=== PATIENT | male | born 1940 | race Caucasian/White ===

== ENCOUNTER 2017-06-13 09:47 | Day surgery (SDC) | payer MEDICARE, BC | END 2017-06-13 11:30 | disposition home or self-care (01) | LOC: SDC-PAIN 09:47 | PROVIDERS: ATTEND Internal Medicine | DX: Z53.21 Procedure and treatment not carried out due to patient leaving prior to being seen by health care provider (principal) ==

== ENCOUNTER 2017-07-04 07:36 | Day surgery (SDC) | payer MEDICARE, BC ==
[2017-07-04] MEDS ORDERED: Lactated Ringers 1,000 ML IV ONE (07:37)
[2017-07-04] MEDS ORDERED: LIDOCAINE HCL 2% 100 MG/5 ML IJ ONE (07:37)
[2017-07-04] MEDS ORDERED: Marcaine 0.5% SDV 10 ML IJ ONE (07:37)
[2017-07-04] MEDS ORDERED: DIPRIVAN 200 MG/20 ML IV ONE (07:37)
[2017-07-04] MEDS ORDERED: Xylocaine-Mpf 2 ML IJ ONE (07:37)
--- NOTE | 2017-07-04 10:05 | XRAY ---
Indication: Right L3-L4 and L4-L5 MBB. Intraoperative fluoroscopy was provided for 23 seconds. 2 digital spot images submitted for interpretation demonstrates 3 posterior spinal needle tips projecting over what appears to be the the right L3, L4, and L5 pedicles. Correlate with intraoperative findings/report.
--- NOTE | 2017-07-04 10:38 | XRAY ---
23 seconds fluoroscopy time in surgery for right L3-L4 and L4-L5 MBB.
--- NOTE | 2017-07-04 14:35 | OP ---
DATE OF PROCEDURE: 07/04/2017 0937 SURGEON: Queenie Kincaid D.O. PREOPERATIVE DIAGNOSIS: Degenerative lumbar spine disease, spondylosis, low back pain. POSTOPERATIVE DIAGNOSIS: Degenerative lumbar spine disease, spondylosis, low back pain. PROCEDURE PERFORMED: Right L4, L3, L2 medial branch block under fluoroscopic guidance. DESCRIPTION OF THE PROCEDURE: The patient was taken to the operating room and placed in the prone position on the table. Skin at the injection site was prepped and draped in sterile fashion. Under fluoroscopy, bony anatomy of the targeted injection site was visualized. Induction agent was given as per anesthesia while vital signs were monitored. Local anesthetic agent of 0.5 cc of 1% lidocaine preservative free was introduced to anesthetize the skin and the subcutaneous tissue through the injection site. Under fluoroscopic guidance, a #20 gauge standard spinal needle was advanced into the target medial branch through the oblique approach. The preservative free 0.5 cc of 1% lidocaine and 0.5 cc of 0.25% Marcaine were injected into each of the targeted medial branch nerve. After the needle was being removed, the skin was cleansed with alcohol and then a bandage was applied. No complications or adverse consequences were observed. The patient was returned to the holding area until stabilized before discharge to home. Preoperative pain level is 9 out of 10 and postoperative pain level is 3 out of 10. The patient will be followed up within ten days after the injection for re-evaluation.
== END 2017-07-04 10:20 | disposition home or self-care (01) ==
LOC: SDC-PAIN 07:36
PROVIDERS: ATTEND Internal Medicine
DX: M54.5 Low back pain (principal); M46.96 Unspecified inflammatory spondylopathy, lumbar region; M54.16 Radiculopathy, lumbar region; M47.26 Other spondylosis with radiculopathy, lumbar region; Z79.891 Long term (current) use of opiate analgesic
CPT/HCPCS: 64493; 64494; 64495; 72020; 76000; J2704

== ENCOUNTER 2017-09-08 17:51 | Emergency (ER) | payer MEDICARE, BC ==
--- NOTE | 2017-09-08 18:12 | ERPHSYRPT ---
<DAVY SANTOS - Last Filed: 09/08/17 18:13> - History of Present Illness Time Seen by Provider: 09/08/17 18:05 Historian: patient Exam Limitations: no limitations Patient Subjective Stated Complaint: Pt states "About a week ago I was walking my dog and I was holding onto the leash with my left hand and he took off after something and pulled me over. My left ribs and back have hurt really bad ever since. It hurts to breath." Triage Nursing Assessment: Pt alert and oriented X 3, skin pwd. pt ambulates holding his left ribs. Pt able to speak in clear full sentences. Physician History: 76 y/o male comes to the ER with complaints of left sided rib pain after falling 1 week ago. Pt states that he was walking his dog and landed on his left side. Pt arrives with a significant amount of pain. Pt describes the pain as sharp, constant, 8/10, worse with deep breathing and not relieved by norco. Pt denies any fever, chills, or shortness of breath. Pt arrives with an O2 sat of 96% on RA. Timing/Duration: week(s) Activities at Onset: none Quality: sharpness Location: other (left rib pain) Chest Pain Radiation: no radiation Severity of Pain-Max: severe Severity of Pain-Current: severe Modifying Factors: Improves With: palpation Associated Symptoms: denies symptoms Prior Chest Pain/Cardiac Workup: no prior chest pain Nitro Today/Relief: no nitro taken today Aspirin Treatment Today: no aspirin today Allergies/Adverse Reactions: Antihistamines - Alkylamine Allergy (Verified 08/25/15 13:28) bacitracin Allergy (Verified 08/25/15 13:28) miconazole nitrate [From Neosporin AF] Allergy (Verified 08/25/15 13:28) NSAIDS (Non-Steroidal Anti-Inflamma Allergy (Verified 08/25/15 13:28) Oyhyzqx-Pvf-Vav Reductase Inhibitor Allergy (Verified 08/25/15 13:28) Home Medications: Amlodipine Besylate 10 mg [Norvasc 10 MG] 10 mg PO QAM 05/06/15 [History] Hydrocodone/APAP 10/325 mg [[place] 10/325 MG Tablet] 1 tab PO Q6H PRN PRN 06/26/17 [History] Hx Tetanus, Diphtheria Vaccination/Date Given: Yes Hx Influenza Vaccination/Date Given: No Hx Pneumococcal Vaccination/Date Given: No Immunizations Up to Date: Yes - Review of Systems Constitutional: No Fever, No Chills Eyes: No Symptoms Ears, Nose, & Throat: No Symptoms Respiratory: No Cough, No Dyspnea, No Dyspnea on Exertion (PERKINS) Cardiac: Chest Pain, No Edema, No Syncope Abdominal/Gastrointestinal: No Abdominal Pain, No Nausea, No Vomiting, No Diarrhea Genitourinary Symptoms: No Dysuria Musculoskeletal: No Back Pain, No Neck Pain Skin: No Rash Neurological: No Dizziness, No Focal Weakness, No Sensory Changes Psychological: No Symptoms Endocrine: No Symptoms All Other Systems: Reviewed and Negative - Past Medical History Pertinent Past Medical History: Yes Neurological History: No Pertinent History ENT History: No Pertinent History Cardiac History: Coronary Artery Disease, Hypertension Respiratory History: No Pertinent History Endocrine Medical History: No Pertinent History Musculoskeletal History: Arthritis GI Medical History: Ulcer History: No Pertinent History Psycho-Social History: No Pertinent History Male Reproductive Disorders: No Pertinent History Other Medical History: Chronic back pain - Past Surgical History Past Surgical History: Yes Neuro Surgical History: No Pertinent History Cardiac: CABG, Cardiac Catheterization, Cardiac Stent Respiratory: No Pertinent History Gastrointestinal: No Pertinent History Genitourinary: No Pertinent History Musculoskeletal: No Pertinent History Male Surgical History: No Pertinent History Other Surgical History: bypass and 4 stents, left knee surgery "cleaned out around the knee", left shoulder surg "removed something that was restricting blood flow because my shoulder just hung." - Social History Smoking Status: Former smoker Exposure to second hand smoke: No Drug Use: none Patient Lives Alone: No - Nursing Vital Signs Nursing Vital Signs: Initial Vital Signs Temperature 99.5 F 09/08/17 17:56 Pulse Rate 82 09/08/17 17:56 Respiratory Rate 20 09/08/17 17:56 Blood Pressure 150/82 09/08/17 17:56 O2 Sat by Pulse Oximetry 96 09/08/17 17:56 Pain Scale Pain Intensity 6 - Physical Exam General Appearance: no apparent distress, alert Eye Exam: PERRL/EOMI, eyes nml inspection Ears, Nose, Throat Exam: normal ENT inspection, moist mucous membranes Neck Exam: normal inspection, non-tender, supple, full range of motion Respiratory Exam: normal breath sounds, chest tenderness, lungs clear, No respiratory distress Cardiovascular Exam: regular rate/rhythm, normal heart sounds Gastrointestinal/Abdomen Exam: soft, No tenderness, No mass Back Exam: normal inspection, No CVA tenderness, No vertebral tenderness Extremity Exam: normal inspection, normal range of motion Neurologic Exam: alert, oriented x 3, cooperative, normal mood/affect, sensation nml, No motor deficits Skin Exam: normal color, warm, dry SpO2: 96 Oxygen Delivery: Room Air Ordered Tests: Active Orders 24 hr Category Date Time Status EKG-ER Only STAT Care 09/08/17 19:11 Active RIBS UNILATERAL Stat Exams 09/08/17 19:50 Taken CBC W DIFF Stat Lab 09/08/17 19:25 Completed CMP Stat Lab 09/08/17 19:25 Completed CULTURE,URINE Stat Lab 09/08/17 19:35 Received LIPASE Stat Lab 09/08/17 19:25 Completed Lactic Acid Stat Lab 09/08/17 19:30 Completed TROPONIN Q3H Lab 09/08/17 19:25 Completed TROPONIN Q3H Lab 09/08/17 22:15 Ordered TROPONIN Q3H Lab 09/09/17 01:15 Ordered TROPONIN Q3H Lab 09/09/17 04:15 Ordered TROPONIN Q3H Lab 09/09/17 07:15 Ordered UA W/ MICROSCOPIC Stat Lab 09/08/17 19:35 Completed Incentive Spirometry Assessmen UD RT 09/08/17 20:20 Active Medication Summary Discontinued Medications Generic Name Dose Route Start Last Admin Trade Name Freq PRN Reason Stop Dose Admin Morphine Sulfate 4 mg 09/08/17 18:16 09/08/17 18:24 Morphine Sulfate 4 Mg Inj IM 09/08/17 18:17 4 mg STAT ONE Administration Morphine Sulfate Confirm 09/08/17 18:21 Morphine Sulfate 4 Mg Inj Administered 09/08/17 18:22 Dose 4 mg .ROUTE .STK-MED ONE Lab/Rad Data: Laboratory Result Diagrams 09/08/17 19:25 09/08/17 19:25 Laboratory Results 09/08/17 09/08/17 09/08/17 Range/Units 19:35 19:30 19:25 WBC (4.0-10.5) K/mm3 RBC (4.1-5.6) M/mm3 Hgb (12.5-18.0) gm/dl Hct (42-50) % MCV (78-100) fl MCH (26-32) pg MCHC (32-36) g/dl RDW (11.5-14.0) % Plt Count (150-450) K/mm3 MPV (6-9.5) fl Gran % (36.0-66.0) % Eos # (Auto) (0-0.5) Absolute Lymphs (auto) (1.0-4.6) Absolute Monos (auto) (0.0-1.3) Lymphocytes % (24.0-44.0) % Monocytes % (0.0-12.0) % Eosinophils % (0.00-5.0) % Basophils % (0.0-0.4) % Absolute Granulocytes (1.4-6.9) Basophils # (0-0.4) Sodium (137-145) mmol/L Potassium (3.5-5.1) mmol/L Chloride (98-107) mmol/L Carbon Dioxide (22-30) mmol/L Anion Gap (5-15) MEQ/L BUN (9-20) mg/dL Creatinine (0.66-1.25) mg/dL Estimated GFR ML/MIN Glucose (74-106) mg/dL Lactic Acid 1.0 (0.4-2.0) Calcium (8.4-10.2) mg/dL Total Bilirubin (0.2-1.3) mg/dL AST (17-59) U/L ALT (0-50) U/L Alkaline Phosphatase (38-126) U/L Troponin I < 0.012 (0.000-0.034) ng/mL Serum Total Protein (6.3-8.2) g/dL Albumin (3.5-5.0) g/dL Lipase (23-300) U/L Ur Collection Type CLEAN CATCH Urine Color YELLOW (YELLOW) Urine Appearance CLEAR (CLEAR) Urine pH 5.0 (5-6) Ur Specific [place] 1.020 (1.005-1.025) Urine Protein NEGATIVE (Negative) Urine Ketones NEGATIVE (NEGATIVE) Urine Blood NEGATIVE (0-5) Sunny/ul Urine Nitrite NEGATIVE (NEGATIVE) Urine Bilirubin NEGATIVE (NEGATIVE) Urine Urobilinogen NORMAL (0-1) mg/dL Ur Leukocyte Esterase 2+ (NEGATIVE) Urine Microscopic RBC 2-5 (0-2) /HPF Urine Microscopic WBC 15-25 (0-5) /HPF Urine Bacteria RARE (NEGATIVE) /HPF Urine Culture Reflexed YES (NO) Urine Glucose NEGATIVE (NEGATIVE) mg/dL Specimen Received 09/08/17193909/08/17 09/08/17 Range/Units 19:25 19:25 WBC 8.9 (4.0-10.5) K/mm3 RBC 4.49 (4.1-5.6) M/mm3 Hgb 12.7 (12.5-18.0) gm/dl Hct 39.4 L (42-50) % MCV 87.8 (78-100) fl MCH 28.3 (26-32) pg MCHC 32.2 (32-36) g/dl RDW 13.5 (11.5-14.0) % Plt Count 399 (150-450) K/mm3 MPV 8.4 (6-9.5) fl Gran % 76.0 H (36.0-66.0) % Eos # (Auto) 0.16 (0-0.5) Absolute Lymphs (auto) 1.25 (1.0-4.6) Absolute Monos (auto) 0.70 (0.0-1.3) Lymphocytes % 14.0 L (24.0-44.0) % Monocytes % 7.9 (0.0-12.0) % Eosinophils % 1.8 (0.00-5.0) % Basophils % 0.3 (0.0-0.4) % Absolute Granulocytes 6.77 (1.4-6.9) Basophils # 0.03 (0-0.4) Sodium 142 (137-145) mmol/L Potassium 3.9 (3.5-5.1) mmol/L Chloride 106 (98-107) mmol/L Carbon Dioxide 25 (22-30) mmol/L Anion Gap 14.3 (5-15) MEQ/L BUN 14 (9-20) mg/dL Creatinine 0.71 (0.66-1.25) mg/dL Estimated GFR > 60.0 ML/MIN Glucose 105 (74-106) mg/dL Lactic Acid (0.4-2.0) Calcium 9.3 (8.4-10.2) mg/dL Total Bilirubin 0.20 (0.2-1.3) mg/dL AST 18 (17-59) U/L ALT 14 (0-50) U/L Alkaline Phosphatase 153 H (38-126) U/L Troponin I (0.000-0.034) ng/mL Serum Total Protein 7.6 (6.3-8.2) g/dL Albumin 3.8 (3.5-5.0) g/dL Lipase 45 (23-300) U/L Ur Collection Type Urine Color (YELLOW) Urine Appearance (CLEAR) Urine pH (5-6) Ur Specific [place] (1.005-1.025) Urine Protein (Negative) Urine Ketones (NEGATIVE) Urine Blood (0-5) Sunny/ul Urine Nitrite (NEGATIVE) Urine Bilirubin (NEGATIVE) Urine Urobilinogen (0-1) mg/dL Ur Leukocyte Esterase (NEGATIVE) Urine Microscopic RBC (0-2) /HPF Urine Microscopic WBC (0-5) /HPF Urine Bacteria (NEGATIVE) /HPF Urine Culture Reflexed (NO) Urine Glucose (NEGATIVE) mg/dL Specimen Received - Departure Clinical Impression: Rib fractures, Chronic low back pain, WBC in urine-asympt Condition: Good Referrals: ENDY COTTON [Primary Care Provider] - Instructions: Rib Fracture (DC) Additional Instructions: continue your incentive breathing at home the next 2 weeks . followup with your Dr. and also for rechecking your urine which could be an infection and may require evaluation or further treatment - unrelated to your fall injury. return meantime if not improving or further concerns , productive cough, short of breath , fever, or other. Prescriptions: Cyclobenzaprine HCl [Flexeril] 10 mg PO TID PRN #14 tablet PRN Reason: Pain <LELAND LOUIS - Last Filed: 09/08/17 20:49> - Course Nursing assessment & vital signs reviewed: Yes EKG Interpreted by Me: Sinus Rhythm, NORMAL AXIS, NORMAL INTERVALS, Non- specific ST Changes - Radiology Exams Left Ribs X-ray Interpretation: Reviewed by me, No Infiltrates, Non-displaced Fracture ( nondisplaced fractures of left lateral mid-lower ribs) Lab/Rad Data: Laboratory Result Diagrams 09/08/17 19:25 09/08/17 19:25 Laboratory Results 09/08/17 09/08/17 09/08/17 Range/Units 19:35 19:30 19:25 WBC (4.0-10.5) K/mm3 RBC (4.1-5.6) M/mm3 Hgb (12.5-18.0) gm/dl Hct (42-50) % MCV (78-100) fl MCH (26-32) pg MCHC (32-36) g/dl RDW (11.5-14.0) % Plt Count (150-450) K/mm3 MPV (6-9.5) fl Gran % (36.0-66.0) % Eos # (Auto) (0-0.5) Absolute Lymphs (auto) (1.0-4.6) Absolute Monos (auto) (0.0-1.3) Lymphocytes % (24.0-44.0) % Monocytes % (0.0-12.0) % Eosinophils % (0.00-5.0) % Basophils % (0.0-0.4) % Absolute Granulocytes (1.4-6.9) Basophils # (0-0.4) Sodium (137-145) mmol/L Potassium (3.5-5.1) mmol/L Chloride (98-107) mmol/L Carbon Dioxide (22-30) mmol/L Anion Gap (5-15) MEQ/L BUN (9-20) mg/dL Creatinine (0.66-1.25) mg/dL Estimated GFR ML/MIN Glucose (74-106) mg/dL Lactic Acid 1.0 (0.4-2.0) Calcium (8.4-10.2) mg/dL Total Bilirubin (0.2-1.3) mg/dL AST (17-59) U/L ALT (0-50) U/L Alkaline Phosphatase (38-126) U/L Troponin I < 0.012 (0.000-0.034) ng/mL Serum Total Protein (6.3-8.2) g/dL Albumin (3.5-5.0) g/dL Lipase (23-300) U/L Ur Collection Type CLEAN CATCH Urine Color YELLOW (YELLOW) Urine Appearance CLEAR (CLEAR) Urine pH 5.0 (5-6) Ur Specific [place] 1.020 (1.005-1.025) Urine Protein NEGATIVE (Negative) Urine Ketones NEGATIVE (NEGATIVE) Urine Blood NEGATIVE (0-5) Sunny/ul Urine Nitrite NEGATIVE (NEGATIVE) Urine Bilirubin NEGATIVE (NEGATIVE) Urine Urobilinogen NORMAL (0-1) mg/dL Ur Leukocyte Esterase 2+ (NEGATIVE) Urine Microscopic RBC 2-5 (0-2) /HPF Urine Microscopic WBC 15-25 (0-5) /HPF Urine Bacteria RARE (NEGATIVE) /HPF Urine Culture Reflexed YES (NO) Urine Glucose NEGATIVE (NEGATIVE) mg/dL Specimen Received 09/08/17193909/08/17 09/08/17 Range/Units 19:25 19:25 WBC 8.9 (4.0-10.5) K/mm3 RBC 4.49 (4.1-5.6) M/mm3 Hgb 12.7 (12.5-18.0) gm/dl Hct 39.4 L (42-50) % MCV 87.8 (78-100) fl MCH 28.3 (26-32) pg MCHC 32.2 (32-36) g/dl RDW 13.5 (11.5-14.0) % Plt Count 399 (150-450) K/mm3 MPV 8.4 (6-9.5) fl Gran % 76.0 H (36.0-66.0) % Eos # (Auto) 0.16 (0-0.5) Absolute Lymphs (auto) 1.25 (1.0-4.6) Absolute Monos (auto) 0.70 (0.0-1.3) Lymphocytes % 14.0 L (24.0-44.0) % Monocytes % 7.9 (0.0-12.0) % Eosinophils % 1.8 (0.00-5.0) % Basophils % 0.3 (0.0-0.4) % Absolute Granulocytes 6.77 (1.4-6.9) Basophils # 0.03 (0-0.4) Sodium 142 (137-145) mmol/L Potassium 3.9 (3.5-5.1) mmol/L Chloride 106 (98-107) mmol/L Carbon Dioxide 25 (22-30) mmol/L Anion Gap 14.3 (5-15) MEQ/L BUN 14 (9-20) mg/dL Creatinine 0.71 (0.66-1.25) mg/dL Estimated GFR > 60.0 ML/MIN Glucose 105 (74-106) mg/dL Lactic Acid (0.4-2.0) Calcium 9.3 (8.4-10.2) mg/dL Total Bilirubin 0.20 (0.2-1.3) mg/dL AST 18 (17-59) U/L ALT 14 (0-50) U/L Alkaline Phosphatase 153 H (38-126) U/L Troponin I (0.000-0.034) ng/mL Serum Total Protein 7.6 (6.3-8.2) g/dL Albumin 3.8 (3.5-5.0) g/dL Lipase 45 (23-300) U/L Ur Collection Type Urine Color (YELLOW) Urine Appearance (CLEAR) Urine pH (5-6) Ur Specific [place] (1.005-1.025) Urine Protein (Negative) Urine Ketones (NEGATIVE) Urine Blood (0-5) Sunny/ul Urine Nitrite (NEGATIVE) Urine Bilirubin (NEGATIVE) Urine Urobilinogen (0-1) mg/dL Ur Leukocyte Esterase (NEGATIVE) Urine Microscopic RBC (0-2) /HPF Urine Microscopic WBC (0-5) /HPF Urine Bacteria (NEGATIVE) /HPF Urine Culture Reflexed (NO) Urine Glucose (NEGATIVE) mg/dL Specimen Received - Progress Progress: improved, re-examined Air Movement: good Progress Note: 09/08/17 19:08 pt received in handoff from Dr Martinez pain is exactly reproduced by palpation of left ribs- no sobreath no chest pressure no fever of cough , chantal diet OK no abd pain , no blood thinners other thatn ASA no dizziness. 09/08/17 20:32 discussed risks of developing pneumonia and other complications with pt and need for incentive spirometry to help prevent this and we will do a trial here in ER and decide dispo depending on how pt tolerates . THe pt did excellent with his incentive kennedy discussed risk/benefit of admit vs dc to f/u PCP and pt prefers DC which is reasonable given his performance . discussed adding muscle relaxant and pt has tolerated before . advised of possible asympt UTI and we both agree to hold ab pending re-eval with PCP . Blood Culture(s) Obtained: No Antibiotics given: No Counseled pt/family regarding: lab results, diagnosis, need for follow-up, rad results - Departure Time of Disposition: 20:42 Departure Disposition: Home Critical Care Time: No
[2017-09-08] MEDS ORDERED: MORPHINE SULFATE 4 MG INJ IM ONE (18:16)
[2017-09-08] MEDS ORDERED: MORPHINE SULFATE 4 MG INJ ONE (18:21)
[2017-09-08 19:29] VITALS: BP 133/80; PULSE 62; O2SAT 98
[2017-09-08 19:36] LABS: BASOPHIL % 0.3 % (0.0-0.4); Basophil (Absolute #) 0.03 (0-0.4); Eosinophil % 1.8 % (0.00-5.0); Eosinophil (Absolute #) 0.16 (0-0.5); Granulocyte Absolute (ANC) 6.77 (1.4-6.9); Hematocrit 39.4 % (42-50); Hemoglobin 12.7 gm/dl (12.5-18.0); Lymphocyte (Absolute #) 1.25 (1.0-4.6); Mean Cell Volume 87.8 fl (78-100); Mean Corpuscular Hemoglobin 28.3 pg (26-32); Mean Corpuscular Hgb Concent. 32.2 g/dl (32-36); Mean Platelet Volume 8.4 fl (6-9.5); Monocytes % 7.9 % (0.0-12.0); Platelet Count 399 K/mm3 (150-450); Red Blood Count 4.49 M/mm3 (4.1-5.6); Red Cell Distribution Width 13.5 % (11.5-14.0); White Blood Count 8.9 K/mm3 (4.0-10.5)
[2017-09-08 19:52] LABS: ALBUMIN 3.8 g/dL (3.5-5.0); ALKALINE PHOSPHATASE 153 U/L (38-126); ANION GAP 14.3 MEQ/L (5-15); BLOOD UREA NITROGEN 14 mg/dL (9-20); CHLORIDE 106 mmol/L (98-107); Calcium 9.3 mg/dL (8.4-10.2); Carbon Dioxide 25 mmol/L (22-30); Creatinine 1 0.71 mg/dL (0.66-1.25); Glucose 105 mg/dL (74-106); LIPASE 45 U/L (23-300); Potassium 3.9 mmol/L (3.5-5.1); SGOT/AST 18 U/L (17-59); SGPT/ALT 14 U/L (0-50); SODIUM 142 mmol/L (137-145); Total Protein 7.6 g/dL (6.3-8.2)
[2017-09-08 20:06] LABS: Appearance CLEAR (CLEAR); Bilirubin NEGATIVE (NEGATIVE); Blood NEGATIVE Ery/ul (0-5); Glucose NEGATIVE (NEGATIVE); Ketones NEGATIVE (NEGATIVE); Leukocyte Esterase 2+ (NEGATIVE); Nitrite NEGATIVE (NEGATIVE); Protein,Urine Dip NEGATIVE (Negative); Urobilinogen NORMAL mg/dL (0-1)
[2017-09-08 20:08] LABS: WBC 15-25 /HPF (0-5)
[2017-09-08 20:09] LABS: Bacteria RARE /HPF (NEGATIVE)
[2017-09-08] MEDS ORDERED: Cyclobenzaprine 10 MG PO ONE (20:49)
--- NOTE | 2017-09-08 21:24 | XRAY ---
Indication: Pain following fall. Comparison: None 2 views of the left ribs demonstrates age-related osteopenia, minimal multilevel spinal degenerative changes, a few pulmonary calcified granulomas, and CABG surgery. No acute fracture or suspicious bony lesions. Heart is not enlarged. There is a large right midlung masslike opacity, new since chest exam May 06, 2015. Impression: 1. Negative acute fracture. 2. Osteopenia and evidence for old granulomatous disease. 3. Right midlung masslike opacity. Correlate clinically. CT chest may yield further information. Comment: Right lung finding not reported on preliminary interpretation by the ER clinician. Telephone report given to Dr. Goddard at 2117 hrs. on September 08, 2017.
== END 2017-09-08 21:06 | disposition home or self-care (01) ==
LOC: ED 17:51
DX: S22.32XA Fracture of one rib, left side, initial encounter for closed fracture (principal); M54.5 Low back pain; R82.99 Other abnormal findings in urine; R91.8 Other nonspecific abnormal finding of lung field; Z79.899 Other long term (current) drug therapy; W01.0XXA Fall on same level from slipping, tripping and stumbling without subsequent striking against object, initial encounter; Y93.K1 Activity, walking an animal
CPT/HCPCS: 36415; 71100; 80053; 81000; 83605; 83690; 84484; 85025; 87086; 93005; 96372; 99284; J2270

== ENCOUNTER 2017-10-06 02:07 | Emergency (ER) | payer MEDICARE, BC ==
[2017-10-06] MEDS ORDERED: Zofran 4 MG/2 ML VIAL IV ONE (03:15)
[2017-10-06] MEDS ORDERED: MORPHINE SULFATE 4 MG INJ IV ONE (03:15)
--- NOTE | 2017-10-06 03:15 | ERPHSYRPT ---
- History of Present Illness Time Seen by Provider: 10/06/17 03:00 Historian: patient, family Exam Limitations: no limitations Patient Subjective Stated Complaint: pt co irregular heartrate and htn at home; also co right side back and rib pain; has been intermittently for approx 3 days ; felt like his head was going to explode at home earlier this pm. Triage Nursing Assessment: pt a&o x3; skin p, w, & d; ambulated to room per self ; spouse at bedside; no other distress noted at this time. Physician History: 77 y/o male comes to the ER with complaints of right sided chest pain that started this evening. Pt states that he had broken ribs on the left side. Pt also admits to having elevated SBP in the 190's with headache and took nitro. Pt arrives with a SBP in the 130's and has no headache. Pt describes the pain as sharp, constant, 8/10, worse with deep breaths and not relieved by norco. Timing/Duration: today Activities at Onset: none Quality: sharpness Location: other (right sided chest pain) Chest Pain Radiation: no radiation Severity of Pain-Max: severe Severity of Pain-Current: severe Modifying Factors: Improves With: nothing Associated Symptoms: denies symptoms Prior Chest Pain/Cardiac Workup: no prior chest pain Aspirin Treatment Today: no aspirin today Allergies/Adverse Reactions: Antihistamines - Alkylamine Allergy (Verified 10/06/17 02:24) bacitracin Allergy (Verified 10/06/17 02:24) miconazole nitrate [From Neosporin AF] Allergy (Verified 10/06/17 02:24) NSAIDS (Non-Steroidal Anti-Inflamma Allergy (Verified 10/06/17 02:24) [id number] Reductase Inhibitor Allergy (Verified 10/06/17 02:24) cyclobenzaprine Adverse Reaction (Verified 10/06/17 02:25) Irregular Heart Beat Home Medications: Amlodipine Besylate 10 mg [Norvasc 10 MG] 10 mg PO QAM 05/06/15 [History] Hydrocodone/APAP 10/325 mg [[place] 10/325 MG Tablet] 1 tab PO Q6H PRN PRN 06/26/17 [History] Hx Tetanus, Diphtheria Vaccination/Date Given: Yes Hx Influenza Vaccination/Date Given: No Hx Pneumococcal Vaccination/Date Given: Yes Immunizations Up to Date: Yes - Review of Systems Constitutional: No Fever, No Chills Eyes: No Symptoms Ears, Nose, & Throat: No Symptoms Respiratory: No Cough, No Dyspnea Cardiac: Chest Pain, No Edema, No Syncope Abdominal/Gastrointestinal: No Abdominal Pain, No Nausea, No Vomiting, No Diarrhea Genitourinary Symptoms: No Dysuria Musculoskeletal: No Back Pain, No Neck Pain Skin: No Rash Neurological: No Dizziness, No Focal Weakness, No Sensory Changes Psychological: No Symptoms Endocrine: No Symptoms All Other Systems: Reviewed and Negative - Past Medical History Pertinent Past Medical History: Yes Neurological History: No Pertinent History ENT History: No Pertinent History Cardiac History: Coronary Artery Disease, Hypertension Respiratory History: No Pertinent History Endocrine Medical History: No Pertinent History Musculoskeletal History: Arthritis GI Medical History: Ulcer History: No Pertinent History Psycho-Social History: No Pertinent History Male Reproductive Disorders: No Pertinent History Other Medical History: Chronic back pain - Past Surgical History Past Surgical History: Yes Neuro Surgical History: No Pertinent History Cardiac: CABG, Cardiac Catheterization, Cardiac Stent Respiratory: No Pertinent History Gastrointestinal: No Pertinent History Genitourinary: No Pertinent History Musculoskeletal: No Pertinent History Male Surgical History: No Pertinent History Other Surgical History: bypass and 4 stents, left knee surgery "cleaned out around the knee", left shoulder surg "removed something that was restricting blood flow because my shoulder just hung." - Social History Smoking Status: Former smoker Exposure to second hand smoke: No Drug Use: none Patient Lives Alone: No - Nursing Vital Signs Nursing Vital Signs: Initial Vital Signs Temperature 97.9 F 10/06/17 02:14 Pulse Rate 86 10/06/17 02:14 Respiratory Rate 18 10/06/17 02:14 Blood Pressure 134/75 10/06/17 02:14 O2 Sat by Pulse Oximetry 98 10/06/17 02:14 Pain Scale Pain Intensity 0 - Physical Exam General Appearance: no apparent distress, alert Eye Exam: PERRL/EOMI, eyes nml inspection Ears, Nose, Throat Exam: normal ENT inspection, moist mucous membranes Neck Exam: normal inspection, non-tender, supple, full range of motion Respiratory Exam: normal breath sounds, chest tenderness, lungs clear, No respiratory distress Cardiovascular Exam: regular rate/rhythm, normal heart sounds Gastrointestinal/Abdomen Exam: soft, No tenderness, No mass Back Exam: normal inspection, No CVA tenderness, No vertebral tenderness Extremity Exam: normal inspection, normal range of motion Neurologic Exam: alert, oriented x 3, cooperative, normal mood/affect, sensation nml, No motor deficits Skin Exam: normal color, warm, dry SpO2 Interpretation: normal SpO2: 98 Oxygen Delivery: Room Air - Course Nursing assessment & vital signs reviewed: Yes EKG Interpreted by Me: RATE, NORMAL AXIS, NORMAL INTERVALS, NORMAL QRS Ordered Tests: Active Orders 24 hr Category Date Time Status Residential Sales Representative STAT Care 10/06/17 03:16 Active EKG-ER Only STAT Care 10/06/17 03:15 Active IV Insertion STAT Care 10/06/17 03:15 Active CHEST 2 VIEWS (PA AND LAT) Stat Exams 10/06/17 03:15 Completed CHEST WITH CONTRAST [CT] Stat Exams 10/06/17 04:21 Completed CBC W DIFF Stat Lab 10/06/17 02:30 Completed CK-Creatinine Phosphokinase Stat Lab 10/06/17 02:30 Completed CMP Stat Lab 10/06/17 02:30 Completed D-DIMER QUANTITATION Stat Lab 10/06/17 02:30 Completed TROPONIN Q3H Lab 10/06/17 02:30 Completed Medication Summary Discontinued Medications Generic Name Dose Route Start Last Admin Trade Name Freq PRN Reason Stop Dose Admin Morphine Sulfate 4 mg 10/06/17 03:15 10/06/17 03:28 Morphine Sulfate 4 Mg Inj IV 10/06/17 03:16 4 mg STAT ONE Administration Morphine Sulfate Confirm 10/06/17 03:24 Morphine Sulfate 4 Mg Inj Administered 10/06/17 03:25 Dose 4 mg .ROUTE .STK-MED ONE Ondansetron HCl 4 mg 10/06/17 03:15 10/06/17 03:27 Zofran 4 Mg/2 Ml Vial IV 10/06/17 03:16 4 mg STAT ONE Administration Ondansetron HCl Confirm 10/06/17 03:24 Zofran 4 Mg/2 Ml Vial Administered 10/06/17 03:25 Dose 4 mg .ROUTE .STK-MED ONE Lab/Rad Data: Laboratory Result Diagrams 10/06/17 02:30 10/06/17 02:30 Laboratory Results 10/06/17 10/06/17 10/06/17 Range/Units 02:30 02:30 02:30 WBC 10.3 (4.0-10.5) K/mm3 RBC 4.27 (4.1-5.6) M/mm3 Hgb 11.7 L (12.5-18.0) gm/dl Hct 37.4 L (42-50) % MCV 87.6 (78-100) fl MCH 27.4 (26-32) pg MCHC 31.3 L (32-36) g/dl RDW 13.5 (11.5-14.0) % Plt Count 465 H (150-450) K/mm3 MPV 9.0 (6-9.5) fl Gran % 75.2 H (36.0-66.0) % Eos # (Auto) 0.30 (0-0.5) Absolute Lymphs (auto) 1.38 (1.0-4.6) Absolute Monos (auto) 0.84 (0.0-1.3) Lymphocytes % 13.4 L (24.0-44.0) % Monocytes % 8.1 (0.0-12.0) % Eosinophils % 2.9 (0.00-5.0) % Basophils % 0.4 (0.0-0.4) % Absolute Granulocytes 7.77 H (1.4-6.9) Basophils # 0.04 (0-0.4) D-Dimer 605 H* (215-500) ng/mL Sodium 142 (137-145) mmol/L Potassium 3.5 (3.5-5.1) mmol/L Chloride 106 (98-107) mmol/L Carbon Dioxide 25 (22-30) mmol/L Anion Gap 14.2 (5-15) MEQ/L BUN 19 (9-20) mg/dL Creatinine 0.88 (0.66-1.25) mg/dL Estimated GFR > 60.0 ML/MIN Glucose 117 H (74-106) mg/dL Calcium 9.2 (8.4-10.2) mg/dL Total Bilirubin 0.20 (0.2-1.3) mg/dL AST 13 L (17-59) U/L ALT 14 (0-50) U/L Alkaline Phosphatase 183 H (38-126) U/L Creatine Kinase 29 L (55-170) U/L Troponin I (0.000-0.034) ng/mL Serum Total Protein 7.6 (6.3-8.2) g/dL Albumin 4.0 (3.5-5.0) g/dL 10/06/17 Range/Units 02:30 WBC (4.0-10.5) K/mm3 RBC (4.1-5.6) M/mm3 Hgb (12.5-18.0) gm/dl Hct (42-50) % MCV (78-100) fl MCH (26-32) pg MCHC (32-36) g/dl RDW (11.5-14.0) % Plt Count (150-450) K/mm3 MPV (6-9.5) fl Gran % (36.0-66.0) % Eos # (Auto) (0-0.5) Absolute Lymphs (auto) (1.0-4.6) Absolute Monos (auto) (0.0-1.3) Lymphocytes % (24.0-44.0) % Monocytes % (0.0-12.0) % Eosinophils % (0.00-5.0) % Basophils % (0.0-0.4) % Absolute Granulocytes (1.4-6.9) Basophils # (0-0.4) D-Dimer (215-500) ng/mL Sodium (137-145) mmol/L Potassium (3.5-5.1) mmol/L Chloride (98-107) mmol/L Carbon Dioxide (22-30) mmol/L Anion Gap (5-15) MEQ/L BUN (9-20) mg/dL Creatinine (0.66-1.25) mg/dL Estimated GFR ML/MIN Glucose (74-106) mg/dL Calcium (8.4-10.2) mg/dL Total Bilirubin (0.2-1.3) mg/dL AST (17-59) U/L ALT (0-50) U/L Alkaline Phosphatase (38-126) U/L Creatine Kinase (55-170) U/L Troponin I < 0.012 (0.000-0.034) ng/mL Serum Total Protein (6.3-8.2) g/dL Albumin (3.5-5.0) g/dL - Progress Progress: improved Air Movement: good Progress Note: 10/06/17 06:19 D-dimer is over 600. The rest of the labs are within normal limits. Pt feels better after receiving morphine. Pt will be switched over to percocet for pain control. 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 - Departure Time of Disposition: 06:49 Departure Disposition: Home Clinical Impression: Lung mass Chest pain Qualifiers: Chest pain type: other chest pain Qualified Code(s): R07.89 - Other chest pain Condition: Stable Critical Care Time: No Referrals: GEORGE AUGUSTE [COURTESY STAFF] - Instructions: Chest Pain (DC) Additional Instructions: Follow up with oncologist, Dr. Auguste at the [facility], 2nd Floor on Sunday morning at 8 am. Address: [address] [place] [address], [place], [place] STOP Vicodin and start on Percocet for chest pain. Prescriptions: Oxycodone HCl/Acetaminophen [Percocet 5-325 mg Tablet] 1 each PO QID PRN 7 Days #30 tablet MDD 4 PRN Reason: Pain
[2017-10-06] MEDS ORDERED: MORPHINE SULFATE 4 MG INJ ONE (03:24)
[2017-10-06] MEDS ORDERED: Zofran 4 MG/2 ML VIAL ONE (03:24)
[2017-10-06 03:40] LABS: BASOPHIL % 0.4 % (0.0-0.4); Basophil (Absolute #) 0.04 (0-0.4); Eosinophil % 2.9 % (0.00-5.0); Granulocyte Absolute (ANC) 7.77 (1.4-6.9); Granulocytes % 75.2 % (36.0-66.0); Hematocrit 37.4 % (42-50); Hemoglobin 11.7 gm/dl (12.5-18.0); Lymphocyte (Absolute #) 1.38 (1.0-4.6); Lymphocytes % 13.4 % (24.0-44.0); Mean Cell Volume 87.6 fl (78-100); Mean Corpuscular Hemoglobin 27.4 pg (26-32); Mean Corpuscular Hgb Concent. 31.3 g/dl (32-36); Monocyte (Absolute #) 0.84 (0.0-1.3); Monocytes % 8.1 % (0.0-12.0); Platelet Count 465 K/mm3 (150-450); Red Blood Count 4.27 M/mm3 (4.1-5.6); Red Cell Distribution Width 13.5 % (11.5-14.0); White Blood Count 10.3 K/mm3 (4.0-10.5)
[2017-10-06 03:59] LABS: ALKALINE PHOSPHATASE 183 U/L (38-126); ANION GAP 14.2 MEQ/L (5-15); BLOOD UREA NITROGEN 19 mg/dL (9-20); CHLORIDE 106 mmol/L (98-107); CK-Creatinine Phosphokinase 29 U/L (55-170); Calcium 9.2 mg/dL (8.4-10.2); Carbon Dioxide 25 mmol/L (22-30); Creatinine 1 0.88 mg/dL (0.66-1.25); Glucose 117 mg/dL (74-106); Potassium 3.5 mmol/L (3.5-5.1); SGOT/AST 13 U/L (17-59); SGPT/ALT 14 U/L (0-50); SODIUM 142 mmol/L (137-145); Total Protein 7.6 g/dL (6.3-8.2)
[2017-10-06 07:19] VITALS: BP 128/57; PULSE 70
--- NOTE | 2017-10-06 07:54 | XRAY ---
Indication: Right chest pain, palpitations, abnormal chest radiograph, and elevated d-dimer. Multiple contiguous axial images obtained through the chest using 80 cc Isovue 370 contrast and PE protocol. Comparison: None There is good opacification of the pulmonary arteries to include the lobar and segmental branches. No filling defect or pulmonary embolus. Heart is not enlarged and demonstrates previous CABG surgery. Minimal aortic calcifications without aneurysm/dissection. A few small mediastinal lymph nodes, largest precarinal measuring 14 x 15 mm. Right suprahilar calcified node. Examination of the lung parenchyma demonstrates a large rounded right upper lobe noncalcified masslike opacity in the posterior inferior right upper lobe measuring 7 cm in greatest axial dimension with central areas of hypoattenuation concerning for necrosis. Mass also demonstrates peripheral interstitial alveolar opacities. Remaining lungs demonstrates mild emphysema, minimal bibasilar dependent atelectasis, peripheral fibrosis/scarring, and left upper lobe calcified granuloma. No effusion. Bony thorax intact with incidental prominent superior T11 Schmorl node and vertebral hemangioma. Limited upper abdomen demonstrates mild fatty liver and 15.8 cm splenomegaly. Impression: 1. Negative pulmonary embolus. 2. Large right upper lobe noncalcified mass as detailed worrisome for malignancy. Central areas of necrosis suggested. Finding is amenable to either CT-guided or bronchoscopic guided biopsy if needed. 3. Incidental pulmonary emphysema, scattered fibrosis/scarring, and evidence for old granulomatous disease. 4. 15.8 cm splenomegaly and fatty liver. Comment: Preliminary interpretation was made by [facility]. No discrepancy. CTDI 26.67
--- NOTE | 2017-10-06 07:56 | XRAY ---
Indication: Right chest pain. Comparison: May 06, 2015. PA/lateral chest demonstrates new large right upper lobe masslike opacity further detailed on same-day CT chest exam. Remaining heart, lungs, and bony thorax unremarkable again with previous CABG surgery.
[2017-10-06 22:38] VITALS: O2SAT 98
== END 2017-10-06 07:19 | disposition home or self-care (01) ==
LOC: ED 02:07
DX: R91.8 Other nonspecific abnormal finding of lung field (principal); R07.9 Chest pain, unspecified; Z79.899 Other long term (current) drug therapy
CPT/HCPCS: 36000; 36415; 71046; 71260; 80053; 82550; 84484; 85025; 85379; 93005; 93041; 96374; 96375; 99284; J2270; J2405

== ENCOUNTER 2018-03-06 21:27 | Emergency (ER) | payer MEDICARE, BC ==
[2018-03-06] MEDS ORDERED: PROVENTIL 2.5 MG/3 ML NEB IH ONE ×2 (22:21→22:27)
--- NOTE | 2018-03-06 22:27 | ERPHSYRPT ---
- History of Present Illness Time Seen by Provider: 03/06/18 22:16 Source: patient Exam Limitations: no limitations Patient Subjective Stated Complaint: pt complained of being short of breath. moist cough noted, nonproductive. started having a cough Sunday and getting worse. Triage Nursing Assessment: pt ambulated into treatment area complaining of SOA. o2 sat 96% RA. denies treatments at home. moist cough noted. persistent cough noted. rubs noted to right lung field. pt had R lobectomy in 1999, 4 stents placed, bypass surgery in 1999 Physician History: 77-year-old white male arrives with complaint of a moist cough nonproductive since 2 days, his states she's actually been coughing for a week he has not had any fevers no nausea no vomiting no chest pain. Patient does have a history of right lung partial resection secondary to cancer 2 months ago. Past medical history includes lung cancer, coronary artery disease, high blood pressure, ulcers, arthritis, chronic back pain, Past surgical history includes cardiac catheterization, cardiac stents, CABG, left knee surgery, left shoulder surgery, left lung 2 lobes removed Social history former smoker Timing/Duration: other (symptoms for a week worse the past 2 days ) Severity of Dyspnea-Max: moderate Severity of Dyspnea-Current: moderate Possible Cause: no prior episodes Modifying Factors: Improves With: nothing. Worsens With: activity Associated Symptoms: constant, cough, wheezing, No intermittent, No anxiety, No chest pain/discomfort, No edema, No fever, No insomnia, No loss of appetite, No lightheadedness, No weakness, No ankle swelling, No chills, No hemoptysis, No calf pain, No dizziness, No heaviness, No heart racing, No lightheadedness, No leg swelling, No muscle spasms feet, No muscle spasms hands, No painful breathing, No productive cough, No sweating, No tightness, No tingling face, No tingling hands International travel in last 2 weeks: No Allergies/Adverse Reactions: Antihistamines - Alkylamine Allergy (Verified 10/06/17 02:24) bacitracin Allergy (Verified 10/06/17 02:24) miconazole nitrate [From Neosporin AF] Allergy (Verified 10/06/17 02:24) NSAIDS (Non-Steroidal Anti-Inflamma Allergy (Verified 10/06/17 02:24) Notdldk-Veg-Fjo Reductase Inhibitor Allergy (Verified 10/06/17 02:24) cyclobenzaprine Adverse Reaction (Verified 10/06/17 02:25) Irregular Heart Beat Home Medications: Amlodipine Besylate 10 mg [Norvasc 10 MG] 10 mg PO QAM 05/06/15 [History] Oxycodone HCl/Acetaminophen [Percocet 5-325 mg Tablet] 10 mg PO Q4HPRN PRN MDD 4 03/06/18 [History] Hx Tetanus, Diphtheria Vaccination/Date Given: Yes Hx Influenza Vaccination/Date Given: No Hx Pneumococcal Vaccination/Date Given: Yes - Review of Systems Constitutional: No Fever, No Chills Eyes: No Symptoms Ears, Nose, & Throat: No Symptoms Respiratory: Cough, Dyspnea, Dyspnea on Exertion (PERKINS), Wheezing, No Cyanosis, No Stridor Cardiac: No Chest Pain, No Edema, No Syncope Abdominal/Gastrointestinal: No Abdominal Pain, No Nausea, No Vomiting, No Diarrhea Genitourinary Symptoms: No Dysuria Musculoskeletal: No Back Pain, No Neck Pain Skin: No Rash Neurological: No Dizziness, No Focal Weakness, No Sensory Changes Psychological: No Symptoms Endocrine: No Symptoms All Other Systems: Reviewed and Negative - Past Medical History Pertinent Past Medical History: Yes Neurological History: No Pertinent History ENT History: No Pertinent History Cardiac History: Coronary Artery Disease, Hypertension Respiratory History: No Pertinent History Endocrine Medical History: No Pertinent History Musculoskeletal History: Arthritis GI Medical History: Ulcer History: No Pertinent History Psycho-Social History: No Pertinent History Male Reproductive Disorders: No Pertinent History Other Medical History: Chronic back pain - Past Surgical History Past Surgical History: Yes Neuro Surgical History: No Pertinent History Cardiac: CABG, Cardiac Catheterization, Cardiac Stent Respiratory: No Pertinent History Gastrointestinal: No Pertinent History Genitourinary: No Pertinent History Musculoskeletal: No Pertinent History Male Surgical History: No Pertinent History Other Surgical History: bypass and 4 stents, left knee surgery "cleaned out around the knee", left shoulder surg "removed something that was restricting blood flow because my shoulder just hung." - Social History Smoking Status: Former smoker Exposure to second hand smoke: No Drug Use: none Patient Lives Alone: No - Nursing Vital Signs Nursing Vital Signs: Initial Vital Signs Temperature 98.0 F 03/06/18 21:28 Pulse Rate 83 03/06/18 21:28 Respiratory Rate 27 H 03/06/18 21:28 Blood Pressure 160/79 03/06/18 21:28 O2 Sat by Pulse Oximetry 96 03/06/18 21:28 Pain Scale Pain Intensity 9 - Physical Exam General Appearance: mild distress, alert Eye Exam: PERRL/EOMI Ears, Nose, Throat Exam: hearing grossly normal, normal ENT inspection, normal pharynx, No abnormal TM (R), No abnormal TM (L), No sinus pain/drainage, No hearing decreased, No nasal congestion, No pharyngeal erythema, No tonsillar exudate, No tonsillar swelling Neck Exam: normal inspection, supple Respiratory Exam: diminished breath sounds, wheezing Cardiovascular/Chest Exam: normal heart sounds, regular rate/rhythm Abdominal/Gastrointestinal Exam: soft, No tenderness, No distention, No mass Extremity Exam: non-tender, normal range of motion, normal inspection, no calf tenderness, no pedal edema Peripheral Pulses Exam: dorsalis-pedis (R): 2+, dorsalis-pedis (L): 2+ Neurologic Exam: alert, oriented x 3, cooperative, conference services director II-XII nml as tested, normal mood/affect, sensation nml, No motor deficits Skin Exam: normal color, warm, No dry SpO2 Interpretation: normal (92%) SpO2: 92 Oxygen Delivery: Room Air - Course Nursing assessment & vital signs reviewed: Yes EKG Interpreted by Me: RATE (80 bpm), Sinus Rhythm, NORMAL AXIS (yourself yesterday she little superficial l of 4 I can't refill it she i but she isn't n but she's tried to harm), Other (EKG: Sinus rhythm, 80 beats per minute, normal axis, no acute ST or T wave changes, normal EKG) - CT Exams Chest CT Interpretation: Tele-radiologist Report (CT chest with contrast impression: Main in central segmental pulmonary artery branches are without filling defects to sugg More peripheral segmemental branches are not adequately opacified. Interstitial pulmonary edema with small right sided pleural effusion.) Ordered Tests: Active Orders 24 hr Category Date Time Status EKG-ER Only STAT Care 03/06/18 22:21 Active IV Insertion STAT Care 03/06/18 22:21 Active Pulse Oximetry (ED) STAT Care 03/06/18 22:21 Active CHEST 1 VIEW (PORTABLE) Stat Exams 03/06/18 22:21 Taken CHEST WITH CONTRAST [CT] Stat Exams 03/06/18 23:32 Taken BLOOD CULTURE Stat Lab 03/06/18 22:40 Received CBC W DIFF Stat Lab 03/06/18 22:30 Completed CMP Stat Lab 03/06/18 22:30 Completed CULTURE,SPUTUM Stat Lab 03/06/18 22:21 Uncollected D-DIMER QUANTITATION Stat Lab 03/06/18 22:30 Completed Lactic Acid Stat Lab 03/06/18 22:35 Completed NT PRO BNP Stat Lab 03/06/18 22:30 Completed TROPONIN Q3H Lab 03/06/18 22:30 Completed TROPONIN Q3H Lab 03/07/18 01:30 Ordered TROPONIN Q3H Lab 03/07/18 04:30 Ordered TROPONIN Q3H Lab 03/07/18 07:30 Ordered TROPONIN Q3H Lab 03/07/18 10:30 Ordered VENOUS BLOOD GAS Stat Lab 03/06/18 22:35 Completed Peak Expiratory Flow Rate ONCE RT 03/06/18 22:55 Active Respiratory Therapy Assessment DAILY RT 03/06/18 22:55 Active Medication Summary Discontinued Medications Generic Name Dose Route Start Last Admin Trade Name Freq PRN Reason Stop Dose Admin Albuterol Sulfate 2.5 mg 03/06/18 22:21 03/06/18 22:31 Proventil 2.5 Mg/3 Ml Neb IH 03/06/18 22:22 2.5 mg STAT ONE Administration Albuterol Sulfate Confirm 03/06/18 22:27 Proventil 2.5 Mg/3 Ml Neb Administered 03/06/18 22:28 Dose 2.5 mg IH .STK-MED ONE Ceftriaxone Sodium/Dextrose 1 g in 50 mls @ 100 mls/hr 03/06/18 23:35 01:22 Rocephin 1 Gm-D5w 50 Ml Bag IV 03/07/18 00:04 Infused STAT STA Infusion Ceftriaxone Sodium/Dextrose Confirm 03/07/18 00:37 Rocephin 1 Gm-D5w 50 Ml Bag Administered 03/07/18 00:38 Dose 1 g in 50 mls @ ud IV .STK-MED ONE Methylprednisolone Sodium Succinate 125 mg 03/06/18 23:35 03/07/18 00:40 Solu-Medrol 125 Mg IV 03/06/18 23:36 125 mg STAT ONE Administration Methylprednisolone Sodium Succinate Confirm 03/07/18 00:37 Solu-Medrol 125 Mg Administered 03/07/18 00:38 Dose 125 mg .ROUTE .STK-MED ONE Oxycodone/Acetaminophen 1 tab 03/07/18 00:04 03/07/18 00:07 Percocet Tablet 5/325mg PO 03/07/18 00:05 1 tab STAT STA Administration Oxycodone/Acetaminophen Confirm 03/07/18 00:06 Percocet Tablet 5/325mg Administered 03/07/18 00:07 Dose 1 tab .ROUTE .STK-MED ONE Lab/Rad Data: Laboratory Result Diagrams 03/06/18 22:30 03/06/18 22:30 Laboratory Results 03/06/18 03/06/18 03/06/18 Range/Units 22:40 22:35 22:30 WBC (4.0-10.5) K/mm3 RBC (4.1-5.6) M/mm3 Hgb (12.5-18.0) gm/dl Hct (42-50) % MCV (78-100) fl MCH (26-32) pg MCHC (32-36) g/dl RDW (11.5-14.0) % Plt Count (150-450) K/mm3 MPV (6-9.5) fl Gran % (36.0-66.0) % Eos # (Auto) (0-0.5) Absolute Lymphs (auto) (1.0-4.6) Absolute Monos (auto) (0.0-1.3) Lymphocytes % (24.0-44.0) % Monocytes % (0.0-12.0) % Eosinophils % (0.00-5.0) % Basophils % (0.0-0.4) % Absolute Granulocytes (1.4-6.9) Basophils # (0-0.4) D-Dimer (215-500) ng/mL pO2/FiO2 Ratio 21.0 % VBG pH 7.39 (7.32-7.42) VBG pCO2 at Pat Temp 45 (42-55) mm/Hg VBG pO2 at Pat Temp 38 (25-40) mm/Hg VBG HCO3 27.2 (22-28) meq/L VBG O2 Sat (Britni) 77.4 L (95-100) VBG Base Excess 1.7 (-2.0-2.0) VBG Hemoglobin 13.5 VBG Carboxyhemoglobin 2.1 (0.0-6.9) % T HGB POC Potassium 4.2 (3.5-5.1) Sodium (137-145) mmol/L Potassium (3.5-5.1) mmol/L Chloride (98-107) mmol/L Carbon Dioxide (22-30) mmol/L Anion Gap (5-15) MEQ/L BUN (9-20) mg/dL Creatinine (0.66-1.25) mg/dL Estimated GFR ML/MIN Glucose (74-106) mg/dL Lactic Acid 1.1 (0.4-2.0) Calcium (8.4-10.2) mg/dL Total Bilirubin (0.2-1.3) mg/dL AST (17-59) U/L ALT (0-50) U/L Alkaline Phosphatase (38-126) U/L Troponin I < 0.012 (0.000-0.034) ng/mL NT-Pro-B Natriuret Pep (0-1800) pg/mL Serum Total Protein (6.3-8.2) g/dL Albumin (3.5-5.0) g/dL Influenza Type A Ag NEGATIVE (NEGATIVE) Influenza Type B Ag NEGATIVE (NEGATIVE) RSV (PCR) NEGATIVE (Negative) 03/06/18 03/06/18 03/06/18 Range/Units 22:30 22:30 22:30 WBC 5.9 (4.0-10.5) K/mm3 RBC 4.81 (4.1-5.6) M/mm3 Hgb 13.2 (12.5-18.0) gm/dl Hct 41.9 L (42-50) % MCV 87.1 (78-100) fl MCH 27.4 (26-32) pg MCHC 31.5 L (32-36) g/dl RDW 15.4 H (11.5-14.0) % Plt Count 279 (150-450) K/mm3 MPV 9.0 (6-9.5) fl Gran % 76.6 H (36.0-66.0) % Eos # (Auto) 0.29 (0-0.5) Absolute Lymphs (auto) 0.61 L (1.0-4.6) Absolute Monos (auto) 0.47 (0.0-1.3) Lymphocytes % 10.3 L (24.0-44.0) % Monocytes % 7.9 (0.0-12.0) % Eosinophils % 4.9 (0.00-5.0) % Basophils % 0.3 (0.0-0.4) % Absolute Granulocytes 4.55 (1.4-6.9) Basophils # 0.02 (0-0.4) D-Dimer 891 H* (215-500) ng/mL pO2/FiO2 Ratio % VBG pH (7.32-7.42) VBG pCO2 at Pat Temp (42-55) mm/Hg VBG pO2 at Pat Temp (25-40) mm/Hg VBG HCO3 (22-28) meq/L VBG O2 Sat (Britni) (95-100) VBG Base Excess (-2.0-2.0) VBG Hemoglobin VBG Carboxyhemoglobin (0.0-6.9) % T HGB POC Potassium (3.5-5.1) Sodium 141 (137-145) mmol/L Potassium 4.4 (3.5-5.1) mmol/L Chloride 102 (98-107) mmol/L Carbon Dioxide 27 (22-30) mmol/L Anion Gap 16.0 H (5-15) MEQ/L BUN 16 (9-20) mg/dL Creatinine 0.95 (0.66-1.25) mg/dL Estimated GFR > 60.0 ML/MIN Glucose 105 (74-106) mg/dL Lactic Acid (0.4-2.0) Calcium 9.1 (8.4-10.2) mg/dL Total Bilirubin 0.20 (0.2-1.3) mg/dL AST 43 (17-59) U/L ALT 49 (0-50) U/L Alkaline Phosphatase 122 (38-126) U/L Troponin I (0.000-0.034) ng/mL NT-Pro-B Natriuret Pep 37.9 (0-1800) pg/mL Serum Total Protein 7.7 (6.3-8.2) g/dL Albumin 4.4 (3.5-5.0) g/dL Influenza Type A Ag (NEGATIVE) Influenza Type B Ag (NEGATIVE) RSV (PCR) (Negative) - Progress Progress: improved Air Movement: fair Progress Note: 03/07/18 01:51 This is a 77-year-old white male with history coronary artery disease high blood pressure arthritis ulcers chronic back pain Patient has had a right upper lobectomy approximately 2 months ago he is arriving with complaint of a cough his states for a week he states for 2 days. He states the cough has been nonproductive he has not had any fevers no nausea no vomiting. Patient with EKG sinus rhythm [address] or T wave changes are noted patient's lactate is 1.1 patient's troponin within normal limits BNP on this patient is 37.8 chest x-ray no acute disease processes noted there does appear to be a left right pleural effusion at the base Patient's venous gases pH 7.39 PCO2 of 45 d-dimer is 891 CT of the chest remarkable for no pulmonary embolism there is interstitial pulmonary edema with small right pleural effusion Troponin is normal CBC is normal CMP essentially normal Patient is given albuterol treatment he is given Solu-Medrol, Rocephin he is feeling much better. I gave the patient options for admission to observation versus home with albuterol inhaler, Solu-Medrol, Zithromax. Patient prefers to go home. Patient will need to see Dr. Harrington on Sunday he is to call the office tomorrow and schedule an appointment. - Departure Time of Disposition: 01:55 Departure Disposition: Home Clinical Impression: Shortness of breath, COPD with exacerbation, Pleural effusion, right, History of lung cancer, interstitial pulmonary edema Condition: Fair Critical Care Time: No Referrals: ENDY HARRINGTON [Primary Care Provider] - Instructions: Chronic Obstructive Pulmonary Disease Additional Instructions: Return home. Albuterol inhaler 2 puffs every 4-6 hours as needed. Zithromax as prescribed. Tapering dose of prednisone as prescribed. Follow-up with Dr. harrington Sunday call tomorrow and schedule an appointment. Return for acute distress severe symptoms or any problems. Prescriptions: Azithromycin 250 mg [Zithromax 250 MG TABLET] 0 mg PO ZPACK #6 tablet
[2018-03-06 22:39] LABS: Lactic Acid 1.1 (0.4-2.0); VBG BASE EXCESS 1.7 (-2.0-2.0); VBG CARBOXYHEMOGLOBIN 2.1 % T HGB (0.0-6.9); VBG HCO3- 27.2 meq/L (22-28); VBG HEMOGLOBIN 13.5; VBG O2 SATURATION 77.4 (95-100); VBG POTASSIUM 4.2 (3.5-5.1); VBG pH 7.39 (7.32-7.42)
[2018-03-06 22:47] LABS: BASOPHIL % 0.3 % (0.0-0.4); Basophil (Absolute #) 0.02 (0-0.4); Eosinophil % 4.9 % (0.00-5.0); Eosinophil (Absolute #) 0.29 (0-0.5); Granulocyte Absolute (ANC) 4.55 (1.4-6.9); Granulocytes % 76.6 % (36.0-66.0); Hematocrit 41.9 % (42-50); Hemoglobin 13.2 gm/dl (12.5-18.0); Lymphocyte (Absolute #) 0.61 (1.0-4.6); Lymphocytes % 10.3 % (24.0-44.0); Mean Cell Volume 87.1 fl (78-100); Mean Corpuscular Hemoglobin 27.4 pg (26-32); Mean Corpuscular Hgb Concent. 31.5 g/dl (32-36); Monocyte (Absolute #) 0.47 (0.0-1.3); Monocytes % 7.9 % (0.0-12.0); Platelet Count 279 K/mm3 (150-450); Red Blood Count 4.81 M/mm3 (4.1-5.6); Red Cell Distribution Width 15.4 % (11.5-14.0); White Blood Count 5.9 K/mm3 (4.0-10.5)
[2018-03-06 23:21] LABS: INFLUENZA A NEGATIVE (NEGATIVE); INFLUENZA B NEGATIVE (NEGATIVE); RESPIRATORY SYNCTIAL VIRUS NEGATIVE (Negative)
[2018-03-06 23:24] LABS: ALBUMIN 4.4 g/dL (3.5-5.0); ALKALINE PHOSPHATASE 122 U/L (38-126); BLOOD UREA NITROGEN 16 mg/dL (9-20); CHLORIDE 102 mmol/L (98-107); Calcium 9.1 mg/dL (8.4-10.2); Carbon Dioxide 27 mmol/L (22-30); Creatinine 1 0.95 mg/dL (0.66-1.25); Glucose 105 mg/dL (74-106); NT PRO BNP 37.9 pg/mL (0-1800); Potassium 4.4 mmol/L (3.5-5.1); SGOT/AST 43 U/L (17-59); SGPT/ALT 49 U/L (0-50); SODIUM 141 mmol/L (137-145); Total Protein 7.7 g/dL (6.3-8.2)
[2018-03-06] MEDS ORDERED: ROCEPHIN 1 Gm-D5w 50 ml Bag** 1 G/50 ML IVPB IV STA (23:35)
[2018-03-06] MEDS ORDERED: solu-MEDROL 125 MG IV ONE (23:35)
[2018-03-07] MEDS ORDERED: PERCOCET TABLET 5/325MG PO STA (00:04)
[2018-03-07] MEDS ORDERED: PERCOCET TABLET 5/325MG ONE (00:06)
[2018-03-07] MEDS ORDERED: ROCEPHIN 1 Gm-D5w 50 ml Bag** 1 G/50 ML IVPB IV ONE (00:37)
[2018-03-07] MEDS ORDERED: solu-MEDROL 125 MG ONE (00:37)
[2018-03-07 01:36] VITALS: O2SAT 92
[2018-03-07] MEDS ORDERED: PROVENTIL COMMON CANISTER IH PRN (01:57)
[2018-03-07 01:58] VITALS: BP 131/68; PULSE 76
[2018-03-07] MEDS ORDERED: Ventolin Hfa MDI IH ONE (02:07)
--- NOTE | 2018-03-07 08:59 | XRAY ---
Indication: Left-sided chest discomfort, cough, and short of breath. Status post right upper lobectomy. Comparison: October 06, 2017. Portable chest demonstrates interval postoperative changes related to right upper lobectomy. Left lung clear. Heart is not enlarged again demonstrating CABG surgery. Bony thorax intact. Impression: Status post right upper lobectomy. No acute cardiopulmonary abnormalities.
--- NOTE | 2018-03-07 09:02 | XRAY ---
Indication: Short of breath, cough, and left-sided chest discomfort. Elevated d-dimer. History lung cancer. Multiple contiguous axial images obtained through the chest using 80 cc Isovue 370 contrast and PE protocol. Comparison: October 06, 2017. Again there is good opacification of the pulmonary arteries to includes the lobar and segmental branches. No filling defect or pulmonary embolus. Heart is not enlarged. Aorta remains minimally arteriosclerotic without aneurysm/dissection. Stable small nonpathologic mediastinal lymph nodes and tiny hilar calcified nodes. No pathologic mediastinal/hilar lymphadenopathy. Examination of the lung parenchyma demonstrates interval right upper lobectomy with now small right effusion. Stable pulmonary emphysema, tiny left upper lobe calcified granuloma, and peripheral fibrosis/scarring. Bony thorax demonstrates new right 4/5 lateral rib fractures presumed postoperative. Stable T11 Schmorl node and vertebral hemangioma in also sternotomy wires. Limited upper abdomen again demonstrates 15 cm splenomegaly with calcified splenic granuloma. Distended gallbladder with tiny gallstones/gravel and a 1.8 cm right mid renal cyst not previously imaged. Impression: 1. Again negative pulmonary embolus. 2. Interval postoperative changes related to right upper lobectomy including small effusion and rib fractures. 3. Stable pulmonary emphysema, splenomegaly, and evidence for old granulomatous disease. 4. Incidental distended gallbladder with gallstones/gravel and a right renal cyst not previously imaged. Comment: Preliminary interpretation was made by [facility]. Incidental gallbladder findings, splenomegaly, and T11 findings not reported. CT DI 19.11
== END 2018-03-07 02:26 | disposition home or self-care (01) ==
LOC: ED 21:27
DX: J44.1 Chronic obstructive pulmonary disease with (acute) exacerbation (principal); J90 Pleural effusion, not elsewhere classified; J81.1 Chronic pulmonary edema; Z85.118 Personal history of other malignant neoplasm of bronchus and lung; Z79.899 Other long term (current) drug therapy
CPT/HCPCS: 36000; 36415; 71045; 71260; 80053; 82805; 83605; 83880; 84484; 85025; 85379; 87040; 87631; 93005; 94150; 94640; 96374; 99285; J0696; J2930; J7609; A9270-GY

== ENCOUNTER 2018-06-19 13:39 | Day surgery (SDC) | payer MEDICARE, BC ==
[2018-06-19] MEDS ORDERED: Depo-Medrol 40 MG/ML IM ONE (13:40)
[2018-06-19] MEDS ORDERED: Xylocaine 1% Vial 30 ML PF IJ ONE (13:40)
[2018-06-19] MEDS ORDERED: Marcaine 0.5% SDV 10 ML IJ ONE (13:40)
--- NOTE | 2018-06-19 17:02 | XRAY ---
Indication: Bilateral SI joint injection. Intraoperative fluoroscopy was provided for 12 seconds. 4 digital spot images submitted for interpretation demonstrates posterior needle tip projecting over the inferior left and right SI joints. Correlate with intraoperative findings/report.
--- NOTE | 2018-06-19 17:04 | XRAY ---
12 seconds of fluoroscopy was used in surgery for bilateral SI joint injection.
== END 2018-06-19 16:12 | disposition home or self-care (01) ==
LOC: SDC-PAIN 13:39
PROVIDERS: ATTEND Psychiatry & Neurology Pain Medicine
DX: M53.3 Sacrococcygeal disorders, not elsewhere classified (principal); M46.1 Sacroiliitis, not elsewhere classified; I10 Essential (primary) hypertension; Z85.118 Personal history of other malignant neoplasm of bronchus and lung; Z79.899 Other long term (current) drug therapy
CPT/HCPCS: 72020; 77002; G0260; 27096; J1030; J2001

== ENCOUNTER 2018-07-17 14:31 | Day surgery (SDC) | payer MEDICARE, BC ==
[2018-07-17] MEDS ORDERED: Xylocaine 1% Vial 30 ML PF IJ ONE (14:32)
[2018-07-17] MEDS ORDERED: Marcaine 0.5% SDV 10 ML IJ ONE (14:32)
[2018-07-17] MEDS ORDERED: Decadron 4 MG INJ IV ONE (14:32)
[2018-07-17] MEDS ORDERED: Depo-Medrol 40 MG/ML IM ONE (14:32)
--- NOTE | 2018-07-18 08:45 | XRAY ---
Indication: Right shoulder injection. Intraoperative fluoroscopy was provided for 10 seconds. Single digital spot image submitted for interpretation demonstrates needle tip projecting over the right superior humeral head. Small amount of contrast injected for needle tip placement. Correlate with intraoperative findings/report.
--- NOTE | 2018-07-18 08:45 | XRAY ---
10 seconds fluoroscopy time in surgery for right shoulder injection.
--- NOTE | 2018-07-18 08:55 | XRAY ---
6 seconds fluoroscopy time in surgery for left shoulder injection.
--- NOTE | 2018-07-18 08:56 | XRAY ---
Indication: Left shoulder injection. Intraoperative fluoroscopy was provided for 6 seconds. Single digital spot image submitted for interpretation demonstrates needle tip projecting over the left superior humeral head. Small amount of contrast injected for needle tip placement. Correlate with intraoperative findings/report.
== END 2018-07-17 17:00 | disposition home or self-care (01) ==
LOC: SDC-PAIN 14:31
PROVIDERS: ATTEND Psychiatry & Neurology Pain Medicine
DX: M19.012 Primary osteoarthritis, left shoulder (principal); M19.011 Primary osteoarthritis, right shoulder; Z79.899 Other long term (current) drug therapy; I10 Essential (primary) hypertension; Z85.118 Personal history of other malignant neoplasm of bronchus and lung
CPT/HCPCS: 20610; 73030; 77002; J1030; J1100; J2001; Q9967

== ENCOUNTER 2018-08-14 11:45 | Day surgery (SDC) | payer MEDICARE, BC ==
[2018-08-14] MEDS ORDERED: Marcaine 0.5% SDV 10 ML IJ ONE (11:46)
[2018-08-14] MEDS ORDERED: Xylocaine 1% Vial 30 ML PF IJ ONE (11:46)
[2018-08-14] MEDS ORDERED: Depo-Medrol 40 MG/ML IM ONE (11:46)
--- NOTE | 2018-08-14 14:15 | XRAY ---
Indication: Bilateral SI joint injection. Intraoperative fluoroscopy was provided for 14 seconds. 4 digital spot images submitted for interpretation demonstrates posterior needle tips projecting over the inferior left and right SI joints. Correlate with intraoperative findings/report.
--- NOTE | 2018-08-14 14:25 | XRAY ---
13 seconds of fluoroscopy was used in surgery for bilateral SI joint injection.
== END 2018-08-14 13:41 | disposition home or self-care (01) ==
LOC: SDC-PAIN 11:45
PROVIDERS: ATTEND Psychiatry & Neurology Pain Medicine
DX: M46.1 Sacroiliitis, not elsewhere classified (principal); M53.3 Sacrococcygeal disorders, not elsewhere classified; I10 Essential (primary) hypertension; Z85.118 Personal history of other malignant neoplasm of bronchus and lung
CPT/HCPCS: 72202; 77002; G0260; 27096; J1030; J2001

== ENCOUNTER 2019-01-01 07:42 | Day surgery (SDC) | payer MEDICARE, BC ==
[2019-01-01] MEDS ORDERED: Marcaine 0.5% SDV 10 ML IJ ONE (07:43)
[2019-01-01] MEDS ORDERED: Depo-Medrol 40 MG/ML IM ONE (07:43)
[2019-01-01] MEDS ORDERED: Xylocaine 1% Vial 30 ML PF IJ ONE (07:43)
[2019-01-01] MEDS ORDERED: DIPRIVAN 200 MG/20 ML IV ONE ×2 (07:46→09:18)
[2019-01-01] MEDS ORDERED: Ketamine HCl 50 MG/ML ONE ×2 (07:48→09:18)
--- NOTE | 2019-01-01 12:37 | XRAY ---
Indication: Right SI joint RFA. Intraoperative fluoroscopy was provided for 34 seconds. 3 digital spot images submitted for interpretation demonstrates 4 posterior needle tips projecting over the right sacrum. Correlate with intraoperative findings/report.
--- NOTE | 2019-01-01 14:29 | XRAY ---
34 seconds of fluoroscopy was used in surgery for a right SI joint RFA.
[2019-01-01] MEDS ORDERED: Lactated Ringers 1,000 ML IV ONE (14:46)
== END 2019-01-01 10:05 | disposition home or self-care (01) ==
LOC: SDC-PAIN 07:42
PROVIDERS: ATTEND Psychiatry & Neurology Pain Medicine
DX: M46.1 Sacroiliitis, not elsewhere classified (principal); M47.817 Spondylosis without myelopathy or radiculopathy, lumbosacral region; I10 Essential (primary) hypertension; Z85.118 Personal history of other malignant neoplasm of bronchus and lung; Z79.899 Other long term (current) drug therapy
CPT/HCPCS: 64635; 64640; 72202; 77002; 99100; J1030; J2001; J2704

== ENCOUNTER 2019-01-08 07:42 | Day surgery (SDC) | payer MEDICARE, BC ==
[2019-01-08] MEDS ORDERED: Xylocaine 1% Vial 30 ML PF IJ ONE (07:43)
[2019-01-08] MEDS ORDERED: Marcaine 0.5% SDV 10 ML IJ ONE (07:43)
[2019-01-08] MEDS ORDERED: Depo-Medrol 40 MG/ML IM ONE (07:43)
[2019-01-08] MEDS ORDERED: DIPRIVAN 200 MG/20 ML IV ONE (08:24)
[2019-01-08] MEDS ORDERED: Ketamine HCl 50 MG/ML ONE (08:25)
--- NOTE | 2019-01-08 12:09 | XRAY ---
Indication: Left SI joint RFA. Intraoperative fluoroscopy was provided for 29 seconds. 2 digital spot images submitted for interpretation demonstrates 4 posterior needle tips projecting over the left SI joint. Correlate with intraoperative findings/report.
--- NOTE | 2019-01-08 12:18 | XRAY ---
29 seconds fluoroscopy time in surgery for left SI joint RFA.
[2019-01-08] MEDS ORDERED: Lactated Ringers 1,000 ML IV ONE (12:48)
== END 2019-01-08 10:55 | disposition home or self-care (01) ==
LOC: SDC-PAIN 07:42
PROVIDERS: ATTEND Psychiatry & Neurology Pain Medicine
DX: M46.1 Sacroiliitis, not elsewhere classified (principal); M47.816 Spondylosis without myelopathy or radiculopathy, lumbar region; I10 Essential (primary) hypertension; Z85.118 Personal history of other malignant neoplasm of bronchus and lung; Z79.899 Other long term (current) drug therapy
CPT/HCPCS: 64635; 64640; 72202; 77002; 99100; J1030; J2001; J2704

== ENCOUNTER 2019-08-06 09:42 | Day surgery (SDC) | payer MEDICARE, BC ==
[2019-08-06] MEDS ORDERED: Depo-Medrol 40 MG/ML IM ONE (09:43)
[2019-08-06] MEDS ORDERED: Marcaine 0.5% SDV 10 ML IJ ONE (09:43)
[2019-08-06] MEDS ORDERED: DIPRIVAN 200 MG/20 ML IV ONE (11:44)
[2019-08-06] MEDS ORDERED: Ketamine HCl 50 MG/ML ONE (11:44)
--- NOTE | 2019-08-06 12:58 | XRAY ---
Indication: Bilateral SI joint injection. Intraoperative fluoroscopy was provided for 13 seconds. 4 digital spot images submitted for interpretation demonstrates posterior needle tip projecting over the inferior left and right SI joints. Correlate with intraoperative findings/report.
--- NOTE | 2019-08-06 13:14 | XRAY ---
13 seconds fluoroscopy time in surgery for bilateral SI joint injections.
[2019-08-06] MEDS ORDERED: Lactated Ringers 1,000 ML IV ONE (13:49)
== END 2019-08-06 12:10 | disposition home or self-care (01) ==
LOC: SDC-PAIN 09:42
PROVIDERS: ATTEND Psychiatry & Neurology Pain Medicine
DX: M46.1 Sacroiliitis, not elsewhere classified (principal); I10 Essential (primary) hypertension; Z85.118 Personal history of other malignant neoplasm of bronchus and lung; Z79.899 Other long term (current) drug therapy
CPT/HCPCS: 64451; 72202; 77002; J1030; J2704

== ENCOUNTER 2019-09-10 07:58 | Day surgery (SDC) | payer MEDICARE, BC ==
[2019-09-10] MEDS ORDERED: Xylocaine 1% Vial 30 ML PF IJ ONE (07:59)
[2019-09-10] MEDS ORDERED: Marcaine 0.5% SDV 10 ML IJ ONE (07:59)
[2019-09-10] MEDS ORDERED: Depo-Medrol 40 MG/ML IM ONE (07:59)
[2019-09-10] MEDS ORDERED: DIPRIVAN 200 MG/20 ML IV ONE (08:21)
[2019-09-10] MEDS ORDERED: Ketamine HCl 50 MG/ML ONE (08:22)
[2019-09-10] MEDS ORDERED: Lactated Ringers 1,000 ML IV ONE (12:49)
--- NOTE | 2019-09-10 14:29 | XRAY ---
37 seconds fluoroscopy time in surgery for SI joint RFA.
--- NOTE | 2019-09-10 16:17 | XRAY ---
Indication: Left sacroiliac joint RFA. Intraoperative fluoroscopy was provided for 37 seconds. PA and lateral digital spot C-arm images demonstrate four needle tips projected over the left side of the sacrum. Correlate with intraoperative findings/report.
== END 2019-09-10 10:00 | disposition home or self-care (01) ==
LOC: SDC-PAIN 07:58
PROVIDERS: ATTEND Psychiatry & Neurology Pain Medicine
DX: M46.1 Sacroiliitis, not elsewhere classified (principal); I10 Essential (primary) hypertension; Z85.118 Personal history of other malignant neoplasm of bronchus and lung; Z79.899 Other long term (current) drug therapy
CPT/HCPCS: 64625; 72202; 77002; 99100; J1030; J2001; J2704

== ENCOUNTER 2019-09-17 10:23 | Day surgery (SDC) | payer MEDICARE, BC ==
[2019-09-17] MEDS ORDERED: Xylocaine 1% Vial 30 ML PF IJ ONE (10:24)
[2019-09-17] MEDS ORDERED: Marcaine 0.5% SDV 10 ML IM ONE (10:24)
[2019-09-17] MEDS ORDERED: Depo-Medrol 40 MG/ML IM ONE (10:24)
[2019-09-17] MEDS ORDERED: DIPRIVAN 200 MG/20 ML IV ONE (11:43)
[2019-09-17] MEDS ORDERED: Ketamine HCl 50 MG/ML ONE (11:44)
--- NOTE | 2019-09-17 14:21 | XRAY ---
Indication: Right SI joint RFA. Intraoperative fluoroscopy was provided for 29 seconds. 2 digital spot images submitted for interpretation demonstrates 4 posterior needle tips projecting over the right sacral nerve roots. Correlate with intraoperative findings/report.
--- NOTE | 2019-09-17 14:26 | XRAY ---
29 seconds of fluoroscopy was used in surgery for a right SI joint RFA.
[2019-09-17] MEDS ORDERED: Lactated Ringers 1,000 ML IV ONE (14:53)
== END 2019-09-17 12:20 | disposition home or self-care (01) ==
LOC: SDC-PAIN 10:23
PROVIDERS: ATTEND Psychiatry & Neurology Pain Medicine
DX: M46.1 Sacroiliitis, not elsewhere classified (principal); I10 Essential (primary) hypertension; Z85.118 Personal history of other malignant neoplasm of bronchus and lung; Z79.899 Other long term (current) drug therapy
CPT/HCPCS: 64625; 72202; 77002; 99100; J1030; J2001; J2704

== ENCOUNTER 2019-10-08 13:20 | Day surgery (SDC) | payer MEDICARE, BC ==
[2019-10-08] MEDS ORDERED: Depo-Medrol 40 MG/ML IM ONE (13:21)
[2019-10-08] MEDS ORDERED: Sodium Chloride 0.9(Preservative Free) 10 ML IJ ONE (13:21)
[2019-10-08] MEDS ORDERED: Xylocaine 1% Vial 30 ML PF IJ ONE (13:21)
--- NOTE | 2019-10-08 16:41 | XRAY ---
Indication: Lumbar TRICIA. Intraoperative fluoroscopy was provided for 12 seconds. Single lateral digital spot image submitted for interpretation demonstrates posterior needle tip projecting just posterior to the lumbosacral junction interspace. Small amount of contrast injected for needle tip placement. Correlate with intraoperative findings/report.
--- NOTE | 2019-10-08 16:43 | XRAY ---
12 seconds of fluoroscopy was used in surgery for a lumbar TRICIA.
== END 2019-10-08 15:28 | disposition home or self-care (01) ==
LOC: SDC-PAIN 13:20
PROVIDERS: ATTEND Psychiatry & Neurology Pain Medicine
DX: M54.16 Radiculopathy, lumbar region (principal); I10 Essential (primary) hypertension; Z85.118 Personal history of other malignant neoplasm of bronchus and lung; Z79.899 Other long term (current) drug therapy
CPT/HCPCS: 62323; 72100; 77003; J1030; J2001; Q9966

== ENCOUNTER 2020-03-17 09:24 | Day surgery (SDC) | payer MEDICARE, BC ==
[2020-03-17] MEDS ORDERED: LIDOCAINE HCL 2% 100 MG/5 ML IJ ONE (09:25)
[2020-03-17] MEDS ORDERED: Depo-Medrol 40 MG/ML IM ONE (09:25)
[2020-03-17] MEDS ORDERED: DIPRIVAN 200 MG/20 ML IV ONE (10:43)
[2020-03-17] MEDS ORDERED: Ketamine HCl 50 MG/ML ONE (10:43)
--- NOTE | 2020-03-17 12:48 | XRAY ---
Indication: Bilateral L4-S1 MBB. Intraoperative fluoroscopy was provided for 10 seconds. Single digital spot image submitted for interpretation demonstrates posterior needle tips projecting over the expected left and right L4-S1 nerve roots. Correlate with intraoperative findings/report.
--- NOTE | 2020-03-17 12:55 | XRAY ---
10 seconds fluoroscopy time in surgery for bilateral L4-S1 MBB.
[2020-03-17] MEDS ORDERED: Lactated Ringers 1,000 ML IV ONE (16:04)
== END 2020-03-17 11:09 | disposition home or self-care (01) ==
LOC: SDC-PAIN 09:24
PROVIDERS: ATTEND Psychiatry & Neurology Pain Medicine
DX: M47.816 Spondylosis without myelopathy or radiculopathy, lumbar region (principal); I10 Essential (primary) hypertension; Z85.118 Personal history of other malignant neoplasm of bronchus and lung; Z79.899 Other long term (current) drug therapy
CPT/HCPCS: 64493; 64494; 72020; 77002; J1030; J2704

== ENCOUNTER 2020-05-05 12:04 | Day surgery (SDC) | payer MEDICARE, BC ==
[2020-05-05] MEDS ORDERED: Depo-Medrol 40 MG/ML IM ONE (12:05)
[2020-05-05] MEDS ORDERED: BUPIVACAINE 0.5% VIAL IJ ONE (12:05)
[2020-05-05] MEDS ORDERED: Lactated Ringers 1,000 ML IV ONE (14:37)
[2020-05-05] MEDS ORDERED: Ketamine HCl 50 MG/ML ONE (14:43)
[2020-05-05] MEDS ORDERED: DIPRIVAN 200 MG/20 ML IV ONE (14:43)
--- NOTE | 2020-05-05 16:20 | XRAY ---
Indication: Bilateral L4-S1 MBB. Intraoperative fluoroscopy provided for 13 seconds. Single digital spot image submitted for interpretation demonstrates posterior needle tips projecting over the expected left and right L4-S1 nerve roots. Correlate with intraoperative findings/report.
--- NOTE | 2020-05-05 16:27 | XRAY ---
13 seconds fluoroscopy time in surgery for bilateral L4-S1 MBB.
== END 2020-05-05 15:15 | disposition home or self-care (01) ==
LOC: SDC-PAIN 12:04
PROVIDERS: ATTEND Psychiatry & Neurology Pain Medicine
DX: M47.816 Spondylosis without myelopathy or radiculopathy, lumbar region (principal); I10 Essential (primary) hypertension; Z85.118 Personal history of other malignant neoplasm of bronchus and lung; Z79.899 Other long term (current) drug therapy
CPT/HCPCS: 64493; 64494; 72020; 77002; J1030; J2704

== ENCOUNTER 2020-08-11 09:11 | Day surgery (SDC) | payer MEDICARE, BC ==
[2020-08-11] MEDS ORDERED: Depo-Medrol 40 MG/ML IM ONE (09:12)
[2020-08-11] MEDS ORDERED: BUPIVACAINE 0.5% VIAL IJ ONE (09:12)
[2020-08-11] MEDS ORDERED: DIPRIVAN 200 MG/20 ML IV ONE (10:55)
[2020-08-11] MEDS ORDERED: Lactated Ringers 1,000 ML IV ONE (16:27)
--- NOTE | 2020-08-11 17:39 | XRAY ---
15 seconds of fluoroscopy was used in surgery bilateral L4-L5, L5-S1 MBB.
== END 2020-08-11 11:22 | disposition home or self-care (01) ==
LOC: SDC-PAIN 09:11
PROVIDERS: ATTEND Psychiatry & Neurology Pain Medicine
DX: M47.816 Spondylosis without myelopathy or radiculopathy, lumbar region (principal); I10 Essential (primary) hypertension; Z85.118 Personal history of other malignant neoplasm of bronchus and lung; Z79.899 Other long term (current) drug therapy
CPT/HCPCS: 64493; 64494; 72020; 77002; J1030; J2704

== ENCOUNTER 2020-09-01 13:44 | Day surgery (SDC) | payer MEDICARE, BC ==
[2020-09-01] MEDS ORDERED: BUPIVACAINE 0.5% VIAL IJ ONE (13:45)
[2020-09-01] MEDS ORDERED: Depo-Medrol 40 MG/ML IM ONE (13:45)
[2020-09-01] MEDS ORDERED: Xylocaine 1% Vial 30 ML PF IJ ONE (13:45)
[2020-09-01] MEDS ORDERED: DIPRIVAN 200 MG/20 ML IV ONE (15:26)
[2020-09-01] MEDS ORDERED: Lactated Ringers 1,000 ML IV ONE (15:58)
--- NOTE | 2020-09-01 17:36 | XRAY ---
Indication: Right L4-S1 RFA. Intraoperative fluoroscopy provided for 30 seconds. 3 digital spot images submitted for interpretation demonstrates posterior needle tips projecting over the expected right L4-S1 nerve roots. Correlate with intraoperative findings/report.
--- NOTE | 2020-09-02 09:12 | XRAY ---
30 seconds fluoroscopy time in surgery for right L4-S1 RFA.
== END 2020-09-01 15:57 | disposition home or self-care (01) ==
LOC: SDC-PAIN 13:44
PROVIDERS: ATTEND Psychiatry & Neurology Pain Medicine
DX: M47.816 Spondylosis without myelopathy or radiculopathy, lumbar region (principal); I10 Essential (primary) hypertension; Z79.899 Other long term (current) drug therapy
CPT/HCPCS: 64635; 64636; 72100; 77002; 99100; J1030; J2001; J2704

== ENCOUNTER 2020-09-08 10:04 | Day surgery (SDC) | payer MEDICARE, BC ==
[2020-09-08] MEDS ORDERED: Depo-Medrol 40 MG/ML IM ONE (10:05)
[2020-09-08] MEDS ORDERED: BUPIVACAINE 0.5% VIAL IJ ONE (10:05)
[2020-09-08] MEDS ORDERED: Xylocaine 1% Vial 30 ML PF IJ ONE (10:05)
[2020-09-08] MEDS ORDERED: DIPRIVAN 200 MG/20 ML IV ONE (11:35)
--- NOTE | 2020-09-08 13:13 | XRAY ---
Indication: Left L4-S1 RFA. Intraoperative fluoroscopy provided for 24 seconds. 2 digital spot images submitted for interpretation demonstrate posterior needle tips projecting over the expected left nerve roots. Correlate with intraoperative findings/report.
--- NOTE | 2020-09-08 14:28 | XRAY ---
24 seconds of fluoroscopy was used in surgery for a left L4-S1 RFA.
[2020-09-08] MEDS ORDERED: Lactated Ringers 1,000 ML IV ONE (15:41)
== END 2020-09-08 12:09 | disposition home or self-care (01) ==
LOC: SDC-PAIN 10:04
PROVIDERS: ATTEND Psychiatry & Neurology Pain Medicine
DX: M47.816 Spondylosis without myelopathy or radiculopathy, lumbar region (principal); I10 Essential (primary) hypertension; Z79.899 Other long term (current) drug therapy
CPT/HCPCS: 64635; 64636; 72100; 77002; 99100; J1030; J2001; J2704

== ENCOUNTER 2020-10-02 21:51 | Observation (INO) | payer MEDICARE, BC ==
[2020-10-02] MEDS ORDERED: BABY ASPIRIN 81 MG CHEW PO ONE (22:16)
--- NOTE | 2020-10-02 22:22 | ERPHSYRPT ---
- History of Present Illness Historian: patient Exam Limitations: no limitations Patient Subjective Stated Complaint: pt states "I have had chest pain for the past 3 weeks off and on." Triage Nursing Assessment: pt came into the er via wheelchair; pt is axo x4; [employer]; c/o chest pain; pt states that pain has been intermitten for the past 3 weeks; pt states hx of AR; pt states the pain became more serve this afternoon after sweeping; pt states that pain was relieved with 1 nitro; pt states that he is SOB; pt has clear apical tones; clear lung sounds in all lobes; no edema present; strong radial and pedal pulses; vital wnl Physician History: 80 yo wm w h/o AR x6/CABG/Multiple stents/HTN/Hyperlipidemia/1ppd until CABG in 00 presents w L sided chest pain w radiation to his L arm x 2wks. Pain 2/10 but was up to 6/10 until he took 4SL NTG. He can not describe the pain and was dyspnic w the pain w diaphoresis. N/V denied. Pt did not take any aspirin today. Timing/Duration: week(s) (2wks) Activities at Onset: rest Quality: other (Can not describe) Location: substernal Chest Pain Radiation: arm Severity of Pain-Max: moderate Severity of Pain-Current: mild Modifying Factors: Improves With: nitroglycerin Associated Symptoms: shortness of breath, diaphoresis, No nausea, No vomiting Prior Chest Pain/Cardiac Workup: heart attack Nitro Today/Relief: 0.4 mg x 3 Aspirin Treatment Today: no aspirin today Allergies/Adverse Reactions: Antihistamines - Alkylamine Allergy (Verified 10/02/20 21:52) bacitracin Allergy (Verified 10/02/20 21:52) miconazole nitrate [From Neosporin AF] Allergy (Verified 10/02/20 21:52) NSAIDS (Non-Steroidal Anti-Inflamma Allergy (Verified 10/02/20 21:52) Flicbyv-Tvn-Ake Reductase Inhibitor Allergy (Verified 10/02/20 21:52) cyclobenzaprine Adverse Reaction (Verified 10/02/20 21:52) Irregular Heart Beat Home Medications: Amlodipine Besylate 10 mg [Norvasc 10 MG] 10 mg PO QAM 05/06/15 [History] Oxycodone HCl/Acetaminophen [Percocet 5-325 mg Tablet] 10 mg PO Q4HPRN PRN MDD 4 03/06/18 [History] Hx Tetanus, Diphtheria Vaccination/Date Given: No Hx Influenza Vaccination/Date Given: No Hx Pneumococcal Vaccination/Date Given: No Travel Risk - International Travel Have you traveled outside of the country in past 3 weeks: No - Coronavirus Screening Are you exhibiting any of the following symptoms?: No Close contact with a COVID-19 positive Pt in past 14-21 Days: No - Vaccine Status Have you recieved a Covid-19 vaccination: No - Review of Systems Constitutional: No Symptoms Eyes: No Symptoms Ears, Nose, & Throat: No Symptoms Respiratory: No Symptoms, Dyspnea Cardiac: No Symptoms, Chest Pain Abdominal/Gastrointestinal: No Symptoms Genitourinary Symptoms: No Symptoms Musculoskeletal: No Symptoms Skin: No Symptoms Neurological: No Symptoms Psychological: No Symptoms Endocrine: No Symptoms Hematologic/Lymphatic: No Symptoms Immunological/Allergic: No Symptoms - Past Medical History Pertinent Past Medical History: Yes Neurological History: No Pertinent History ENT History: No Pertinent History Cardiac History: Coronary Artery Disease, Hypertension, Myocardial Infarction ([place]) Respiratory History: No Pertinent History, Lung Cancer Endocrine Medical History: No Pertinent History Musculoskeletal History: Arthritis GI Medical History: Ulcer History: No Pertinent History Psycho-Social History: No Pertinent History Male Reproductive Disorders: No Pertinent History Other Medical History: Chronic back pain - Past Surgical History Past Surgical History: Yes Neuro Surgical History: No Pertinent History Cardiac: CABG, Cardiac Catheterization, Cardiac Stent Respiratory: No Pertinent History Gastrointestinal: No Pertinent History Genitourinary: No Pertinent History Musculoskeletal: No Pertinent History Male Surgical History: No Pertinent History Other Surgical History: bypass and 4 stents, left knee surgery "cleaned out around the knee", left shoulder surg "removed something that was restricting blood flow because my shoulder just hung."; rt lower 2/3 lung removed - Social History Smoking Status: Former smoker Exposure to second hand smoke: No Drug Use: none Patient Lives Alone: No Significant Family History: no pertinent family hx - Nursing Vital Signs Nursing Vital Signs: Initial Vital Signs Temperature 98.9 F 10/02/20 21:54 Pulse Rate 74 10/02/20 21:54 Respiratory Rate 20 10/02/20 21:54 Blood Pressure 141/86 10/02/20 21:54 O2 Sat by Pulse Oximetry 94 L 10/02/20 21:54 Pain Scale Pain Intensity 3 Hypertensive - Physical Exam General Appearance: no apparent distress Eye Exam: PERRL/EOMI, eyes nml inspection Ears, Nose, Throat Exam: normal ENT inspection Neck Exam: normal inspection, non-tender, supple Respiratory Exam: normal breath sounds, lungs clear, airway intact Cardiovascular Exam: regular rate/rhythm, normal heart sounds, No murmur Gastrointestinal/Abdomen Exam: soft, normal bowel sounds, No tenderness Back Exam: normal inspection, normal range of motion Extremity Exam: normal inspection, normal range of motion Neurologic Exam: alert, oriented x 3, cooperative, information technology assistant II-XII nml as tested, normal mood/affect Skin Exam: normal color, warm, dry Lymphatic Exam: No adenopathy SpO2 Interpretation: normal SpO2: 94 O2 Delivery: Room Air - Course Nursing assessment & vital signs reviewed: Yes EKG Interpreted by Me: RATE (NSR/R77/PAC's/Normal QT-QTc/No acute ST changes) - Radiology Exams Chest X-ray Interpretation: Interpreted by me (Post surgical/nothing acute) Ordered Tests: Active Orders 24 hr Category Date Time Status Bedrest with BRP/BSC ROUTINE Activity 10/03/20 02:05 Active Hotel Reservationist STAT Care 10/02/20 22:37 Completed Code Status Order ROUTINE Care 10/03/20 02:05 Active EKG-ER Only STAT Care 10/02/20 22:10 Completed IV Care Q6H Care 10/03/20 02:05 Active IV Insertion STAT Care 10/02/20 22:36 Completed Implement Chest Pain Pathway ROUTINE Care 10/03/20 02:[address] in Observation ROUTINE Care 10/03/20 02:06 Active Woody Chowdary ROUTINE Care 10/03/20 02:05 Active Telemetry q6h Care 10/03/20 02:05 Active Vital Signs Q4H Care 10/03/20 02:05 Active Weight,Daily 0600 Care 10/03/20 02:05 Active Heart-Healthy Diet Diet 10/03/20 Breakfast Active CHEST 1 VIEW (PORTABLE) Stat Exams 10/02/20 22:10 Taken CBC W DIFF Stat Lab 10/02/20 22:36 Completed CMP Stat Lab 10/02/20 22:36 Completed LIPID PROFILE AM.LAB Lab 10/03/20 04:23 Completed POCT GLUCOSE Stat Lab 10/03/20 00:46 Completed PROTIME WITH INR Stat Lab 10/02/20 22:36 Completed PTT Stat Lab 10/02/20 22:36 Completed TROPONIN Q3H Lab 10/02/20 22:36 Completed TROPONIN Q3H Lab 10/03/20 01:08 Completed TROPONIN Q3H Lab 10/03/20 04:23 Completed TROPONIN Q3H Lab 10/03/20 07:15 Ordered TROPONIN Q3H Lab 10/03/20 10:15 Ordered EKG Q8HX2,QAMX3,PRN RT 10/03/20 02:05 Completed Transfer Order Routine Transfer 10/03/20 Completed Medication Summary Generic Name Dose Route Start Last Admin Trade Name Frejustice PRN Reason Stop Dose Admin Acetaminophen 650 mg 10/03/20 02:05 Tylenol 325 Mg PO 11/02/20 02:04 Q4H PRN PRN PAIN AND/OR FEVER Al Hydrox/Mg Hydrox/Simethicone 30 ml 10/03/20 02:05 Maalox Es 30 Ml Unit Dose PO 11/02/20 02:04 Q4H PRN PRN INDIGESTION Aspirin 325 mg 10/03/20 10:00 Ecotrin 325 Mg PO 11/02/20 09:59 DAILY GEORGINA Enoxaparin Sodium 40 mg 10/03/20 10:00 Enoxaparin Sodium SQ 11/02/20 09:59 DAILY GEORGINA Magnesium Hydroxide 30 - 60 ml 10/03/20 02:05 Milk Of Magnesia 30 Ml PO 11/02/20 02:04 QDP PRN CONSTIPATION Morphine Sulfate 2 mg 10/03/20 02:05 Morphine Sulfate 2 Mg Inj IV 10/08/20 02:04 .Q15MIN PRN PRN CHEST PAIN Ondansetron HCl 4 mg 10/03/20 02:05 Zofran 4 Mg/2 Ml Vial IV 11/02/20 02:04 Q4H PRN PRN NAUSEA/VOMITING Senna/Docusate Sodium 2 udtab 10/03/20 02:05 Senokot-S Tablet PO 11/02/20 02:04 BID PRN PRN CONSTIPATION Discontinued Medications Generic Name Dose Route Start Last Admin Trade Name Freq PRN Reason Stop Dose Admin Aspirin 324 mg 10/02/20 22:16 10/02/20 22:44 Baby Aspirin 81 Mg Chew PO 10/02/20 22:17 324 mg STAT ONE Administration Aspirin Confirm 10/02/20 22:27 Baby Aspirin 81 Mg Chew Administered 10/02/20 22:28 Dose 324 mg .ROUTE .STK-MED ONE Morphine Sulfate 4 mg 10/03/20 01:59 10/03/20 02:05 Morphine Sulfate 4 Mg Inj IV 10/03/20 02:00 4 mg STAT ONE Administration Morphine Sulfate Confirm 10/03/20 02:01 Morphine Sulfate 4 Mg Inj Administered 10/03/20 02:02 Dose 4 mg .ROUTE .STK-MED ONE Nitroglycerin 1 gm 10/03/20 02:02 10/03/20 02:05 Nitro-Bid 2% Ud Packets TOP 10/03/20 02:03 1 gm STAT ONE Administration Nitroglycerin Confirm 10/03/20 02:03 Nitro-Bid 2% Ud Packets Administered 10/03/20 02:04 Dose 1 gm .ROUTE .STK-MED ONE Ondansetron HCl 4 mg 10/03/20 01:59 10/03/20 02:05 Zofran 4 Mg/2 Ml Vial IV 10/03/20 02:00 4 mg STAT ONE Administration Ondansetron HCl Confirm 10/03/20 02:01 Zofran 4 Mg/2 Ml Vial Administered 10/03/20 02:02 Dose 4 mg .ROUTE .STK-MED ONE Lab/Rad Data: Laboratory Result Diagrams 10/02/20 22:36 10/02/20 22:36 Laboratory Results 10/03/20 10/03/20 10/03/20 Range/Units 02:09 01:08 00:46 WBC (4.0-10.5) K/mm3 RBC (4.1-5.6) M/mm3 Hgb (12.5-18.0) gm/dl Hct (42-50) % MCV (78-100) fl MCH (26-32) pg MCHC (32-36) g/dl RDW (11.5-14.0) % Plt Count (150-450) K/mm3 MPV (7.5-11.0) fl Gran % (36.0-66.0) % Eos # (Auto) (0-0.5) Absolute Lymphs (auto) (1.0-4.6) Absolute Monos (auto) (0.0-1.3) Lymphocytes % (24.0-44.0) % Monocytes % (0.0-12.0) % Eosinophils % (0.00-5.0) % Basophils % (0.0-0.4) % Absolute Granulocytes (1.4-6.9) Basophils # (0-0.4) PT (9.4-12.5) SECONDS INR (0.8-3.0) APTT (25.1-36.5) SECONDS Sodium (137-145) mmol/L Potassium (3.5-5.1) mmol/L Chloride (98-107) mmol/L Carbon Dioxide (22-30) mmol/L Anion Gap (5-15) MEQ/L BUN (9-20) mg/dL Creatinine (0.66-1.25) mg/dL Estimated GFR ML/MIN Glucose (74-106) mg/dL POC Glucometer 328 H (74 to 106) mg/dL Calcium (8.4-10.2) mg/dL Total Bilirubin (0.2-1.3) mg/dL AST (17-59) U/L ALT (0-50) U/L Alkaline Phosphatase (38-126) U/L Troponin I < 0.012 (0.000-0.034) ng/mL Serum Total Protein (6.3-8.2) g/dL Albumin (3.5-5.0) g/dL SARS-CoV-2 (PCR) NEGATIVE (NEGATIVE) 10/02/20 10/02/20 10/02/20 Range/Units 22:36 22:36 22:36 WBC (4.0-10.5) K/mm3 RBC (4.1-5.6) M/mm3 Hgb (12.5-18.0) gm/dl Hct (42-50) % MCV (78-100) fl MCH (26-32) pg MCHC (32-36) g/dl RDW (11.5-14.0) % Plt Count (150-450) K/mm3 MPV (7.5-11.0) fl Gran % (36.0-66.0) % Eos # (Auto) (0-0.5) Absolute Lymphs (auto) (1.0-4.6) Absolute Monos (auto) (0.0-1.3) Lymphocytes % (24.0-44.0) % Monocytes % (0.0-12.0) % Eosinophils % (0.00-5.0) % Basophils % (0.0-0.4) % Absolute Granulocytes (1.4-6.9) Basophils # (0-0.4) PT 12.2 (9.4-12.5) SECONDS INR 1.03 (0.8-3.0) APTT 31.8 (25.1-36.5) SECONDS Sodium 145 (137-145) mmol/L Potassium 4.3 (3.5-5.1) mmol/L Chloride 105 (98-107) mmol/L Carbon Dioxide 21 L (22-30) mmol/L Anion Gap 23.4 H (5-15) MEQ/L BUN 19 (9-20) mg/dL Creatinine 0.73 (0.66-1.25) mg/dL Estimated GFR > 60.0 ML/MIN Glucose 99 (74-106) mg/dL POC Glucometer (74 to 106) mg/dL Calcium 9.1 (8.4-10.2) mg/dL Total Bilirubin 0.60 (0.2-1.3) mg/dL AST 39 (17-59) U/L ALT 19 (0-50) U/L Alkaline Phosphatase 66 (38-126) U/L Troponin I < 0.012 (0.000-0.034) ng/mL Serum Total Protein 7.3 (6.3-8.2) g/dL Albumin 4.3 (3.5-5.0) g/dL SARS-CoV-2 (PCR) (NEGATIVE) 10/02/20 Range/Units 22:36 WBC 7.4 (4.0-10.5) K/mm3 RBC 4.82 (4.1-5.6) M/mm3 Hgb 14.8 (12.5-18.0) gm/dl Hct 45.5 (42-50) % MCV 94.4 (78-100) fl MCH 30.7 (26-32) pg MCHC 32.5 (32-36) g/dl RDW 12.1 (11.5-14.0) % Plt Count 278 (150-450) K/mm3 MPV 9.6 (7.5-11.0) fl Gran % 71.1 H (36.0-66.0) % Eos # (Auto) 0.18 (0-0.5) Absolute Lymphs (auto) 1.20 (1.0-4.6) Absolute Monos (auto) 0.74 (0.0-1.3) Lymphocytes % 16.2 L (24.0-44.0) % Monocytes % 10.0 (0.0-12.0) % Eosinophils % 2.4 (0.00-5.0) % Basophils % 0.3 (0.0-0.4) % Absolute Granulocytes 5.25 (1.4-6.9) Basophils # 0.02 (0-0.4) PT (9.4-12.5) SECONDS INR (0.8-3.0) APTT (25.1-36.5) SECONDS Sodium (137-145) mmol/L Potassium (3.5-5.1) mmol/L Chloride (98-107) mmol/L Carbon Dioxide (22-30) mmol/L Anion Gap (5-15) MEQ/L BUN (9-20) mg/dL Creatinine (0.66-1.25) mg/dL Estimated GFR ML/MIN Glucose (74-106) mg/dL POC Glucometer (74 to 106) mg/dL Calcium (8.4-10.2) mg/dL Total Bilirubin (0.2-1.3) mg/dL AST (17-59) U/L ALT (0-50) U/L Alkaline Phosphatase (38-126) U/L Troponin I (0.000-0.034) ng/mL Serum Total Protein (6.3-8.2) g/dL Albumin (3.5-5.0) g/dL SARS-CoV-2 (PCR) (NEGATIVE) - Progress Progress Note: 10/03/20 05:16 ASA 324mg po MSO4 4mg IV/4mg IV Zofran x1 NTG paste applied to chest 10/03/20 05:[address] Montoya Discussed with : Tima Counseled pt/family regarding: lab results, diagnosis, rad results - Departure Departure Disposition: Observation Clinical Impression: Chest pain Condition: Stable Critical Care Time: No
[2020-10-02] MEDS ORDERED: BABY ASPIRIN 81 MG CHEW ONE (22:27)
[2020-10-02 22:41] LABS: Absolute Neutrophil Ct (ANC) 5.25 (1.4-6.9); BASOPHIL % 0.3 % (0.0-0.4); Basophil (Absolute #) 0.02 (0-0.4); Eosinophil % 2.4 % (0.00-5.0); Eosinophil (Absolute #) 0.18 (0-0.5); Hematocrit 45.5 % (42-50); Hemoglobin 14.8 gm/dl (12.5-18.0); Lymphocytes % 16.2 % (24.0-44.0); Mean Cell Volume 94.4 fl (78-100); Mean Corpuscular Hemoglobin 30.7 pg (26-32); Mean Corpuscular Hgb Concent. 32.5 g/dl (32-36); Mean Platelet Volume 9.6 fl (7.5-11.0); Monocyte (Absolute #) 0.74 (0.0-1.3); Neutrophil % 71.1 % (36.0-66.0); Platelet Count 278 K/mm3 (150-450); Red Blood Count 4.82 M/mm3 (4.1-5.6); Red Cell Distribution Width 12.1 % (11.5-14.0); White Blood Count 7.4 K/mm3 (4.0-10.5)
[2020-10-02 22:47] LABS: INR 1.03 (0.8-3.0); PROTIME 12.2 SECONDS (9.4-12.5)
[2020-10-02 22:50] LABS: PTT 31.8 SECONDS (25.1-36.5)
[2020-10-02 22:54] LABS: ALBUMIN 4.3 g/dL (3.5-5.0); ALKALINE PHOSPHATASE 66 U/L (38-126); ANION GAP 23.4 MEQ/L (5-15); BLOOD UREA NITROGEN 19 mg/dL (9-20); CHLORIDE 105 mmol/L (98-107); Calcium 9.1 mg/dL (8.4-10.2); Carbon Dioxide 21 mmol/L (22-30); Creatinine 1 0.73 mg/dL (0.66-1.25); EST GLOMERULAR FILTRATION RATE > 60.0 ML/MIN; Glucose 99 mg/dL (74-106); Potassium 4.3 mmol/L (3.5-5.1); SGOT/AST 39 U/L (17-59); SGPT/ALT 19 U/L (0-50); SODIUM 145 mmol/L (137-145); Total Protein 7.3 g/dL (6.3-8.2)
[2020-10-03] MEDS ORDERED: Zofran 4 MG/2 ML VIAL IV ONE (01:59)
[2020-10-03] MEDS ORDERED: MORPHINE SULFATE 4 MG INJ IV ONE (01:59)
[2020-10-03] MEDS ORDERED: MORPHINE SULFATE 4 MG INJ ONE (02:01)
[2020-10-03] MEDS ORDERED: Zofran 4 MG/2 ML VIAL ONE (02:01)
[2020-10-03] MEDS ORDERED: NITRO-BID 2% UD PACKETS TOP ONE (02:02)
[2020-10-03] MEDS ORDERED: NITRO-BID 2% UD PACKETS ONE (02:03)
[2020-10-03] MEDS ORDERED: MAALOX ES 30 ML UNIT DOSE PO PRN (02:05)
[2020-10-03] MEDS ORDERED: MILK OF MAGNESIA 30 ML PO PRN (02:05)
[2020-10-03] MEDS ORDERED: Zofran 4 MG/2 ML VIAL IV PRN (02:05)
[2020-10-03] MEDS ORDERED: Senokot-S Tablet PO PRN (02:05)
[2020-10-03] MEDS ORDERED: TYLENOL 325 MG PO PRN (02:05)
[2020-10-03 04:47] LABS: Risk Ratio 6.4
--- NOTE | 2020-10-03 07:34 | XRAY ---
Indication: Chest pain. Comparison: January 29, 2019. Portable chest less inflated again with right lung postsurgical changes, minimal bibasilar fibrosis/scarring, and tiny calcified granulomas. Heart is not enlarged again with CABG surgery. Bony thorax intact again with significant degenerative changes. Impression: Continued nonacute chest with chronic features.
[2020-10-03] MEDS: MORPHINE SULFATE 2 MG INJ IV PRN ×2 (08:30→14:35)
[2020-10-03] MEDS ORDERED: Ecotrin 325 MG PO SCH (10:00)
[2020-10-03] MEDS ORDERED: ENOXAPARIN SODIUM SQ SCH (10:00)
[2020-10-03] MEDS ORDERED: XYLOCAINE 1%/Epi 1:100000 MDV 20 ML IJ ONE (10:24)
[2020-10-03] MEDS ORDERED: PERCOCET TABLET 5/325MG PO PRN (10:46)
[2020-10-03] MEDS ORDERED: NORVASC 5 MG PO SCH (11:00)
--- NOTE | 2020-10-03 13:18 | PCM.HP ---
History of Present Illness - Chief Complaint Chief Complaint: Chest pain rule out ACS History of Present Illness: is a 80 year old male. Medications & Allergies Home Medications: Home Medication List Amlodipine Besylate 10 mg [Norvasc 10 MG] 10 mg PO QAM 05/06/15 [History Confirmed 10/02/20] Oxycodone HCl/Acetaminophen [Percocet 5-325 mg Tablet] 10 mg PO Q4HPRN PRN MDD 4 03/06/18 [History Confirmed 10/02/20] Allergies/Adverse Reactions: Allergies Allergy/AdvReac Type Severity Reaction Status Date / Time Antihistamines - Alkylamine Allergy Verified 10/02/20 21:52 bacitracin Allergy Verified 10/02/20 21:52 miconazole nitrate Allergy Verified 10/02/20 21:52 [From Neosporin AF] NSAIDS (Non-Steroidal Allergy Verified 10/02/20 21:52 Anti-Inflamma Kkszcql-Voa-Qww Reductase Allergy Verified 10/02/20 21:52 Inhibitor cyclobenzaprine AdvReac Irregular Verified 10/02/20 21:52 Heart Beat - Past Medical History Past Medical History: Yes Neurological History: No Pertinent History ENT History: No Pertinent History Cardiac History: Coronary Artery Disease, Hypertension, Myocardial Infarction ([place]) Respiratory History: No Pertinent History, Lung Cancer Endocrine Medical History: No Pertinent History Musculoskelatal History: Arthritis GI Medical History: Ulcer History: No Pertinent History Pyscho-Social History: No Pertinent History Male Reproductive Disorders: No Pertinent History Comment: Chronic back pain - Past Surgical History Past Surgical History: Yes Neuro Surgical History: No Pertinent History Cardiac History: CABG, Cardiac Catheterization, Cardiac Stent Respiratory Surgery: No Pertinent History GI Surgical History: No Pertinent History Genitourinary Surgical Hx: No Pertinent History Musculskeletal Surgical Hx: No Pertinent History Male Surgical History: No Pertinent History Other Surgical History: bypass and 4 stents, left knee surgery "cleaned out around the knee", left shoulder surg "removed something that was restricting blood flow because my shoulder just hung."; rt lower 2/3 lung removed - Social History Smoking Status: Former smoker Exposure to second hand smoke: No Alcohol: None Drug Use: none Significant Family History: no pertinent family hx - Physical Exam Vital Signs: Vital Signs - 24 hr Temp Pulse Pulse Resp BP Pulse Ox 10/03/20 11:42 97.9 F 65 16 153/70 92 L 10/03/20 08:00 98.2 F 62 18 124/60 92 L 10/03/20 05:20 94 L 10/03/20 04:43 97.2 F 63 16 146/71 93 L 10/03/20 04:11 63 124/78 95 10/03/20 02:15 72 151/89 96 10/03/20 01:19 67 135/79 95 10/03/20 00:00 70 16 126/92 96 10/02/20 22:58 70 127/71 94 L 10/02/20 21:54 98.9 F 74 74 20 141/86 94 L Results - Labs Lab/Micro Results: Lab Results-Last 24 Hours 10/02/20 10/02/20 10/02/20 Range/Units 22:36 22:36 22:36 WBC 7.4 (4.0-10.5) K/mm3 RBC 4.82 (4.1-5.6) M/mm3 Hgb 14.8 (12.5-18.0) gm/dl Hct 45.5 (42-50) % MCV 94.4 (78-100) fl MCH 30.7 (26-32) pg MCHC 32.5 (32-36) g/dl RDW 12.1 (11.5-14.0) % Plt Count 278 (150-450) K/mm3 MPV 9.6 (7.5-11.0) fl Gran % 71.1 H (36.0-66.0) % Eos # (Auto) 0.18 (0-0.5) Absolute Lymphs (auto) 1.20 (1.0-4.6) Absolute Monos (auto) 0.74 (0.0-1.3) Lymphocytes % 16.2 L (24.0-44.0) % Monocytes % 10.0 (0.0-12.0) % Eosinophils % 2.4 (0.00-5.0) % Basophils % 0.3 (0.0-0.4) % Absolute Granulocytes 5.25 (1.4-6.9) Basophils # 0.02 (0-0.4) PT 12.2 (9.4-12.5) SECONDS INR 1.03 (0.8-3.0) APTT 31.8 (25.1-36.5) SECONDS Sodium 145 (137-145) mmol/L Potassium 4.3 (3.5-5.1) mmol/L Chloride 105 (98-107) mmol/L Carbon Dioxide 21 L (22-30) mmol/L Anion Gap 23.4 H (5-15) MEQ/L BUN 19 (9-20) mg/dL Creatinine 0.73 (0.66-1.25) mg/dL Estimated GFR > 60.0 ML/MIN Glucose 99 (74-106) mg/dL POC Glucometer (74 to 106) mg/dL Calcium 9.1 (8.4-10.2) mg/dL Total Bilirubin 0.60 (0.2-1.3) mg/dL AST 39 (17-59) U/L ALT 19 (0-50) U/L Alkaline Phosphatase 66 (38-126) U/L Troponin I (0.000-0.034) ng/mL Serum Total Protein 7.3 (6.3-8.2) g/dL Albumin 4.3 (3.5-5.0) g/dL Triglycerides (30-150) mg/dL Cholesterol (50-200) mg/dL LDL Cholesterol (30-100) mg/dL HDL Cholesterol (40-60) mg/dL Heart Disease Risk Ratio SARS-CoV-2 (PCR) (NEGATIVE) 10/02/20 10/03/20 10/03/20 Range/Units 22:36 00:46 01:08 WBC (4.0-10.5) K/mm3 RBC (4.1-5.6) M/mm3 Hgb (12.5-18.0) gm/dl Hct (42-50) % MCV (78-100) fl MCH (26-32) pg MCHC (32-36) g/dl RDW (11.5-14.0) % Plt Count (150-450) K/mm3 MPV (7.5-11.0) fl Gran % (36.0-66.0) % Eos # (Auto) (0-0.5) Absolute Lymphs (auto) (1.0-4.6) Absolute Monos (auto) (0.0-1.3) Lymphocytes % (24.0-44.0) % Monocytes % (0.0-12.0) % Eosinophils % (0.00-5.0) % Basophils % (0.0-0.4) % Absolute Granulocytes (1.4-6.9) Basophils # (0-0.4) PT (9.4-12.5) SECONDS INR (0.8-3.0) APTT (25.1-36.5) SECONDS Sodium (137-145) mmol/L Potassium (3.5-5.1) mmol/L Chloride (98-107) mmol/L Carbon Dioxide (22-30) mmol/L Anion Gap (5-15) MEQ/L BUN (9-20) mg/dL Creatinine (0.66-1.25) mg/dL Estimated GFR ML/MIN Glucose (74-106) mg/dL POC Glucometer 328 H (74 to 106) mg/dL Calcium (8.4-10.2) mg/dL Total Bilirubin (0.2-1.3) mg/dL AST (17-59) U/L ALT (0-50) U/L Alkaline Phosphatase (38-126) U/L Troponin I < 0.012 < 0.012 (0.000-0.034) ng/mL Serum Total Protein (6.3-8.2) g/dL Albumin (3.5-5.0) g/dL Triglycerides (30-150) mg/dL Cholesterol (50-200) mg/dL LDL Cholesterol (30-100) mg/dL HDL Cholesterol (40-60) mg/dL Heart Disease Risk Ratio SARS-CoV-2 (PCR) (NEGATIVE) 10/03/20 10/03/20 10/03/20 Range/Units 02:09 04:23 04:23 WBC (4.0-10.5) K/mm3 RBC (4.1-5.6) M/mm3 Hgb (12.5-18.0) gm/dl Hct (42-50) % MCV (78-100) fl MCH (26-32) pg MCHC (32-36) g/dl RDW (11.5-14.0) % Plt Count (150-450) K/mm3 MPV (7.5-11.0) fl Gran % (36.0-66.0) % Eos # (Auto) (0-0.5) Absolute Lymphs (auto) (1.0-4.6) Absolute Monos (auto) (0.0-1.3) Lymphocytes % (24.0-44.0) % Monocytes % (0.0-12.0) % Eosinophils % (0.00-5.0) % Basophils % (0.0-0.4) % Absolute Granulocytes (1.4-6.9) Basophils # (0-0.4) PT (9.4-12.5) SECONDS INR (0.8-3.0) APTT (25.1-36.5) SECONDS Sodium (137-145) mmol/L Potassium (3.5-5.1) mmol/L Chloride (98-107) mmol/L Carbon Dioxide (22-30) mmol/L Anion Gap (5-15) MEQ/L BUN (9-20) mg/dL Creatinine (0.66-1.25) mg/dL Estimated GFR ML/MIN Glucose (74-106) mg/dL POC Glucometer (74 to 106) mg/dL Calcium (8.4-10.2) mg/dL Total Bilirubin (0.2-1.3) mg/dL AST (17-59) U/L ALT (0-50) U/L Alkaline Phosphatase (38-126) U/L Troponin I < 0.012 (0.000-0.034) ng/mL Serum Total Protein (6.3-8.2) g/dL Albumin (3.5-5.0) g/dL Triglycerides 181 H (30-150) mg/dL Cholesterol 210 H (50-200) mg/dL LDL Cholesterol 125 H (30-100) mg/dL HDL Cholesterol 33 L (40-60) mg/dL Heart Disease Risk Ratio 6.4 SARS-CoV-2 (PCR) NEGATIVE (NEGATIVE) 10/03/20 10/03/20 10/03/20 Range/Units 07:05 09:26 10:28 WBC (4.0-10.5) K/mm3 RBC (4.1-5.6) M/mm3 Hgb (12.5-18.0) gm/dl Hct (42-50) % MCV (78-100) fl MCH (26-32) pg MCHC (32-36) g/dl RDW (11.5-14.0) % Plt Count (150-450) K/mm3 MPV (7.5-11.0) fl Gran % (36.0-66.0) % Eos # (Auto) (0-0.5) Absolute Lymphs (auto) (1.0-4.6) Absolute Monos (auto) (0.0-1.3) Lymphocytes % (24.0-44.0) % Monocytes % (0.0-12.0) % Eosinophils % (0.00-5.0) % Basophils % (0.0-0.4) % Absolute Granulocytes (1.4-6.9) Basophils # (0-0.4) PT (9.4-12.5) SECONDS INR (0.8-3.0) APTT (25.1-36.5) SECONDS Sodium (137-145) mmol/L Potassium (3.5-5.1) mmol/L Chloride (98-107) mmol/L Carbon Dioxide (22-30) mmol/L Anion Gap (5-15) MEQ/L BUN (9-20) mg/dL Creatinine (0.66-1.25) mg/dL Estimated GFR ML/MIN Glucose (74-106) mg/dL POC Glucometer 99 (74 to 106) mg/dL Calcium (8.4-10.2) mg/dL Total Bilirubin (0.2-1.3) mg/dL AST (17-59) U/L ALT (0-50) U/L Alkaline Phosphatase (38-126) U/L Troponin I < 0.012 < 0.012 (0.000-0.034) ng/mL Serum Total Protein (6.3-8.2) g/dL Albumin (3.5-5.0) g/dL Triglycerides (30-150) mg/dL Cholesterol (50-200) mg/dL LDL Cholesterol (30-100) mg/dL HDL Cholesterol (40-60) mg/dL Heart Disease Risk Ratio SARS-CoV-2 (PCR) (NEGATIVE) - Radiology Impressions Radiology Exams & Impressions: Radiology Procedures Category Date Time Status CHEST 1 VIEW (PORTABLE) Stat Exams 10/02/20 22:10 Completed - Other Procedures and Tests Respiratory Therapy 10/04/20 05:00 EKG DAILY 10/05/20 05:00 EKG DAILY 10/06/20 05:00 EKG DAILY
[2020-10-03 14:37] LABS: Absolute Neutrophil Ct (ANC) 5.41 (1.4-6.9); BASOPHIL % 0.3 % (0.0-0.4); Basophil (Absolute #) 0.02 (0-0.4); Eosinophil % 1.9 % (0.00-5.0); Eosinophil (Absolute #) 0.14 (0-0.5); Hematocrit 42.5 % (42-50); Hemoglobin 13.8 gm/dl (12.5-18.0); Mean Cell Volume 95.3 fl (78-100); Mean Corpuscular Hemoglobin 30.9 pg (26-32); Mean Corpuscular Hgb Concent. 32.5 g/dl (32-36); Mean Platelet Volume 9.2 fl (7.5-11.0); Monocyte (Absolute #) 0.66 (0.0-1.3); Neutrophil % 73.8 % (36.0-66.0); Platelet Count 250 K/mm3 (150-450); Red Blood Count 4.46 M/mm3 (4.1-5.6); Red Cell Distribution Width 12.1 % (11.5-14.0); White Blood Count 7.3 K/mm3 (4.0-10.5)
[2020-10-03 14:58] LABS: ALBUMIN 3.9 g/dL (3.5-5.0); ALKALINE PHOSPHATASE 68 U/L (38-126); ANION GAP 12.8 MEQ/L (5-15); BLOOD UREA NITROGEN 16 mg/dL (9-20); CHLORIDE 104 mmol/L (98-107); Carbon Dioxide 26 mmol/L (22-30); Creatinine 1 0.85 mg/dL (0.66-1.25); EST GLOMERULAR FILTRATION RATE > 60.0 ML/MIN; Glucose 95 mg/dL (74-106); Potassium 3.8 mmol/L (3.5-5.1); SGOT/AST 22 U/L (17-59); SGPT/ALT 17 U/L (0-50); SODIUM 138 mmol/L (137-145); Total Protein 6.5 g/dL (6.3-8.2)
[2020-10-03 16:07] VITALS: BP 145/74; PULSE 70; O2SAT 95
[2020-10-03] MEDS ORDERED: Miscellaneous Medication Order MC ONE (17:28)
[2020-10-03] MEDS ORDERED: Imdur 30 MG ONE (17:51)
--- NOTE | 2020-10-03 19:16 | XRAY ---
Indication: Elevated d-dimer. History of lung cancer with right lobectomy. Multiple contiguous axial images obtained through the chest using 100 cc Isovue 370 contrast and PE protocol. Comparison: March 07, 2018. There is good opacification of the pulmonary arteries to include the lobar and segmental branches. No pulmonary embolus. Heart not enlarged. Aorta remains minimally arteriosclerotic without aneurysm/dissection. Stable tiny right hilar calcified nodes. No pathologic mediastinal/hilar lymphadenopathy. Lungs again demonstrates right upper lobectomy, pulmonary emphysema, tiny left upper lobe calcified granuloma, and diffuse peripheral fibrosis/scarring. No new pulmonary mass/nodule, infiltrate, or effusion. Bony thorax intact again with mild osteopenia, old right rib fractures, and T11 Schmorl node with vertebral hemangioma. Limited upper abdomen again demonstrates tiny gallstones, 14.6 cm splenomegaly, and right renal cyst. Impression: 1. Negative pulmonary embolus. No new/acute cardiopulmonary abnormalities. 2. Again incidental pulmonary emphysema, right upper lobectomy, splenomegaly, tiny gallstones, right renal cyst, and chronic bony findings. Comment: Preliminary interpretation was made by [facility]. No critical discrepancy.
[2020-10-04] MEDS ORDERED: NON-FORMULARY ITEM (Amlodipine Besylate 10 Mg [Norvasc 10 Mg] 10 MG) PO SCH (10:00)
== END 2020-10-03 19:06 | disposition home or self-care (01) ==
LOC: ED 21:51 → MED SURG 10-03 04:19
PROVIDERS: ADMIT Family Medicine; ATTEND Family Medicine
DX: R07.9 Chest pain, unspecified (principal); E78.5 Hyperlipidemia, unspecified; Z95.1 Presence of aortocoronary bypass graft; Z79.899 Other long term (current) drug therapy; I10 Essential (primary) hypertension; I25.2 Old myocardial infarction; Z85.118 Personal history of other malignant neoplasm of bronchus and lung; Z20.828 Contact with and (suspected) exposure to other viral communicable diseases
CPT/HCPCS: 36000; 36415; 71045; 71260; 80053; 80061; 82947; 83721; 84484; 85025; 85379; 85610; 85730; 87070; 89060; 93005; 93041; 93268; 96374; 96375; 99285; G0378; U0003; 87075; J1650; J2270; J2405; A9270-GY

== ENCOUNTER 2021-01-05 02:19 | Emergency (ER) | payer MEDICARE, BC ==
[2021-01-05] MEDS ORDERED: CARDIZEM DRIP 100 MG/100 ML D5W 100 ML IV ONE (02:51)
[2021-01-05] MEDS ORDERED: Cardizem IV 50 MG/10 ML IV ONE ×2 (02:51→02:52)
[2021-01-05] MEDS ORDERED: CARDIZEM DRIP 100 MG/100 ML D5W 100 ML IV PRN (02:51)
[2021-01-05 03:03] LABS: Absolute Neutrophil Ct (ANC) 6.47 (1.4-6.9); BASOPHIL % 0.1 % (0.0-0.4); Basophil (Absolute #) 0.01 (0-0.4); Eosinophil % 0.1 % (0.00-5.0); Eosinophil (Absolute #) 0.01 (0-0.5); Hematocrit 45.6 % (42-50); Hemoglobin 15.1 gm/dl (12.5-18.0); Lymphocyte (Absolute #) 0.53 (1.0-4.6); Lymphocytes % 7.4 % (24.0-44.0); Mean Cell Volume 93.6 fl (78-100); Mean Corpuscular Hgb Concent. 33.1 g/dl (32-36); Mean Platelet Volume 9.3 fl (7.5-11.0); Monocyte (Absolute #) 0.14 (0.0-1.3); Neutrophil % 90.4 % (36.0-66.0); Platelet Count 318 K/mm3 (150-450); Red Blood Count 4.87 M/mm3 (4.1-5.6); White Blood Count 7.2 K/mm3 (4.0-10.5)
--- NOTE | 2021-01-05 03:10 | ERPHSYRPT ---
- History of Present Illness Time Seen by Provider: 01/05/21 02:30 Source: patient Exam Limitations: no limitations Patient Subjective Stated Complaint: pt states "I've been having chest pain for the past 5 days. Tonight it was worse and harder to breath." Triage Nursing Assessment: pt ambulated into the er; pt is axo x4; c/o chest pain and SOB; on monitor and storage bin tender pt is in SVT at 188 bpm; pt SOB; intermitten SVT; while assessing the pt heart rate dropped to 88 bpm; highest heart rate on monitor and storage bin tender was 192 bpm; upon auscutation apical heart rate was 108; heart rate is irregular; bounding heart tone; strong bounding denia radial pulses; st silviano bounding denia pedal pulses; slight edema to BLE, no pitting edema present; absent RLL breath sounds due to lobectomy; all other lung lobes clear; no JVD present; good cap refill to all extremities; pt states hx of SD x8; active bowel sounds in all quads Physician History: Patient is a 80-year-old male with a history of SD x5. Patient is 5 cardiac stents. Patient presents to our ED with complaints of chest pain. Patient states he has been experiencing intermittent chest pain for the past 5 days. Patient states his chest pain was worse earlier this morning. Chest pain is associated with shortness of breath. No nausea or vomiting. Pain intermittently radiates to his left shoulder. Patient advised that he is got history of lung cancer. Patient has a right lower lobe lobectomy. Symptoms are mild to moderate in intensity. No specific worsening or improving factors. Patient voices no other complaints or concerns at this time. While in our ED patient's heart rate was observed to run between 192-88. Timing/Duration: day(s) (5 days) Severity: moderate Modifying Factors: Improves With: nothing Associated Symptoms: shortness of breath, No fever, No syncope Allergies/Adverse Reactions: Antihistamines - Alkylamine Allergy (Verified 01/05/21 02:23) bacitracin Allergy (Verified 01/05/21 02:23) miconazole nitrate [From Neosporin AF] Allergy (Verified 01/05/21 02:23) NSAIDS (Non-Steroidal Anti-Inflamma Allergy (Verified 01/05/21 02:23) Oktvbdu-AIR-ZbH Reductase Inhibitor [Ecalhqi-Aty-Rvk Reductase Inhibitor] Narinder rgy (Verified 01/05/21 02:23) cyclobenzaprine Adverse Reaction (Verified 01/05/21 02:23) Irregular Heart Beat Home Medications: Amlodipine Besylate 10 mg [Norvasc 10 MG] 10 mg PO QAM 05/06/15 [History] Oxycodone HCl/Acetaminophen [Percocet 5-325 mg Tablet] 7.5 - 325 mg PO QID MDD 4 03/06/18 [History] Cephalexin Mh 500 mg [Keflex 500 mg] 500 mg PO TID 01/05/21 [History] Hx Tetanus, Diphtheria Vaccination/Date Given: No Hx Influenza Vaccination/Date Given: No Hx Pneumococcal Vaccination/Date Given: No Travel Risk - International Travel Have you traveled outside of the country in past 3 weeks: No - Coronavirus Screening Are you exhibiting any of the following symptoms?: No Close contact with a COVID-19 positive Pt in past 14-21 Days: No - Vaccine Status Have you recieved a Covid-19 vaccination: No - Review of Systems Constitutional: No Symptoms, No Fever, No Chills Eyes: No Symptoms Ears, Nose, & Throat: No Symptoms Respiratory: No Symptoms, No Cough, No Dyspnea Cardiac: No Symptoms, No Chest Pain, No Edema, No Syncope Abdominal/Gastrointestinal: No Symptoms, No Abdominal Pain, No Nausea, No Vomiting, No Diarrhea Genitourinary Symptoms: No Symptoms, No Dysuria Musculoskeletal: No Symptoms, No Back Pain, No Neck Pain Skin: No Symptoms, No Rash Neurological: No Symptoms, No Dizziness, No Focal Weakness, No Sensory Changes Psychological: No Symptoms Endocrine: No Symptoms Hematologic/Lymphatic: No Symptoms Immunological/Allergic: No Symptoms All Other Systems: Reviewed and Negative - Past Medical History Pertinent Past Medical History: Yes Neurological History: No Pertinent History ENT History: No Pertinent History Cardiac History: Coronary Artery Disease, Hypertension, Myocardial Infarction ( [place]) Respiratory History: No Pertinent History, Lung Cancer Endocrine Medical History: No Pertinent History Musculoskeletal History: Arthritis GI Medical History: Ulcer History: No Pertinent History Psycho-Social History: No Pertinent History Male Reproductive Disorders: No Pertinent History Other Medical History: Chronic back pain - Past Surgical History Past Surgical History: Yes Neuro Surgical History: No Pertinent History Cardiac: CABG, Cardiac Catheterization, Cardiac Stent Respiratory: No Pertinent History Gastrointestinal: No Pertinent History Genitourinary: No Pertinent History Musculoskeletal: No Pertinent History Male Surgical History: No Pertinent History Other Surgical History: bypass and 4 stents, left knee surgery "cleaned out around the knee", left shoulder surg "removed something that was restricting blood flow because my shoulder just hung."; rt lower 2/3 lung removed - Social History Smoking Status: Former smoker Exposure to second hand smoke: No Drug Use: none Patient Lives Alone: No Significant Family History: no pertinent family hx - Nursing Vital Signs Nursing Vital Signs: Initial Vital Signs Temperature 97.4 F 01/05/21 02:25 Pulse Rate 108 H 01/05/21 02:25 Respiratory Rate 18 01/05/21 02:25 Blood Pressure 118/90 01/05/21 02:25 O2 Sat by Pulse Oximetry 96 01/05/21 02:25 Pain Scale Pain Intensity 0 - Physical Exam General Appearance: no apparent distress, alert Eye Exam: PERRL/EOMI, eyes nml inspection Ears, Nose, Throat Exam: normal ENT inspection, TMs normal, pharynx normal, moist mucous membranes Neck Exam: normal inspection, non-tender, supple, full range of motion Respiratory Exam: normal breath sounds, lungs clear, airway intact, No respiratory distress Cardiovascular Exam: regular rate/rhythm, normal heart sounds, normal peripheral pulses Gastrointestinal/Abdomen Exam: soft, normal bowel sounds, No tenderness, No mass Back Exam: normal inspection, normal range of motion, No CVA tenderness, No vertebral tenderness Extremity Exam: normal inspection, normal range of motion, pelvis stable, swelling (1+ pitting edema bilaterally equal. PT DP pulses palpable. Cap refill less than 2 seconds.) Neurologic Exam: alert, oriented x 3, cooperative, normal mood/affect, nml cerebellar function, nml station & gait, sensation nml, No motor deficits Skin Exam: normal color, warm, dry, No rash Lymphatic Exam: No adenopathy SpO2 Interpretation: normal SpO2: 96 O2 Delivery: Room Air - Course Nursing assessment & vital signs reviewed: Yes EKG Interpreted by Me: RATE (SVT. Patient is in and out of SVT. Rate fluctuates from 190s to 88.) - Radiology Exams Chest X-ray Interpretation: Interpreted by me (Unchanged from previous dated 10/02/2020. Right lung less inflated. Sternotomy wires observed. Intact bony thorax. No cardiomegaly.) Ordered Tests: Active Orders 24 hr Category Date Time Status Disability Hearing Officer STAT Care 01/05/21 02:54 Active IV Insertion STAT Care 01/05/21 02:53 Active Pulse Oximetry (ED) STAT Care 01/05/21 02:53 Active CHEST 1 VIEW (PORTABLE) Stat Exams 01/05/21 03:12 Taken CBC W DIFF Stat Lab 01/05/21 02:59 Completed CMP Stat Lab 01/05/21 02:59 Completed MAGNESIUM Stat Lab 01/05/21 02:59 Completed NT PRO BNP Stat Lab 01/05/21 02:59 Completed TROPONIN Q3H Lab 01/05/21 02:59 Completed TROPONIN Q3H Lab 01/05/21 06:00 Ordered TROPONIN Q3H Lab 01/05/21 09:00 Ordered TROPONIN Q3H Lab 01/05/21 12:00 Ordered TROPONIN Q3H Lab 01/05/21 15:00 Ordered Medication Summary Generic Name Dose Route Start Last Admin Trade Name Frejustice PRN Reason Stop Dose Admin Diltiazem HCl 100 mls @ 5 mls/hr 01/05/21 02:51 01/05/21 02:55 Cardizem Drip 100 Mg/100 Ml D5w IV 02/04/21 02:50 5 mg/hr .Q20H PRN 5 mls/hr HEART RATE/ A-FIB Administration Protocol 5 MG/HR Discontinued Medications Generic Name Dose Route Start Last Admin Trade Name Freq PRN Reason Stop Dose Admin Aspirin 324 mg 01/05/21 03:27 01/05/21 03:31 Baby Aspirin 81 Mg Chew PO 01/05/21 03:28 324 mg STAT ONE Administration Diltiazem HCl Confirm 01/05/21 02:51 Cardizem Iv 50 Mg/10 Ml Administered 01/05/21 02:52 Dose 50 mg IV .STK-MED ONE Diltiazem HCl 15 mg 01/05/21 02:52 01/05/21 02:55 Cardizem Iv 50 Mg/10 Ml IV 01/05/21 02:53 15 mg STAT ONE Administration Lab/Rad Data: Laboratory Result Diagrams 01/05/21 02:59 01/05/21 02:59 Laboratory Results 01/05/21 01/05/21 01/05/21 Range/Units 02:59 02:59 02:59 WBC 7.2 (4.0-10.5) K/mm3 RBC 4.87 (4.1-5.6) M/mm3 Hgb 15.1 (12.5-18.0) gm/dl Hct 45.6 (42-50) % MCV 93.6 (78-100) fl MCH 31.0 (26-32) pg MCHC 33.1 (32-36) g/dl RDW 12.0 (11.5-14.0) % Plt Count 318 (150-450) K/mm3 MPV 9.3 (7.5-11.0) fl Gran % 90.4 H (36.0-66.0) % Eos # (Auto) 0.01 (0-0.5) Absolute Lymphs (auto) 0.53 L (1.0-4.6) Absolute Monos (auto) 0.14 (0.0-1.3) Lymphocytes % 7.4 L (24.0-44.0) % Monocytes % 2.0 (0.0-12.0) % Eosinophils % 0.1 (0.00-5.0) % Basophils % 0.1 (0.0-0.4) % Absolute Granulocytes 6.47 (1.4-6.9) Basophils # 0.01 (0-0.4) Sodium 138 (137-145) mmol/L Potassium 3.7 (3.5-5.1) mmol/L Chloride 104 (98-107) mmol/L Carbon Dioxide 22 (22-30) mmol/L Anion Gap 16.0 H (5-15) MEQ/L BUN 17 (9-20) mg/dL Creatinine 0.83 (0.66-1.25) mg/dL Estimated GFR > 60.0 ML/MIN Glucose 188 H (74-106) mg/dL Calcium 9.6 (8.4-10.2) mg/dL Magnesium 1.9 (1.6-2.3) mg/dL Total Bilirubin 0.50 (0.2-1.3) mg/dL AST 27 (17-59) U/L ALT 22 (0-50) U/L Alkaline Phosphatase 85 (38-126) U/L Troponin I < 0.012 (0.000-0.034) ng/mL NT-Pro-B Natriuret Pep 103 (0-1800) pg/mL Serum Total Protein 7.5 (6.3-8.2) g/dL Albumin 4.5 (3.5-5.0) g/dL - Progress Progress: improved Progress Note: Case discussed with Dr. Wilson who accepts transfer to [facility]. However due to volume of admissions they will not be able to accept patient until 7 AM. Plan of care discussed with patient. He agrees to transfer to [facility] for further evaluation and treatment. 01/05/21 03:40 01/05/21 03:53 Patient's life science taxonomist is Dr. Lance Counseled pt/family regarding: lab results, diagnosis, rad results - Departure Departure Disposition: Transfer Clinical Impression: ACS (acute coronary syndrome), SVT (supraventricular tachycardia) Condition: Stable Critical Care Time: No Referrals: YARI LATHAM [Primary Care Provider] -
[2021-01-05 03:23] LABS: ALBUMIN 4.5 g/dL (3.5-5.0); ALKALINE PHOSPHATASE 85 U/L (38-126); BLOOD UREA NITROGEN 17 mg/dL (9-20); CHLORIDE 104 mmol/L (98-107); Calcium 9.6 mg/dL (8.4-10.2); Carbon Dioxide 22 mmol/L (22-30); Creatinine 1 0.83 mg/dL (0.66-1.25); EST GLOMERULAR FILTRATION RATE > 60.0 ML/MIN; Glucose 188 mg/dL (74-106); MAGNESIUM 1.9 mg/dL (1.6-2.3); NT PRO BNP 103 pg/mL (0-1800); Potassium 3.7 mmol/L (3.5-5.1); SGOT/AST 27 U/L (17-59); SGPT/ALT 22 U/L (0-50); SODIUM 138 mmol/L (137-145); Total Protein 7.5 g/dL (6.3-8.2)
[2021-01-05] MEDS ORDERED: BABY ASPIRIN 81 MG CHEW PO ONE (03:27)
[2021-01-05 05:15] VITALS: O2SAT 96
[2021-01-05 05:17] VITALS: BP 116/70; PULSE 67
--- NOTE | 2021-01-05 08:48 | XRAY ---
Indication: Short of breath. Comparison: October 02, 2020. Portable chest unchanged again demonstrating right lung postsurgical changes including right lung volume loss and right base fibrosis/scarring. Again incidental tiny calcified granulomas. No focal infiltrate, consolidation, or large effusion. Heart not enlarged again with CABG surgery. Bony thorax intact again with mild osteopenia and degenerative changes. Impression: Continued nonacute chest with chronic features.
== END 2021-01-05 05:44 | disposition short-term general hospital (02) ==
LOC: ED 02:19
DX: I24.9 Acute ischemic heart disease, unspecified (principal); I47.1 Supraventricular tachycardia; I25.2 Old myocardial infarction; I10 Essential (primary) hypertension; I25.10 Atherosclerotic heart disease of native coronary artery without angina pectoris; Z85.118 Personal history of other malignant neoplasm of bronchus and lung
CPT/HCPCS: 36000; 36415; 71045; 80053; 83735; 83880; 84484; 85025; 93005; 93041; 94760; 96365; 96366; 96374; 99285; A9270-GY

== ENCOUNTER 2021-03-23 13:30 | Emergency (ER) | payer MEDICARE, BC ==
--- NOTE | 2021-03-23 13:41 | ERPHSYRPT ---
- History of Present Illness Time Seen by Provider: 03/23/21 13:38 Historian: patient Exam Limitations: no limitations Physician History: Patient is a 76-year-old male with a history of right lung resection and multiple MIs presents to our ED with complaints of elevated blood pressure. Patient states that he usually checks his blood pressure and today observe that it was higher than normal. Patient otherwise asymptomatic. No associated chest pain. Patient states he has a history of intermittent chest pain. Patient had follow-up with his yarding and folding machine operator who advised him that he had a "clogged artery". However patient states that he has had so many heart attacks he notes with a heart attack feels like and he is currently not having a heart attack. Patient has mild shortness of breath but this is chronic due to his lung resection. No fever. No nausea or vomiting. No diarrhea. No rash. Symptoms are mild to moderate in intensity. No specific worsening improving factors. Patient voices no other complaints or concerns at this time. Timing/Duration: today Activities at Onset: none Quality: other (No pain at this time but when he does experience chest pain and has had left chest wall.) Location: other (Left chest wall.) Chest Pain Radiation: no radiation Severity of Pain-Max: moderate Severity of Pain-Current: mild Modifying Factors: Improves With: nothing Associated Symptoms: denies symptoms Prior Chest Pain/Cardiac Workup: cardiac cath Nitro Today/Relief: 0.4 mg x 4 Aspirin Treatment Today: no aspirin today Allergies/Adverse Reactions: Antihistamines - Alkylamine Allergy (Verified 03/23/21 13:40) bacitracin Allergy (Verified 03/23/21 13:40) miconazole nitrate [From Neosporin AF] Allergy (Verified 03/23/21 13:40) NSAIDS (Non-Steroidal Anti-Inflamma Allergy (Verified 03/23/21 13:40) Kpgnvxm-NUU-XaZ Reductase Inhibitor [Obnmnya-Eiu-Cos Reductase Inhibitor] Allergy (Verified 03/23/21 13:40) cyclobenzaprine Adverse Reaction (Verified 03/23/21 13:40) Irregular Heart Beat Home Medications: Oxycodone HCl/Acetaminophen [Percocet 5-325 mg Tablet] 7.5 - 325 mg PO QID MDD 4 03/06/18 [History] Hx Tetanus, Diphtheria Vaccination/Date Given: No Hx Influenza Vaccination/Date Given: No Hx Pneumococcal Vaccination/Date Given: No Travel Risk - Vaccine Status Have you recieved a Covid-19 vaccination: No - Review of Systems Constitutional: No Symptoms, No Fever, No Chills Eyes: No Symptoms Ears, Nose, & Throat: No Symptoms Respiratory: No Symptoms, No Cough, No Dyspnea Cardiac: No Symptoms, No Chest Pain, No Edema, No Syncope Abdominal/Gastrointestinal: No Symptoms, No Abdominal Pain, No Nausea, No Vomiting, No Diarrhea Genitourinary Symptoms: No Symptoms, No Dysuria Musculoskeletal: No Symptoms, No Back Pain, No Neck Pain Skin: No Symptoms, No Rash Neurological: No Symptoms, No Dizziness, No Focal Weakness, No Sensory Changes Psychological: No Symptoms Endocrine: No Symptoms Hematologic/Lymphatic: No Symptoms Immunological/Allergic: No Symptoms All Other Systems: Reviewed and Negative - Past Medical History Pertinent Past Medical History: Yes Neurological History: No Pertinent History ENT History: No Pertinent History Cardiac History: Coronary Artery Disease, Hypertension, Myocardial Infarction ([place]) Respiratory History: No Pertinent History, Lung Cancer Endocrine Medical History: No Pertinent History Musculoskeletal History: Arthritis GI Medical History: Ulcer History: No Pertinent History Psycho-Social History: No Pertinent History Male Reproductive Disorders: No Pertinent History Other Medical History: Chronic back pain - Past Surgical History Past Surgical History: Yes Neuro Surgical History: No Pertinent History Cardiac: CABG, Cardiac Catheterization, Cardiac Stent Respiratory: No Pertinent History Gastrointestinal: No Pertinent History Genitourinary: No Pertinent History Musculoskeletal: No Pertinent History Male Surgical History: No Pertinent History Other Surgical History: bypass and 4 stents, left knee surgery "cleaned out around the knee", left shoulder surg "removed something that was restricting blood flow because my shoulder just hung."; rt lower 2/3 lung removed - Social History Smoking Status: Former smoker Exposure to second hand smoke: No Drug Use: none Patient Lives Alone: No Significant Family History: no pertinent family hx - Nursing Vital Signs Nursing Vital Signs: Initial Vital Signs Temperature 98.9 F 03/23/21 13:32 Pulse Rate 93 H 03/23/21 13:32 Respiratory Rate 24 03/23/21 13:32 Blood Pressure 221/111 03/23/21 13:32 O2 Sat by Pulse Oximetry 97 03/23/21 13:32 Pain Scale Pain Intensity 0 - Physical Exam General Appearance: no apparent distress, alert Eye Exam: PERRL/EOMI, eyes nml inspection Ears, Nose, Throat Exam: normal ENT inspection, moist mucous membranes Neck Exam: normal inspection, non-tender, supple, full range of motion Respiratory Exam: normal breath sounds, lungs clear, airway intact (Diminished breath sounds on the right. Patient has a history of right pneumonectomy.), No respiratory distress Cardiovascular Exam: regular rate/rhythm, normal heart sounds Gastrointestinal/Abdomen Exam: soft, No tenderness, No mass Back Exam: normal inspection, No CVA tenderness, No vertebral tenderness Extremity Exam: normal inspection, normal range of motion Neurologic Exam: alert, oriented x 3, cooperative, normal mood/affect, sensation nml, No motor deficits Skin Exam: normal color, warm, dry Lymphatic Exam: No adenopathy SpO2 Interpretation: normal SpO2: 98 O2 Delivery: Room Air - Course Nursing assessment & vital signs reviewed: Yes EKG Interpreted by Me: RATE (74), Sinus Rhythm, NORMAL AXIS, NORMAL INTERVALS - Radiology Exams Chest X-ray Interpretation: Teleradiologist Report (Portable chest unchanged demonstrates right lung postsurgical changes evidence of CABG. Remaining heart and lungs unremarkable. Osteopenia with degenerative changes of bony thorax.) Ordered Tests: Active Orders 24 hr Category Date Time Status Street Superintendent STAT Care 03/23/21 13:37 Active EKG-ER Only STAT Care 03/23/21 13:37 Active IV Insertion STAT Care 03/23/21 13:37 Active Pulse Oximetry (ED) STAT Care 03/23/21 13:37 Active CHEST 1 VIEW (PORTABLE) Stat Exams 03/23/21 13:37 Completed CBC W DIFF Stat Lab 03/23/21 13:50 Completed CMP Stat Lab 03/23/21 13:50 Completed NT PRO BNP Stat Lab 03/23/21 13:50 Completed TROPONIN Q3H Lab 03/23/21 13:50 Completed TROPONIN Q3H Lab 03/23/21 16:55 Completed TROPONIN Q3H Lab 03/23/21 19:45 Ordered TROPONIN Q3H Lab 03/23/21 22:45 Ordered TROPONIN Q3H Lab 03/24/21 01:45 Ordered Lab/Rad Data: Laboratory Result Diagrams 03/23/21 13:50 03/23/21 13:50 Laboratory Results 03/23/21 03/23/21 03/23/21 Range/Units 16:55 13:50 13:50 WBC (4.0-10.5) K/mm3 RBC (4.1-5.6) M/mm3 Hgb (12.5-18.0) gm/dl Hct (42-50) % MCV (78-100) fl MCH (26-32) pg MCHC (32-36) g/dl RDW (11.5-14.0) % Plt Count (150-450) K/mm3 MPV (7.5-11.0) fl Gran % (36.0-66.0) % Eos # (Auto) (0-0.5) Absolute Lymphs (auto) (1.0-4.6) Absolute Monos (auto) (0.0-1.3) Lymphocytes % (24.0-44.0) % Monocytes % (0.0-12.0) % Eosinophils % (0.00-5.0) % Basophils % (0.0-0.4) % Absolute Granulocytes (1.4-6.9) Basophils # (0-0.4) Sodium 141 (137-145) mmol/L Potassium 3.6 (3.5-5.1) mmol/L Chloride 106 (98-107) mmol/L Carbon Dioxide 26 (22-30) mmol/L Anion Gap 12.6 (5-15) MEQ/L BUN 11 (9-20) mg/dL Creatinine 0.77 (0.66-1.25) mg/dL Estimated GFR > 60.0 ML/MIN Glucose 106 (74-106) mg/dL Calcium 9.2 (8.4-10.2) mg/dL Total Bilirubin 0.50 (0.2-1.3) mg/dL AST 28 (17-59) U/L ALT 24 (0-50) U/L Alkaline Phosphatase 84 (38-126) U/L Troponin I < 0.012 < 0.012 (0.000-0.034) ng/mL NT-Pro-B Natriuret Pep 94.1 (0-1800) pg/mL Serum Total Protein 6.8 (6.3-8.2) g/dL Albumin 4.2 (3.5-5.0) g/dL 03/23/21 Range/Units 13:50 WBC 7.7 (4.0-10.5) K/mm3 RBC 5.10 (4.1-5.6) M/mm3 Hgb 15.6 (12.5-18.0) gm/dl Hct 48.0 (42-50) % MCV 94.1 (78-100) fl MCH 30.6 (26-32) pg MCHC 32.5 (32-36) g/dl RDW 12.5 (11.5-14.0) % Plt Count 276 (150-450) K/mm3 MPV 9.4 (7.5-11.0) fl Gran % 75.4 H (36.0-66.0) % Eos # (Auto) 0.19 (0-0.5) Absolute Lymphs (auto) 1.18 (1.0-4.6) Absolute Monos (auto) 0.51 (0.0-1.3) Lymphocytes % 15.2 L (24.0-44.0) % Monocytes % 6.6 (0.0-12.0) % Eosinophils % 2.5 (0.00-5.0) % Basophils % 0.3 (0.0-0.4) % Absolute Granulocytes 5.84 (1.4-6.9) Basophils # 0.02 (0-0.4) Sodium (137-145) mmol/L Potassium (3.5-5.1) mmol/L Chloride (98-107) mmol/L Carbon Dioxide (22-30) mmol/L Anion Gap (5-15) MEQ/L BUN (9-20) mg/dL Creatinine (0.66-1.25) mg/dL Estimated GFR ML/MIN Glucose (74-106) mg/dL Calcium (8.4-10.2) mg/dL Total Bilirubin (0.2-1.3) mg/dL AST (17-59) U/L ALT (0-50) U/L Alkaline Phosphatase (38-126) U/L Troponin I (0.000-0.034) ng/mL NT-Pro-B Natriuret Pep (0-1800) pg/mL Serum Total Protein (6.3-8.2) g/dL Albumin (3.5-5.0) g/dL - Progress Progress: improved Air Movement: good Progress Note: Case discussed with Dr. Carreno. Dr. Carreno covering Dr. Sahni. Patient was previously on amlodipine and on Toprol 50 mg twice daily. Amlodipine was 10 mg. These medications were discontinued. The chart is not clear as to why. However Dr. Carreno advises starting patient on 5 mg amlodipine daily. Patient de nies any adverse reactions to amlodipine or Toprol. He is not sure why these medications were discontinued. Troponin negative x2. Patient asymptomatic. Blood pressure systolic is 140 systolic at this time. Will discharge patient home. Patient will be started on amlodipine 5 mg daily. Plan of care discussed with patient. He agreed to plan of care. He voices no other complaints or concerns at this time. Patient states is ready for discharge. Portions of this note were created with voice recognition technology. There may be grammatical, spelling, punctuation or sound alike errors 03/23/21 18:35 Blood Culture(s) Obtained: No Antibiotics given: No Discussed with DrHui: Ferdinand Counseled pt/family regarding: lab results, diagnosis, need for follow-up, rad results - Departure Departure Disposition: Home Clinical Impression: Osteopenia, Hypertension Condition: Stable Critical Care Time: No Referrals: YARI SAHNI [Primary Care Provider] - Follow up/PCP as directed Additional Instructions: Discharge/Care Plan FANY GREENE was seen on 03/23/21 in the Emergency Room. The patient was counseled regarding Diagnosis,Lab results, Imaging studies, need for follow up and when to return to the Emergency Room. Prescriptions given: Discharge Note I have spoken with the patient and/or caregivers. I have explained the patient's condition, diagnosis and treatment plan based on the information available to me at this time. I have answered the patient's and/or caregiver's questions and addressed any concerns. The patient and/or caregivers have as good understanding of the patient's diagnosis, condition and treatment plan as can be expected at this point. The vital signs have been stable. The patient's condition is stable and appropriate for discharge from the emergency department. The patient will pursue further outpatient evaluation with the primary care physician or other designated or consulting physician as outlined in the discharge instructions. The patient and/or caregivers are agreeable to this plan of care and follow-up instructions have been explained in detail. The patient and/or caregivers have received these instruction. The patient/and or caregivers are aware that any significant change in condition or worsening of symptoms should prompt an immediate return to this or the closest emergency department or call 911. Prescriptions: Amlodipine Besylate 5 mg [Norvasc 5 mg] 5 mg PO DAILY 14 Days #14 tablet
[2021-03-23 14:03] LABS: Absolute Neutrophil Ct (ANC) 5.84 (1.4-6.9); BASOPHIL % 0.3 % (0.0-0.4); Basophil (Absolute #) 0.02 (0-0.4); Eosinophil % 2.5 % (0.00-5.0); Eosinophil (Absolute #) 0.19 (0-0.5); Hemoglobin 15.6 gm/dl (12.5-18.0); Lymphocyte (Absolute #) 1.18 (1.0-4.6); Lymphocytes % 15.2 % (24.0-44.0); Mean Cell Volume 94.1 fl (78-100); Mean Corpuscular Hemoglobin 30.6 pg (26-32); Mean Corpuscular Hgb Concent. 32.5 g/dl (32-36); Mean Platelet Volume 9.4 fl (7.5-11.0); Monocyte (Absolute #) 0.51 (0.0-1.3); Monocytes % 6.6 % (0.0-12.0); Neutrophil % 75.4 % (36.0-66.0); Platelet Count 276 K/mm3 (150-450); Red Cell Distribution Width 12.5 % (11.5-14.0); White Blood Count 7.7 K/mm3 (4.0-10.5)
[2021-03-23 14:21] LABS: ALBUMIN 4.2 g/dL (3.5-5.0); ALKALINE PHOSPHATASE 84 U/L (38-126); ANION GAP 12.6 MEQ/L (5-15); BLOOD UREA NITROGEN 11 mg/dL (9-20); CHLORIDE 106 mmol/L (98-107); Calcium 9.2 mg/dL (8.4-10.2); Carbon Dioxide 26 mmol/L (22-30); Creatinine 1 0.77 mg/dL (0.66-1.25); EST GLOMERULAR FILTRATION RATE > 60.0 ML/MIN; Glucose 106 mg/dL (74-106); NT PRO BNP 94.1 pg/mL (0-1800); Potassium 3.6 mmol/L (3.5-5.1); SGOT/AST 28 U/L (17-59); SGPT/ALT 24 U/L (0-50); SODIUM 141 mmol/L (137-145); Total Protein 6.8 g/dL (6.3-8.2)
--- NOTE | 2021-03-23 14:27 | XRAY ---
Indication: Chest pain. Comparison: February 19, 2021. Portable chest unchanged again demonstrating right lung postsurgical changes, minimal bibasilar fibrosis/scarring, and CABG surgery. Remaining heart and lungs unremarkable. Bony thorax intact again with osteopenic and degenerative changes. No new/acute abnormalities.
[2021-03-23 18:46] VITALS: BP 141/80; PULSE 63; O2SAT 95
== END 2021-03-23 18:52 | disposition home or self-care (01) ==
LOC: ED 13:30
DX: I10 Essential (primary) hypertension (principal); M85.80 Other specified disorders of bone density and structure, unspecified site; I25.2 Old myocardial infarction; Z79.891 Long term (current) use of opiate analgesic; I25.10 Atherosclerotic heart disease of native coronary artery without angina pectoris
CPT/HCPCS: 36000; 36415; 71045; 80053; 83880; 84484; 85025; 93005; 93041; 94760; 99284

== ENCOUNTER 2021-08-03 09:25 | Day surgery (SDC) | payer MEDICARE, BC ==
[2021-08-03] MEDS ORDERED: Depo-Medrol 40 MG/ML IM ONE (09:26)
[2021-08-03] MEDS ORDERED: Decadron 4 MG INJ IV ONE (09:26)
[2021-08-03] MEDS ORDERED: Sodium Chloride 0.9(Preservative Free) 10 ML IJ ONE (09:26)
[2021-08-03] MEDS ORDERED: Xylocaine 1% Vial 30 ML PF IJ ONE (09:26)
[2021-08-03] MEDS ORDERED: DIPRIVAN 200 MG/20 ML IV ONE (11:57)
[2021-08-03] MEDS ORDERED: Xylocaine-Mpf 2% 5 Ml Vial ONE (12:05)
[2021-08-03] MEDS ORDERED: Lactated Ringers 1,000 ML IV ONE (13:30)
--- NOTE | 2021-08-03 13:34 | XRAY ---
Indication: Left L4-S1 transforaminal TRICIA Intraoperative fluoroscopy provided for 22 seconds. 4 digital spot image submitted for interpretation demonstrates posterior needle tips projecting over the expected left L4 and L5 nerve roots. Small amount of contrast injected for needle tip placement. Correlate with intraoperative findings/report.
--- NOTE | 2021-08-03 13:34 | XRAY ---
Indication: Left piriformis injection Intraoperative fluoroscopy provided for 22 seconds. Single digital spot image obtained prone submitted for interpretation demonstrates posterior needle tip projecting over the expected left piriformis muscle. Small amount of contrast injected for needle tip placement. Correlate with intraoperative findings/report.
--- NOTE | 2021-08-03 14:38 | XRAY ---
22 seconds of fluoroscopy was used in surgery for a left piriformis muscle injection.
--- NOTE | 2021-08-03 14:38 | XRAY ---
22 seconds of fluoroscopy was used in surgery for a left transforaminal TRICIA.
== END 2021-08-03 12:32 | disposition home or self-care (01) ==
LOC: SDC-PAIN 09:25
PROVIDERS: ATTEND Psychiatry & Neurology Pain Medicine
DX: M54.16 Radiculopathy, lumbar region (principal); M79.18 Myalgia, other site; I10 Essential (primary) hypertension; Z79.899 Other long term (current) drug therapy
CPT/HCPCS: 20552; 64483; 64484; 72020; 72100; 77002; 77003; J1030; J1100; J2001; J2704; Q9966

== ENCOUNTER 2021-11-07 18:23 | Inpatient (IN) | payer MEDICARE, BC ==
--- NOTE | 2021-11-07 19:34 | ERPHSYRPT ---
- History of Present Illness Source: patient Exam Limitations: other (Poor historian) Patient Subjective Stated Complaint: shortness of breath Triage Nursing Assessment: Pt was brought to the ER by his , hypoxic, denies any new additional pain, pt does have chronic back pain, pt was diagnosed with covid on 11/04 but has noticed for the past week that his oxygen has been going down each day, pt was anxious upon arrival and placed on 3L NC and now he keeps falling asleep, pulses normal, skin n/cool/clammy, hx of lobectomy Physician History: 81 yo wm w h/o R lobectomy/CABG/Stents/Lung Ca presents w dyspnea x 5 days. He is not on O2 at home and states that he was + for CV19 on 11/04/21. He has a worsening cough but denies chest pain/fever/N/V/D/melena/hematochezia. Timing/Duration: other (5 days) Activities at Onset: rest Severity of Dyspnea-Max: moderate Severity of Dyspnea-Current: moderate Possible Cause: frequent episodes Modifying Factors: Improves With: activity, coughing Associated Symptoms: cough, weakness, chills, No chest pain/discomfort, No edema, No fever, No insomnia, No loss of appetite, No lightheadedness, No wheezing, No ankle swelling, No hemoptysis, No calf pain, No dizziness, No heaviness, No heart racing, No lightheadedness, No leg swelling, No muscle spasms feet, No muscle spasms hands, No painful breathing, No productive cough, No sweating, No tightness, No tingling face, No tingling hands Allergies/Adverse Reactions: Antihistamines - Alkylamine Allergy (Verified 11/07/21 18:49) bacitracin Allergy (Verified 11/07/21 18:49) miconazole nitrate [From Neosporin AF] Allergy (Verified 11/07/21 18:49) NSAIDS (Non-Steroidal Anti-Inflamma Allergy (Verified 11/07/21 18:49) Yjulfmo-PIV-EyX Reductase Inhibitor [Pfopcbk-Smh-Qmd Reductase Inhibitor] Allergy (Verified 11/07/21 18:49) cyclobenzaprine Adverse Reaction (Verified 11/07/21 18:49) Irregular Heart Beat Home Medications: Amlodipine Besylate 5 mg [Norvasc 5 mg] 10 mg PO 2300 11/07/21 [History] Hydrocodone/Acetaminophen [Hydrocodone-Acetamin 10-325 mg] 1 tablet PO 0000,0600,1200,1800 11/07/21 [History] Hx Tetanus, Diphtheria Vaccination/Date Given: No Hx Influenza Vaccination/Date Given: No Hx Pneumococcal Vaccination/Date Given: No Travel Risk - International Travel Have you traveled outside of the country in past 3 weeks: No - Coronavirus Screening Are you exhibiting any of the following symptoms?: Yes Symptoms: Cough: New Onset, Shortness of Breath Close contact with a COVID-19 positive Pt in past 14-21 Days: No - Vaccine Status Have you recieved a Covid-19 vaccination: No - Review of Systems Constitutional: No Symptoms Eyes: No Symptoms Ears, Nose, & Throat: Nose Congestion Respiratory: Cough Cardiac: No Symptoms Abdominal/Gastrointestinal: No Symptoms Genitourinary Symptoms: No Symptoms Musculoskeletal: No Symptoms Skin: No Symptoms Neurological: No Symptoms Psychological: No Symptoms Endocrine: No Symptoms Hematologic/Lymphatic: No Symptoms Immunological/Allergic: No Symptoms - Past Medical History Pertinent Past Medical History: Yes Neurological History: No Pertinent History ENT History: No Pertinent History Cardiac History: Coronary Artery Disease, Hypertension, Myocardial Infarction ([place]) Respiratory History: No Pertinent History, Lung Cancer Endocrine Medical History: No Pertinent History Musculoskeletal History: Arthritis GI Medical History: Ulcer History: No Pertinent History Psycho-Social History: No Pertinent History Male Reproductive Disorders: No Pertinent History Other Medical History: Chronic back pain - Past Surgical History Past Surgical History: Yes Neuro Surgical History: No Pertinent History Cardiac: CABG, Cardiac Catheterization, Cardiac Stent Respiratory: No Pertinent History Gastrointestinal: No Pertinent History Genitourinary: No Pertinent History Musculoskeletal: No Pertinent History Male Surgical History: No Pertinent History Other Surgical History: bypass and 4 stents, left knee surgery "cleaned out around the knee", left shoulder surg "removed something that was restricting blood flow because my shoulder just hung."; rt lower 2/3 lung removed - Social History Smoking Status: Former smoker Exposure to second hand smoke: No Drug Use: none Patient Lives Alone: No Significant Family History: no pertinent family hx - Nursing Vital Signs Nursing Vital Signs: Initial Vital Signs Temperature 98.3 F 11/07/21 18:29 Pulse Rate 79 11/07/21 18:29 Respiratory Rate 14 11/07/21 18:29 Blood Pressure 125/74 11/07/21 18:29 O2 Sat by Pulse Oximetry 88 L 11/07/21 18:29 Pain Scale Pain Intensity 0 Hypoxic - Physical Exam General Appearance: no apparent distress Eye Exam: PERRL/EOMI, eyes nml inspection Ears, Nose, Throat Exam: hearing grossly normal, normal ENT inspection, normal pharynx Neck Exam: normal inspection, non-tender, supple, full range of motion, No Brudzinski, No Kernig's, No meningismus, No carotid bruit, No lymphadenopathy (R) Respiratory Exam: crackles/rales (Rales L base>Rbase/Scattered wheezes) Cardiovascular/Chest Exam: normal heart sounds, regular rate/rhythm, normal peripheral pulses, No murmur Abdominal/Gastrointestinal Exam: soft, normal bowel sounds, No tenderness Extremity Exam: non-tender, normal range of motion, normal inspection, normal capillary refill Peripheral Pulses Exam: carotid (R): 2+, carotid (L): 2+ Neurologic Exam: alert, oriented x 3, cooperative, director of cath lab II-XII nml as tested, normal mood/affect, nml cerebellar function, nml station & gait, sensation nml, No motor deficits, No sensory deficit Skin Exam: normal color, warm, dry Lymphatic Exam: No adenopathy SpO2 Interpretation: borderline oxygenation SpO2: 95 O2 Delivery: Nasal Cannula - Course Nursing assessment & vital signs reviewed: Yes EKG Interpreted by Me: RATE (NSR/Rate77/Normal QT-QTc/Non-specific Twave abnormality/No acute ST segment changes) - Radiology Exams Chest X-ray Interpretation: Interpreted by me (Possible LLL infiltrate) Ordered Tests: Active Orders 24 hr Category Date Time Status Consistent Carbohydrate Diet 2000 Calorie Diet 11/07/21 Breakfast Active CHEST 1 VIEW (PORTABLE) Stat Exams 11/07/21 18:57 Taken BLOOD CULTURE Stat Lab 11/07/21 21:58 Received CBC AM.LAB Lab 11/08/21 04:00 Ordered CBC W DIFF Stat Lab 11/07/21 19:35 Completed CMP AM.LAB Lab 11/08/21 04:00 Ordered CMP Stat Lab 11/07/21 19:35 Completed CULTURE,URINE Stat Lab 11/07/21 20:20 Received Lactic Acid Stat Lab 11/07/21 19:30 Completed NT PRO BNP Stat Lab 11/07/21 19:35 Completed PROTIME WITH INR Stat Lab 11/07/21 19:35 Completed PTT Stat Lab 11/07/21 19:35 Completed TROPONIN Q4H Lab 11/08/21 01:27 Received TROPONIN Q4H Lab 11/08/21 05:45 Ordered TROPONIN Stat Lab 11/07/21 19:35 Completed UA W/RFX CULTURE Stat Lab 11/07/21 20:20 Completed Medication Summary Generic Name Dose Route Start Last Admin Trade Name Venkat PRN Reason Stop Dose Admin Hydrocodone Bitart/Acetaminophen 1 tablet 11/08/21 00:00 11/07/21 23:52 Hydrocodone/Acetamin 10-325 Mg Tablet PO 11/13/21 00:00 1 tablet Q6HT GEORGINA Administration Albuterol Sulfate 4 puff 11/08/21 01:00 11/08/21 00:03 Albuterol Common Canister Inhaler IH 12/08/21 00:59 4 puff Q6HRT GEORGINA Administration Amlodipine Besylate 10 mg 11/08/21 22:00 11/07/21 23:53 Amlodipine Besylate 5 Mg Tablet PO 12/08/21 21:59 10 mg HS GEORGINA Administration Dexamethasone Sodium Phosphate 8 mg 11/08/21 22:00 Dexamethasone Sod Phosphate 4 Mg/Ml Ml IV 12/08/21 21:59 HS GEORGINA Enoxaparin Sodium 40 mg 11/08/21 10:00 Enoxaparin Sodium 40 Mg/0.4 Ml Syringe SQ 12/08/21 09:59 DAILY GEORGINA Azithromycin 500 mg in 250 mls @ 250 mls/hr 11/08/21 10:00 Zithromax 500 Mg/ 250 Ml Nacl Premix IV 12/08/21 09:59 Q24H10 GEORGINA Ceftriaxone Sodium/Dextrose 1 g in 50 mls @ 100 mls/hr 11/08/21 10:00 Rocephin 1 Gm-D5w 50 Ml Bag IV 11/11/21 09:59 Q24H10 GEORGINA Sodium Chloride 1,000 mls @ 100 mls/hr 11/07/21 21:45 11/07/21 22:18 Sodium Chloride 0.9% 1000 Ml IV 12/07/21 21:44 100 mls/hr .Q10H GEORGINA Administration Remdesivir 200 mg/ Sodium 250 mls @ 125 mls/hr 11/07/21 23:37 11/07/21 23:52 Chloride IV 11/08/21 01:36 Not Given ONCE ONE Remdesivir 100 mg/ Sodium 100 mls @ 100 mls/hr 11/08/21 22:00 Chloride IV 11/11/21 22:59 Q24H [facility] Pantoprazole Sodium 40 mg 11/08/21 10:00 Pantoprazole 40 Mg Vial IV 12/08/21 09:59 Q24H10 GEORGINA Discontinued Medications Generic Name Dose Route Start Last Admin Trade Name Freq PRN Reason Stop Dose Admin Albuterol/Ipratropium 3 ml 11/08/21 01:00 Ipratropium/Albuterol Sulfate 3 Ml Ampul.Neb IH 12/08/21 00:59 Q6HRT GEORGNIA Amlodipine Besylate Confirm 11/07/21 23:48 Amlodipine Besylate 5 Mg Tablet Administered 11/07/21 23:49 Dose 10 mg .ROUTE .STK-MED ONE Dexamethasone Sodium Phosphate Confirm 11/07/21 23:50 Dexamethasone Sod Phosphate 4 Mg/Ml Ml Administered 11/07/21 23:51 Dose 8 mg .ROUTE .STK-MED ONE Enoxaparin Sodium 40 mg 11/07/21 21:43 11/07/21 22:19 Enoxaparin Sodium 40 Mg/0.4 Ml Syringe SQ 11/07/21 21:44 40 mg STAT ONE Administration Enoxaparin Sodium Confirm 11/07/21 22:17 Enoxaparin Sodium 80 Mg/0.8 Ml Syringe Administered 11/07/21 22:18 Dose 80 mg SQ .STK-MED ONE Ceftriaxone Sodium/Dextrose 1 g in 50 mls @ 100 mls/hr 11/07/21 21:31 11/07/21 22:14 Rocephin 1 Gm-D5w 50 Ml Bag IV 11/07/21 22:00 Infused STAT STA Infusion Ceftriaxone Sodium/Dextrose Confirm 11/07/21 21:36 Rocephin 1 Gm-D5w 50 Ml Bag Administered 11/07/21 21:37 Dose 1 g in 50 mls @ ud IV .STK-MED ONE Remdesivir 100 mg/ Sodium 100 mls @ 100 mls/hr 11/07/21 23:45 Chloride IV 11/11/21 00:44 Q24H [facility] Sodium Chloride Confirm 11/07/21 23:42 Sodium Chloride 0.9% 250 Ml Administered 11/07/21 23:43 Dose 250 mls @ ud IV .STK-MED ONE Remdesivir Confirm 11/07/21 23:42 Remdesivir 100 Mg Vial Administered 11/07/21 23:43 Dose 200 mg IV .STK-MED ONE Lab/Rad Data: Laboratory Result Diagrams 11/07/21 19:35 11/07/21 19:35 Laboratory Results 11/07/21 11/07/21 11/07/21 Range/Units 20:20 19:35 19:35 WBC (4.0-10.5) x10^3/uL RBC (4.1-5.6) x10^6/uL Hgb (12.5-18.0) g/dL Hct (42-50) % MCV (78-100) fL MCH (26-32) pg MCHC (32-36) g/dL RDW (11.5-14.0) % Plt Count (150-450) x10^3/uL MPV (7.5-11.0) fL Gran % (36.0-66.0) % Immature Gran % (Auto) (0.00-0.4) % Nucleat RBC Rel Count (0.00-0.1) % Eos # (Auto) (0-0.5) x10^3/uL Immature Gran # (Auto) (0.00-0.03) x10^3u/L Absolute Lymphs (auto) (1.0-4.6) x10^3/uL Absolute Monos (auto) (0.0-1.3) x10^3/uL Absolute Nucleated RBC (0.00-0.01) x10^3u/L Lymphocytes % (24.0-44.0) % Monocytes % (0.0-12.0) % Eosinophils % (0.00-5.0) % Basophils % (0.0-0.4) % Absolute Granulocytes (1.4-6.9) x10^3/uL Basophils # (0-0.4) x10^3/uL PT 12.0 (9.4-12.5) SECONDS INR 1.15 (0.8-3.0) APTT 34.3 (25.1-36.5) SECONDS Sodium (137-145) mmol/L Potassium (3.5-5.1) mmol/L Chloride (98-107) mmol/L Carbon Dioxide (22-30) mmol/L Anion Gap (5-15) MEQ/L BUN (9-20) mg/dL Creatinine (0.66-1.25) mg/dL Estimated GFR ML/MIN Glucose (74-106) mg/dL Lactic Acid (0.4-2.0) Calcium (8.4-10.2) mg/dL Total Bilirubin (0.2-1.3) mg/dL AST (17-59) U/L ALT (0-50) U/L Alkaline Phosphatase (38-126) U/L Troponin I 0.019 (0.000-0.034) ng/mL NT-Pro-B Natriuret Pep (0-1800) pg/mL Serum Total Protein (6.3-8.2) g/dL Albumin (3.5-5.0) g/dL Urinalys Dipstick Clnc MAIN LAB Urine Color YELLOW (YELLOW) Urine Appearance SLIGHTLY CLOUDY (CLEAR) Urine pH 5.5 (5-6) Ur Specific [place] >=1.030 (1.005-1.025) POC Urine Protein Conf 30 (Negative) Urine Ketones NEGATIVE (NEGATIVE) Urine Nitrite NEGATIVE (NEGATIVE) Urine Bilirubin SMALL (NEGATIVE) Urine Urobilinogen 1 (0-1) mg/dL Urine Leukocytes MODERATE (NEGATIVE) Urine WBC (Auto) >100 (0-5) /HPF Urine RBC (Auto) 16-25 (0-2) /HPF Urine Bacteria (Auto) FEW (NEGATIVE) /HPF Urine RBC TRACE-LYSED (0-5) Sunny/ul Urine Mucus (Auto) SLIGHT (NEGATIVE) /HPF Ur Culture Indicated? YES Urine Glucose NEGATIVE (NEGATIVE) mg/dL Influenza Type A Ag (NEGATIVE) Influenza Type B Ag (NEGATIVE) RSV (PCR) (Negative) SARS-CoV-2 (PCR) (NEGATIVE) Slides for Path Review 11/07/21 11/07/21 11/07/21 Range/Units 19:35 19:35 19:30 WBC 5.2 (4.0-10.5) x10^3/uL RBC 5.12 (4.1-5.6) x10^6/uL Hgb 15.8 (12.5-18.0) g/dL Hct 47.4 (42-50) % MCV 92.6 (78-100) fL MCH 30.9 (26-32) pg MCHC 33.3 (32-36) g/dL RDW 11.9 (11.5-14.0) % Plt Count 182 (150-450) x10^3/uL MPV 9.6 (7.5-11.0) fL Gran % 83.3 H (36.0-66.0) % Immature Gran % (Auto) 0.2 (0.00-0.4) % Nucleat RBC Rel Count 0.0 (0.00-0.1) % Eos # (Auto) 0.01 (0-0.5) x10^3/uL Immature Gran # (Auto) 0.01 (0.00-0.03) x10^3u/L Absolute Lymphs (auto) 0.36 L (1.0-4.6) x10^3/uL Absolute Monos (auto) 0.47 (0.0-1.3) x10^3/uL Absolute Nucleated RBC 0.00 (0.00-0.01) x10^3u/L Lymphocytes % 7.0 L (24.0-44.0) % Monocytes % 9.1 (0.0-12.0) % Eosinophils % 0.2 (0.00-5.0) % Basophils % 0.2 (0.0-0.4) % Absolute Granulocytes 4.29 (1.4-6.9) x10^3/uL Basophils # 0.01 (0-0.4) x10^3/uL PT (9.4-12.5) SECONDS INR (0.8-3.0) APTT (25.1-36.5) SECONDS Sodium 135 L (137-145) mmol/L Potassium 3.6 (3.5-5.1) mmol/L Chloride 100 (98-107) mmol/L Carbon Dioxide 28 (22-30) mmol/L Anion Gap 10.5 (5-15) MEQ/L BUN 19 (9-20) mg/dL Creatinine 0.73 (0.66-1.25) mg/dL Estimated GFR > 60.0 ML/MIN Glucose 107 H (74-106) mg/dL Lactic Acid (0.4-2.0) Calcium 8.4 (8.4-10.2) mg/dL Total Bilirubin 0.70 (0.2-1.3) mg/dL AST 55 (17-59) U/L ALT 45 (0-50) U/L Alkaline Phosphatase 166 H (38-126) U/L Troponin I (0.000-0.034) ng/mL NT-Pro-B Natriuret Pep 78.8 (0-1800) pg/mL Serum Total Protein 6.9 (6.3-8.2) g/dL Albumin 3.7 (3.5-5.0) g/dL Urinalys Dipstick Clnc Urine Color (YELLOW) Urine Appearance (CLEAR) Urine pH (5-6) Ur Specific [place] (1.005-1.025) POC Urine Protein Conf (Negative) Urine Ketones (NEGATIVE) Urine Nitrite (NEGATIVE) Urine Bilirubin (NEGATIVE) Urine Urobilinogen (0-1) mg/dL Urine Leukocytes (NEGATIVE) Urine WBC (Auto) (0-5) /HPF Urine RBC (Auto) (0-2) /HPF Urine Bacteria (Auto) (NEGATIVE) /HPF Urine RBC (0-5) Sunny/ul Urine Mucus (Auto) (NEGATIVE) /HPF Ur Culture Indicated? Urine Glucose (NEGATIVE) mg/dL Influenza Type A Ag NEGATIVE (NEGATIVE) Influenza Type B Ag NEGATIVE (NEGATIVE) RSV (PCR) NEGATIVE (Negative) SARS-CoV-2 (PCR) POSITIVE A (NEGATIVE) Slides for Path Review YES 11/07/21 Range/Units 19:30 WBC (4.0-10.5) x10^3/uL RBC (4.1-5.6) x10^6/uL Hgb (12.5-18.0) g/dL Hct (42-50) % MCV (78-100) fL MCH (26-32) pg MCHC (32-36) g/dL RDW (11.5-14.0) % Plt Count (150-450) x10^3/uL MPV (7.5-11.0) fL Gran % (36.0-66.0) % Immature Gran % (Auto) (0.00-0.4) % Nucleat RBC Rel Count (0.00-0.1) % Eos # (Auto) (0-0.5) x10^3/uL Immature Gran # (Auto) (0.00-0.03) x10^3u/L Absolute Lymphs (auto) (1.0-4.6) x10^3/uL Absolute Monos (auto) (0.0-1.3) x10^3/uL Absolute Nucleated RBC (0.00-0.01) x10^3u/L Lymphocytes % (24.0-44.0) % Monocytes % (0.0-12.0) % Eosinophils % (0.00-5.0) % Basophils % (0.0-0.4) % Absolute Granulocytes (1.4-6.9) x10^3/uL Basophils # (0-0.4) x10^3/uL PT (9.4-12.5) SECONDS INR (0.8-3.0) APTT (25.1-36.5) SECONDS Sodium (137-145) mmol/L Potassium (3.5-5.1) mmol/L Chloride (98-107) mmol/L Carbon Dioxide (22-30) mmol/L Anion Gap (5-15) MEQ/L BUN (9-20) mg/dL Creatinine (0.66-1.25) mg/dL Estimated GFR ML/MIN Glucose (74-106) mg/dL Lactic Acid 1.1 (0.4-2.0) Calcium (8.4-10.2) mg/dL Total Bilirubin (0.2-1.3) mg/dL AST (17-59) U/L ALT (0-50) U/L Alkaline Phosphatase (38-126) U/L Troponin I (0.000-0.034) ng/mL NT-Pro-B Natriuret Pep (0-1800) pg/mL Serum Total Protein (6.3-8.2) g/dL Albumin (3.5-5.0) g/dL Urinalys Dipstick Clnc Urine Color (YELLOW) Urine Appearance (CLEAR) Urine pH (5-6) Ur Specific [place] (1.005-1.025) POC Urine Protein Conf (Negative) Urine Ketones (NEGATIVE) Urine Nitrite (NEGATIVE) Urine Bilirubin (NEGATIVE) Urine Urobilinogen (0-1) mg/dL Urine Leukocytes (NEGATIVE) Urine WBC (Auto) (0-5) /HPF Urine RBC (Auto) (0-2) /HPF Urine Bacteria (Auto) (NEGATIVE) /HPF Urine RBC (0-5) Sunny/ul Urine Mucus (Auto) (NEGATIVE) /HPF Ur Culture Indicated? Urine Glucose (NEGATIVE) mg/dL Influenza Type A Ag (NEGATIVE) Influenza Type B Ag (NEGATIVE) RSV (PCR) (Negative) SARS-CoV-2 (PCR) (NEGATIVE) Slides for Path Review - Progress Progress: improved Progress Note: 11/08/21 02:[address] Carreno Blood cultures x2 1gm IV Rocephin/500mg IV Zithromax 11/08/21 02:09 Pt placed on 3L O2 NC w improvement in Sats Discussed with Dr.: Streeter Counseled pt/family regarding: lab results, diagnosis, need for follow-up, rad results - Departure Departure Disposition: Observation Clinical Impression: COVID-19, UTI (urinary tract infection), Pneumonia Condition: Stable Critical Care Time: No
[2021-11-07 19:44] LABS: Absolute Neutrophil Ct (ANC) 4.29 x10^3/uL (1.4-6.9); Basophil (Absolute #) 0.01 x10^3/uL (0-0.4); Eosinophil % 0.2 % (0.00-5.0); Eosinophil (Absolute #) 0.01 x10^3/uL (0-0.5); Hematocrit 47.4 % (42-50); Hemoglobin 15.8 g/dL (12.5-18.0); Lymphocyte (Absolute #) 0.36 x10^3/uL (1.0-4.6); Mean Cell Volume 92.6 fL (78-100); Mean Corpuscular Hemoglobin 30.9 pg (26-32); Mean Corpuscular Hgb Concent. 33.3 g/dL (32-36); Mean Platelet Volume 9.6 fL (7.5-11.0); Monocyte (Absolute #) 0.47 x10^3/uL (0.0-1.3); Monocytes % 9.1 % (0.0-12.0); Neutrophil % 83.3 % (36.0-66.0); Platelet Count 182 x10^3/uL (150-450); Red Blood Count 5.12 x10^6/uL (4.1-5.6); Red Cell Distribution Width 11.9 % (11.5-14.0); White Blood Count 5.2 x10^3/uL (4.0-10.5)
[2021-11-07 19:51] LABS: INR 1.15 (0.8-3.0); PTT 34.3 SECONDS (25.1-36.5)
[2021-11-07 19:57] LABS: ALBUMIN 3.7 g/dL (3.5-5.0); ALKALINE PHOSPHATASE 166 U/L (38-126); ANION GAP 10.5 MEQ/L (5-15); BLOOD UREA NITROGEN 19 mg/dL (9-20); CHLORIDE 100 mmol/L (98-107); Calcium 8.4 mg/dL (8.4-10.2); Carbon Dioxide 28 mmol/L (22-30); Creatinine 1 0.73 mg/dL (0.66-1.25); EST GLOMERULAR FILTRATION RATE > 60.0 ML/MIN; Glucose 107 mg/dL (74-106); NT PRO BNP 78.8 pg/mL (0-1800); Potassium 3.6 mmol/L (3.5-5.1); SGOT/AST 55 U/L (17-59); SGPT/ALT 45 U/L (0-50); SODIUM 135 mmol/L (137-145); Total Protein 6.9 g/dL (6.3-8.2)
[2021-11-07 20:21] LABS: INFLUENZA A NEGATIVE (NEGATIVE); INFLUENZA B NEGATIVE (NEGATIVE); RESPIRATORY SYNCTIAL VIRUS NEGATIVE (Negative)
[2021-11-07 20:30] LABS: SARS-CoV-2 Xpert Express POSITIVE (NEGATIVE)
[2021-11-07 20:45] LABS: Bacteria FEW /HPF (NEGATIVE); Mucus SLIGHT /HPF (NEGATIVE); WBC >100 /HPF (0-5)
[2021-11-07 20:50] LABS: Appearance SLIGHTLY CLOUDY (CLEAR); Bilirubin SMALL (NEGATIVE); Glucose NEGATIVE (NEGATIVE); Ketones NEGATIVE (NEGATIVE); Ph 5.5 (5-6); Protein,Urine Dip 30 (Negative); RBC TRACE-LYSED Ery/ul (0-5); Specific Gravity >=1.030 (1.005-1.025); Urobilinogen 1 mg/dL (0-1)
[2021-11-07 20:51] LABS: Nitrite NEGATIVE (NEGATIVE); Urine Cultured Indicated? YES
[2021-11-07 20:52] LABS: Dipstick done @ ? MAIN LAB
[2021-11-07 21:02] LABS: Slide Review 1 YES
[2021-11-07] MEDS ORDERED: ROCEPHIN 1 Gm-D5w 50 ml Bag** 1 G/50 ML IVPB IV STA (21:31)
[2021-11-07] MEDS ORDERED: ROCEPHIN 1 Gm-D5w 50 ml Bag** 1 G/50 ML IVPB IV ONE (21:36)
[2021-11-07] MEDS ORDERED: ENOXAPARIN SODIUM SQ ONE ×2 (21:43→22:17)
[2021-11-07] MEDS: Sodium Chloride 0.9% 1000 ML 1,000 ML IV SCH (22:18)
[2021-11-07] MEDS ORDERED: REMDESIVIR 200 MG in Sodium Chloride 0.9% 250 ML 250 ML IV ONE (23:37)
[2021-11-07] MEDS ORDERED: REMDESIVIR IV ONE (23:42)
[2021-11-07] MEDS ORDERED: Sodium Chloride 0.9% 250 ML 250 ML IV ONE (23:42)
[2021-11-07] MEDS ORDERED: REMDESIVIR 100 MG in Sodium Chloride 100ML MINI-BAG PLUS 100 ML IV SCH (23:45)
[2021-11-07] MEDS ORDERED: NORVASC 5 MG ONE (23:48)
[2021-11-07] MEDS ORDERED: Decadron 4 MG INJ ONE (23:50)
[2021-11-07] MEDS: HYDROCODONE-ACETAMIN 10-325 MG PO SCH (23:52)
[2021-11-07] MEDS: NORVASC 5 MG PO SCH (23:53)
[2021-11-08] MEDS: VENTOLIN COMMON CANISTER IH SCH ×4 (00:03→19:06)
[2021-11-08] MEDS ORDERED: DUONEB 0.5-3 MG/3 ml Neb IH SCH (01:00)
[2021-11-08 04:58] LABS: Hematocrit 42.4 % (42-50); Hemoglobin 14.3 g/dL (12.5-18.0); Mean Cell Volume 91.4 fL (78-100); Mean Corpuscular Hemoglobin 30.8 pg (26-32); Mean Corpuscular Hgb Concent. 33.7 g/dL (32-36); Mean Platelet Volume 9.7 fL (7.5-11.0); Platelet Count 178 x10^3/uL (150-450); Red Blood Count 4.64 x10^6/uL (4.1-5.6); Red Cell Distribution Width 12.1 % (11.5-14.0); White Blood Count 4.2 x10^3/uL (4.0-10.5)
[2021-11-08 05:31] LABS: ALKALINE PHOSPHATASE 135 U/L (38-126); ANION GAP 8.9 MEQ/L (5-15); BLOOD UREA NITROGEN 16 mg/dL (9-20); CHLORIDE 103 mmol/L (98-107); Calcium 7.6 mg/dL (8.4-10.2); Carbon Dioxide 27 mmol/L (22-30); Creatinine 1 0.63 mg/dL (0.66-1.25); EST GLOMERULAR FILTRATION RATE > 60.0 ML/MIN; Glucose 105 mg/dL (74-106); Potassium 3.5 mmol/L (3.5-5.1); SGOT/AST 48 U/L (17-59); SGPT/ALT 35 U/L (0-50); SODIUM 135 mmol/L (137-145); Total Protein 5.5 g/dL (6.3-8.2)
[2021-11-08] MEDS: HYDROCODONE-ACETAMIN 10-325 MG PO SCH ×4 (06:09→23:17)
[2021-11-08] MEDS: Sodium Chloride 0.9% 1000 ML 1,000 ML IV SCH ×2 (07:48→17:40)
--- NOTE | 2021-11-08 08:55 | XRAY ---
Indication: Cough and dyspnea. Comparison: March 23, 2021. Portable chest demonstrates new left mid to lower lung interstitial alveolar opacities with small effusion. Heart not enlarged. Remaining chest unchanged again with right lung postsurgical changes, minimal bibasilar fibrosis/scarring, and CABG. Bony thorax intact again with osteopenia and degenerative changes.
--- NOTE | 2021-11-08 09:14 | PCM.HP ---
History of Present Illness - Chief Complaint Chief Complaint: COVID 19, UTI History of Present Illness: is a 81 year old male pt with CAD (hx CABG) with hx lung ca with lung resection who was admitted through ER with COVID 19 and hypoxemia. He had a positive covid test 11/04/21 and had been having decreased oxygenation progressively over the past 5 days. He finally consented to come to ER last night. CXR showed LLL infiltrate on preliminary read (final read pending) and he was foundt o have UTI. Given 1 dose rocephin and zithromax. His troponins have been negative x 3. BNP nl. CMP grossly nl and WBC 5.2. EKG without acute changes. Tmax 100.2, current 98.9. Now on 3L NC; not on O2 at home. He had dexamethasone and remdesivir ordered per Covid protocol; however, he had a reaction to dexamethasone in the past and he does not want to take the experimental Remdesivir. He is feeling better than at admission. - Review of Systems Respiratory: Cough, Short Of Breath, Wheezing Genitourinary Symptoms: Dysuria (x 1 mo; apparently had + urine test several weeks ago but says no abx were called in.) Neurological: Dizziness (lightheaded intermittently) Psychological: No Anxiety, No Depression All Other Systems: Reviewed and Negative Medications & Allergies Home Medications: Home Medication List Amlodipine Besylate 5 mg [Norvasc 5 mg] 10 mg PO 2300 11/07/21 [History Confirmed 11/07/21] Hydrocodone/Acetaminophen [Hydrocodone-Acetamin 10-325 mg] 1 tablet PO 0000,0600,1200,1800 11/07/21 [History Confirmed 11/07/21] Allergies/Adverse Reactions: Allergies Allergy/AdvReac Type Severity Reaction Status Date / Time Antihistamines - Alkylamine Allergy Verified 11/07/21 18:49 bacitracin Allergy Verified 11/07/21 18:49 miconazole nitrate Allergy Verified 11/07/21 18:49 [From Neosporin AF] NSAIDS (Non-Steroidal Allergy Verified 11/07/21 18:49 Anti-Inflamma Rdostew-QSK-RtV Reductase Allergy Verified 11/07/21 18:49 Inhibitor [Zeacmwc-Fch-Ajy Reductase Inhibitor] cyclobenzaprine AdvReac Irregular Verified 11/07/21 18:49 Heart Beat - Past Medical History Past Medical History: Yes Neurological History: No Pertinent History ENT History: No Pertinent History Cardiac History: Coronary Artery Disease, Hypertension, Myocardial Infarction ([place]) Respiratory History: No Pertinent History, Lung Cancer Endocrine Medical History: No Pertinent History Musculoskelatal History: Arthritis GI Medical History: Ulcer History: No Pertinent History Pyscho-Social History: No Pertinent History Male Reproductive Disorders: No Pertinent History Comment: Chronic back pain - Past Surgical History Past Surgical History: Yes Neuro Surgical History: No Pertinent History Cardiac History: CABG, Cardiac Catheterization, Cardiac Stent Respiratory Surgery: No Pertinent History GI Surgical History: No Pertinent History Genitourinary Surgical Hx: No Pertinent History Musculskeletal Surgical Hx: No Pertinent History Male Surgical History: No Pertinent History Other Surgical History: bypass and 4 stents, left knee surgery "cleaned out around the knee", left shoulder surg "removed something that was restricting blood flow because my shoulder just hung."; rt lower 2/3 lung removed - Social History Smoking Status: Former smoker Exposure to second hand smoke: No Alcohol: None Drug Use: none Significant Family History: no pertinent family hx - Physical Exam Vital Signs: Vital Signs - 24 hr Temp Pulse Resp BP BP Pulse Ox 11/08/21 08:00 98.5 F 81 14 138/75 94 L 11/08/21 06:00 76 15 94 L 11/08/21 05:31 75 20 95 11/08/21 04:00 98.9 F 74 12 116/65 97 11/08/21 02:10 95 11/08/21 02:00 81 16 97 11/08/21 00:03 85 21 95 11/08/21 00:00 100.2 F 82 20 150/70 96 11/07/21 23:38 93 L 11/07/21 23:04 99.4 F 83 19 151/79 95 11/07/21 21:00 81 24 132/73 95 11/07/21 20:00 82 19 107/61 94 L 11/07/21 19:28 79 17 110/73 95 11/07/21 18:29 98.3 F 79 14 125/74 96 General Appearance: no apparent distress, alert Neurologic Exam: oriented x 3, cooperative Eye Exam: eyes nml inspection Ears, Nose, Throat Exam: moist mucous membranes Neck Exam: normal inspection Respiratory Exam: diminished breath sounds (throughout, worse in bases bilat), prolonged expirations, No crackles/rales, No rhonchi, No wheezing Cardiovascular Exam: regular rate/rhythm, normal heart sounds, No murmur Gastrointestinal/Abdomen Exam: soft, normal bowel sounds, No tenderness, No distention, No mass, No guarding, No rebound Back Exam: normal inspection, No rash Extremity Exam: normal inspection, No pedal edema, No swelling Skin Exam: normal color, warm, dry, No rash Results - Labs Lab/Micro Results: Lab Results-Last 24 Hours 11/07/21 11/07/21 11/07/21 Range/Units 19:30 19:30 19:35 WBC 5.2 (4.0-10.5) x10^3/uL RBC 5.12 (4.1-5.6) x10^6/uL Hgb 15.8 (12.5-18.0) g/dL Hct 47.4 (42-50) % MCV 92.6 (78-100) fL MCH 30.9 (26-32) pg MCHC 33.3 (32-36) g/dL RDW 11.9 (11.5-14.0) % Plt Count 182 (150-450) x10^3/uL MPV 9.6 (7.5-11.0) fL Gran % 83.3 H (36.0-66.0) % Immature Gran % (Auto) 0.2 (0.00-0.4) % Nucleat RBC Rel Count 0.0 (0.00-0.1) % Eos # (Auto) 0.01 (0-0.5) x10^3/uL Immature Gran # (Auto) 0.01 (0.00-0.03) x10^3u/L Absolute Lymphs (auto) 0.36 L (1.0-4.6) x10^3/uL Absolute Monos (auto) 0.47 (0.0-1.3) x10^3/uL Absolute Nucleated RBC 0.00 (0.00-0.01) x10^3u/L Lymphocytes % 7.0 L (24.0-44.0) % Monocytes % 9.1 (0.0-12.0) % Eosinophils % 0.2 (0.00-5.0) % Basophils % 0.2 (0.0-0.4) % Absolute Granulocytes 4.29 (1.4-6.9) x10^3/uL Basophils # 0.01 (0-0.4) x10^3/uL PT (9.4-12.5) SECONDS INR (0.8-3.0) APTT (25.1-36.5) SECONDS Sodium (137-145) mmol/L Potassium (3.5-5.1) mmol/L Chloride (98-107) mmol/L Carbon Dioxide (22-30) mmol/L Anion Gap (5-15) MEQ/L BUN (9-20) mg/dL Creatinine (0.66-1.25) mg/dL Estimated GFR ML/MIN Glucose (74-106) mg/dL Lactic Acid 1.1 (0.4-2.0) Calcium (8.4-10.2) mg/dL Total Bilirubin (0.2-1.3) mg/dL AST (17-59) U/L ALT (0-50) U/L Alkaline Phosphatase (38-126) U/L Troponin I (0.000-0.034) ng/mL NT-Pro-B Natriuret Pep (0-1800) pg/mL Serum Total Protein (6.3-8.2) g/dL Albumin (3.5-5.0) g/dL Urinalys Dipstick Clnc Urine Color (YELLOW) Urine Appearance (CLEAR) Urine pH (5-6) Ur Specific [place] (1.005-1.025) POC Urine Protein Conf (Negative) Urine Ketones (NEGATIVE) Urine Nitrite (NEGATIVE) Urine Bilirubin (NEGATIVE) Urine Urobilinogen (0-1) mg/dL Urine Leukocytes (NEGATIVE) Urine WBC (Auto) (0-5) /HPF Urine RBC (Auto) (0-2) /HPF Urine Bacteria (Auto) (NEGATIVE) /HPF Urine RBC (0-5) Sunny/ul Urine Mucus (Auto) (NEGATIVE) /HPF Ur Culture Indicated? Urine Glucose (NEGATIVE) mg/dL Influenza Type A Ag NEGATIVE (NEGATIVE) Influenza Type B Ag NEGATIVE (NEGATIVE) RSV (PCR) NEGATIVE (Negative) SARS-CoV-2 (PCR) POSITIVE A (NEGATIVE) Slides for Path Review YES 0811/07/21 11/07/21 Range/Units 19:35 19:35 19:35 WBC (4.0-10.5) x10^3/uL RBC (4.1-5.6) x10^6/uL Hgb (12.5-18.0) g/dL Hct (42-50) % MCV (78-100) fL MCH (26-32) pg MCHC (32-36) g/dL RDW (11.5-14.0) % Plt Count (150-450) x10^3/uL MPV (7.5-11.0) fL Gran % (36.0-66.0) % Immature Gran % (Auto) (0.00-0.4) % Nucleat RBC Rel Count (0.00-0.1) % Eos # (Auto) (0-0.5) x10^3/uL Immature Gran # (Auto) (0.00-0.03) x10^3u/L Absolute Lymphs (auto) (1.0-4.6) x10^3/uL Absolute Monos (auto) (0.0-1.3) x10^3/uL Absolute Nucleated RBC (0.00-0.01) x10^3u/L Lymphocytes % (24.0-44.0) % Monocytes % (0.0-12.0) % Eosinophils % (0.00-5.0) % Basophils % (0.0-0.4) % Absolute Granulocytes (1.4-6.9) x10^3/uL Basophils # (0-0.4) x10^3/uL PT 12.0 (9.4-12.5) SECONDS INR 1.15 (0.8-3.0) APTT 34.3 (25.1-36.5) SECONDS Sodium 135 L (137-145) mmol/L Potassium 3.6 (3.5-5.1) mmol/L Chloride 100 (98-107) mmol/L Carbon Dioxide 28 (22-30) mmol/L Anion Gap 10.5 (5-15) MEQ/L BUN 19 (9-20) mg/dL Creatinine 0.73 (0.66-1.25) mg/dL Estimated GFR > 60.0 ML/MIN Glucose 107 H (74-106) mg/dL Lactic Acid (0.4-2.0) Calcium 8.4 (8.4-10.2) mg/dL Total Bilirubin 0.70 (0.2-1.3) mg/dL AST 55 (17-59) U/L ALT 45 (0-50) U/L Alkaline Phosphatase 166 H (38-126) U/L Troponin I 0.019 (0.000-0.034) ng/mL NT-Pro-B Natriuret Pep 78.8 (0-1800) pg/mL Serum Total Protein 6.9 (6.3-8.2) g/dL Albumin 3.7 (3.5-5.0) g/dL Urinalys Dipstick Clnc Urine Color (YELLOW) Urine Appearance (CLEAR) Urine pH (5-6) Ur Specific [place] (1.005-1.025) POC Urine Protein Conf (Negative) Urine Ketones (NEGATIVE) Urine Nitrite (NEGATIVE) Urine Bilirubin (NEGATIVE) Urine Urobilinogen (0-1) mg/dL Urine Leukocytes (NEGATIVE) Urine WBC (Auto) (0-5) /HPF Urine RBC (Auto) (0-2) /HPF Urine Bacteria (Auto) (NEGATIVE) /HPF Urine RBC (0-5) Sunny/ul Urine Mucus (Auto) (NEGATIVE) /HPF Ur Culture Indicated? Urine Glucose (NEGATIVE) mg/dL Influenza Type A Ag (NEGATIVE) Influenza Type B Ag (NEGATIVE) RSV (PCR) (Negative) SARS-CoV-2 (PCR) (NEGATIVE) Slides for Path Review 11/07/21 11/08/21 11/08/21 Range/Units 20:20 01:27 04:59 WBC 4.2 (4.0-10.5) x10^3/uL RBC 4.64 (4.1-5.6) x10^6/uL Hgb 14.3 (12.5-18.0) g/dL Hct 42.4 (42-50) % MCV 91.4 (78-100) fL MCH 30.8 (26-32) pg MCHC 33.7 (32-36) g/dL RDW 12.1 (11.5-14.0) % Plt Count 178 (150-450) x10^3/uL MPV 9.7 (7.5-11.0) fL Gran % (36.0-66.0) % Immature Gran % (Auto) (0.00-0.4) % Nucleat RBC Rel Count (0.00-0.1) % Eos # (Auto) (0-0.5) x10^3/uL Immature Gran # (Auto) (0.00-0.03) x10^3u/L Absolute Lymphs (auto) (1.0-4.6) x10^3/uL Absolute Monos (auto) (0.0-1.3) x10^3/uL Absolute Nucleated RBC (0.00-0.01) x10^3u/L Lymphocytes % (24.0-44.0) % Monocytes % (0.0-12.0) % Eosinophils % (0.00-5.0) % Basophils % (0.0-0.4) % Absolute Granulocytes (1.4-6.9) x10^3/uL Basophils # (0-0.4) x10^3/uL PT (9.4-12.5) SECONDS INR (0.8-3.0) APTT (25.1-36.5) SECONDS Sodium (137-145) mmol/L Potassium (3.5-5.1) mmol/L Chloride (98-107) mmol/L Carbon Dioxide (22-30) mmol/L Anion Gap (5-15) MEQ/L BUN (9-20) mg/dL Creatinine (0.66-1.25) mg/dL Estimated GFR ML/MIN Glucose (74-106) mg/dL Lactic Acid (0.4-2.0) Calcium (8.4-10.2) mg/dL Total Bilirubin (0.2-1.3) mg/dL AST (17-59) U/L ALT (0-50) U/L Alkaline Phosphatase (38-126) U/L Troponin I 0.020 (0.000-0.034) ng/mL NT-Pro-B Natriuret Pep (0-1800) pg/mL Serum Total Protein (6.3-8.2) g/dL Albumin (3.5-5.0) g/dL Urinalys Dipstick Clnc MAIN LAB Urine Color YELLOW (YELLOW) Urine Appearance SLIGHTLY CLOUDY (CLEAR) Urine pH 5.5 (5-6) Ur Specific [place] >=1.030 (1.005-1.025) POC Urine Protein Conf 30 (Negative) Urine Ketones NEGATIVE (NEGATIVE) Urine Nitrite NEGATIVE (NEGATIVE) Urine Bilirubin SMALL (NEGATIVE) Urine Urobilinogen 1 (0-1) mg/dL Urine Leukocytes MODERATE (NEGATIVE) Urine WBC (Auto) >100 (0-5) /HPF Urine RBC (Auto) 16-25 (0-2) /HPF Urine Bacteria (Auto) FEW (NEGATIVE) /HPF Urine RBC TRACE-LYSED (0-5) Sunny/ul Urine Mucus (Auto) SLIGHT (NEGATIVE) /HPF Ur Culture Indicated? YES Urine Glucose NEGATIVE (NEGATIVE) mg/dL Influenza Type A Ag (NEGATIVE) Influenza Type B Ag (NEGATIVE) RSV (PCR) (Negative) SARS-CoV-2 (PCR) (NEGATIVE) Slides for Path Review 11/08/21 11/08/21 Range/Units 04:59 04:59 WBC (4.0-10.5) x10^3/uL RBC (4.1-5.6) x10^6/uL Hgb (12.5-18.0) g/dL Hct (42-50) % MCV (78-100) fL MCH (26-32) pg MCHC (32-36) g/dL RDW (11.5-14.0) % Plt Count (150-450) x10^3/uL MPV (7.5-11.0) fL Gran % (36.0-66.0) % Immature Gran % (Auto) (0.00-0.4) % Nucleat RBC Rel Count (0.00-0.1) % Eos # (Auto) (0-0.5) x10^3/uL Immature Gran # (Auto) (0.00-0.03) x10^3u/L Absolute Lymphs (auto) (1.0-4.6) x10^3/uL Absolute Monos (auto) (0.0-1.3) x10^3/uL Absolute Nucleated RBC (0.00-0.01) x10^3u/L Lymphocytes % (24.0-44.0) % Monocytes % (0.0-12.0) % Eosinophils % (0.00-5.0) % Basophils % (0.0-0.4) % Absolute Granulocytes (1.4-6.9) x10^3/uL Basophils # (0-0.4) x10^3/uL PT (9.4-12.5) SECONDS INR (0.8-3.0) APTT (25.1-36.5) SECONDS Sodium 135 L (137-145) mmol/L Potassium 3.5 (3.5-5.1) mmol/L Chloride 103 (98-107) mmol/L Carbon Dioxide 27 (22-30) mmol/L Anion Gap 8.9 (5-15) MEQ/L BUN 16 (9-20) mg/dL Creatinine 0.63 L (0.66-1.25) mg/dL Estimated GFR > 60.0 ML/MIN Glucose 105 (74-106) mg/dL Lactic Acid (0.4-2.0) Calcium 7.6 L (8.4-10.2) mg/dL Total Bilirubin 0.40 (0.2-1.3) mg/dL AST 48 (17-59) U/L ALT 35 (0-50) U/L Alkaline Phosphatase 135 H (38-126) U/L Troponin I 0.031 (0.000-0.034) ng/mL NT-Pro-B Natriuret Pep (0-1800) pg/mL Serum Total Protein 5.5 L (6.3-8.2) g/dL Albumin 3.0 L (3.5-5.0) g/dL Urinalys Dipstick Clnc Urine Color (YELLOW) Urine Appearance (CLEAR) Urine pH (5-6) Ur Specific [place] (1.005-1.025) POC Urine Protein Conf (Negative) Urine Ketones (NEGATIVE) Urine Nitrite (NEGATIVE) Urine Bilirubin (NEGATIVE) Urine Urobilinogen (0-1) mg/dL Urine Leukocytes (NEGATIVE) Urine WBC (Auto) (0-5) /HPF Urine RBC (Auto) (0-2) /HPF Urine Bacteria (Auto) (NEGATIVE) /HPF Urine RBC (0-5) Sunny/ul Urine Mucus (Auto) (NEGATIVE) /HPF Ur Culture Indicated? Urine Glucose (NEGATIVE) mg/dL Influenza Type A Ag (NEGATIVE) Influenza Type B Ag (NEGATIVE) RSV (PCR) (Negative) SARS-CoV-2 (PCR) (NEGATIVE) Slides for Path Review - Radiology Impressions Radiology Exams & Impressions: Radiology Procedures Category Date Time Status CHEST 1 VIEW (PORTABLE) Stat Exams 11/07/21 18:57 Completed - Other Procedures and Tests Respiratory Therapy 11/08/21 00:01 Respiratory Therapy Assessment DAILY 11/08/21 00:27 Oxygen Nasal Cannula 3 lpm Assessment/Plan (1) COVID-19 Current Visit: Yes Status: Acute Assessment & Plan: Pt on O2 and abx as below for pneumonia. Refuses steroid, with which I agree, as he had a reaction in the past to steroid injections (sounds like tachycardia and other sx). Code(s): U07.1 - COVID-19 (2) UTI (urinary tract infection) Current Visit: Yes Status: Acute Qualifiers: Urinary tract infection type: acute cystitis Hematuria presence: with hematuria Qualified Code(s): N30.01 - Acute cystitis with hematuria Assessment & Plan: on rocephin day #2. Code(s): N39.0 - URINARY TRACT INFECTION, SITE NOT SPECIFIED (3) Pneumonia Current Visit: Yes Status: Acute Qualifiers: Pneumonia type: due to unspecified organism Laterality: left Lung location: lower lobe of lung Qualified Code(s): J18.9 - Pneumonia, unspecified organism Assessment & Plan: on rocehpin and zithromax day #2 Code(s): J18.9 - PNEUMONIA, UNSPECIFIED ORGANISM (4) History of lung cancer Current Visit: No Status: Chronic Code(s): Z85.118 - PERSONAL HISTORY OF MALIGNANT NEOPLASM OF BRONCHUS AND LUNG (5) Hx of myocardial infarction Current Visit: No Status: Chronic Code(s): I25.2 - OLD MYOCARDIAL INFARCTION (6) Hypertension Current Visit: No Status: Chronic Code(s): I10 - ESSENTIAL (PRIMARY) HYPERTENSION
[2021-11-08] MEDS: Zithromax 500 MG/ 250 ML NaCl Premix 500 MG/250 ML IVPB IV SCH (09:25)
[2021-11-08] MEDS: PROTONIX 40 MG IV IV SCH (09:25)
[2021-11-08] MEDS ORDERED: DECADRON 10MG INJ. IV SCH (22:00)
[2021-11-08] MEDS ORDERED: REMDESIVIR 100 MG in Sodium Chloride 100ML MINI-BAG PLUS 100 ML IV SCH (22:00)
[2021-11-08] MEDS ORDERED: Decadron 4 MG INJ IV SCH (22:00)
[2021-11-08] MEDS: ROCEPHIN 1 Gm-D5w 50 ml Bag** 1 G/50 ML IVPB IV SCH (22:52)
[2021-11-08] MEDS: ENOXAPARIN SODIUM SQ SCH (22:52)
[2021-11-08] MEDS: NORVASC 5 MG PO SCH (22:53)
[2021-11-09] MEDS: VENTOLIN COMMON CANISTER IH SCH ×4 (01:03→19:06)
[2021-11-09] MEDS: Sodium Chloride 0.9% 1000 ML 1,000 ML IV SCH ×3 (03:45→16:36)
[2021-11-09] MEDS: HYDROCODONE-ACETAMIN 10-325 MG PO SCH ×5 (06:37→21:29)
[2021-11-09 07:25] LABS: Absolute Neutrophil Ct (ANC) 4.16 x10^3/uL (1.4-6.9); Basophil (Absolute #) 0.01 x10^3/uL (0-0.4); Eosinophil % 0.2 % (0.00-5.0); Eosinophil (Absolute #) 0.01 x10^3/uL (0-0.5); Hematocrit 41.9 % (42-50); Hemoglobin 14.1 g/dL (12.5-18.0); Lymphocyte (Absolute #) 0.46 x10^3/uL (1.0-4.6); Lymphocytes % 9.1 % (24.0-44.0); Mean Cell Volume 91.7 fL (78-100); Mean Corpuscular Hemoglobin 30.9 pg (26-32); Mean Corpuscular Hgb Concent. 33.7 g/dL (32-36); Mean Platelet Volume 9.7 fL (7.5-11.0); Monocytes % 7.9 % (0.0-12.0); Neutrophil % 82.2 % (36.0-66.0); Platelet Count 193 x10^3/uL (150-450); Red Blood Count 4.57 x10^6/uL (4.1-5.6); Red Cell Distribution Width 12.1 % (11.5-14.0); White Blood Count 5.1 x10^3/uL (4.0-10.5)
[2021-11-09 07:39] LABS: ANION GAP 7.5 MEQ/L (5-15); BLOOD UREA NITROGEN 8 mg/dL (9-20); CHLORIDE 104 mmol/L (98-107); Calcium 7.8 mg/dL (8.4-10.2); Carbon Dioxide 29 mmol/L (22-30); Creatinine 1 0.59 mg/dL (0.66-1.25); EST GLOMERULAR FILTRATION RATE > 60.0 ML/MIN; Glucose 102 mg/dL (74-106); Potassium 3.3 mmol/L (3.5-5.1); SODIUM 137 mmol/L (137-145)
[2021-11-09 09:22] LABS: Slide Review 1 YES
[2021-11-09] MEDS: PROTONIX 40 MG IV IV SCH (09:28)
[2021-11-09] MEDS: Zithromax 500 MG/ 250 ML NaCl Premix 500 MG/250 ML IVPB IV SCH (09:28)
[2021-11-09] MEDS ORDERED: Toprol-Xl 25MG Tablets PO SCH (10:00)
--- NOTE | 2021-11-09 16:52 | PCM.NOTE ---
Date and Time: 11/09/21 1647 Subjective Assessment: Pt seen by me this morning. He is c/o back pain - his pain meds don't work for the full 6 hours. He started having afib with RVR last night. Has refused blood thinners in the past due to hx bleeding ulcers x2, once requiring 5 units transfusion, per pt. Dexamethasone was still on med list but per pharmacy pt was never given a dose. - Review of Systems Constitutional: No Fever Respiratory: Cough, Short Of Breath Objective Exam General Appearance: no apparent distress, alert Neurologic Exam: oriented x 3, cooperative Skin Exam: normal color, warm, dry, No rash Eye Exam: eyes nml inspection Ears, Nose, Throat Exam: moist mucous membranes Neck Exam: normal inspection Respiratory Exam: diminished breath sounds (good air exchange), No crackles/rales, No rhonchi, No wheezing Cardiovascular Exam: tachycardia, irregular, No murmur Gastrointestinal/Abdomen Exam: soft, normal bowel sounds, No tenderness, No distention, No mass, No guarding, No rebound Extremity Exam: normal inspection, No pedal edema, No swelling Back Exam: normal inspection, No rash OBJECTIVE DATA Vital Signs: Vital Signs - 24 hr Temp Pulse Resp BP Pulse Ox 11/09/21 12:49 88 16 98 11/09/21 12:00 98.2 F 86 20 109/56 94 L 11/09/21 07:33 20 11/09/21 07:24 98.7 F 86 20 123/60 92 L 11/09/21 06:54 82 22 92 L 11/09/21 04:00 97.3 F 74 20 123/65 91 L 11/09/21 01:03 81 16 92 L 11/08/21 23:49 98.2 F 72 17 138/67 90 L 11/08/21 20:00 98.2 F 72 18 124/67 93 L 11/08/21 19:06 71 16 94 L Pain Assessment - Last Documented Pain Intensity 10 Pain Scale Used 0-10 Pain Scale Intake and Output: Intake & Output 11/07/21 11/08/21 11/09/21 11/10/21 11:59 11:59 11:59 11:59 Intake Total 240 3272 240 Output Total 400 1750 500 Balance -160 1522 -260 Weight 82.2 kg Lab Results: Lab Results-Last 24 Hours 11/09/21 11/09/21 Range/Units 07:06 07:06 WBC 5.1 (4.0-10.5) x10^3/uL RBC 4.57 (4.1-5.6) x10^6/uL Hgb 14.1 (12.5-18.0) g/dL Hct 41.9 L (42-50) % MCV 91.7 (78-100) fL MCH 30.9 (26-32) pg MCHC 33.7 (32-36) g/dL RDW 12.1 (11.5-14.0) % Plt Count 193 (150-450) x10^3/uL MPV 9.7 (7.5-11.0) fL Gran % 82.2 H (36.0-66.0) % Immature Gran % (Auto) 0.4 (0.00-0.4) % Nucleat RBC Rel Count 0.0 (0.00-0.1) % Eos # (Auto) 0.01 (0-0.5) x10^3/uL Immature Gran # (Auto) 0.02 (0.00-0.03) x10^3u/L Absolute Lymphs (auto) 0.46 L (1.0-4.6) x10^3/uL Absolute Monos (auto) 0.40 (0.0-1.3) x10^3/uL Absolute Nucleated RBC 0.00 (0.00-0.01) x10^3u/L Lymphocytes % 9.1 L (24.0-44.0) % Monocytes % 7.9 (0.0-12.0) % Eosinophils % 0.2 (0.00-5.0) % Basophils % 0.2 (0.0-0.4) % Absolute Granulocytes 4.16 (1.4-6.9) x10^3/uL Basophils # 0.01 (0-0.4) x10^3/uL Sodium 137 (137-145) mmol/L Potassium 3.3 L (3.5-5.1) mmol/L Chloride 104 (98-107) mmol/L Carbon Dioxide 29 (22-30) mmol/L Anion Gap 7.5 (5-15) MEQ/L BUN 8 L (9-20) mg/dL Creatinine 0.59 L (0.66-1.25) mg/dL Estimated GFR > 60.0 ML/MIN Glucose 102 (74-106) mg/dL Calcium 7.8 L (8.4-10.2) mg/dL Slides for Path Review YES Radiology Exams: Radiology Procedures Category Date Time Status CHEST 1 VIEW (PORTABLE) Stat Exams 11/07/21 18:57 Completed Multi-Disciplinary Progress Notes: Multi-Disciplinary Progress Notes 11/09/21 11:32 Case Management Note by Magda Alejandra NO CHANGE IN DC PLANS- PATIENT CURRENTLY ON 3L/NC. HE DOES NOT HAVE OXYGEN AT HOME. IF CONTINUES TO REQUIRE IT AT DC- WILL NEED SET UP Initialized on 11/09/21 11:32 - END OF NOTE Assessment/Plan (1) COVID-19 Current Visit: Yes Status: Acute Assessment & Plan: He is stable, on 3L O2 per NC. Code(s): U07.1 - COVID-19 (2) Atrial fibrillation with RVR Current Visit: Yes Status: Acute Assessment & Plan: start toprol XL 25mg/d. Discussed anticoagulation again but he refuses due to hx bleeding ulcers. Code(s): I48.91 - UNSPECIFIED ATRIAL FIBRILLATION (3) UTI (urinary tract infection) Current Visit: Yes Status: Acute Qualifiers: Urinary tract infection type: acute cystitis Hematuria presence: with hematuria Qualified Code(s): N30.01 - Acute cystitis with hematuria Assessment & Plan: on rocephin IV Code(s): N39.0 - URINARY TRACT INFECTION, SITE NOT SPECIFIED (4) Pneumonia Current Visit: Yes Status: Acute Qualifiers: Pneumonia type: due to unspecified organism Laterality: left Lung location: lower lobe of lung Qualified Code(s): J18.9 - Pneumonia, unspecified organism Assessment & Plan: zithromax and rocephin Code(s): J18.9 - PNEUMONIA, UNSPECIFIED ORGANISM (5) History of lung cancer Current Visit: No Status: Chronic Code(s): Z85.118 - PERSONAL HISTORY OF MALIGNANT NEOPLASM OF BRONCHUS AND LUNG (6) Hx of myocardial infarction Current Visit: No Status: Chronic Code(s): I25.2 - OLD MYOCARDIAL INFARCTION (7) Hypertension Current Visit: No Status: Chronic Qualifiers: Hypertension type: primary hypertension Qualified Code(s): I10 - Essential (primary) hypertension Code(s): I10 - ESSENTIAL (PRIMARY) HYPERTENSION
[2021-11-09 17:15] LABS: Hematocrit 41.6 % (42-50); Hemoglobin 13.8 g/dL (12.5-18.0)
[2021-11-09] MEDS: NORVASC 5 MG PO SCH (21:29)
[2021-11-09] MEDS: ROCEPHIN 1 Gm-D5w 50 ml Bag** 1 G/50 ML IVPB IV SCH (21:29)
[2021-11-09] MEDS: ENOXAPARIN SODIUM SQ SCH (21:30)
[2021-11-10] MEDS: VENTOLIN COMMON CANISTER IH SCH ×4 (01:25→19:27)
[2021-11-10] MEDS: Sodium Chloride 0.9% 1000 ML 1,000 ML IV SCH (01:43)
[2021-11-10] MEDS: HYDROCODONE-ACETAMIN 10-325 MG PO SCH ×6 (02:01→21:18)
[2021-11-10 05:21] LABS: Absolute Neutrophil Ct (ANC) 4.37 x10^3/uL (1.4-6.9); Basophil (Absolute #) 0.01 x10^3/uL (0-0.4); Eosinophil % 0.6 % (0.00-5.0); Eosinophil (Absolute #) 0.03 x10^3/uL (0-0.5); Hematocrit 42.9 % (42-50); Hemoglobin 14.2 g/dL (12.5-18.0); Lymphocyte (Absolute #) 0.54 x10^3/uL (1.0-4.6); Mean Cell Volume 92.3 fL (78-100); Mean Corpuscular Hemoglobin 30.5 pg (26-32); Mean Corpuscular Hgb Concent. 33.1 g/dL (32-36); Mean Platelet Volume 9.9 fL (7.5-11.0); Monocyte (Absolute #) 0.43 x10^3/uL (0.0-1.3); Neutrophil % 80.8 % (36.0-66.0); Platelet Count 205 x10^3/uL (150-450); Red Blood Count 4.65 x10^6/uL (4.1-5.6); Red Cell Distribution Width 12.1 % (11.5-14.0); White Blood Count 5.4 x10^3/uL (4.0-10.5)
[2021-11-10 05:47] LABS: ANION GAP 9.7 MEQ/L (5-15); BLOOD UREA NITROGEN 7 mg/dL (9-20); CHLORIDE 104 mmol/L (98-107); Calcium 7.6 mg/dL (8.4-10.2); Carbon Dioxide 28 mmol/L (22-30); Creatinine 1 0.51 mg/dL (0.66-1.25); EST GLOMERULAR FILTRATION RATE > 60.0 ML/MIN; Glucose 107 mg/dL (74-106); SODIUM 138 mmol/L (137-145)
[2021-11-10 05:49] LABS: Potassium 3.1 mmol/L (3.5-5.1)
[2021-11-10 06:53] LABS: Slide Review 1 YES
--- NOTE | 2021-11-10 08:42 | PCM.NOTE ---
Date and Time: 11/10/21837 Subjective Assessment: Pt had a bad night, lots of cough, nonproductive. tolerating po. - Review of Systems Constitutional: No Fever Respiratory: Cough, Short Of Breath Musculoskeletal: Back Pain Objective Exam General Appearance: no apparent distress, alert Neurologic Exam: oriented x 3, cooperative Skin Exam: normal color, warm, dry, No rash Eye Exam: eyes nml inspection Ears, Nose, Throat Exam: moist mucous membranes Neck Exam: normal inspection Respiratory Exam: diminished breath sounds (good air exchange; diminished in RLL), rhonchi (faint in LLL), No crackles/rales, No wheezing Cardiovascular Exam: tachycardia, irregular, No murmur Gastrointestinal/Abdomen Exam: soft, normal bowel sounds, No tenderness, No distention, No mass, No guarding, No rebound Extremity Exam: normal inspection, No pedal edema, No swelling Back Exam: normal inspection, No rash OBJECTIVE DATA Vital Signs: Vital Signs - 24 hr Temp Pulse Resp BP Pulse Ox 11/10/21 07:53 98.3 F 96 H 15 102/66 93 L 11/10/21 07:43 22 11/10/21 04:00 97.5 F 100 H 22 108/67 91 L 11/10/21 01:25 94 H 14 92 L 11/10/21 00:00 98.7 F 95 H 18 122/65 91 L 11/09/21 20:00 98.1 F 108 H 15 121/68 90 L 11/09/21 19:06 108 H 15 90 L 11/09/21 16:00 98.1 F 124 H 16 131/92 89 L 11/09/21 12:49 88 16 98 11/09/21 12:00 98.2 F 86 20 109/56 94 L Pain Assessment - Last Documented Pain Intensity 5 Pain Scale Used 0-10 Pain Scale Intake and Output: Intake & Output 11/07/21 11/08/21 11/09/21 11/10/21 11:59 11:59 11:59 11:59 Intake Total 240 3272 2124 Output Total 400 1750 1775 Balance -160 1522 349 Weight 82.2 kg Lab Results: Lab Results-Last 24 Hours 11/09/21 11/09/21 11/10/21 Range/Units 07:06 17:10 05:14 WBC 5.4 (4.0-10.5) x10^3/uL RBC 4.65 (4.1-5.6) x10^6/uL Hgb 13.8 14.2 (12.5-18.0) g/dL Hct 41.6 L 42.9 (42-50) % MCV 92.3 (78-100) fL MCH 30.5 (26-32) pg MCHC 33.1 (32-36) g/dL RDW 12.1 (11.5-14.0) % Plt Count 205 (150-450) x10^3/uL MPV 9.9 (7.5-11.0) fL Gran % 80.8 H (36.0-66.0) % Immature Gran % (Auto) 0.4 (0.00-0.4) % Nucleat RBC Rel Count 0.0 (0.00-0.1) % Eos # (Auto) 0.03 (0-0.5) x10^3/uL Immature Gran # (Auto) 0.02 (0.00-0.03) x10^3u/L Absolute Lymphs (auto) 0.54 L (1.0-4.6) x10^3/uL Absolute Monos (auto) 0.43 (0.0-1.3) x10^3/uL Absolute Nucleated RBC 0.00 (0.00-0.01) x10^3u/L Lymphocytes % 10.0 L (24.0-44.0) % Monocytes % 8.0 (0.0-12.0) % Eosinophils % 0.6 (0.00-5.0) % Basophils % 0.2 (0.0-0.4) % Absolute Granulocytes 4.37 (1.4-6.9) x10^3/uL Basophils # 0.01 (0-0.4) x10^3/uL Sodium (137-145) mmol/L Potassium (3.5-5.1) mmol/L Chloride (98-107) mmol/L Carbon Dioxide (22-30) mmol/L Anion Gap (5-15) MEQ/L BUN (9-20) mg/dL Creatinine (0.66-1.25) mg/dL Estimated GFR ML/MIN Glucose (74-106) mg/dL Calcium (8.4-10.2) mg/dL Slides for Path Review YES YES 11/10/21 Range/Units 05:14 WBC (4.0-10.5) x10^3/uL RBC (4.1-5.6) x10^6/uL Hgb (12.5-18.0) g/dL Hct (42-50) % MCV (78-100) fL MCH (26-32) pg MCHC (32-36) g/dL RDW (11.5-14.0) % Plt Count (150-450) x10^3/uL MPV (7.5-11.0) fL Gran % (36.0-66.0) % Immature Gran % (Auto) (0.00-0.4) % Nucleat RBC Rel Count (0.00-0.1) % Eos # (Auto) (0-0.5) x10^3/uL Immature Gran # (Auto) (0.00-0.03) x10^3u/L Absolute Lymphs (auto) (1.0-4.6) x10^3/uL Absolute Monos (auto) (0.0-1.3) x10^3/uL Absolute Nucleated RBC (0.00-0.01) x10^3u/L Lymphocytes % (24.0-44.0) % Monocytes % (0.0-12.0) % Eosinophils % (0.00-5.0) % Basophils % (0.0-0.4) % Absolute Granulocytes (1.4-6.9) x10^3/uL Basophils # (0-0.4) x10^3/uL Sodium 138 (137-145) mmol/L Potassium 3.1 L (3.5-5.1) mmol/L Chloride 104 (98-107) mmol/L Carbon Dioxide 28 (22-30) mmol/L Anion Gap 9.7 (5-15) MEQ/L BUN 7 L (9-20) mg/dL Creatinine 0.51 L (0.66-1.25) mg/dL Estimated GFR > 60.0 ML/MIN Glucose 107 H (74-106) mg/dL Calcium 7.6 L (8.4-10.2) mg/dL Slides for Path Review Radiology Exams: Radiology Procedures Category Date Time Status CHEST 1 VIEW (PORTABLE) Urgent Exams 11/10/21 08:35 Ordered Multi-Disciplinary Progress Notes: Multi-Disciplinary Progress Notes 11/09/21 11:32 Case Management Note by Magda Alejandra NO CHANGE IN DC PLANS- PATIENT CURRENTLY ON 3L/NC. HE DOES NOT HAVE OXYGEN AT HOME. IF CONTINUES TO REQUIRE IT AT DC- WILL NEED SET UP Initialized on 11/09/21 11:32 - END OF NOTE Assessment/Plan (1) COVID-19 Current Visit: Yes Status: Acute Assessment & Plan: on 3L NC. Refuses remdesivir and steroid. Stable. Code(s): U07.1 - COVID-19 (2) Atrial fibrillation with RVR Current Visit: Yes Status: Acute Assessment & Plan: Still in afib - intermittent tachycardia with 25mg toprol XL, so increasing to 50mg XL daily today. He refuses jail anticoagulation out of hospital due to history of bleeding ulcer x 2 with transfusions. Code(s): I48.91 - UNSPECIFIED ATRIAL FIBRILLATION (3) UTI (urinary tract infection) Current Visit: Yes Status: Acute Qualifiers: Urinary tract infection type: acute cystitis Hematuria presence: with hematuria Qualified Code(s): N30.01 - Acute cystitis with hematuria Assessment & Plan: G+, ID/sens pending. On IV rocephin, day #3. Code(s): N39.0 - URINARY TRACT INFECTION, SITE NOT SPECIFIED (4) Pneumonia Current Visit: Yes Status: Acute Qualifiers: Pneumonia type: due to unspecified organism Laterality: left Lung location: lower lobe of lung Qualified Code(s): J18.9 - Pneumonia, unspecified organism Assessment & Plan: on zithromax and rocephin, day #3. Rechecking procalcitonin and BNP, CXR today. Code(s): J18.9 - PNEUMONIA, UNSPECIFIED ORGANISM (5) History of lung cancer Current Visit: No Status: Chronic Code(s): Z85.118 - PERSONAL HISTORY OF MALIGNANT NEOPLASM OF BRONCHUS AND LUNG (6) Hx of myocardial infarction Current Visit: No Status: Chronic Code(s): I25.2 - OLD MYOCARDIAL INFARCTION (7) Hypertension Current Visit: No Status: Chronic Qualifiers: Hypertension type: primary hypertension Qualified Code(s): I10 - Essential (primary) hypertension Code(s): I10 - ESSENTIAL (PRIMARY) HYPERTENSION
[2021-11-10] MEDS: Sodium Chloride 0.9% W/ 20 mEq KCl/LITER 1,000 ML IV SCH (09:01)
[2021-11-10] MEDS: Zithromax 500 MG/ 250 ML NaCl Premix 500 MG/250 ML IVPB IV SCH (09:01)
[2021-11-10] MEDS: PROTONIX 40 MG IV IV SCH (09:02)
[2021-11-10] MEDS: Klor Con PO SCH (09:02)
[2021-11-10] MEDS: Toprol Xl 50 MG PO SCH (09:02)
--- NOTE | 2021-11-10 09:13 | XRAY ---
Indication: Cough.: 19 pneumonia. Comparison: November 07, 2021 Portable chest demonstrates worsening diffuse left lung patchy airspace disease with new mild right base airspace disease. Remaining lungs unchanged again demonstrating right lung postsurgical changes. Heart not enlarged again with CABG.
[2021-11-10 10:35] LABS: PROCALCITONIN 0.086 ng/mL (0.030-0.080)
[2021-11-10] MEDS: ENOXAPARIN SODIUM SQ SCH (21:18)
[2021-11-10] MEDS: NORVASC 5 MG PO SCH (21:18)
[2021-11-10] MEDS: ROCEPHIN 1 Gm-D5w 50 ml Bag** 1 G/50 ML IVPB IV SCH (21:58)
[2021-11-11] MEDS: Sodium Chloride 0.9% W/ 20 mEq KCl/LITER 1,000 ML IV SCH ×2 (01:03→15:26)
[2021-11-11] MEDS: HYDROCODONE-ACETAMIN 10-325 MG PO SCH ×6 (01:04→21:52)
[2021-11-11] MEDS: VENTOLIN COMMON CANISTER IH SCH ×3 (01:30→14:15)
[2021-11-11 05:21] LABS: Absolute Neutrophil Ct (ANC) 4.55 x10^3/uL (1.4-6.9); Basophil (Absolute #) 0.01 x10^3/uL (0-0.4); Eosinophil % 1.1 % (0.00-5.0); Eosinophil (Absolute #) 0.06 x10^3/uL (0-0.5); Hematocrit 43.1 % (42-50); Hemoglobin 13.8 g/dL (12.5-18.0); Lymphocyte (Absolute #) 0.49 x10^3/uL (1.0-4.6); Lymphocytes % 8.8 % (24.0-44.0); Mean Cell Volume 93.9 fL (78-100); Mean Corpuscular Hemoglobin 30.1 pg (26-32); Mean Platelet Volume 9.6 fL (7.5-11.0); Monocyte (Absolute #) 0.41 x10^3/uL (0.0-1.3); Monocytes % 7.4 % (0.0-12.0); Neutrophil % 82.1 % (36.0-66.0); Platelet Count 216 x10^3/uL (150-450); Red Blood Count 4.59 x10^6/uL (4.1-5.6); White Blood Count 5.5 x10^3/uL (4.0-10.5)
[2021-11-11 05:47] LABS: ANION GAP 7.8 MEQ/L (5-15); BLOOD UREA NITROGEN 8 mg/dL (9-20); CHLORIDE 105 mmol/L (98-107); Carbon Dioxide 29 mmol/L (22-30); Creatinine 1 0.51 mg/dL (0.66-1.25); EST GLOMERULAR FILTRATION RATE > 60.0 ML/MIN; Glucose 130 mg/dL (74-106); Potassium 3.2 mmol/L (3.5-5.1); SODIUM 138 mmol/L (137-145)
[2021-11-11 06:34] LABS: Slide Review 1 YES
--- NOTE | 2021-11-11 08:22 | PCM.NOTE ---
Date and Time: 11/11/21816 Subjective Assessment: He says his pain medicine is working really well. Says he was coughing a lot during the night; RN reported there was not much cough. He did not request any cough med, but may have been unaware. Says very fatigued with any activity. Has been sleeping off and on per RN. - Review of Systems Constitutional: Fatigue, No Fever Respiratory: Cough, Short Of Breath Objective Exam General Appearance: no apparent distress, alert Neurologic Exam: oriented x 3, cooperative Skin Exam: normal color, warm, dry, No rash Eye Exam: eyes nml inspection Ears, Nose, Throat Exam: moist mucous membranes Neck Exam: normal inspection Respiratory Exam: diminished breath sounds (good air exchange), wheezing (throughout, moderate), No crackles/rales, No rhonchi Cardiovascular Exam: irregular, other (reg rate) Gastrointestinal/Abdomen Exam: soft, normal bowel sounds, No tenderness, No distention, No mass, No guarding, No rebound Extremity Exam: No pedal edema, No swelling Back Exam: normal inspection, No rash OBJECTIVE DATA Vital Signs: Vital Signs - 24 hr Temp Pulse Resp BP Pulse Ox 11/11/21 08:00 98.8 F 101 H 18 140/80 94 L 11/11/21 04:00 97.3 F 112 H 17 112/68 92 L 11/11/21 01:30 97 H 16 94 L 11/11/21 00:00 97 H 18 92 L 11/10/21 20:00 98.0 F 105 H 22 106/67 90 L 11/10/21 19:27 85 16 91 L 11/10/21 16:00 97.9 F 83 16 128/79 94 L 11/10/21 12:31 98 H 18 93 L 11/10/21 12:00 88 18 106/67 98 11/10/21 11:42 18 Pain Assessment - Last Documented Pain Intensity 8 Pain Scale Used 0-10 Pain Scale Intake and Output: Intake & Output 11/08/21 11/09/21 11/10/21 11/11/21 11:59 11:59 11:59 11:59 Intake Total 240 2292 2364 3268 Output Total 400 1750 1975 1250 Balance -160 7512 565 0762 Weight 82.2 kg 82.2 kg Lab Results: Lab Results-Last 24 Hours 0811/11/21 11/11/21 Range/Units Unknown 05:27 05:27 WBC 5.5 (4.0-10.5) x10^3/uL RBC 4.59 (4.1-5.6) x10^6/uL Hgb 13.8 (12.5-18.0) g/dL Hct 43.1 (42-50) % MCV 93.9 (78-100) fL MCH 30.1 (26-32) pg MCHC 32.0 (32-36) g/dL RDW 12.0 (11.5-14.0) % Plt Count 216 (150-450) x10^3/uL MPV 9.6 (7.5-11.0) fL Gran % 82.1 H (36.0-66.0) % Immature Gran % (Auto) 0.4 (0.00-0.4) % Nucleat RBC Rel Count 0.0 (0.00-0.1) % Eos # (Auto) 0.06 (0-0.5) x10^3/uL Immature Gran # (Auto) 0.02 (0.00-0.03) x10^3u/L Absolute Lymphs (auto) 0.49 L (1.0-4.6) x10^3/uL Absolute Monos (auto) 0.41 (0.0-1.3) x10^3/uL Absolute Nucleated RBC 0.00 (0.00-0.01) x10^3u/L Lymphocytes % 8.8 L (24.0-44.0) % Monocytes % 7.4 (0.0-12.0) % Eosinophils % 1.1 (0.00-5.0) % Basophils % 0.2 (0.0-0.4) % Absolute Granulocytes 4.55 (1.4-6.9) x10^3/uL Basophils # 0.01 (0-0.4) x10^3/uL Sodium 138 (137-145) mmol/L Potassium 3.2 L (3.5-5.1) mmol/L Chloride 105 (98-107) mmol/L Carbon Dioxide 29 (22-30) mmol/L Anion Gap 7.8 (5-15) MEQ/L BUN 8 L (9-20) mg/dL Creatinine 0.51 L (0.66-1.25) mg/dL Estimated GFR > 60.0 ML/MIN Glucose 130 H (74-106) mg/dL Calcium 8.0 L (8.4-10.2) mg/dL NT-Pro-B Natriuret Pep 1570 (0-1800) pg/mL Procalcitonin 0.086 H (0.030-0.080) ng/mL Slides for Path Review YES Radiology Exams: Radiology Procedures Category Date Time Status CHEST 1 VIEW (PORTABLE) Urgent Exams 11/10/21 08:35 Completed Multi-Disciplinary Progress Notes: Multi-Disciplinary Progress Notes 11/10/21 12:19 Case Management Note by Magda Alejandra S/W NURSE- SHE DOES NOT ANTCIPATE ANY CHANGES IN PATIENT'S DC PLAN. Initialized on 11/10/21 12:19 - END OF NOTE Assessment/Plan (1) COVID-19 Current Visit: Yes Status: Acute Assessment & Plan: Discussed steroid again today; will try inhaled steroid first for lungs, but may need to press the issue of this and remdesivir if he does not improved. Code(s): U07.1 - COVID-19 (2) Pneumonia Current Visit: Yes Status: Acute Qualifiers: Pneumonia type: due to unspecified organism Laterality: left Lung location: lower lobe of lung Qualified Code(s): J18.9 - Pneumonia, unspecified organism Assessment & Plan: superimposed on Covid 19. Did have elevated procalcitonin yesterday and worsening cxr. change abx from rocephin/zithromax to zosyn. Code(s): J18.9 - PNEUMONIA, UNSPECIFIED ORGANISM (3) Atrial fibrillation with RVR Current Visit: Yes Status: Acute Assessment & Plan: improved, HR in 80s-90s on 50mg metoprolol daily Code(s): I48.91 - UNSPECIFIED ATRIAL FIBRILLATION (4) UTI (urinary tract infection) Current Visit: Yes Status: Acute Qualifiers: Urinary tract infection type: acute cystitis Hematuria presence: with hematuria Qualified Code(s): N30.01 - Acute cystitis with hematuria Assessment & Plan: culture positive but had to be sent out, still pending. Code(s): N39.0 - URINARY TRACT INFECTION, SITE NOT SPECIFIED (5) History of lung cancer Current Visit: No Status: Chronic Code(s): Z85.118 - PERSONAL HISTORY OF MALIGNANT NEOPLASM OF BRONCHUS AND LUNG (6) Hx of myocardial infarction Current Visit: No Status: Chronic Code(s): I25.2 - OLD MYOCARDIAL INFARCTION (7) Hypertension Current Visit: No Status: Chronic Qualifiers: Hypertension type: primary hypertension Qualified Code(s): I10 - Essential (primary) hypertension Code(s): I10 - ESSENTIAL (PRIMARY) HYPERTENSION (8) History of ulcer disease Current Visit: Yes Status: Chronic Assessment & Plan: with bleeding ulcer hx Code(s): Z87.898 - PERSONAL HISTORY OF OTHER SPECIFIED CONDITIONS
[2021-11-11] MEDS: PULMICORT 0.5 MG/2 ML RESPULES IH SCH ×3 (08:30→20:30)
[2021-11-11] MEDS: PIPERACILLIN/TAZOBACTAM 4.5 GM in Sodium Chloride 100ML MINI-BAG PLUS 100 ML IV SCH ×4 (09:42→23:53)
[2021-11-11] MEDS: Klor Con PO SCH (09:42)
[2021-11-11] MEDS: PROTONIX 40 MG IV IV SCH (09:43)
[2021-11-11] MEDS: Toprol Xl 50 MG PO SCH (09:43)
[2021-11-11] MEDS: Tessalon Perles 100 MG PO PRN (15:26)
[2021-11-11] MEDS ORDERED: REMDESIVIR 200 MG in Sodium Chloride 0.9% 250 ML 250 ML IV ONE (16:00)
[2021-11-11] MEDS ORDERED: PROVENTIL Solution 2.5 MG/0.5 ML IH ONE (16:09)
[2021-11-11] MEDS: PROVENTIL Solution 2.5 MG/0.5 ML IH SCH (20:30)
[2021-11-11] MEDS: ENOXAPARIN SODIUM SQ SCH (21:51)
[2021-11-11] MEDS: NORVASC 5 MG PO SCH (21:52)
[2021-11-11] MEDS: Decadron 4 MG INJ IV SCH (22:00)
[2021-11-12] MEDS: PROVENTIL Solution 2.5 MG/0.5 ML IH SCH ×4 (01:15→18:30)
[2021-11-12] MEDS: Sodium Chloride 3 ML UD NEBULES IH SCH (01:15)
[2021-11-12] MEDS: HYDROCODONE-ACETAMIN 10-325 MG PO SCH ×3 (02:04→09:23)
[2021-11-12 04:43] LABS: Absolute Neutrophil Ct (ANC) 4.89 x10^3/uL (1.4-6.9); Basophil (Absolute #) 0.01 x10^3/uL (0-0.4); Eosinophil % 0.5 % (0.00-5.0); Eosinophil (Absolute #) 0.03 x10^3/uL (0-0.5); Hemoglobin 13.8 g/dL (12.5-18.0); Lymphocyte (Absolute #) 0.54 x10^3/uL (1.0-4.6); Lymphocytes % 8.9 % (24.0-44.0); Mean Cell Volume 92.5 fL (78-100); Mean Corpuscular Hemoglobin 30.4 pg (26-32); Mean Corpuscular Hgb Concent. 32.9 g/dL (32-36); Mean Platelet Volume 9.5 fL (7.5-11.0); Monocyte (Absolute #) 0.57 x10^3/uL (0.0-1.3); Monocytes % 9.4 % (0.0-12.0); Neutrophil % 80.5 % (36.0-66.0); Platelet Count 257 x10^3/uL (150-450); Red Blood Count 4.54 x10^6/uL (4.1-5.6); White Blood Count 6.1 x10^3/uL (4.0-10.5)
[2021-11-12 05:11] LABS: ANION GAP 9.4 MEQ/L (5-15); BLOOD UREA NITROGEN 11 mg/dL (9-20); CHLORIDE 105 mmol/L (98-107); Calcium 7.9 mg/dL (8.4-10.2); Carbon Dioxide 27 mmol/L (22-30); Creatinine 1 0.53 mg/dL (0.66-1.25); EST GLOMERULAR FILTRATION RATE > 60.0 ML/MIN; Glucose 98 mg/dL (74-106); Potassium 3.4 mmol/L (3.5-5.1); SODIUM 138 mmol/L (137-145)
[2021-11-12] MEDS: Sodium Chloride 0.9% W/ 20 mEq KCl/LITER 1,000 ML IV SCH (05:52)
[2021-11-12] MEDS: PIPERACILLIN/TAZOBACTAM 4.5 GM in Sodium Chloride 100ML MINI-BAG PLUS 100 ML IV SCH ×4 (05:53→23:14)
[2021-11-12 06:44] LABS: Slide Review 1 YES
[2021-11-12] MEDS: PULMICORT 0.5 MG/2 ML RESPULES IH SCH ×2 (07:13→18:30)
[2021-11-12] MEDS: Toprol Xl 50 MG PO SCH (09:22)
[2021-11-12] MEDS: Klor Con PO SCH (09:22)
[2021-11-12] MEDS: PROTONIX 40 MG IV IV SCH (09:22)
[2021-11-12] MEDS: Decadron 4 MG INJ IV SCH ×2 (09:46→18:34)
[2021-11-12] MEDS: Cardizem 30 MG PO SCH ×3 (13:44→21:06)
--- NOTE | 2021-11-12 14:36 | PCM.NOTE ---
Date and Time: 11/12/21 1423 Subjective Assessment: He is not feeling well today due to increased back pain. His O2 requirement reduced from 3L to 2L NC. He did accept the remdesivir, but refused the decadron yesterday. - Review of Systems Constitutional: No Fever Respiratory: Cough, Short Of Breath Musculoskeletal: Back Pain Objective Exam General Appearance: alert, anxiety Neurologic Exam: oriented x 3, cooperative Skin Exam: normal color, warm, dry, No rash Eye Exam: eyes nml inspection Ears, Nose, Throat Exam: moist mucous membranes Neck Exam: normal inspection Respiratory Exam: diminished breath sounds (good air exchange), crackles/rales (bilat bases), No accessory muscle use, No rhonchi Cardiovascular Exam: tachycardia, irregular, No murmur Gastrointestinal/Abdomen Exam: soft, normal bowel sounds, No tenderness, No distention, No mass, No guarding, No rebound Extremity Exam: normal inspection, No pedal edema, No swelling Back Exam: normal inspection, No rash OBJECTIVE DATA Vital Signs: Vital Signs - 24 hr Temp Pulse Resp BP Pulse Ox 11/12/21 12:00 16 11/12/21 11:57 97.2 F 109 H 16 113/71 92 L 11/12/21 08:00 16 11/12/21 07:48 97.9 F 117 H 16 146/74 93 L 11/12/21 07:14 117 H 16 93 L 11/12/21 04:00 97.7 F 74 20 124/66 94 L 11/12/21 01:15 110 H 18 93 L 11/12/21 00:00 98.6 F 108 H 22 133/73 91 L 11/11/21 20:30 99 H 20 99 11/11/21 20:00 97.5 F 103 H 20 122/66 95 11/11/21 16:00 97.3 F 109 H 18 125/71 94 L Pain Assessment - Last Documented Pain Intensity 8 Pain Scale Used 0-10 Pain Scale Intake and Output: Intake & Output 11/10/21 11/11/21 11/12/21 11/13/21 11:59 11:59 11:59 11:59 Intake Total 2369 3388 2115 Output Total 5114 8650 6255 Balance 389 2138 440 Weight 82.2 kg Lab Results: Lab Results-Last 24 Hours 11/12/21 11/12/2122 Range/Units 04:30 04:30 04:30 WBC 6.1 (4.0-10.5) x10^3/uL RBC 4.54 (4.1-5.6) x10^6/uL Hgb 13.8 (12.5-18.0) g/dL Hct 42.0 (42-50) % MCV 92.5 (78-100) fL MCH 30.4 (26-32) pg MCHC 32.9 (32-36) g/dL RDW 12.0 (11.5-14.0) % Plt Count 257 (150-450) x10^3/uL MPV 9.5 (7.5-11.0) fL Gran % 80.5 H (36.0-66.0) % Immature Gran % (Auto) 0.5 H (0.00-0.4) % Nucleat RBC Rel Count 0.0 (0.00-0.1) % Eos # (Auto) 0.03 (0-0.5) x10^3/uL Immature Gran # (Auto) 0.03 (0.00-0.03) x10^3u/L Absolute Lymphs (auto) 0.54 L (1.0-4.6) x10^3/uL Absolute Monos (auto) 0.57 (0.0-1.3) x10^3/uL Absolute Nucleated RBC 0.00 (0.00-0.01) x10^3u/L Lymphocytes % 8.9 L (24.0-44.0) % Monocytes % 9.4 (0.0-12.0) % Eosinophils % 0.5 (0.00-5.0) % Basophils % 0.2 (0.0-0.4) % Absolute Granulocytes 4.89 (1.4-6.9) x10^3/uL Basophils # 0.01 (0-0.4) x10^3/uL Sodium 138 (137-145) mmol/L Potassium 3.4 L (3.5-5.1) mmol/L Chloride 105 (98-107) mmol/L Carbon Dioxide 27 (22-30) mmol/L Anion Gap 9.4 (5-15) MEQ/L BUN 11 (9-20) mg/dL Creatinine 0.53 L (0.66-1.25) mg/dL Estimated GFR > 60.0 ML/MIN Glucose 98 (74-106) mg/dL Calcium 7.9 L (8.4-10.2) mg/dL Procalcitonin 0.092 H (0.030-0.080) ng/mL Slides for Path Review YES Radiology Exams: Radiology Procedures Category Date Time Status CHEST 1 VIEW (PORTABLE) Urgent Exams 11/12/21 12:23 Taken Assessment/Plan (1) COVID-19 Current Visit: Yes Status: Acute Assessment & Plan: Some improvement clinically - less O2 requirement, and not wheezing today. Will recheck cXR due to crackles on exam. He will go ahead and start the dexamethasone. on Remdesivir day #2. Code(s): U07.1 - COVID-19 (2) Pneumonia Current Visit: Yes Status: Acute Qualifiers: Pneumonia type: due to unspecified organism Laterality: left Lung location: lower lobe of lung Qualified Code(s): J18.9 - Pneumonia, unspecified organism Assessment & Plan: Procalcitonin still elevated. on day #2 zosyn with some improvement. Code(s): J18.9 - PNEUMONIA, UNSPECIFIED ORGANISM (3) Atrial fibrillation with RVR Current Visit: Yes Status: Chronic Assessment & Plan: paroxysmal. Will change toprol to cardizem, start at 30 mg po QID. Code(s): I48.91 - UNSPECIFIED ATRIAL FIBRILLATION (4) UTI (urinary tract infection) Current Visit: Yes Status: Acute Qualifiers: Urinary tract infection type: acute cystitis Hematuria presence: with hematuria Qualified Code(s): N30.01 - Acute cystitis with hematuria Assessment & Plan: Ucx has been sent out for final sensitivity. Code(s): N39.0 - URINARY TRACT INFECTION, SITE NOT SPECIFIED (5) History of lung cancer Current Visit: No Status: Chronic Code(s): Z85.118 - PERSONAL HISTORY OF MALIGNANT NEOPLASM OF BRONCHUS AND LUNG (6) Hx of myocardial infarction Current Visit: No Status: Chronic Code(s): I25.2 - OLD MYOCARDIAL INFARCTION (7) Hypertension Current Visit: No Status: Chronic Qualifiers: Hypertension type: primary hypertension Qualified Code(s): I10 - Essential (primary) hypertension Code(s): I10 - ESSENTIAL (PRIMARY) HYPERTENSION (8) History of ulcer disease Current Visit: Yes Status: Chronic Code(s): Z87.898 - PERSONAL HISTORY OF OTHER SPECIFIED CONDITIONS
[2021-11-12] MEDS: REMDESIVIR 100 MG in Sodium Chloride 100ML MINI-BAG PLUS 100 ML IV SCH (17:26)
--- NOTE | 2021-11-12 20:24 | XRAY ---
Indication: Crackles. Pneumonia. Covid 19. Comparison: November 10, 2021 Portable chest unchanged again demonstrating diffuse left lung and right base airspace disease. Stable right lung postsurgical changes and CABG surgery. No new cardiopulmonary abnormalities. Comment: Preliminary interpretation made by C. No critical discrepancy.
[2021-11-12] MEDS: NORVASC 5 MG PO SCH (21:05)
[2021-11-12] MEDS: ENOXAPARIN SODIUM SQ SCH (21:06)
[2021-11-12] MEDS: PERCOCET TABLET 5/325MG PO PRN (21:16)
[2021-11-12] MEDS: Tessalon Perles 100 MG PO PRN (21:17)
[2021-11-13] MEDS: PROVENTIL Solution 2.5 MG/0.5 ML IH SCH ×4 (01:15→19:25)
[2021-11-13 05:04] LABS: Hematocrit 43.4 % (42-50); Hemoglobin 14.5 g/dL (12.5-18.0); Mean Cell Volume 91.6 fL (78-100); Mean Corpuscular Hemoglobin 30.6 pg (26-32); Mean Corpuscular Hgb Concent. 33.4 g/dL (32-36); Mean Platelet Volume 9.6 fL (7.5-11.0); Platelet Count 311 x10^3/uL (150-450); Red Blood Count 4.74 x10^6/uL (4.1-5.6); Red Cell Distribution Width 11.9 % (11.5-14.0); White Blood Count 3.7 x10^3/uL (4.0-10.5)
[2021-11-13] MEDS: PIPERACILLIN/TAZOBACTAM 4.5 GM in Sodium Chloride 100ML MINI-BAG PLUS 100 ML IV SCH ×3 (05:09→18:01)
[2021-11-13 05:28] LABS: ANION GAP 9.2 MEQ/L (5-15); BLOOD UREA NITROGEN 18 mg/dL (9-20); CHLORIDE 105 mmol/L (98-107); Calcium 8.5 mg/dL (8.4-10.2); Carbon Dioxide 28 mmol/L (22-30); EST GLOMERULAR FILTRATION RATE > 60.0 ML/MIN; Glucose 147 mg/dL (74-106); Potassium 3.8 mmol/L (3.5-5.1); SODIUM 138 mmol/L (137-145)
[2021-11-13 06:51] LABS: Lymphocytes 6 % (24-44); Platelet Estimate NORMAL (NORMAL); Total Cells Counted 100
[2021-11-13] MEDS: PULMICORT 0.5 MG/2 ML RESPULES IH SCH ×2 (07:36→19:25)
[2021-11-13] MEDS: Cardizem 30 MG PO SCH ×2 (08:17→20:07)
[2021-11-13] MEDS: Klor Con PO SCH (08:17)
[2021-11-13] MEDS: PERCOCET TABLET 5/325MG PO PRN (08:20)
[2021-11-13] MEDS ORDERED: Cardizem 30 MG PO ONE (10:00)
[2021-11-13] MEDS ORDERED: MSIR 15 MG PO PRN (11:13)
--- NOTE | 2021-11-13 11:21 | PCM.NOTE ---
Date and Time: 11/13/21 1114 Subjective Assessment: Overnight, pt was anxious and did better on oxymask. He says his breathing is better, that he was less SOB when up to the bathroom. Currently on NC because he was eating. Appetite is poor. HR has been 100-110s mostly, up to 150s earlier this morning for a brief time. Pt is not c/o back pain today, but is c/o chest pain when he coughs. C/o having nightmares last night; said this happened last time he was on oxycodone. - Review of Systems Constitutional: No Fever Respiratory: Cough, Short Of Breath Cardiac: Chest Pain Objective Exam General Appearance: no apparent distress, alert Neurologic Exam: oriented x 3, cooperative Skin Exam: normal color, warm, dry, No rash Eye Exam: eyes nml inspection Ears, Nose, Throat Exam: moist mucous membranes Neck Exam: normal inspection Respiratory Exam: diminished breath sounds (fair to good air exchange), No crackles/rales, No rhonchi, No wheezing Cardiovascular Exam: tachycardia (approx 100 bpm), irregular Gastrointestinal/Abdomen Exam: soft, normal bowel sounds, No tenderness, No distention, No mass, No guarding, No rebound Extremity Exam: normal inspection, No pedal edema, No swelling Back Exam: normal inspection, No rash OBJECTIVE DATA Vital Signs: Vital Signs - 24 hr Temp Pulse Resp BP Pulse Ox 11/13/21 08:17 102 H 20 94 L 11/13/21 08:00 20 11/13/21 07:47 96.6 F 111 H 20 131/66 94 L 11/13/21 04:00 97.5 F 98 H 21 134/66 95 11/13/21 01:15 98 H 24 91 L 11/13/21 00:06 97.9 F 100 H 28 H 112/62 90 L 11/12/21 20:00 98.0 F 106 H 30 H 147/73 90 L 11/12/21 18:30 84 20 94 L 11/12/21 17:00 99 H 96 11/12/21 16:00 98.2 F 100 H 24 122/60 88 L 11/12/21 15:07 100 H 16 94 L 11/12/21 12:00 16 11/12/21 11:57 97.2 F 109 H 16 113/71 92 L Pain Assessment - Last Documented Pain Intensity 8 Pain Scale [facility] Intake and Output: Intake & Output 11/10/21 11/11/21 11/12/21 11/13/21 11:59 11:59 11:59 11:59 Intake Total 2369 3388 2115 2166 Output Total 2165 9094 1675 1425 Balance 389 4235 827 741 Weight 82.2 kg Lab Results: Lab Results-Last 24 Hours 11/13/21 11/13/21 Range/Units 04:50 04:50 WBC 3.7 L (4.0-10.5) x10^3/uL RBC 4.74 (4.1-5.6) x10^6/uL Hgb 14.5 (12.5-18.0) g/dL Hct 43.4 (42-50) % MCV 91.6 (78-100) fL MCH 30.6 (26-32) pg MCHC 33.4 (32-36) g/dL RDW 11.9 (11.5-14.0) % Plt Count 311 (150-450) x10^3/uL MPV 9.6 (7.5-11.0) fL Segmented Neutrophils 94 H (36.-66.) % Lymphocytes (Manual) 6 L (24-44) % Platelet Estimate NORMAL (NORMAL) RBC Morphology NORMAL Sodium 138 (137-145) mmol/L Potassium 3.8 (3.5-5.1) mmol/L Chloride 105 (98-107) mmol/L Carbon Dioxide 28 (22-30) mmol/L Anion Gap 9.2 (5-15) MEQ/L BUN 18 (9-20) mg/dL Creatinine 0.60 L (0.66-1.25) mg/dL Estimated GFR > 60.0 ML/MIN Glucose 147 H (74-106) mg/dL Calcium 8.5 (8.4-10.2) mg/dL Radiology Exams: Radiology Procedures Category Date Time Status CHEST 1 VIEW (PORTABLE) Urgent Exams 11/12/21 12:23 Completed Multi-Disciplinary Progress Notes: Multi-Disciplinary Progress Notes 11/12/21 16:20 Respiratory Note by Jillian Martinez 1600 PT COMPLAINING OF SOB SPO2 92-93, STATES ITS HARD TO BREATH THRU NOSE. PLACED ON 4LPM OXYMASK, SPO2 93 AND PT LESS ANXIOUS AND SOB Initialized on 11/12/21 16:20 - END OF NOTE Assessment/Plan (1) COVID-19 Current Visit: Yes Status: Acute Assessment & Plan: On remdesivir day #3, zosyn day #3 for pna. sputum cx pending. on decadron. Feeling a bit better. Trying to control HR - po cardizem not helping overmuch, will start iv cardizem then transition back to LA po once rate is controlled. will check in on pt later today. change pain med from oxycodone to morphine d/t reaction. I think in more pain just due to laying in hospital bed, etc. Mentioned possible transfer if needed but he was not in favor of [facility] or [facility] and wasn't especially excited about [facility] either so will re-address if needed. Could call pulmonology for consult here if needed. Code(s): U07.1 - COVID-19 (2) Pneumonia Current Visit: Yes Status: Acute Qualifiers: Pneumonia type: due to unspecified organism Laterality: left Lung location: lower lobe of lung Qualified Code(s): J18.9 - Pneumonia, unspecified organism Code(s): J18.9 - PNEUMONIA, UNSPECIFIED ORGANISM (3) Atrial fibrillation with RVR Current Visit: Yes Status: Chronic Code(s): I48.91 - UNSPECIFIED ATRIAL FIBRILLATION (4) UTI (urinary tract infection) Current Visit: Yes Status: Acute Qualifiers: Urinary tract infection type: acute cystitis Hematuria presence: with hematuria Qualified Code(s): N30.01 - Acute cystitis with hematuria Code(s): N39.0 - URINARY TRACT INFECTION, SITE NOT SPECIFIED (5) History of lung cancer Current Visit: No Status: Chronic Code(s): Z85.118 - PERSONAL HISTORY OF MALIGNANT NEOPLASM OF BRONCHUS AND LUNG (6) Hx of myocardial infarction Current Visit: No Status: Chronic Code(s): I25.2 - OLD MYOCARDIAL INFARCTION (7) Hypertension Current Visit: No Status: Chronic Qualifiers: Hypertension type: primary hypertension Qualified Code(s): I10 - Essential (primary) hypertension Code(s): I10 - ESSENTIAL (PRIMARY) HYPERTENSION (8) History of ulcer disease Current Visit: Yes Status: Chronic Code(s): Z87.898 - PERSONAL HISTORY OF OT HER SPECIFIED CONDITIONS
[2021-11-13] MEDS: Decadron 4 MG INJ IV SCH (11:22)
[2021-11-13] MEDS: PROTONIX 40 MG IV IV SCH (11:22)
[2021-11-13] MEDS ORDERED: Cardizem IV 50 MG/10 ML IV ONE (11:48)
[2021-11-13] MEDS: CARDIZEM DRIP 100 MG/100 ML D5W 100 ML IV PRN ×2 (12:20→12:25)
[2021-11-13] MEDS: REMDESIVIR 100 MG in Sodium Chloride 100ML MINI-BAG PLUS 100 ML IV SCH (16:26)
[2021-11-13] MEDS ORDERED: MORPHINE SULFATE 10 MG/ML ONE (18:22)
[2021-11-13] MEDS ORDERED: MORPHINE SULFATE 10 MG/ML IV ONE (18:25)
[2021-11-13 20:00] VITALS: BP 129/80; PULSE 96; O2SAT 93
[2021-11-13] MEDS ORDERED: Sodium Chloride 0.9% 1000 ML 1,000 ML IV SCH (20:15)
[2021-11-13] MEDS: Sodium Chloride 3 ML UD NEBULES IH SCH ×2 (20:33→20:34)
--- NOTE | 2021-11-22 12:20 | PCM.DS ---
Discharge Summary Date of Admission: 11/08/21 09:07 Admitting Physician: YARI LATHAM Primary Care Provider: YARI LATHAM Allergies Allergies Antihistamines - Alkylamine Allergy (Verified 11/07/21 18:49) bacitracin Allergy (Verified 11/07/21 18:49) miconazole nitrate [From Neosporin AF] Allergy (Verified 11/07/21 18:49) NSAIDS (Non-Steroidal Anti-Inflamma Allergy (Verified 11/07/21 18:49) Ftbmjmq-SHQ-MhJ Reductase Inhibitor [Xnotybn-Bwf-Iaz Reductase Inhibitor] Allergy (Verified 11/07/21 18:49) cyclobenzaprine Adverse Reaction (Verified 11/07/21 18:49) [facility] Summary - Hospital Course Hospital Course: Pt is 81 yo male with CAD (hx CABG and NV), paroxysmal afib, hx lung ca with resection of lung, HTN, and hx PVD who was admitted through ER with Covid, PNA, and UTI. He had positive covid test on 11/04/21 and then had 5 d of decreasing oxygenation and finally came to ER. CXR showed LLL infiltrate. Initially he refused IV dexamethasone and IV Remdesivir. His condition did not improve, in fact he felt worse, and approx 3d in he decided to start the Remdesivir and was transferred out on day #3. The next day he started dexametha sone. He had atrial fibrillation starting several days into his hospital stay - he has refused anticoagulation for same in the past due to hx bleeding peptic ulcer. He was on lovenox 40mg SQ daily during his stay. He started on po toprol for the HR, was changed to po diltiazem, then started on IV diltiazem and moved to the ICU. HR stayed between 100 to 110s, but shot up to 150s briefly on his last hospital day, prompting the ICU transfer. He was started on IV rocephin and zithromax, but when his oxygen requirement worsened, he was changed to IV zosyn, of which he received 3d total. His final day in the hospital, he was having fairly static SOB and cough, some increased HR, and later in the day started having chest pain. NV was ruled out. He decided he would like to transfer to another hospital for higher level of care, as we had discussed in the morning. [facility] did not have any beds, nor did [facility] had beds and accepted pt in transfer for cardiology and pulmonology consultation. - Vitals & Intake/Output Vital Signs: Vital Signs Temperature 98.8 F 11/13/21 19:52 Pulse Rate 96 H 11/13/21 19:52 Respiratory Rate 28 H 11/13/21 19:52 Blood Pressure 129/80 11/13/21 19:52 O2 Sat by Pulse Oximetry 93 L 11/13/21 19:52 - Lab Result Diagrams: 11/13/21 04:50 11/13/21 04:50 Micro Results-Entire Visit: Microbiology 11/07/21 20:20 Urine Culture - Final Clean Catch Midstream ADDITIONAL TESTING IS REQUIRED TO OBTAIN ID AND SENSITIVITY. SPECIMEN HAS BEEN SENT TO REFERENCE LAB, WITH FINAL RESULT EXPECTED WITHIN 96 HOURS. 11/07/21 20:20 - Final Clean Catch Midstream - Final - Final - Final 11/07/21 21:58 Blood Culture Gram Stain - Final Blood Not Reportable Blood Culture - Final NO GROWTH 11/07/21 21:58 Blood Culture Gram Stain - Final Blood Not Reportable Blood Culture - Final NO GROWTH - Procedures and Test Procedures and Tests throughout Hospitalization: Therapy Orders & Screens 11/07/21 21:39 EKG REPEAT IN AM Comment: Respiratory Therapy Consult ROUTINE Comment: Reason For Exam: 11/08/21 00:01 Oxygen Nasal Cannula 3 lpm Comment: Diagnosis: COVID 19, UTI Respiratory Therapy Assessment DAILY Comment: Diagnosis: COVID 19, UTI 11/08/21 00:27 Oxygen Nasal Cannula 3 lpm Comment: Diagnosis: COVID 19, UTI 11/13/21 16:38 EKG STAT Comment: Diagnosis: COVID-19 PNEUMONIA, UTI Discharge Exam General Appearance: no apparent distress, alert, other (sitting up eating breakfast) Neurologic Exam: oriented x 3, cooperative Eye Exam: eyes nml inspection Ears, Nose, Throat Exam: moist mucous membranes Neck Exam: normal inspection Respiratory Exam: diminished breath sounds, No crackles/rales, No rhonchi, No wheezing Cardiovascular Exam: normal heart sounds, tachycardia, irregular, No murmur Gastrointestinal/Abdomen Exam: soft, normal bowel sounds Back Exam: normal inspection, No rash Extremity Exam: normal inspection, No pedal edema, No swelling Skin Exam: normal color, warm, dry, No rash Final Diagnosis/Problem List - Final Discharge Diagnosis/Problem (1) COVID-19 Status: Acute Assessment & Plan: On remdesivir day #3, zosyn day #3 for pna. sputum cx pending. on decadron. Was feeling a bit better, but with pain now. Would like to transfer, which would benefit pt as he could see cardiology and pulmonology. Trying to control HR - po cardizem not helping overmuch, started iv cardizem. [facility] Code(s): U07.1 - COVID-19 (2) Pneumonia Status: Acute Code(s): J18.9 - PNEUMONIA, UNSPECIFIED ORGANISM (3) Atrial fibrillation with RVR Status: Chronic Code(s): I48.91 - UNSPECIFIED ATRIAL FIBRILLATION (4) UTI (urinary tract infection) Status: Acute Code(s): N39.0 - URINARY TRACT INFECTION, SITE NOT SPECIFIED (5) History of lung cancer Status: Chronic Code(s): Z85.118 - PERSONAL HISTORY OF MALIGNANT NEOPLASM OF BRONCHUS AND LUNG (6) Hx of myocardial infarction Status: Chronic Code(s): I25.2 - OLD MYOCARDIAL INFARCTION (7) Hypertension Status: Chronic Code(s): I10 - ESSENTIAL (PRIMARY) HYPERTENSION (8) History of ulcer disease Status: Chronic Code(s): Z87.898 - PERSONAL HISTORY OF OTHER SPECIFIED CONDITIONS - [facility]charge Disposition[facility] Condition: Stable Prescriptions: No Action Amlodipine Besylate 5 mg [Norvasc 5 mg] 10 mg PO 2300 Hydrocodone/Acetaminophen [Hydrocodone-Acetamin 10-325 mg] 1 tablet PO 0000,0600,1200,1800 Forms: Ambulance Transport Record, Transfer Record Inter[facility]Ag[facility]
== END 2021-11-13 20:55 | disposition short-term general hospital (02) | DRG 177 ==
LOC: ED 18:23 → MED SURG 22:26 → OBSVTOIN 11-08 09:07 → ICU 11-13 12:09
PROVIDERS: ADMIT Family Medicine; ATTEND Family Medicine
DX: U07.1 COVID-19 (principal); J18.9 Pneumonia, unspecified organism; N39.0 Urinary tract infection, site not specified; I48.20 Chronic atrial fibrillation, unspecified; R09.02 Hypoxemia; I10 Essential (primary) hypertension; I25.10 Atherosclerotic heart disease of native coronary artery without angina pectoris; M54.9 Dorsalgia, unspecified; I25.2 Old myocardial infarction; R00.0 Tachycardia, unspecified; Z85.118 Personal history of other malignant neoplasm of bronchus and lung; Z79.899 Other long term (current) drug therapy; Z20.828 Contact with and (suspected) exposure to other viral communicable diseases; Z87.898 Personal history of other specified conditions; Z95.1 Presence of aortocoronary bypass graft
CPT/HCPCS: 0241U; 36415; 71045; 80048; 80053; 81015; 83605; 83880; 84145; 84484; 85014; 85018; 85025; 85027; 85610; 85730; 87040; 87086; 93005; 93268; 94640; 94760; 94762; 96365; 96372; 99283; G0378; J0248; J0456; J0696; J1100; J1650; J2270; J2543; A9270-GY

== ENCOUNTER 2022-01-30 15:41 | Inpatient (IN) | payer MEDICARE, BC ==
[2022-01-30] MEDS ORDERED: LOPRESSOR INJECTION IV ONE ×4 (15:58→18:47)
--- NOTE | 2022-01-30 15:59 | ERPHSYRPT ---
- History of Present Illness Allergies/Adverse Reactions: Antihistamines - Alkylamine Allergy (Verified 01/30/22 15:55) bacitracin Allergy (Verified 01/30/22 15:55) miconazole nitrate [From Neosporin AF] Allergy (Verified 01/30/22 15:55) NSAIDS (Non-Steroidal Anti-Inflamma Allergy (Verified 01/30/22 15:55) Ldshhvy-RZP-RdL Reductase Inhibitor [Klstiqr-Zdz-Rnw Reductase Inhibitor] Allergy (Verified 01/30/22 15:55) cyclobenzaprine Adverse Reaction (Verified 01/30/22 15:55) [facility] Medications: Amlodipine Besylate 5 mg [Norvasc 5 mg] 10 mg PO 2300 11/07/21 [History] Hydrocodone/Acetaminophen [Hydrocodone-Acetamin 10-325 mg] 1 tablet PO 0000,0600,1200,1800 11/07/21 [History] Hx Tetanus, Diphtheria Vaccination/Date Given: No Hx Influenza Vaccination/Date Given: No Hx Pneumococcal Vaccination/Date Given: No Travel Risk - Vaccine Status Have you recieved a Covid-19 vaccination: No - Past Medical History Pertinent Past Medical History: Yes Neurological History: No Pertinent History ENT History: No Pertinent History Cardiac History: Coronary Artery Disease, Hypertension, Myocardial Infarction ([place]) Respiratory History: No Pertinent History, Lung Cancer Endocrine Medical History: No Pertinent History Musculoskeletal History: Arthritis GI Medical History: Ulcer History: No Pertinent History Psycho-Social History: No Pertinent History Male Reproductive Disorders: No Pertinent History Other Medical History: Chronic back pain - Past Surgical History Past Surgical History: Yes Neuro Surgical History: No Pertinent History Cardiac: CABG, Cardiac Catheterization, Cardiac Stent Respiratory: No Pertinent History Gastrointestinal: No Pertinent History Genitourinary: No Pertinent History Musculoskeletal: No Pertinent History Male Surgical History: No Pertinent History Other Surgical History: bypass and 4 stents, left knee surgery "cleaned out around the knee", left shoulder surg "removed something that was restricting blood flow because my shoulder just hung."; rt lower 2/3 lung removed - Social History Smoking Status: Former smoker Exposure to second hand smoke: No Drug Use: none Patient Lives Alone: No Significant Family History: no pertinent family hx - Nursing Vital Signs Nursing Vital Signs: Initial Vital Signs Temperature 97.5 F 01/30/22 15:44 Pulse Rate 150 H 01/30/22 15:44 Respiratory Rate 14 01/30/22 15:44 Blood Pressure 128/97 01/30/22 15:44 O2 Sat by Pulse Oximetry 96 01/30/22 15:44 Pain Scale Pain Intensity 0 Ordered Tests: Active Orders 24 hr Category Date Time Status Technology Project Manager STAT Care 01/30/22 15:54 Active EKG-ER Only STAT Care 01/30/22 15:51 Active Oxygen-ED Only Nasal Cannula 2 lpm Care 01/30/22 15:51 Active CHEST 1 VIEW (PORTABLE) Stat Exams 01/30/22 15:54 Completed CHEST WITH CONTRAST [CT] Stat Exams 01/30/22 17:12 Taken BLOOD CULTURE Stat Lab 01/30/22 16:10 Received CBC W DIFF Stat Lab 01/30/22 16:00 Completed CMP Stat Lab 01/30/22 16:00 Completed D-DIMER QUANTITATIVE Stat Lab 01/30/22 16:00 Completed Lactic Acid Stat Lab 01/30/22 16:00 Completed MAGNESIUM Stat Lab 01/30/22 16:00 Completed NT PRO BNP Stat Lab 01/30/22 16:00 Completed PROTIME WITH INR Stat Lab 01/30/22 16:00 Completed PTT Stat Lab 01/30/22 16:00 Completed TROPONIN Q4H Lab 01/30/22 16:00 Completed TROPONIN Q4H Lab 01/30/22 20:00 Ordered TROPONIN Q4H Lab 01/31/22 00:00 Ordered UA W/RFX CULTURE Stat Lab 01/30/22 17:29 Completed Medication Summary Generic Name Dose Route Start Last Admin Trade Name Freq PRN Reason Stop Dose Admin Sodium Chloride 1,000 mls @ 50 mls/hr 01/30/22 16:00 01/30/22 16:00 Sodium Chloride 0.9% 1000 Ml IV 03/01/22 15:59 50 mls/hr .Q20H GEORGINA Administration Discontinued Medications Generic Name Dose Route Start Last Admin Trade Name Freq PRN Reason Stop Dose Admin Metoprolol Tartrate 5 mg 01/30/22 15:58 01/30/22 15:59 Metoprolol Tartrate 5 Mg/5 Ml Vial IV 01/30/22 15:59 5 mg STAT ONE Administration Metoprolol Tartrate Confirm 01/30/22 15:58 Metoprolol Tartrate 5 Mg/5 Ml Vial Administered 01/30/22 15:59 Dose 5 mg IV .STK-MED ONE Lab/Rad Data: Laboratory Result Diagrams 01/30/22 16:00 01/30/22 16:00 Laboratory Results 01/30/22 01/30/22 01/30/22 Range/Units 17:29 17:15 16:00 WBC (4.0-10.5) x10^3/uL RBC (4.1-5.6) x10^6/uL Hgb (12.5-18.0) g/dL Hct (42-50) % MCV (78-100) fL MCH (26-32) pg MCHC (32-36) g/dL RDW (11.5-14.0) % Plt Count (150-450) x10^3/uL MPV (7.5-11.0) fL Gran % (36.0-66.0) % Immature Gran % (Auto) (0.00-0.4) % Nucleat RBC Rel Count (0.00-0.1) % Eos # (Auto) (0-0.5) x10^3/uL Immature Gran # (Auto) (0.00-0.03) x10^3u/L Absolute Lymphs (auto) (1.0-4.6) x10^3/uL Absolute Monos (auto) (0.0-1.3) x10^3/uL Absolute Nucleated RBC (0.00-0.01) x10^3u/L Lymphocytes % (24.0-44.0) % Monocytes % (0.0-12.0) % Eosinophils % (0.00-5.0) % Basophils % (0.0-0.4) % Absolute Granulocytes (1.4-6.9) x10^3/uL Basophils # (0-0.4) x10^3/uL PT (9.4-12.5) SECONDS INR (0.8-3.0) APTT (25.1-36.5) SECONDS D-Dimer (0.0-0.50) mg/L Sodium (137-145) mmol/L Potassium (3.5-5.1) mmol/L Chloride (98-107) mmol/L Carbon Dioxide (22-30) mmol/L Anion Gap (5-15) MEQ/L BUN (9-20) mg/dL Creatinine (0.66-1.25) mg/dL Estimated GFR ML/MIN Glucose (74-106) mg/dL Lactic Acid (0.4-2.0) Calcium (8.4-10.2) mg/dL Magnesium (1.6-2.3) mg/dL Total Bilirubin (0.2-1.3) mg/dL AST (17-59) U/L ALT (0-50) U/L Alkaline Phosphatase (38-126) U/L Troponin I < 0.012 (0.000-0.034) ng/mL NT-Pro-B Natriuret Pep (0-1800) pg/mL Serum Total Protein (6.3-8.2) g/dL Albumin (3.5-5.0) g/dL Urinalys Dipstick Clnc MAIN LAB Urine Color YELLOW (YELLOW) Urine Appearance CLEAR (CLEAR) Urine pH 6.0 (5-6) Ur Specific [place] 1.010 (1.005-1.025) POC Urine Protein Conf NEGATIVE (Negative) Urine Ketones NEGATIVE (NEGATIVE) Urine Nitrite NEGATIVE (NEGATIVE) Urine Bilirubin NEGATIVE (NEGATIVE) Urine Urobilinogen 0.2 (0-1) mg/dL Urine Leukocytes SMALL A (NEGATIVE) Urine WBC (Auto) 0-2 (0-5) /HPF Urine RBC (Auto) NONE (0-2) /HPF U Epithel Cells (Auto) Not Reportable Urine Bacteria (Auto) RARE (NEGATIVE) /HPF Urine RBC NEGATIVE (0-5) Sunny/ul Ur Culture Indicated? NO Urine Glucose NEGATIVE (NEGATIVE) mg/dL Influenza Type A Ag NEGATIVE (NEGATIVE) Influenza Type B Ag NEGATIVE (NEGATIVE) RSV (PCR) NEGATIVE (Negative) SARS-CoV-2 (PCR) NEGATIVE (NEGATIVE) 01/30/22 01/30/22 01/30/22 Range/Units 16:00 16:00 16:00 WBC (4.0-10.5) x10^3/uL RBC (4.1-5.6) x10^6/uL Hgb (12.5-18.0) g/dL Hct (42-50) % MCV (78-100) fL MCH (26-32) pg MCHC (32-36) g/dL RDW (11.5-14.0) % Plt Count (150-450) x10^3/uL MPV (7.5-11.0) fL Gran % (36.0-66.0) % Immature Gran % (Auto) (0.00-0.4) % Nucleat RBC Rel Count (0.00-0.1) % Eos # (Auto) (0-0.5) x10^3/uL Immature Gran # (Auto) (0.00-0.03) x10^3u/L Absolute Lymphs (auto) (1.0-4.6) x10^3/uL Absolute Monos (auto) (0.0-1.3) x10^3/uL Absolute Nucleated RBC (0.00-0.01) x10^3u/L Lymphocytes % (24.0-44.0) % Monocytes % (0.0-12.0) % Eosinophils % (0.00-5.0) % Basophils % (0.0-0.4) % Absolute Granulocytes (1.4-6.9) x10^3/uL Basophils # (0-0.4) x10^3/uL PT 11.4 (9.4-12.5) SECONDS INR 1.08 (0.8-3.0) APTT 30.3 (25.1-36.5) SECONDS D-Dimer 1.17 H* (0.0-0.50) mg/L Sodium 140 (137-145) mmol/L Potassium 3.0 L* (3.5-5.1) mmol/L Chloride 105 (98-107) mmol/L Carbon Dioxide 26 (22-30) mmol/L Anion Gap 12.2 (5-15) MEQ/L BUN 11 (9-20) mg/dL Creatinine 0.62 L (0.66-1.25) mg/dL Estimated GFR > 60.0 ML/MIN Glucose 117 H (74-106) mg/dL Lactic Acid 1.2 (0.4-2.0) Calcium 9.3 (8.4-10.2) mg/dL Magnesium 1.8 (1.6-2.3) mg/dL Total Bilirubin 0.70 (0.2-1.3) mg/dL AST 33 (17-59) U/L ALT 31 (0-50) U/L Alkaline Phosphatase 177 H (38-126) U/L Troponin I (0.000-0.034) ng/mL NT-Pro-B Natriuret Pep 323 (0-1800) pg/mL Serum Total Protein 7.9 (6.3-8.2) g/dL Albumin 4.3 (3.5-5.0) g/dL Urinalys Dipstick Clnc Urine Color (YELLOW) Urine Appearance (CLEAR) Urine pH (5-6) Ur Specific [place] (1.005-1.025) POC Urine Protein Conf (Negative) Urine Ketones (NEGATIVE) Urine Nitrite (NEGATIVE) Urine Bilirubin (NEGATIVE) Urine Urobilinogen (0-1) mg/dL Urine Leukocytes (NEGATIVE) Urine WBC (Auto) (0-5) /HPF Urine RBC (Auto) (0-2) /HPF U Epithel Cells (Auto) Urine Bacteria (Auto) (NEGATIVE) /HPF Urine RBC (0-5) Sunny/ul Ur Culture Indicated? Urine Glucose (NEGATIVE) mg/dL Influenza Type A Ag (NEGATIVE) Influenza Type B Ag (NEGATIVE) RSV (PCR) (Negative) SARS-CoV-2 (PCR) (NEGATIVE) 01/30/22 Range/Units 16:00 WBC 10.9 H (4.0-10.5) x10^3/uL RBC 4.55 (4.1-5.6) x10^6/uL Hgb 13.4 (12.5-18.0) g/dL Hct 42.2 (42-50) % MCV 92.7 (78-100) fL MCH 29.5 (26-32) pg MCHC 31.8 L (32-36) g/dL RDW 13.1 (11.5-14.0) % Plt Count 279 (150-450) x10^3/uL MPV 9.8 (7.5-11.0) fL Gran % 81.7 H (36.0-66.0) % Immature Gran % (Auto) 0.5 H (0.00-0.4) % Nucleat RBC Rel Count 0.0 (0.00-0.1) % Eos # (Auto) 0.09 (0-0.5) x10^3/uL Immature Gran # (Auto) 0.05 H (0.00-0.03) x10^3u/L Absolute Lymphs (auto) 0.86 L (1.0-4.6) x10^3/uL Absolute Monos (auto) 0.97 (0.0-1.3) x10^3/uL Absolute Nucleated RBC 0.00 (0.00-0.01) x10^3u/L Lymphocytes % 7.9 L (24.0-44.0) % Monocytes % 8.9 (0.0-12.0) % Eosinophils % 0.8 (0.00-5.0) % Basophils % 0.2 (0.0-0.4) % Absolute Granulocytes 8.93 H (1.4-6.9) x10^3/uL Basophils # 0.02 (0-0.4) x10^3/uL PT (9.4-12.5) SECONDS INR (0.8-3.0) APTT (25.1-36.5) SECONDS D-Dimer (0.0-0.50) mg/L Sodium (137-145) mmol/L Potassium (3.5-5.1) mmol/L Chloride (98-107) mmol/L Carbon Dioxide (22-30) mmol/L Anion Gap (5-15) MEQ/L BUN (9-20) mg/dL Creatinine (0.66-1.25) mg/dL Estimated GFR ML/MIN Glucose (74-106) mg/dL Lactic Acid (0.4-2.0) Calcium (8.4-10.2) mg/dL Magnesium (1.6-2.3) mg/dL Total Bilirubin (0.2-1.3) mg/dL AST (17-59) U/L ALT (0-50) U/L Alkaline Phosphatase (38-126) U/L Troponin I (0.000-0.034) ng/mL NT-Pro-B Natriuret Pep (0-1800) pg/mL Serum Total Protein (6.3-8.2) g/dL Albumin (3.5-5.0) g/dL Urinalys Dipstick Clnc Urine Color (YELLOW) Urine Appearance (CLEAR) Urine pH (5-6) Ur Specific [place] (1.005-1.025) POC Urine Protein Conf (Negative) Urine Ketones (NEGATIVE) Urine Nitrite (NEGATIVE) Urine Bilirubin (NEGATIVE) Urine Urobilinogen (0-1) mg/dL Urine Leukocytes (NEGATIVE) Urine WBC (Auto) (0-5) /HPF Urine RBC (Auto) (0-2) /HPF U Epithel Cells (Auto) Urine Bacteria (Auto) (NEGATIVE) /HPF Urine RBC (0-5) Sunny/ul Ur Culture Indicated? Urine Glucose (NEGATIVE) mg/dL Influenza Type A Ag (NEGATIVE) Influenza Type B Ag (NEGATIVE) RSV (PCR) (Negative) SARS-CoV-2 (PCR) (NEGATIVE) - Departure Referrals: YARI LATHAM [Primary Care Provider] - Follow up/PCP as directed
[2022-01-30] MEDS: Sodium Chloride 0.9% 1000 ML 1,000 ML IV SCH (16:00)
[2022-01-30 16:28] LABS: Absolute Neutrophil Ct (ANC) 8.93 x10^3/uL (1.4-6.9); Basophil (Absolute #) 0.02 x10^3/uL (0-0.4); Eosinophil % 0.8 % (0.00-5.0); Eosinophil (Absolute #) 0.09 x10^3/uL (0-0.5); Hematocrit 42.2 % (42-50); Hemoglobin 13.4 g/dL (12.5-18.0); Lymphocyte (Absolute #) 0.86 x10^3/uL (1.0-4.6); Lymphocytes % 7.9 % (24.0-44.0); Mean Cell Volume 92.7 fL (78-100); Mean Corpuscular Hemoglobin 29.5 pg (26-32); Mean Corpuscular Hgb Concent. 31.8 g/dL (32-36); Mean Platelet Volume 9.8 fL (7.5-11.0); Monocyte (Absolute #) 0.97 x10^3/uL (0.0-1.3); Monocytes % 8.9 % (0.0-12.0); Neutrophil % 81.7 % (36.0-66.0); Platelet Count 279 x10^3/uL (150-450); Red Blood Count 4.55 x10^6/uL (4.1-5.6); Red Cell Distribution Width 13.1 % (11.5-14.0); White Blood Count 10.9 x10^3/uL (4.0-10.5)
--- NOTE | 2022-01-30 16:31 | XRAY ---
Indication: Cough and short of breath. Comparison: December 02, 2021 Portable chest again demonstrates diffuse patchy left lung and right base interstitial alveolar opacities minimally improved. New small left effusion. Remaining heart and lungs unremarkable again with right lung postsurgical changes and CABG surgery.
[2022-01-30 16:47] LABS: ALBUMIN 4.3 g/dL (3.5-5.0); ALKALINE PHOSPHATASE 177 U/L (38-126); ANION GAP 12.2 MEQ/L (5-15); BLOOD UREA NITROGEN 11 mg/dL (9-20); CHLORIDE 105 mmol/L (98-107); Calcium 9.3 mg/dL (8.4-10.2); Carbon Dioxide 26 mmol/L (22-30); Creatinine 1 0.62 mg/dL (0.66-1.25); EST GLOMERULAR FILTRATION RATE > 60.0 ML/MIN; Glucose 117 mg/dL (74-106); MAGNESIUM 1.8 mg/dL (1.6-2.3); NT PRO BNP 323 pg/mL (0-1800); SGOT/AST 33 U/L (17-59); SGPT/ALT 31 U/L (0-50); SODIUM 140 mmol/L (137-145); Total Protein 7.9 g/dL (6.3-8.2)
[2022-01-30 16:49] LABS: INR 1.08 (0.8-3.0); PROTIME 11.4 SECONDS (9.4-12.5); PTT 30.3 SECONDS (25.1-36.5)
[2022-01-30 16:51] LABS: D-DIMER QUANTITATIVE 1.17 mg/L (0.0-0.50)
[2022-01-30 17:53] LABS: Appearance CLEAR (CLEAR); Bilirubin NEGATIVE (NEGATIVE); Dipstick done @ ? MAIN LAB; Glucose NEGATIVE (NEGATIVE); Ketones NEGATIVE (NEGATIVE); Nitrite NEGATIVE (NEGATIVE); Protein,Urine Dip NEGATIVE (Negative); RBC NEGATIVE Ery/ul (0-5); Urobilinogen 0.2 mg/dL (0-1)
[2022-01-30 17:55] LABS: Bacteria RARE /HPF (NEGATIVE); WBC 0-2 /HPF (0-5)
[2022-01-30 17:56] LABS: Urine Cultured Indicated? NO
[2022-01-30 18:01] LABS: INFLUENZA A NEGATIVE (NEGATIVE); INFLUENZA B NEGATIVE (NEGATIVE); RESPIRATORY SYNCTIAL VIRUS NEGATIVE (Negative); SARS-CoV-2 Xpert Express NEGATIVE (NEGATIVE)
--- NOTE | 2022-01-30 18:22 | ERPHSYRPT ---
- History of Present Illness Time Seen by Provider: 01/30/22 15:55 Source: patient, other (Records reported from the [facility]) Exam Limitations: no limitations Patient Subjective Stated Complaint: Pt went to [facility] care and while talking to [employer]IVER his pulse began raising to 150 and he went into afib and he became diaphoretic and turning sands Triage Nursing Assessment: Pt brought to the ER from [facility], tachycardic, denies pain, reports going into afib at other times but is not compliant with any medications for it, pulses normal, denia lower leg edema, thick green sputum, hx of lung cancer, on 2L NC Physician History: Patient is a 81-year-old white male who was brought to the ER from [facility] by his nurse practitioner. He had 6 presented to the [facility] with a complaint of shortness of breath and difficulty breathing. Nursing staff found his heart rate to be 150 and irregular EKG tracing showed atrial for with a rapid ventricular response. He says he has had a "cold" for 2 days and since then has had increasing shortness of breath. He did have pneumonia and COVID 2 months ago. He also has a history of lung cancer COPD coronary artery disease he has been noncompliant with medicines in the past especially in treatment of anything except amlodipine. He does not like senior abap developer because they always want to change his amlodipine. He also complains of swelling and green sputum. In the [facility] he did become sands short of breath and diaphoretic. Timing/Duration: today Activities at Onset: none Severity of Dyspnea-Max: moderate Severity of Dyspnea-Current: moderate Possible Cause: occasional episodes Modifying Factors: Improves With: activity, coughing Associated Symptoms: cough, chest pain/discomfort, wheezing, ankle swelling, leg swelling Allergies/Adverse Reactions: Antihistamines - Alkylamine Allergy (Verified 01/30/22 15:55) bacitracin Allergy (Verified 01/30/22 15:55) miconazole nitrate [From Neosporin AF] Allergy (Verified 01/30/22 15:55) NSAIDS (Non-Steroidal Anti-Inflamma Allergy (Verified 01/30/22 15:55) Mlakiit-DYX-GzW Reductase Inhibitor [Yjswjzc-Qge-Obc Reductase Inhibitor] Allergy (Verified 01/30/22 15:55) cyclobenzaprine Adverse Reaction (Verified 01/30/22 15:55) Irregular Heart Beat Home Medications: Amlodipine Besylate 5 mg [Norvasc 5 mg] 10 mg PO 2300 11/07/21 [History] Hydrocodone/Acetaminophen [Hydrocodone-Acetamin 10-325 mg] 1 tablet PO 0000,0600,1200,1800 11/07/21 [History] Hx Tetanus, Diphtheria Vaccination/Date Given: No Hx Influenza Vaccination/Date Given: No Hx Pneumococcal Vaccination/Date Given: No Travel Risk - International Travel Have you traveled outside of the country in past 3 weeks: No - Coronavirus Screening Are you exhibiting any of the following symptoms?: No - Vaccine Status Have you recieved a Covid-19 vaccination: No - Review of Systems Constitutional: Lethargy, Malaise, No Fever, No Chills Eyes: No Symptoms Ears, Nose, & Throat: No Symptoms Respiratory: Cough, Dyspnea, Wheezing Cardiac: Palpitations, No Chest Pain, No Edema, No Syncope Abdominal/Gastrointestinal: No Abdominal Pain, No Nausea, No Vomiting, No Diarrhea Genitourinary Symptoms: No Dysuria Musculoskeletal: No Back Pain, No Neck Pain Skin: No Rash Neurological: No Dizziness, No Focal Weakness, No Sensory Changes Psychological: No Symptoms Endocrine: No Symptoms All Other Systems: Reviewed and Negative - Past Medical History Pertinent Past Medical History: Yes Neurological History: No Pertinent History ENT History: No Pertinent History Cardiac History: Arrhythmia, Coronary Artery Disease, Hypertension, Myocardial Infarction ([place]) Respiratory History: No Pertinent History, Lung Cancer Endocrine Medical History: No Pertinent History Musculoskeletal History: Arthritis GI Medical History: Ulcer History: No Pertinent History Psycho-Social History: No Pertinent History Male Reproductive Disorders: No Pertinent History Other Medical History: Chronic back pain - Past Surgical History Past Surgical History: Yes Neuro Surgical History: No Pertinent History Cardiac: CABG, Cardiac Catheterization, Cardiac Stent Respiratory: No Pertinent History Gastrointestinal: No Pertinent History Genitourinary: No Pertinent History Musculoskeletal: No Pertinent History Male Surgical History: No Pertinent History Other Surgical History: bypass and 4 stents, left knee surgery "cleaned out around the knee", left shoulder surg "removed something that was restricting blood flow because my shoulder just hung."; rt lower 2/3 lung removed - Social History Smoking Status: Former smoker Exposure to second hand smoke: No Drug Use: none Patient Lives Alone: No Significant Family History: no pertinent family hx - Nursing Vital Signs Nursing Vital Signs: Initial Vital Signs Temperature 97.5 F 10/31/22 15:44 Pulse Rate 150 H 01/30/22 15:44 Respiratory Rate 14 01/30/22 15:44 Blood Pressure 128/97 01/30/22 15:44 O2 Sat by Pulse Oximetry 96 01/30/22 15:44 Pain Scale Pain Intensity 0 - Physical Exam General Appearance: moderate distress, alert Eye Exam: PERRL/EOMI Ears, Nose, Throat Exam: normal ENT inspection Neck Exam: normal inspection, supple Respiratory Exam: respiratory distress (Mild), crackles/rales, rhonchi, wheezing Cardiovascular/Chest Exam: tachycardia, irregular Abdominal/Gastrointestinal Exam: soft, No tenderness, No distention, No mass Extremity Exam: non-tender, normal range of motion, normal inspection, no calf tenderness, no pedal edema Neurologic Exam: alert, oriented x 3, cooperative, 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 In patches) Ordered Tests: Active Orders 24 hr Category Date Time Status Clinical Admissions Manager STAT Care 01/30/22 15:54 Active EKG-ER Only STAT Care 01/30/22 15:51 Active Oxygen-ED Only Nasal Cannula 2 lpm Care 01/30/22 15:51 Active CHEST 1 VIEW (PORTABLE) Stat Exams 01/30/22 15:54 Completed CHEST WITH CONTRAST [CT] Stat Exams 01/30/22 17:12 Taken BLOOD CULTURE Stat Lab 01/30/22 16:10 Received CBC W DIFF Stat Lab 01/30/22 16:00 Completed CMP Stat Lab 01/30/22 16:00 Completed D-DIMER QUANTITATIVE Stat Lab 01/30/22 16:00 Completed Lactic Acid Stat Lab 01/30/22 16:00 Completed MAGNESIUM Stat Lab 01/30/22 16:00 Completed NT PRO BNP Stat Lab 01/30/22 16:00 Completed PROTIME WITH INR Stat Lab 01/30/22 16:00 Completed PTT Stat Lab 01/30/22 16:00 Completed TROPONIN Q4H Lab 01/30/22 16:00 Completed TROPONIN Q4H Lab 01/30/22 20:00 Ordered TROPONIN Q4H Lab 01/31/22 00:00 Ordered UA W/RFX CULTURE Stat Lab 01/30/22 17:29 Completed Medication Summary Generic Name Dose Route Start Last Admin Trade Name Freq PRN Reason Stop Dose Admin Sodium Chloride 1,000 mls @ 50 mls/hr 01/30/22 16:00 01/30/22 16:00 Sodium Chloride 0.9% 1000 Ml IV 03/01/22 15:59 50 mls/hr .Q20H GEORGINA Administration Discontinued Medications Generic Name Dose Route Start Last Admin Trade Name Freq PRN Reason Stop Dose Admin Metoprolol Tartrate 5 mg 01/30/22 15:58 01/30/22 15:59 Metoprolol Tartrate 5 Mg/5 Ml Vial IV 01/30/22 15:59 5 mg STAT ONE Administration Metoprolol Tartrate Confirm 01/30/22 15:58 Metoprolol Tartrate 5 Mg/5 Ml Vial Administered 01/30/22 15:59 Dose 5 mg IV .STK-MED ONE Metoprolol Tartrate 5 mg 01/30/22 18:42 01/30/22 18:49 Metoprolol Tartrate 5 Mg/5 Ml Vial IV 01/30/22 18:43 5 mg STAT ONE Administration Metoprolol Tartrate Confirm 01/30/22 18:47 Metoprolol Tartrate 5 Mg/5 Ml Vial Administered 01/30/22 18:48 Dose 5 mg IV .STK-MED ONE Lab/Rad Data: Laboratory Result Diagrams 01/30/22 16:00 01/30/22 16:00 Laboratory Results 01/30/22 01/30/22 01/30/22 Range/Units 17:29 17:15 16:00 WBC (4.0-10.5) x10^3/uL RBC (4.1-5.6) x10^6/uL Hgb (12.5-18.0) g/dL Hct (42-50) % MCV (78-100) fL MCH (26-32) pg MCHC (32-36) g/dL RDW (11.5-14.0) % Plt Count (150-450) x10^3/uL MPV (7.5-11.0) fL Gran % (36.0-66.0) % Immature Gran % (Auto) (0.00-0.4) % Nucleat RBC Rel Count (0.00-0.1) % Eos # (Auto) (0-0.5) x10^3/uL Immature Gran # (Auto) (0.00-0.03) x10^3u/L Absolute Lymphs (auto) (1.0-4.6) x10^3/uL Absolute Monos (auto) (0.0-1.3) x10^3/uL Absolute Nucleated RBC (0.00-0.01) x10^3u/L Lymphocytes % (24.0-44.0) % Monocytes % (0.0-12.0) % Eosinophils % (0.00-5.0) % Basophils % (0.0-0.4) % Absolute Granulocytes (1.4-6.9) x10^3/uL Basophils # (0-0.4) x10^3/uL PT (9.4-12.5) SECONDS INR (0.8-3.0) APTT (25.1-36.5) SECONDS D-Dimer (0.0-0.50) mg/L Sodium (137-145) mmol/L Potassium (3.5-5.1) mmol/L Chloride (98-107) mmol/L Carbon Dioxide (22-30) mmol/L Anion Gap (5-15) MEQ/L BUN (9-20) mg/dL Creatinine (0.66-1.25) mg/dL Estimated GFR ML/MIN Glucose (74-106) mg/dL Lactic Acid (0.4-2.0) Calcium (8.4-10.2) mg/dL Magnesium (1.6-2.3) mg/dL Total Bilirubin (0.2-1.3) mg/dL AST (17-59) U/L ALT (0-50) U/L Alkaline Phosphatase (38-126) U/L Troponin I < 0.012 (0.000-0.034) ng/mL NT-Pro-B Natriuret Pep (0-1800) pg/mL Serum Total Protein (6.3-8.2) g/dL Albumin (3.5-5.0) g/dL Urinalys Dipstick Clnc MAIN LAB Urine Color YELLOW (YELLOW) Urine Appearance CLEAR (CLEAR) Urine pH 6.0 (5-6) Ur Specific Makinen 1.010 (1.005-1.025) POC Urine Protein Conf NEGATIVE (Negative) Urine Ketones NEGATIVE (NEGATIVE) Urine Nitrite NEGATIVE (NEGATIVE) Urine Bilirubin NEGATIVE (NEGATIVE) Urine Urobilinogen 0.2 (0-1) mg/dL Urine Leukocytes SMALL A (NEGATIVE) Urine WBC (Auto) 0-2 (0-5) /HPF Urine RBC (Auto) NONE (0-2) /HPF U Epithel Cells (Auto) Not Reportable Urine Bacteria (Auto) RARE (NEGATIVE) /HPF Urine RBC NEGATIVE (0-5) Sunny/ul Ur Culture Indicated? NO Urine Glucose NEGATIVE (NEGATIVE) mg/dL Influenza Type A Ag NEGATIVE (NEGATIVE) Influenza Type B Ag NEGATIVE (NEGATIVE) RSV (PCR) NEGATIVE (Negative) SARS-CoV-2 (PCR) NEGATIVE (NEGATIVE) 01/30/22 01/30/22 01/30/22 Range/Units 16:00 16:00 16:00 WBC (4.0-10.5) x10^3/uL RBC (4.1-5.6) x10^6/uL Hgb (12.5-18.0) g/dL Hct (42-50) % MCV (78-100) fL MCH (26-32) pg MCHC (32-36) g/dL RDW (11.5-14.0) % Plt Count (150-450) x10^3/uL MPV (7.5-11.0) fL Gran % (36.0-66.0) % Immature Gran % (Auto) (0.00-0.4) % Nucleat RBC Rel Count (0.00-0.1) % Eos # (Auto) (0-0.5) x10^3/uL Immature Gran # (Auto) (0.00-0.03) x10^3u/L Absolute Lymphs (auto) (1.0-4.6) x10^3/uL Absolute Monos (auto) (0.0-1.3) x10^3/uL Absolute Nucleated RBC (0.00-0.01) x10^3u/L Lymphocytes % (24.0-44.0) % Monocytes % (0.0-12.0) % Eosinophils % (0.00-5.0) % Basophils % (0.0-0.4) % Absolute Granulocytes (1.4-6.9) x10^3/uL Basophils # (0-0.4) x10^3/uL PT 11.4 (9.4-12.5) SECONDS INR 1.08 (0.8-3.0) APTT 30.3 (25.1-36.5) SECONDS D-Dimer 1.17 H* (0.0-0.50) mg/L Sodium 140 (137-145) mmol/L Potassium 3.0 L* (3.5-5.1) mmol/L Chloride 105 (98-107) mmol/L Carbon Dioxide 26 (22-30) mmol/L Anion Gap 12.2 (5-15) MEQ/L BUN 11 (9-20) mg/dL Creatinine 0.62 L (0.66-1.25) mg/dL Estimated GFR > 60.0 ML/MIN Glucose 117 H (74-106) mg/dL Lactic Acid 1.2 (0.4-2.0) Calcium 9.3 (8.4-10.2) mg/dL Magnesium 1.8 (1.6-2.3) mg/dL Total Bilirubin 0.70 (0.2-1.3) mg/dL AST 33 (17-59) U/L ALT 31 (0-50) U/L Alkaline Phosphatase 177 H (38-126) U/L Troponin I (0.000-0.034) ng/mL NT-Pro-B Natriuret Pep 323 (0-1800) pg/mL Serum Total Protein 7.9 (6.3-8.2) g/dL Albumin 4.3 (3.5-5.0) g/dL Urinalys Dipstick Clnc Urine Color (YELLOW) Urine Appearance (CLEAR) Urine pH (5-6) Ur Specific [place] (1.005-1.025) POC Urine Protein Conf (Negative) Urine Ketones (NEGATIVE) Urine Nitrite (NEGATIVE) Urine Bilirubin (NEGATIVE) Urine Urobilinogen (0-1) mg/dL Urine Leukocytes (NEGATIVE) Urine WBC (Auto) (0-5) /HPF Urine RBC (Auto) (0-2) /HPF U Epithel Cells (Auto) Urine Bacteria (Auto) (NEGATIVE) /HPF Urine RBC (0-5) Sunny/ul Ur Culture Indicated? Urine Glucose (NEGATIVE) mg/dL Influenza Type A Ag (NEGATIVE) Influenza Type B Ag (NEGATIVE) RSV (PCR) (Negative) SARS-CoV-2 (PCR) (NEGATIVE) 01/30/22 Range/Units 16:00 WBC 10.9 H (4.0-10.5) x10^3/uL RBC 4.55 (4.1-5.6) x10^6/uL Hgb 13.4 (12.5-18.0) g/dL Hct 42.2 (42-50) % MCV 92.7 (78-100) fL MCH 29.5 (26-32) pg MCHC 31.8 L (32-36) g/dL RDW 13.1 (11.5-14.0) % Plt Count 279 (150-450) x10^3/uL MPV 9.8 (7.5-11.0) fL Gran % 81.7 H (36.0-66.0) % Immature Gran % (Auto) 0.5 H (0.00-0.4) % Nucleat RBC Rel Count 0.0 (0.00-0.1) % Eos # (Auto) 0.09 (0-0.5) x10^3/uL Immature Gran # (Auto) 0.05 H (0.00-0.03) x10^3u/L Absolute Lymphs (auto) 0.86 L (1.0-4.6) x10^3/uL Absolute Monos (auto) 0.97 (0.0-1.3) x10^3/uL Absolute Nucleated RBC 0.00 (0.00-0.01) x10^3u/L Lymphocytes % 7.9 L (24.0-44.0) % Monocytes % 8.9 (0.0-12.0) % Eosinophils % 0.8 (0.00-5.0) % Basophils % 0.2 (0.0-0.4) % Absolute Granulocytes 8.93 H (1.4-6.9) x10^3/uL Basophils # 0.02 (0-0.4) x10^3/uL PT (9.4-12.5) SECONDS INR (0.8-3.0) APTT (25.1-36.5) SECONDS D-Dimer (0.0-0.50) mg/L Sodium (137-145) mmol/L Potassium (3.5-5.1) mmol/L Chloride (98-107) mmol/L Carbon Dioxide (22-30) mmol/L Anion Gap (5-15) MEQ/L BUN (9-20) mg/dL Creatinine (0.66-1.25) mg/dL Estimated GFR ML/MIN Glucose (74-106) mg/dL Lactic Acid (0.4-2.0) Calcium (8.4-10.2) mg/dL Magnesium (1.6-2.3) mg/dL Total Bilirubin (0.2-1.3) mg/dL AST (17-59) U/L ALT (0-50) U/L Alkaline Phosphatase (38-126) U/L Troponin I (0.000-0.034) ng/mL NT-Pro-B Natriuret Pep (0-1800) pg/mL Serum Total Protein (6.3-8.2) g/dL Albumin (3.5-5.0) g/dL Urinalys Dipstick Clnc Urine Color (YELLOW) Urine Appearance (CLEAR) Urine pH (5-6) Ur Specific [place] (1.005-1.025) POC Urine Protein Conf (Negative) Urine Ketones (NEGATIVE) Urine Nitrite (NEGATIVE) Urine Bilirubin (NEGATIVE) Urine Urobilinogen (0-1) mg/dL Urine Leukocytes (NEGATIVE) Urine WBC (Auto) (0-5) /HPF Urine RBC (Auto) (0-2) /HPF U Epithel Cells (Auto) Urine Bacteria (Auto) (NEGATIVE) /HPF Urine RBC (0-5) Sunny/ul Ur Culture Indicated? Urine Glucose (NEGATIVE) mg/dL Influenza Type A Ag (NEGATIVE) Influenza Type B Ag (NEGATIVE) RSV (PCR) (Negative) SARS-CoV-2 (PCR) (NEGATIVE) - Progress Progress: improved Air Movement: fair Blood Culture(s) Obtained: Yes Antibiotics given: Yes Discussed with : Baylee Will see patient in: hospital (observation) - Departure Departure Disposition: Observation Clinical Impression: COPD (chronic obstructive pulmonary disease), Shortness of breath, COPD with exacerbation, History of lung cancer, Dyspnea, Atrial fibrillation with RVR, Pneumonia Condition: Fair Critical Care Time: Yes Critical Care Time(excluding separately billable procedures): Critical 30-74 mins (35) Referrals: YARI LATHAM [Primary Care Provider] - Follow up/PCP as directed Instructions: Chronic Obstructive Pulmonary Disease
[2022-01-30] MEDS ORDERED: PROVENTIL 2.5 MG/3 ML NEB IH PRN (19:07)
[2022-01-30] MEDS ORDERED: LOPRESSOR INJECTION IV SCH (19:15)
[2022-01-30] MEDS ORDERED: LOPRESSOR INJECTION IV PRN (21:41)
[2022-01-30] MEDS ORDERED: HUMALOG SQ PRN (22:24)
[2022-01-30] MEDS ORDERED: K-LYTE PO ONE (22:24)
[2022-01-30] MEDS ORDERED: Sterile H2O 10 ml IJ ONE (22:41)
[2022-01-30] MEDS ORDERED: solu-MEDROL ONE (22:41)
[2022-01-30] MEDS: NORVASC 5 MG PO SCH (22:45)
[2022-01-30] MEDS: HYDROCODONE-ACETAMIN 10-325 MG PO SCH (23:58)
[2022-01-30] MEDS: solu-MEDROL 80 MG, Sterile H2O 10 ml 2 ML IV SCH ×2 (23:59)
[2022-01-31] MEDS ORDERED: HYDROCODONE-ACETAMIN 10-325 MG PO PRN
[2022-01-31 05:09] LABS: Absolute Neutrophil Ct (ANC) 6.37 x10^3/uL (1.4-6.9); Basophil (Absolute #) 0.01 x10^3/uL (0-0.4); Eosinophil % 0.1 % (0.00-5.0); Eosinophil (Absolute #) 0.01 x10^3/uL (0-0.5); Hematocrit 41.1 % (42-50); Hemoglobin 12.8 g/dL (12.5-18.0); Lymphocyte (Absolute #) 0.39 x10^3/uL (1.0-4.6); Lymphocytes % 5.6 % (24.0-44.0); Mean Cell Volume 93.8 fL (78-100); Mean Corpuscular Hemoglobin 29.2 pg (26-32); Mean Corpuscular Hgb Concent. 31.1 g/dL (32-36); Mean Platelet Volume 9.7 fL (7.5-11.0); Monocyte (Absolute #) 0.11 x10^3/uL (0.0-1.3); Monocytes % 1.6 % (0.0-12.0); Neutrophil % 92.2 % (36.0-66.0); Platelet Count 263 x10^3/uL (150-450); Red Blood Count 4.38 x10^6/uL (4.1-5.6); Red Cell Distribution Width 13.2 % (11.5-14.0); White Blood Count 6.9 x10^3/uL (4.0-10.5)
[2022-01-31 05:35] LABS: ALBUMIN 3.8 g/dL (3.5-5.0); ALKALINE PHOSPHATASE 167 U/L (38-126); ANION GAP 9.1 MEQ/L (5-15); BLOOD UREA NITROGEN 13 mg/dL (9-20); CHLORIDE 106 mmol/L (98-107); Calcium 8.8 mg/dL (8.4-10.2); Carbon Dioxide 28 mmol/L (22-30); Creatinine 1 0.63 mg/dL (0.66-1.25); EST GLOMERULAR FILTRATION RATE > 60.0 ML/MIN; Glucose 193 mg/dL (74-106); SGOT/AST 35 U/L (17-59); SGPT/ALT 32 U/L (0-50); SODIUM 139 mmol/L (137-145); Total Protein 7.1 g/dL (6.3-8.2)
[2022-01-31 05:37] LABS: Potassium 3.8 mmol/L (3.5-5.1)
[2022-01-31] MEDS ORDERED: solu-MEDROL ONE (05:40)
[2022-01-31] MEDS ORDERED: Sterile H2O 10 ml IJ ONE (05:40)
[2022-01-31] MEDS: solu-MEDROL 80 MG, Sterile H2O 10 ml 2 ML IV SCH ×6 (05:44→17:27)
[2022-01-31] MEDS: HYDROCODONE-ACETAMIN 10-325 MG PO SCH ×3 (05:44→18:12)
[2022-01-31 05:45] LABS: Slide Review 1 YES
--- NOTE | 2022-01-31 08:38 | XRAY ---
Indication: Short of breath. Elevated d-dimer. History lung cancer with right lobectomy, Multiple contiguous axial images obtained through the chest using 100 cc Isovue 370 contrast and PE protocol. Comparison: October 03, 2020 Good opacification of the pulmonary arteries to include the lobar and segmental branches. Again no pulmonary embolus. Heart not enlarged. Aorta remains minimally arteriosclerotic without aneurysm/dissection. Tiny mediastinal and left hilar calcified nodes. No pathologic mediastinal/hilar lymphadenopathy. Lungs again demonstrates right upper lobectomy, diffuse pulmonary emphysema, diffuse peripheral fibrosis/scarring, and tiny left upper lobe calcified granulomas. Left lung demonstrates new patchy consolidating and nonconsolidating airspace disease without effusion. Bony thorax intact again with osteopenia, old right rib fractures, and T11 Schmorl node. Limited upper abdomen again demonstrates tiny gallstones, 17 cm splenomegaly, and small right renal cyst. Impression: 1. Continued negative for pulmonary embolus. 2. New patchy left lung consolidating and nonconsolidating airspace disease. 3. Chronic findings including pulmonary emphysema, right upper lobectomy, splenomegaly, tiny gallstones, right renal cyst, chronic bony findings, and old granulomatous disease.
[2022-01-31] MEDS: Zithromax 500 MG/ 250 ML NaCl Premix 500 MG/250 ML IVPB IV SCH (09:04)
[2022-01-31] MEDS: ECOTRIN 81 MG PO SCH (09:09)
[2022-01-31] MEDS: ROCEPHIN 1 Gm-D5w 50 ml Bag** 1 G/50 ML IVPB IV SCH (11:00)
[2022-01-31] MEDS: Sodium Chloride 0.9% 1000 ML 1,000 ML IV SCH (11:02)
--- NOTE | 2022-01-31 14:05 | PCM.HP ---
History of Present Illness - Chief Complaint Chief Complaint: A FIB WITH RVR, PNEUMONIA, LUNG CA, COPD, NONCOMPLIANCE History of Present Illness: is a 81 year old male pt with COPD, hx lung ca, afib, who was admitted through ER with Afib with RVR and PNA. He had come to and HR was fast, so was taken to ER. Tachycardia, irregular, with sands skin tone and diaphoresis in ER. CXR with L lung opacities. Started on IV zithromax and rocephin with IV steroid 80mg q6h. He is feeling better. Not much cough. Pt started having some cough 2d ago. No fever. Was doing great since his last illness (Covid) as he has changed his diet. - Review of Systems Respiratory: Cough, Short Of Breath, Other (O2 sat to 70s with exertion at home) Cardiac: Edema (L>R, slight, yesterday) Medications & Allergies Home Medications: Home Medication List Amlodipine Besylate 5 mg [Norvasc 5 mg] 10 mg PO 2300 11/07/21 [History Confirmed 01/30/22] Hydrocodone/Acetaminophen [Hydrocodone-Acetamin 10-325 mg] 1 tablet PO 0000,0600,1200,1800 11/07/21 [History Confirmed 01/30/22] Allergies/Adverse Reactions: Allergies Allergy/AdvReac Type Severity Reaction Status Date / Time Antihistamines - Alkylamine Allergy Verified 01/30/22 15:55 bacitracin Allergy Verified 01/30/22 15:55 miconazole nitrate Allergy Verified 01/30/22 15:55 [From Neosporin AF] NSAIDS (Non-Steroidal Allergy Verified 01/30/22 15:55 Anti-Inflamma Fhoofer-PJD-YbP Reductase Allergy Verified 01/30/22 15:55 Inhibitor [Fgdmuma-Izm-Sgk Reductase Inhibitor] cyclobenzaprine AdvReac Irregular Verified 01/30/22 15:55 Heart Beat - Past Medical History Past Medical History: Yes Neurological History: No Pertinent History ENT History: No Pertinent History Cardiac History: Arrhythmia, Coronary Artery Disease, Hypertension, Myocardial Infarction ([place]) Respiratory History: Lung Cancer Endocrine Medical History: No Pertinent History Musculoskelatal History: Arthritis GI Medical History: Ulcer History: No Pertinent History Pyscho-Social History: No Pertinent History Male Reproductive Disorders: No Pertinent History Comment: Chronic back pain - Past Surgical History Past Surgical History: Yes Neuro Surgical History: No Pertinent History Cardiac History: CABG, Cardiac Catheterization, Cardiac Stent Respiratory Surgery: Lobectomy GI Surgical History: No Pertinent History Genitourinary Surgical Hx: No Pertinent History Musculskeletal Surgical Hx: Orthopedic Surgery Male Surgical History: No Pertinent History Other Surgical History: bypass and 4 stents, left knee surgery "cleaned out around the knee", left shoulder surg "removed something that was restricting blood flow because my shoulder just hung."; rt lower 2/3 lung removed - Social History Smoking Status: Never smoker Exposure to second hand smoke: No Alcohol: None Drug Use: none Significant Family History: no pertinent family hx - Physical Exam Vital Signs: Vital Signs - 24 hr Temp Pulse Resp BP Pulse Ox 01/31/22 11:43 97.8 F 105 H 17 136/76 98 01/31/22 08:00 97.0 F 106 H 17 109/66 95 01/31/22 06:55 102 H 16 97 01/31/22 04:00 96.3 F 107 H 17 116/64 96 01/31/22 00:00 97.3 F 97 H 16 123/61 95 01/30/22 23:46 106 H 22 95 01/30/22 21:51 96.8 F 106 H 22 135/87 95 01/30/22 20:38 117 H 16 109/74 97 01/30/22 19:06 95 01/30/22 18:55 109 H 18 121/75 97 01/30/22 18:42 135/85 01/30/22 18:39 110 H 18 98 01/30/22 17:06 107 H 15 98/75 95 01/30/22 15:44 97.5 F 150 H 18 128/97 97 General Appearance: no apparent distress, alert Neurologic Exam: oriented x 3, cooperative Eye Exam: eyes nml inspection Ears, Nose, Throat Exam: moist mucous membranes Neck Exam: normal inspection Respiratory Exam: lungs clear, diminished breath sounds (good air exchange), No crackles/rales, No rhonchi, No wheezing Cardiovascular Exam: tachycardia, irregular, No murmur Gastrointestinal/Abdomen Exam: soft, normal bowel sounds, No tenderness, No distention, No mass, No guarding, No rebound Extremity Exam: No pedal edema, No swelling Skin Exam: normal color, warm, dry, No rash Results - Labs Lab/Micro Results: Lab Results-Last 24 Hours 01/30/22 01/30/22 01/30/22 Range/Units 16:00 16:00 16:00 WBC 10.9 H (4.0-10.5) x10^3/uL RBC 4.55 (4.1-5.6) x10^6/uL Hgb 13.4 (12.5-18.0) g/dL Hct 42.2 (42-50) % MCV 92.7 (78-100) fL MCH 29.5 (26-32) pg MCHC 31.8 L (32-36) g/dL RDW 13.1 (11.5-14.0) % Plt Count 279 (150-450) x10^3/uL MPV 9.8 (7.5-11.0) fL Gran % 81.7 H (36.0-66.0) % Immature Gran % (Auto) 0.5 H (0.00-0.4) % Nucleat RBC Rel Count 0.0 (0.00-0.1) % Eos # (Auto) 0.09 (0-0.5) x10^3/uL Immature Gran # (Auto) 0.05 H (0.00-0.03) x10^3u/L Absolute Lymphs (auto) 0.86 L (1.0-4.6) x10^3/uL Absolute Monos (auto) 0.97 (0.0-1.3) x10^3/uL Absolute Nucleated RBC 0.00 (0.00-0.01) x10^3u/L Lymphocytes % 7.9 L (24.0-44.0) % Monocytes % 8.9 (0.0-12.0) % Eosinophils % 0.8 (0.00-5.0) % Basophils % 0.2 (0.0-0.4) % Absolute Granulocytes 8.93 H (1.4-6.9) x10^3/uL Basophils # 0.02 (0-0.4) x10^3/uL PT (9.4-12.5) SECONDS INR (0.8-3.0) APTT (25.1-36.5) SECONDS D-Dimer (0.0-0.50) mg/L Sodium 140 (137-145) mmol/L Potassium 3.0 L* (3.5-5.1) mmol/L Chloride 105 (98-107) mmol/L Carbon Dioxide 26 (22-30) mmol/L Anion Gap 12.2 (5-15) MEQ/L BUN 11 (9-20) mg/dL Creatinine 0.62 L (0.66-1.25) mg/dL Estimated GFR > 60.0 ML/MIN Glucose 117 H (74-106) mg/dL POC Glucometer (74 to 106) mg/dL Hemoglobin A1c (4.5-6.0) % Lactic Acid 1.2 (0.4-2.0) Calcium 9.3 (8.4-10.2) mg/dL Magnesium 1.8 (1.6-2.3) mg/dL Total Bilirubin 0.70 (0.2-1.3) mg/dL AST 33 (17-59) U/L ALT 31 (0-50) U/L Alkaline Phosphatase 177 H (38-126) U/L Troponin I (0.000-0.034) ng/mL NT-Pro-B Natriuret Pep 323 (0-1800) pg/mL Serum Total Protein 7.9 (6.3-8.2) g/dL Albumin 4.3 (3.5-5.0) g/dL Urinalys Dipstick Clnc Urine Color (YELLOW) Urine Appearance (CLEAR) Urine pH (5-6) Ur Specific Pandora (1.005-1.025) POC Urine Protein Conf (Negative) Urine Ketones (NEGATIVE) Urine Nitrite (NEGATIVE) Urine Bilirubin (NEGATIVE) Urine Urobilinogen (0-1) mg/dL Urine Leukocytes (NEGATIVE) Urine WBC (Auto) (0-5) /HPF Urine RBC (Auto) (0-2) /HPF U Epithel Cells (Auto) Urine Bacteria (Auto) (NEGATIVE) /HPF Urine RBC (0-5) Sunny/ul Ur Culture Indicated? Urine Glucose (NEGATIVE) mg/dL Influenza Type A Ag (NEGATIVE) Influenza Type B Ag (NEGATIVE) RSV (PCR) (Negative) SARS-CoV-2 (PCR) (NEGATIVE) Slides for Path Review 01/30/22 01/30/22 01/30/22 Range/Units 16:00 16:00 17:15 WBC (4.0-10.5) x10^3/uL RBC (4.1-5.6) x10^6/uL Hgb (12.5-18.0) g/dL Hct (42-50) % MCV (78-100) fL MCH (26-32) pg MCHC (32-36) g/dL RDW (11.5-14.0) % Plt Count (150-450) x10^3/uL MPV (7.5-11.0) fL Gran % (36.0-66.0) % Immature Gran % (Auto) (0.00-0.4) % Nucleat RBC Rel Count (0.00-0.1) % Eos # (Auto) (0-0.5) x10^3/uL Immature Gran # (Auto) (0.00-0.03) x10^3u/L Absolute Lymphs (auto) (1.0-4.6) x10^3/uL Absolute Monos (auto) (0.0-1.3) x10^3/uL Absolute Nucleated RBC (0.00-0.01) x10^3u/L Lymphocytes % (24.0-44.0) % Monocytes % (0.0-12.0) % Eosinophils % (0.00-5.0) % Basophils % (0.0-0.4) % Absolute Granulocytes (1.4-6.9) x10^3/uL Basophils # (0-0.4) x10^3/uL PT 11.4 (9.4-12.5) SECONDS INR 1.08 (0.8-3.0) APTT 30.3 (25.1-36.5) SECONDS D-Dimer 1.17 H* (0.0-0.50) mg/L Sodium (137-145) mmol/L Potassium (3.5-5.1) mmol/L Chloride (98-107) mmol/L Carbon Dioxide (22-30) mmol/L Anion Gap (5-15) MEQ/L BUN (9-20) mg/dL Creatinine (0.66-1.25) mg/dL Estimated GFR ML/MIN Glucose (74-106) mg/dL POC Glucometer (74 to 106) mg/dL Hemoglobin A1c (4.5-6.0) % Lactic Acid (0.4-2.0) Calcium (8.4-10.2) mg/dL Magnesium (1.6-2.3) mg/dL Total Bilirubin (0.2-1.3) mg/dL AST (17-59) U/L ALT (0-50) U/L Alkaline Phosphatase (38-126) U/L Troponin I < 0.012 (0.000-0.034) ng/mL NT-Pro-B Natriuret Pep (0-1800) pg/mL Serum Total Protein (6.3-8.2) g/dL Albumin (3.5-5.0) g/dL Urinalys Dipstick Clnc Urine Color (YELLOW) Urine Appearance (CLEAR) Urine pH (5-6) Ur Specific Pandora (1.005-1.025) POC Urine Protein Conf (Negative) Urine Ketones (NEGATIVE) Urine Nitrite (NEGATIVE) Urine Bilirubin (NEGATIVE) Urine Urobilinogen (0-1) mg/dL Urine Leukocytes (NEGATIVE) Urine WBC (Auto) (0-5) /HPF Urine RBC (Auto) (0-2) /HPF U Epithel Cells (Auto) Urine Bacteria (Auto) (NEGATIVE) /HPF Urine RBC (0-5) Sunny/ul Ur Culture Indicated? Urine Glucose (NEGATIVE) mg/dL Influenza Type A Ag NEGATIVE (NEGATIVE) Influenza Type B Ag NEGATIVE (NEGATIVE) RSV (PCR) NEGATIVE (Negative) SARS-CoV-2 (PCR) NEGATIVE (NEGATIVE) Slides for Path Review 01/30/22 01/30/22 01/30/22 Range/Units 17:29 20:00 22:27 WBC (4.0-10.5) x10^3/uL RBC (4.1-5.6) x10^6/uL Hgb (12.5-18.0) g/dL Hct (42-50) % MCV (78-100) fL MCH (26-32) pg MCHC (32-36) g/dL RDW (11.5-14.0) % Plt Count (150-450) x10^3/uL MPV (7.5-11.0) fL Gran % (36.0-66.0) % Immature Gran % (Auto) (0.00-0.4) % Nucleat RBC Rel Count (0.00-0.1) % Eos # (Auto) (0-0.5) x10^3/uL Immature Gran # (Auto) (0.00-0.03) x10^3u/L Absolute Lymphs (auto) (1.0-4.6) x10^3/uL Absolute Monos (auto) (0.0-1.3) x10^3/uL Absolute Nucleated RBC (0.00-0.01) x10^3u/L Lymphocytes % (24.0-44.0) % Monocytes % (0.0-12.0) % Eosinophils % (0.00-5.0) % Basophils % (0.0-0.4) % Absolute Granulocytes (1.4-6.9) x10^3/uL Basophils # (0-0.4) x10^3/uL PT (9.4-12.5) SECONDS INR (0.8-3.0) APTT (25.1-36.5) SECONDS D-Dimer (0.0-0.50) mg/L Sodium (137-145) mmol/L Potassium (3.5-5.1) mmol/L Chloride (98-107) mmol/L Carbon Dioxide (22-30) mmol/L Anion Gap (5-15) MEQ/L BUN (9-20) mg/dL Creatinine (0.66-1.25) mg/dL Estimated GFR ML/MIN Glucose (74-106) mg/dL POC Glucometer 115 H (74 to 106) mg/dL Hemoglobin A1c (4.5-6.0) % Lactic Acid (0.4-2.0) Calcium (8.4-10.2) mg/dL Magnesium (1.6-2.3) mg/dL Total Bilirubin (0.2-1.3) mg/dL AST (17-59) U/L ALT (0-50) U/L Alkaline Phosphatase (38-126) U/L Troponin I < 0.012 (0.000-0.034) ng/mL NT-Pro-B Natriuret Pep (0-1800) pg/mL Serum Total Protein (6.3-8.2) g/dL Albumin (3.5-5.0) g/dL Urinalys Dipstick Clnc MAIN LAB Urine Color YELLOW (YELLOW) Urine Appearance CLEAR (CLEAR) Urine pH 6.0 (5-6) Ur Specific Pandora 1.010 (1.005-1.025) POC Urine Protein Conf NEGATIVE (Negative) Urine Ketones NEGATIVE (NEGATIVE) Urine Nitrite NEGATIVE (NEGATIVE) Urine Bilirubin NEGATIVE (NEGATIVE) Urine Urobilinogen 0.2 (0-1) mg/dL Urine Leukocytes SMALL A (NEGATIVE) Urine WBC (Auto) 0-2 (0-5) /HPF Urine RBC (Auto) NONE (0-2) /HPF U Epithel Cells (Auto) Not Reportable Urine Bacteria (Auto) RARE (NEGATIVE) /HPF Urine RBC NEGATIVE (0-5) Sunny/ul Ur Culture Indicated? NO Urine Glucose NEGATIVE (NEGATIVE) mg/dL Influenza Type A Ag (NEGATIVE) Influenza Type B Ag (NEGATIVE) RSV (PCR) (Negative) SARS-CoV-2 (PCR) (NEGATIVE) Slides for Path Review 01/31/22 01/31/22 01/31/22 Range/Units 00:15 04:25 04:25 WBC 6.9 (4.0-10.5) x10^3/uL RBC 4.38 (4.1-5.6) x10^6/uL Hgb 12.8 (12.5-18.0) g/dL Hct 41.1 L (42-50) % MCV 93.8 (78-100) fL MCH 29.2 (26-32) pg MCHC 31.1 L (32-36) g/dL RDW 13.2 (11.5-14.0) % Plt Count 263 (150-450) x10^3/uL MPV 9.7 (7.5-11.0) fL Gran % 92.2 H (36.0-66.0) % Immature Gran % (Auto) 0.4 (0.00-0.4) % Nucleat RBC Rel Count 0.0 (0.00-0.1) % Eos # (Auto) 0.01 (0-0.5) x10^3/uL Immature Gran # (Auto) 0.03 (0.00-0.03) x10^3u/L Absolute Lymphs (auto) 0.39 L (1.0-4.6) x10^3/uL Absolute Monos (auto) 0.11 (0.0-1.3) x10^3/uL Absolute Nucleated RBC 0.00 (0.00-0.01) x10^3u/L Lymphocytes % 5.6 L (24.0-44.0) % Monocytes % 1.6 (0.0-12.0) % Eosinophils % 0.1 (0.00-5.0) % Basophils % 0.1 (0.0-0.4) % Absolute Granulocytes 6.37 (1.4-6.9) x10^3/uL Basophils # 0.01 (0-0.4) x10^3/uL PT (9.4-12.5) SECONDS INR (0.8-3.0) APTT (25.1-36.5) SECONDS D-Dimer (0.0-0.50) mg/L Sodium 139 (137-145) mmol/L Potassium 3.8 D (3.5-5.1) mmol/L Chloride 106 (98-107) mmol/L Carbon Dioxide 28 (22-30) mmol/L Anion Gap 9.1 (5-15) MEQ/L BUN 13 (9-20) mg/dL Creatinine 0.63 L (0.66-1.25) mg/dL Estimated GFR > 60.0 ML/MIN Glucose 193 H (74-106) mg/dL POC Glucometer (74 to 106) mg/dL Hemoglobin A1c (4.5-6.0) % Lactic Acid (0.4-2.0) Calcium 8.8 (8.4-10.2) mg/dL Magnesium (1.6-2.3) mg/dL Total Bilirubin 0.40 (0.2-1.3) mg/dL AST 35 (17-59) U/L ALT 32 (0-50) U/L Alkaline Phosphatase 167 H (38-126) U/L Troponin I < 0.012 (0.000-0.034) ng/mL NT-Pro-B Natriuret Pep (0-1800) pg/mL Serum Total Protein 7.1 (6.3-8.2) g/dL Albumin 3.8 (3.5-5.0) g/dL Urinalys Dipstick Clnc Urine Color (YELLOW) Urine Appearance (CLEAR) Urine pH (5-6) Ur Specific Pandora (1.005-1.025) POC Urine Protein Conf (Negative) Urine Ketones (NEGATIVE) Urine Nitrite (NEGATIVE) Urine Bilirubin (NEGATIVE) Urine Urobilinogen (0-1) mg/dL Urine Leukocytes (NEGATIVE) Urine WBC (Auto) (0-5) /HPF Urine RBC (Auto) (0-2) /HPF U Epithel Cells (Auto) Urine Bacteria (Auto) (NEGATIVE) /HPF Urine RBC (0-5) Sunny/ul Ur Culture Indicated? Urine Glucose (NEGATIVE) mg/dL Influenza Type A Ag (NEGATIVE) Influenza Type B Ag (NEGATIVE) RSV (PCR) (Negative) SARS-CoV-2 (PCR) (NEGATIVE) Slides for Path Review YES 01/31/22 01/31/22 01/31/22 Range/Units 04:49 06:39 09:36 WBC (4.0-10.5) x10^3/uL RBC (4.1-5.6) x10^6/uL Hgb (12.5-18.0) g/dL Hct (42-50) % MCV (78-100) fL MCH (26-32) pg MCHC (32-36) g/dL RDW (11.5-14.0) % Plt Count (150-450) x10^3/uL MPV (7.5-11.0) fL Gran % (36.0-66.0) % Immature Gran % (Auto) (0.00-0.4) % Nucleat RBC Rel Count (0.00-0.1) % Eos # (Auto) (0-0.5) x10^3/uL Immature Gran # (Auto) (0.00-0.03) x10^3u/L Absolute Lymphs (auto) (1.0-4.6) x10^3/uL Absolute Monos (auto) (0.0-1.3) x10^3/uL Absolute Nucleated RBC (0.00-0.01) x10^3u/L Lymphocytes % (24.0-44.0) % Monocytes % (0.0-12.0) % Eosinophils % (0.00-5.0) % Basophils % (0.0-0.4) % Absolute Granulocytes (1.4-6.9) x10^3/uL Basophils # (0-0.4) x10^3/uL PT (9.4-12.5) SECONDS INR (0.8-3.0) APTT (25.1-36.5) SECONDS D-Dimer (0.0-0.50) mg/L Sodium (137-145) mmol/L Potassium (3.5-5.1) mmol/L Chloride (98-107) mmol/L Carbon Dioxide (22-30) mmol/L Anion Gap (5-15) MEQ/L BUN (9-20) mg/dL Creatinine (0.66-1.25) mg/dL Estimated GFR ML/MIN Glucose (74-106) mg/dL POC Glucometer 229 H (74 to 106) mg/dL Hemoglobin A1c 4.94 (4.5-6.0) % Lactic Acid 2.0 (0.4-2.0) Calcium (8.4-10.2) mg/dL Magnesium (1.6-2.3) mg/dL Total Bilirubin (0.2-1.3) mg/dL AST (17-59) U/L ALT (0-50) U/L Alkaline Phosphatase (38-126) U/L Troponin I (0.000-0.034) ng/mL NT-Pro-B Natriuret Pep (0-1800) pg/mL Serum Total Protein (6.3-8.2) g/dL Albumin (3.5-5.0) g/dL Urinalys Dipstick Clnc Urine Color (YELLOW) Urine Appearance (CLEAR) Urine pH (5-6) Ur Specific Pandora (1.005-1.025) POC Urine Protein Conf (Negative) Urine Ketones (NEGATIVE) Urine Nitrite (NEGATIVE) Urine Bilirubin (NEGATIVE) Urine Urobilinogen (0-1) mg/dL Urine Leukocytes (NEGATIVE) Urine WBC (Auto) (0-5) /HPF Urine RBC (Auto) (0-2) /HPF U Epithel Cells (Auto) Urine Bacteria (Auto) (NEGATIVE) /HPF Urine RBC (0-5) Sunny/ul Ur Culture Indicated? Urine Glucose (NEGATIVE) mg/dL Influenza Type A Ag (NEGATIVE) Influenza Type B Ag (NEGATIVE) RSV (PCR) (Negative) SARS-CoV-2 (PCR) (NEGATIVE) Slides for Path Review 01/31/22 Range/Units 11:30 WBC (4.0-10.5) x10^3/uL RBC (4.1-5.6) x10^6/uL Hgb (12.5-18.0) g/dL Hct (42-50) % MCV (78-100) fL MCH (26-32) pg MCHC (32-36) g/dL RDW (11.5-14.0) % Plt Count (150-450) x10^3/uL MPV (7.5-11.0) fL Gran % (36.0-66.0) % Immature Gran % (Auto) (0.00-0.4) % Nucleat RBC Rel Count (0.00-0.1) % Eos # (Auto) (0-0.5) x10^3/uL Immature Gran # (Auto) (0.00-0.03) x10^3u/L Absolute Lymphs (auto) (1.0-4.6) x10^3/uL Absolute Monos (auto) (0.0-1.3) x10^3/uL Absolute Nucleated RBC (0.00-0.01) x10^3u/L Lymphocytes % (24.0-44.0) % Monocytes % (0.0-12.0) % Eosinophils % (0.00-5.0) % Basophils % (0.0-0.4) % Absolute Granulocytes (1.4-6.9) x10^3/uL Basophils # (0-0.4) x10^3/uL PT (9.4-12.5) SECONDS INR (0.8-3.0) APTT (25.1-36.5) SECONDS D-Dimer (0.0-0.50) mg/L Sodium (137-145) mmol/L Potassium (3.5-5.1) mmol/L Chloride (98-107) mmol/L Carbon Dioxide (22-30) mmol/L Anion Gap (5-15) MEQ/L BUN (9-20) mg/dL Creatinine (0.66-1.25) mg/dL Estimated GFR ML/MIN Glucose (74-106) mg/dL POC Glucometer 271 H (74 to 106) mg/dL Hemoglobin A1c (4.5-6.0) % Lactic Acid (0.4-2.0) Calcium (8.4-10.2) mg/dL Magnesium (1.6-2.3) mg/dL Total Bilirubin (0.2-1.3) mg/dL AST (17-59) U/L ALT (0-50) U/L Alkaline Phosphatase (38-126) U/L Troponin I (0.000-0.034) ng/mL NT-Pro-B Natriuret Pep (0-1800) pg/mL Serum Total Protein (6.3-8.2) g/dL Albumin (3.5-5.0) g/dL Urinalys Dipstick Clnc Urine Color (YELLOW) Urine Appearance (CLEAR) Urine pH (5-6) Ur Specific Pandora (1.005-1.025) POC Urine Protein Conf (Negative) Urine Ketones (NEGATIVE) Urine Nitrite (NEGATIVE) Urine Bilirubin (NEGATIVE) Urine Urobilinogen (0-1) mg/dL Urine Leukocytes (NEGATIVE) Urine WBC (Auto) (0-5) /HPF Urine RBC (Auto) (0-2) /HPF U Epithel Cells (Auto) Urine Bacteria (Auto) (NEGATIVE) /HPF Urine RBC (0-5) Sunny/ul Ur Culture Indicated? Urine Glucose (NEGATIVE) mg/dL Influenza Type A Ag (NEGATIVE) Influenza Type B Ag (NEGATIVE) RSV (PCR) (Negative) SARS-CoV-2 (PCR) (NEGATIVE) Slides for Path Review Accuchecks Date 01/31/22 Date 01/31/22 Date 01/30/22 Time 11:41 Time 07:26 Time 22:31 - Radiology Impressions Radiology Exams & Impressions: Radiology Procedures Category Date Time Status CHEST 1 VIEW (PORTABLE) Stat Exams 01/30/22 15:54 Completed CHEST WITH CONTRAST [CT] Stat Exams 01/30/22 17:12 Completed - Other Procedures and Tests Respiratory Therapy 01/30/22 19:07 Oxygen Nasal Cannula 2 lpm 01/30/22 23:44 Respiratory Therapy Assessment DAILY Assessment/Plan (1) Pneumonia Current Visit: Yes Status: Acute Qualifiers: Pneumonia type: due to unspecified organism Laterality: left Lung location: unspecified part of lung Qualified Code(s): J18.9 - Pneumonia, unspecified organism Assessment & Plan: on zithromax and rocephin day #2, with IV steroid 80mg q6h. Code(s): J18.9 - PNEUMONIA, UNSPECIFIED ORGANISM (2) Atrial fibrillation with RVR Current Visit: Yes Status: Acute Assessment & Plan: on toprol IV q6h currently. Code(s): I48.91 - UNSPECIFIED ATRIAL FIBRILLATION (3) History of lung cancer Current Visit: Yes Status: Chronic Code(s): Z85.118 - PERSONAL HISTORY OF MALIGNANT NEOPLASM OF BRONCHUS AND LUNG (4) COPD (chronic obstructive pulmonary disease) Current Visit: Yes Status: Chronic
[2022-01-31] MEDS: NORVASC 5 MG PO SCH (23:01)
[2022-02-01] MEDS ORDERED: solu-MEDROL ONE ×2 (00:19→05:57)
[2022-02-01] MEDS: solu-MEDROL 80 MG, Sterile H2O 10 ml 2 ML IV SCH ×4 (00:21→06:03)
[2022-02-01] MEDS: HYDROCODONE-ACETAMIN 10-325 MG PO SCH ×5 (00:21→23:37)
[2022-02-01] MEDS: Sodium Chloride 0.9% 1000 ML 1,000 ML IV SCH (06:55)
[2022-02-01 08:45] LABS: Absolute Neutrophil Ct (ANC) 12.02 x10^3/uL (1.4-6.9); Basophil (Absolute #) 0.01 x10^3/uL (0-0.4); Eosinophil (Absolute #) 0 x10^3/uL (0-0.5); Hematocrit 39.2 % (42-50); Hemoglobin 12.7 g/dL (12.5-18.0); Lymphocyte (Absolute #) 0.57 x10^3/uL (1.0-4.6); Lymphocytes % 4.4 % (24.0-44.0); Mean Cell Volume 92.2 fL (78-100); Mean Corpuscular Hemoglobin 29.9 pg (26-32); Mean Corpuscular Hgb Concent. 32.4 g/dL (32-36); Mean Platelet Volume 9.3 fL (7.5-11.0); Monocyte (Absolute #) 0.34 x10^3/uL (0.0-1.3); Monocytes % 2.6 % (0.0-12.0); Neutrophil % 92.3 % (36.0-66.0); Platelet Count 328 x10^3/uL (150-450); Red Blood Count 4.25 x10^6/uL (4.1-5.6); Red Cell Distribution Width 13.2 % (11.5-14.0)
[2022-02-01 08:55] LABS: ANION GAP 14.6 MEQ/L (5-15); BLOOD UREA NITROGEN 19 mg/dL (9-20); CHLORIDE 107 mmol/L (98-107); Calcium 8.7 mg/dL (8.4-10.2); Carbon Dioxide 24 mmol/L (22-30); Creatinine 1 0.55 mg/dL (0.66-1.25); EST GLOMERULAR FILTRATION RATE > 60.0 ML/MIN; Glucose 168 mg/dL (74-106); Potassium 3.3 mmol/L (3.5-5.1); SODIUM 143 mmol/L (137-145)
[2022-02-01] MEDS: ROCEPHIN 1 Gm-D5w 50 ml Bag** 1 G/50 ML IVPB IV SCH (09:26)
[2022-02-01] MEDS: ECOTRIN 81 MG PO SCH (09:26)
[2022-02-01] MEDS: Zithromax 500 MG/ 250 ML NaCl Premix 500 MG/250 ML IVPB IV SCH (10:08)
[2022-02-01 10:29] LABS: Slide Review 1 YES
--- NOTE | 2022-02-01 11:59 | PCM.NOTE ---
Date and Time: 02/01/22 1156 Subjective Assessment: Pt concerned about heart rate, 100s-110s at rest and up to 150s with activity. Otdd po well. - Review of Systems Constitutional: No Fever Abdominal/Gastrointestinal: No Vomiting Objective Exam General Appearance: no apparent distress, alert Neurologic Exam: oriented x 3, cooperative, normal mood/affect Skin Exam: normal color, warm, dry, No rash Ears, Nose, Throat Exam: moist mucous membranes Neck Exam: normal inspection Respiratory Exam: diminished breath sounds (good air exchange), wheezing (faint exp wheeze), No crackles/rales, No rhonchi Cardiovascular Exam: tachycardia, irregular, No murmur Gastrointestinal/Abdomen Exam: soft, normal bowel sounds, No tenderness, No distention, No mass, No guarding, No rebound Extremity Exam: pedal edema (trace pretibial edema bilat) OBJECTIVE DATA Vital Signs: Vital Signs - 24 hr Temp Pulse Resp BP Pulse Ox 02/01/22 11:18 98.6 F 129 H 18 122/62 95 02/01/22 09:54 99 H 18 98 02/01/22 07:17 97.5 F 110 H 18 113/72 96 02/01/22 04:00 100 H 16 02/01/22 00:00 98.4 F 111 H 18 130/78 97 01/31/22 20:00 97.7 F 106 H 20 124/77 98 01/31/22 19:00 120 H 17 98 01/31/22 16:00 97.3 F 113 H 17 139/60 97 Pain Assessment - Last Documented Pain Intensity 5 Pain Scale Used 0-10 Pain Scale Intake and Output: Intake & Output 01/29/22 01/30/22 01/31/22 02/01/22 11:59 11:59 11:59 11:59 Intake Total 755 1802 Output Total 975 500 Balance -220 1302 Weight 78.4 kg Lab Results: Lab Results-Last 24 Hours 01/31/22 01/31/22 02/01/22 Range/Units 15:55 20:43 07:03 WBC (4.0-10.5) x10^3/uL RBC (4.1-5.6) x10^6/uL Hgb (12.5-18.0) g/dL Hct (42-50) % MCV (78-100) fL MCH (26-32) pg MCHC (32-36) g/dL RDW (11.5-14.0) % Plt Count (150-450) x10^3/uL MPV (7.5-11.0) fL Gran % (36.0-66.0) % Immature Gran % (Auto) (0.00-0.4) % Nucleat RBC Rel Count (0.00-0.1) % Eos # (Auto) (0-0.5) x10^3/uL Immature Gran # (Auto) (0.00-0.03) x10^3u/L Absolute Lymphs (auto) (1.0-4.6) x10^3/uL Absolute Monos (auto) (0.0-1.3) x10^3/uL Absolute Nucleated RBC (0.00-0.01) x10^3u/L Lymphocytes % (24.0-44.0) % Monocytes % (0.0-12.0) % Eosinophils % (0.00-5.0) % Basophils % (0.0-0.4) % Absolute Granulocytes (1.4-6.9) x10^3/uL Basophils # (0-0.4) x10^3/uL Sodium (137-145) mmol/L Potassium (3.5-5.1) mmol/L Chloride (98-107) mmol/L Carbon Dioxide (22-30) mmol/L Anion Gap (5-15) MEQ/L BUN (9-20) mg/dL Creatinine (0.66-1.25) mg/dL Estimated GFR ML/MIN Glucose (74-106) mg/dL POC Glucometer 273 H 185 H 192 H (74 to 106) mg/dL Calcium (8.4-10.2) mg/dL Slides for Path Review 02/01/22 02/01/22 02/01/22 Range/Units 08:30 08:30 10:53 WBC 13.0 H (4.0-10.5) x10^3/uL RBC 4.25 (4.1-5.6) x10^6/uL Hgb 12.7 (12.5-18.0) g/dL Hct 39.2 L (42-50) % MCV 92.2 (78-100) fL MCH 29.9 (26-32) pg MCHC 32.4 (32-36) g/dL RDW 13.2 (11.5-14.0) % Plt Count 328 (150-450) x10^3/uL MPV 9.3 (7.5-11.0) fL Gran % 92.3 H (36.0-66.0) % Immature Gran % (Auto) 0.6 H (0.00-0.4) % Nucleat RBC Rel Count 0.0 (0.00-0.1) % Eos # (Auto) 0 (0-0.5) x10^3/uL Immature Gran # (Auto) 0.08 H (0.00-0.03) x10^3u/L Absolute Lymphs (auto) 0.57 L (1.0-4.6) x10^3/uL Absolute Monos (auto) 0.34 (0.0-1.3) x10^3/uL Absolute Nucleated RBC 0.00 (0.00-0.01) x10^3u/L Lymphocytes % 4.4 L (24.0-44.0) % Monocytes % 2.6 (0.0-12.0) % Eosinophils % 0.0 (0.00-5.0) % Basophils % 0.1 (0.0-0.4) % Absolute Granulocytes 12.02 H (1.4-6.9) x10^3/uL Basophils # 0.01 (0-0.4) x10^3/uL Sodium 143 (137-145) mmol/L Potassium 3.3 L (3.5-5.1) mmol/L Chloride 107 (98-107) mmol/L Carbon Dioxide 24 (22-30) mmol/L Anion Gap 14.6 (5-15) MEQ/L BUN 19 (9-20) mg/dL Creatinine 0.55 L (0.66-1.25) mg/dL Estimated GFR > 60.0 ML/MIN Glucose 168 H (74-106) mg/dL POC Glucometer 199 H (74 to 106) mg/dL Calcium 8.7 (8.4-10.2) mg/dL Slides for Path Review YES Radiology Exams: Radiology Procedures Category Date Time Status CHEST 1 VIEW (PORTABLE) Stat Exams 01/30/22 15:54 Completed CHEST WITH CONTRAST [CT] Stat Exams 01/30/22 17:12 Completed Multi-Disciplinary Progress Notes: Multi-Disciplinary Progress Notes 02/01/22 11:29 Case Management Note by Magda Alejandra/Vicky PATIENT- HE CONTINUES TO DENY ANY NEW NEEDS AT TIME OF DC. HE ALREADY HAS HOME OXYGEN AND IS ON HIS HOME FLOW RATE. HE DECLINED HHC. HE PLANS TO RETURN HOME TO HIS PLF Initialized on 02/01/22 11:29 - END OF NOTE Assessment/Plan (1) Pneumonia Current Visit: Yes Status: Acute Qualifiers: Pneumonia type: due to unspecified organism Laterality: left Lung location: unspecified part of lung Qualified Code(s): J18.9 - Pneumonia, unspecified organism Code(s): J18.9 - PNEUMONIA, UNSPECIFIED ORGANISM (2) Atrial fibrillation with RVR Current Visit: Yes Status: Acute Assessment & Plan: Start scheduled metoprolol. Pt will not stop his amlodipine. Code(s): I48.91 - UNSPECIFIED ATRIAL FIBRILLATION (3) History of lung cancer Current Visit: Yes Status: Chronic Code(s): Z85.118 - PERSONAL HISTORY OF MALIGNANT NEOPLASM OF BRONCHUS AND LUNG (4) COPD (chronic obstructive pulmonary disease) Current Visit: Yes Status: Chronic Qualifiers: COPD type: COPD with acute exacerbation Qualified Code(s): J44.1 - Chronic obstructive pulmonary disease with (acute) exacerbation
[2022-02-01] MEDS ORDERED: Toprol-Xl 25MG Tablets PO SCH (12:00)
[2022-02-01] MEDS ORDERED: VENTOLIN COMMON CANISTER IH SCH (13:00)
[2022-02-01] MEDS: VENTOLIN COMMON CANISTER IH SCH ×2 (13:03→17:43)
[2022-02-01] MEDS: NORVASC 5 MG PO SCH (23:38)
[2022-02-02] MEDS: Sodium Chloride 0.9% 1000 ML 1,000 ML IV SCH (04:22)
[2022-02-02] MEDS: HYDROCODONE-ACETAMIN 10-325 MG PO SCH ×3 (06:13→18:01)
[2022-02-02 06:41] LABS: Absolute Neutrophil Ct (ANC) 9.83 x10^3/uL (1.4-6.9); Basophil (Absolute #) 0.02 x10^3/uL (0-0.4); Eosinophil (Absolute #) 0 x10^3/uL (0-0.5); Hematocrit 39.2 % (42-50); Hemoglobin 12.4 g/dL (12.5-18.0); Lymphocyte (Absolute #) 0.77 x10^3/uL (1.0-4.6); Lymphocytes % 6.7 % (24.0-44.0); Mean Cell Volume 94.2 fL (78-100); Mean Corpuscular Hemoglobin 29.8 pg (26-32); Mean Corpuscular Hgb Concent. 31.6 g/dL (32-36); Mean Platelet Volume 9.1 fL (7.5-11.0); Monocyte (Absolute #) 0.79 x10^3/uL (0.0-1.3); Monocytes % 6.9 % (0.0-12.0); Neutrophil % 85.2 % (36.0-66.0); Platelet Count 348 x10^3/uL (150-450); Red Blood Count 4.16 x10^6/uL (4.1-5.6); Red Cell Distribution Width 13.4 % (11.5-14.0); White Blood Count 11.5 x10^3/uL (4.0-10.5)
[2022-02-02] MEDS: VENTOLIN COMMON CANISTER IH SCH ×3 (06:56→19:20)
[2022-02-02 08:06] LABS: ANION GAP 7.7 MEQ/L (5-15); BLOOD UREA NITROGEN 21 mg/dL (9-20); CHLORIDE 105 mmol/L (98-107); Calcium 8.3 mg/dL (8.4-10.2); Carbon Dioxide 32 mmol/L (22-30); Creatinine 1 0.57 mg/dL (0.66-1.25); EST GLOMERULAR FILTRATION RATE > 60.0 ML/MIN; Glucose 109 mg/dL (74-106); Potassium 3.2 mmol/L (3.5-5.1); SODIUM 141 mmol/L (137-145)
[2022-02-02] MEDS: ECOTRIN 81 MG PO SCH (09:04)
[2022-02-02] MEDS: ROCEPHIN 1 Gm-D5w 50 ml Bag** 1 G/50 ML IVPB IV SCH (09:04)
[2022-02-02] MEDS: Toprol Xl 50 MG PO SCH (09:04)
[2022-02-02] MEDS: Zithromax 500 MG/ 250 ML NaCl Premix 500 MG/250 ML IVPB IV SCH (10:08)
--- NOTE | 2022-02-02 16:32 | PCM.NOTE ---
Date and Time: 02/02/221627 Subjective Assessment: Pt still gets more tachycardic with standing; HR 130 when standing during our exam. Todd po well. - Review of Systems Respiratory: Cough, Short Of Breath Objective Exam General Appearance: no apparent distress, alert Neurologic Exam: oriented x 3, cooperative Skin Exam: normal color, warm, dry, No rash Eye Exam: eyes nml inspection Ears, Nose, Throat Exam: moist mucous membranes Neck Exam: normal inspection Respiratory Exam: normal breath sounds, lungs clear, No crackles/rales, No rhonchi, No wheezing Cardiovascular Exam: tachycardia, irregular, No murmur Extremity Exam: normal inspection, No pedal edema, No swelling Back Exam: normal inspection, No rash OBJECTIVE DATA Vital Signs: Vital Signs - 24 hr Temp Pulse Resp BP Pulse Ox 02/02/22 13:20 99 H 18 96 02/02/22 11:59 98.0 F 108 H 16 133/99 96 02/02/22 07:38 97.7 F 91 H 16 125/67 97 02/02/22 06:58 106 H 22 97 02/02/22 04:00 97.7 F 115 H 21 158/85 93 L 02/01/22 23:54 98.0 F 117 H 22 134/91 96 02/01/22 19:51 98.4 F 99 H 20 126/76 97 02/01/22 17:46 113 H 18 98 Pain Assessment - Last Documented Pain Intensity 4 Pain Scale Used 0-10 Pain Scale Intake and Output: Intake & Output 01/31/22 02/01/22 02/02/22 02/03/22 11:59 11:59 11:59 11:59 Intake Total 755 1802 4053 240 Output Total 975 500 Balance -220 1302 4053 240 Weight 78.4 kg 83.3 kg Lab Results: Lab Results-Last 24 Hours 02/01/22 02/02/22 02/02/22 Range/Units 20:51 06:40 06:40 WBC 11.5 H (4.0-10.5) x10^3/uL RBC 4.16 (4.1-5.6) x10^6/uL Hgb 12.4 L (12.5-18.0) g/dL Hct 39.2 L (42-50) % MCV 94.2 (78-100) fL MCH 29.8 (26-32) pg MCHC 31.6 L (32-36) g/dL RDW 13.4 (11.5-14.0) % Plt Count 348 (150-450) x10^3/uL MPV 9.1 (7.5-11.0) fL Gran % 85.2 H (36.0-66.0) % Immature Gran % (Auto) 1.0 H (0.00-0.4) % Nucleat RBC Rel Count 0.0 (0.00-0.1) % Eos # (Auto) 0 (0-0.5) x10^3/uL Immature Gran # (Auto) 0.12 H (0.00-0.03) x10^3u/L Absolute Lymphs (auto) 0.77 L (1.0-4.6) x10^3/uL Absolute Monos (auto) 0.79 (0.0-1.3) x10^3/uL Absolute Nucleated RBC 0.00 (0.00-0.01) x10^3u/L Lymphocytes % 6.7 L (24.0-44.0) % Monocytes % 6.9 (0.0-12.0) % Eosinophils % 0.0 (0.00-5.0) % Basophils % 0.2 (0.0-0.4) % Absolute Granulocytes 9.83 H (1.4-6.9) x10^3/uL Basophils # 0.02 (0-0.4) x10^3/uL Sodium 141 (137-145) mmol/L Potassium 3.2 L (3.5-5.1) mmol/L Chloride 105 (98-107) mmol/L Carbon Dioxide 32 H (22-30) mmol/L Anion Gap 7.7 (5-15) MEQ/L BUN 21 H (9-20) mg/dL Creatinine 0.57 L (0.66-1.25) mg/dL Estimated GFR > 60.0 ML/MIN Glucose 109 H (74-106) mg/dL POC Glucometer 141 H (74 to 106) mg/dL Calcium 8.3 L (8.4-10.2) mg/dL 02/02/22 02/02/22 Range/Units 07:15 11:18 WBC (4.0-10.5) x10^3/uL RBC (4.1-5.6) x10^6/uL Hgb (12.5-18.0) g/dL Hct (42-50) % MCV (78-100) fL MCH (26-32) pg MCHC (32-36) g/dL RDW (11.5-14.0) % Plt Count (150-450) x10^3/uL MPV (7.5-11.0) fL Gran % (36.0-66.0) % Immature Gran % (Auto) (0.00-0.4) % Nucleat RBC Rel Count (0.00-0.1) % Eos # (Auto) (0-0.5) x10^3/uL Immature Gran # (Auto) (0.00-0.03) x10^3u/L Absolute Lymphs (auto) (1.0-4.6) x10^3/uL Absolute Monos (auto) (0.0-1.3) x10^3/uL Absolute Nucleated RBC (0.00-0.01) x10^3u/L Lymphocytes % (24.0-44.0) % Monocytes % (0.0-12.0) % Eosinophils % (0.00-5.0) % Basophils % (0.0-0.4) % Absolute Granulocytes (1.4-6.9) x10^3/uL Basophils # (0-0.4) x10^3/uL Sodium (137-145) mmol/L Potassium (3.5-5.1) mmol/L Chloride (98-107) mmol/L Carbon Dioxide (22-30) mmol/L Anion Gap (5-15) MEQ/L BUN (9-20) mg/dL Creatinine (0.66-1.25) mg/dL Estimated GFR ML/MIN Glucose (74-106) mg/dL POC Glucometer 102 96 (74 to 106) mg/dL Calcium (8.4-10.2) mg/dL Multi-Disciplinary Progress Notes: Multi-Disciplinary Progress Notes 02/02/22 09:24 Case Management Note by Karol Gutierrez PT PLANS TO RETURN HOME TO [facility], NO ANTICIPATED NEEDS AT D/C AT THIS TIME. WILL CONTINUE TO FOLLOW. . Initialized on 02/02/22 09:24 - END OF NOTE Assessment/Plan (1) Pneumonia Current Visit: Yes Status: Acute Qualifiers: Pneumonia type: due to unspecified organism Laterality: left Lung location: unspecified part of lung Qualified Code(s): J18.9 - Pneumonia, unspecified organism Assessment & Plan: Doing great. On day #3 rocephin and zithromax. no longer on steroid (was not wheezing, and he is concerned that steroids contribute to his afib). Code(s): J18.9 - PNEUMONIA, UNSPECIFIED ORGANISM (2) Atrial fibrillation with RVR Current Visit: Yes Status: Acute Assessment & Plan: Increase toprol XL to 50mg/d today. On amlodipine, which pt does not want to discontinue, but would decrease the dose as needed if BP required it. Has refused blood thinners in the past (had a serious bleeding event). Code(s): I48.91 - UNSPECIFIED ATRIAL FIBRILLATION (3) History of lung cancer Current Visit: Yes Status: Chronic Code(s): Z85.118 - PERSONAL HISTORY OF MALIGNANT NEOPLASM OF BRONCHUS AND LUNG (4) COPD (chronic obstructive pulmonary disease) Current Visit: Yes Status: Chronic Qualifiers: COPD type: COPD with acute exacerbation Qualified Code(s): J44.1 - Chronic obstructive pulmonary disease with (acute) exacerbation
[2022-02-03] MEDS: NORVASC 5 MG PO SCH (00:02)
[2022-02-03] MEDS: HYDROCODONE-ACETAMIN 10-325 MG PO SCH ×4 (00:02→18:18)
[2022-02-03] MEDS: VENTOLIN COMMON CANISTER IH SCH ×3 (07:35→18:10)
--- NOTE | 2022-02-03 08:47 | PCM.NOTE ---
Date and Time: 02/03/22841 Subjective Assessment: patient feels ok, no more short of breath than usual, on regular home flow of 2L oxygen, denies chest pain. heart rate remains over 100 Objective Exam General Appearance: no apparent distress, alert Respiratory Exam: normal breath sounds, lungs clear, No respiratory distress Cardiovascular Exam: tachycardia, irregular Gastrointestinal/Abdomen Exam: soft, No tenderness, No mass Extremity Exam: normal inspection, normal range of motion OBJECTIVE DATA Vital Signs: Vital Signs - 24 hr Temp Pulse Resp BP Pulse Ox 02/03/22 07:38 96 02/03/22 07:28 97.7 F 110 H 18 158/100 96 02/03/22 07:00 110 H 16 96 02/03/22 04:00 107 H 02/02/22 20:00 97.7 F 92 H 17 119/78 95 02/02/22 19:20 102 H 20 99 02/02/22 16:00 97.8 F 89 16 129/64 94 L 02/02/22 13:20 99 H 18 96 02/02/22 11:59 98.0 F 108 H 16 133/99 96 Pain Assessment - Last Documented Pain Intensity 7 Pain Scale Used 0-10 Pain Scale Intake and Output: Intake & Output 01/31/22 02/01/22 02/02/22 02/03/22 11:59 11:59 11:59 11:59 Intake Total 755 1802 4053 840 Output Total 975 500 Balance -220 1302 4053 840 Weight 78.4 kg 83.3 kg 81.6 kg Lab Results: Lab Results-Last 24 Hours 02/02/22 02/02/22 02/02/22 Range/Units 11:18 16:27 20:23 POC Glucometer 96 123 H 110 H (74 to 106) mg/dL 02/03/22 Range/Units 07:10 POC Glucometer 94 (74 to 106) mg/dL Multi-Disciplinary Progress Notes: Multi-Disciplinary Progress Notes 02/02/22 09:24 Case Management Note by Karol Gutierrez PT PLANS TO RETURN HOME TO [facility], NO ANTICIPATED NEEDS AT D/C AT THIS TIME. WILL CONTINUE TO FOLLOW. . Initialized on 02/02/22 09:24 - END OF NOTE Assessment/Plan (1) Atrial fibrillation with RVR Current Visit: Yes Status: Acute Assessment & Plan: increase dose of metoprolol to aid rate control, will increase to 75mg at this time. patient understands risk of thromboembolism with a fib and continues to refuse any anticoagulation, hx of GI bleed from peptic ulcer x 2 in the past and will take his chances with stroke risk. after discharge might be a good candidate for watchman consideration with cardiology consult Code(s): I48.91 - UNSPECIFIED ATRIAL FIBRILLATION (2) COPD (chronic obstructive pulmonary disease) Current Visit: Yes Status: Chronic Qualifiers: COPD type: COPD with acute exacerbation Qualified Code(s): J44.1 - Chronic obstructive pulmonary disease with (acute) exacerbation
[2022-02-03] MEDS: Toprol Xl 50 MG PO SCH (10:24)
[2022-02-03] MEDS: ROCEPHIN 1 Gm-D5w 50 ml Bag** 1 G/50 ML IVPB IV SCH (10:24)
[2022-02-03] MEDS: ECOTRIN 81 MG PO SCH (10:24)
[2022-02-03] MEDS: Toprol-Xl 25MG Tablets PO SCH (10:24)
[2022-02-03] MEDS: Zithromax 500 MG/ 250 ML NaCl Premix 500 MG/250 ML IVPB IV SCH (11:14)
[2022-02-03] MEDS ORDERED: Zofran 4 MG/2 ML VIAL IV PRN (13:16)
[2022-02-04] MEDS: HYDROCODONE-ACETAMIN 10-325 MG PO SCH ×3 (00:01→12:22)
[2022-02-04] MEDS: NORVASC 5 MG PO SCH (00:01)
[2022-02-04 05:29] LABS: Absolute Neutrophil Ct (ANC) 6.07 x10^3/uL (1.4-6.9); Basophil (Absolute #) 0.03 x10^3/uL (0-0.4); Eosinophil % 3.2 % (0.00-5.0); Eosinophil (Absolute #) 0.26 x10^3/uL (0-0.5); Hemoglobin 12.7 g/dL (12.5-18.0); Lymphocyte (Absolute #) 0.88 x10^3/uL (1.0-4.6); Lymphocytes % 10.9 % (24.0-44.0); Mean Cell Volume 91.3 fL (78-100); Mean Corpuscular Hgb Concent. 31.8 g/dL (32-36); Mean Platelet Volume 9.5 fL (7.5-11.0); Monocyte (Absolute #) 0.56 x10^3/uL (0.0-1.3); Neutrophil % 75.4 % (36.0-66.0); Platelet Count 293 x10^3/uL (150-450); Red Blood Count 4.38 x10^6/uL (4.1-5.6); Red Cell Distribution Width 13.2 % (11.5-14.0); White Blood Count 8.1 x10^3/uL (4.0-10.5)
[2022-02-04 06:16] LABS: ANION GAP 7.5 MEQ/L (5-15); BLOOD UREA NITROGEN 21 mg/dL (9-20); CHLORIDE 102 mmol/L (98-107); Carbon Dioxide 34 mmol/L (22-30); Creatinine 1 0.68 mg/dL (0.66-1.25); EST GLOMERULAR FILTRATION RATE > 60.0 ML/MIN; Glucose 94 mg/dL (74-106); Potassium 3.1 mmol/L (3.5-5.1); SODIUM 140 mmol/L (137-145)
[2022-02-04] MEDS: VENTOLIN COMMON CANISTER IH SCH (06:55)
[2022-02-04] MEDS: ECOTRIN 81 MG PO SCH (08:11)
[2022-02-04] MEDS: Toprol Xl 50 MG PO SCH (08:11)
[2022-02-04] MEDS: Toprol-Xl 25MG Tablets PO SCH (08:11)
[2022-02-04] MEDS: Zithromax 500 MG/ 250 ML NaCl Premix 500 MG/250 ML IVPB IV SCH ×2 (09:55→10:07)
[2022-02-04] MEDS: ROCEPHIN 1 Gm-D5w 50 ml Bag** 1 G/50 ML IVPB IV SCH (10:07)
--- NOTE | 2022-02-04 10:59 | PCM.DS ---
Discharge Summary Date of Admission: 01/31/22 13:59 Admitting Physician: ANTONIO DE LA ROSA DO Primary Care Provider: ANDRADE ZAVALA Allergies Allergies Antihistamines - Alkylamine Allergy (Verified 01/30/22 15:55) bacitracin Allergy (Verified 01/30/22 15:55) miconazole nitrate [From Neosporin AF] Allergy (Verified 01/30/22 15:55) NSAIDS (Non-Steroidal Anti-Inflamma Allergy (Verified 01/30/22 15:55) Uklnkes-HUH-GiQ Reductase Inhibitor [Twhncig-Ayh-Ghu Reductase Inhibitor] Allergy (Verified 01/30/22 15:55) cyclobenzaprine Adverse Reaction (Verified 01/30/22 15:55) Irregular Heart Beat Hospital Summary - Hospital Course Hospital Course: Pt was admitted through ER with afib with RVR. HR has been in the 110s at rest and 150s when up and active. He is resistant to any change to his amlodipine, and BP were often 120s systolic, so he was started on metoprolol XL for HR, at a low level, and titrated slowly up to 75mg Toprol XL daily. Currently, his BP is 138/70 (has been higher than usual this morning; earlier in the morning was 102 systolic) and HR in the 90s. When up to bathroom, gets up to mid 110s at times. Will send home on the toprol in addition to regular regimen of amlodipine. F/u in office next week. He was also found to have pneumonia on admission, so has been treated with antibiotics. Has finished >5d total so will not go home on antibiotic. Still on 2L NC and has O2 at home. Potassium a bit low today, will make sure he has potassium supplementation at home and recheck in 3 days. Despite his persistent afib, pt has refused both oral anticoagulation and the Watchman device. He had previous episodes of GI bleeding. - Vitals & Intake/Output Vital Signs: Vital Signs Temperature 97.7 F 02/04/22 07:37 Pulse Rate 117 H 02/04/22 07:37 Respiratory Rate 18 02/04/22 07:37 Blood Pressure 138/70 02/04/22 10:01 O2 Sat by Pulse Oximetry 95 02/04/22 07:37 Intake & Output: Intake & Output 02/01/22 02/02/22 02/03/2222 11:59 11:59 11:59 11:59 Intake Total 1802 4053 1190 1680 Output Total 500 Balance 1302 4053 1190 1680 Weight 83.3 kg 81.6 kg 80.4 kg - Lab Result Diagrams: 02/04/22 04:40 02/04/22 04:40 Lab Results-Last 24 Hrs: Lab Results-Last 24 Hours 02/03/22 02/03/22 02/03/22 Range/Units 10:57 15:54 20:58 WBC (4.0-10.5) x10^3/uL RBC (4.1-5.6) x10^6/uL Hgb (12.5-18.0) g/dL Hct (42-50) % MCV (78-100) fL MCH (26-32) pg MCHC (32-36) g/dL RDW (11.5-14.0) % Plt Count (150-450) x10^3/uL MPV (7.5-11.0) fL Gran % (36.0-66.0) % Immature Gran % (Auto) (0.00-0.4) % Nucleat RBC Rel Count (0.00-0.1) % Eos # (Auto) (0-0.5) x10^3/uL Immature Gran # (Auto) (0.00-0.03) x10^3u/L Absolute Lymphs (auto) (1.0-4.6) x10^3/uL Absolute Monos (auto) (0.0-1.3) x10^3/uL Absolute Nucleated RBC (0.00-0.01) x10^3u/L Lymphocytes % (24.0-44.0) % Monocytes % (0.0-12.0) % Eosinophils % (0.00-5.0) % Basophils % (0.0-0.4) % Absolute Granulocytes (1.4-6.9) x10^3/uL Basophils # (0-0.4) x10^3/uL Sodium (137-145) mmol/L Potassium (3.5-5.1) mmol/L Chloride (98-107) mmol/L Carbon Dioxide (22-30) mmol/L Anion Gap (5-15) MEQ/L BUN (9-20) mg/dL Creatinine (0.66-1.25) mg/dL Estimated GFR ML/MIN Glucose (74-106) mg/dL POC Glucometer 98 110 H 118 H (74 to 106) mg/dL Calcium (8.4-10.2) mg/dL 02/04/22 02/04/22 02/04/22 Range/Units 04:40 04:40 07:05 WBC 8.1 (4.0-10.5) x10^3/uL RBC 4.38 (4.1-5.6) x10^6/uL Hgb 12.7 (12.5-18.0) g/dL Hct 40.0 L (42-50) % MCV 91.3 (78-100) fL MCH 29.0 (26-32) pg MCHC 31.8 L (32-36) g/dL RDW 13.2 (11.5-14.0) % Plt Count 293 (150-450) x10^3/uL MPV 9.5 (7.5-11.0) fL Gran % 75.4 H (36.0-66.0) % Immature Gran % (Auto) 3.1 H (0.00-0.4) % Nucleat RBC Rel Count 0.0 (0.00-0.1) % Eos # (Auto) 0.26 (0-0.5) x10^3/uL Immature Gran # (Auto) 0.25 H (0.00-0.03) x10^3u/L Absolute Lymphs (auto) 0.88 L (1.0-4.6) x10^3/uL Absolute Monos (auto) 0.56 (0.0-1.3) x10^3/uL Absolute Nucleated RBC 0.00 (0.00-0.01) x10^3u/L Lymphocytes % 10.9 L (24.0-44.0) % Monocytes % 7.0 (0.0-12.0) % Eosinophils % 3.2 (0.00-5.0) % Basophils % 0.4 (0.0-0.4) % Absolute Granulocytes 6.07 (1.4-6.9) x10^3/uL Basophils # 0.03 (0-0.4) x10^3/uL Sodium 140 (137-145) mmol/L Potassium 3.1 L (3.5-5.1) mmol/L Chloride 102 (98-107) mmol/L Carbon Dioxide 34 H (22-30) mmol/L Anion Gap 7.5 (5-15) MEQ/L BUN 21 H (9-20) mg/dL Creatinine 0.68 (0.66-1.25) mg/dL Estimated GFR > 60.0 ML/MIN Glucose 94 (74-106) mg/dL POC Glucometer 97 (74 to 106) mg/dL Calcium 8.0 L (8.4-10.2) mg/dL Micro Results-Entire Visit: Microbiology 01/30/22 16:15 Blood Culture Gram Stain - Final Blood Not Reportable Blood Culture - Final NO GROWTH 01/30/22 16:10 Blood Culture Gram Stain - Final Blood Not Reportable Blood Culture - Final NO GROWTH Accuchecks Date 02/04/22 Date 02/03/22 Date 02/03/22 Time 11:14 - Procedures and Test Procedures and Tests throughout Hospitalization: Therapy Orders & Screens 01/30/22 19:07 Oxygen Nasal Cannula 2 lpm Comment: 01/30/22 22:10 RT Screen per Nursing Assess ONCE Comment: Protocol Order Physician Instructions: Greater than 3 points order RT Admission Screen Reason For Exam: Triggered on Admission Diagnosis: A FIB WITH RVR, PNEUMONIA, LUNG CA, COPD, NONCOMPLIANCE Diagnosis: A FIB WITH RVR, PNEUMONIA, LUNG CA, COPD, NONCOMPLIANCE Pneumonia: Yes Home O2: Yes Asthma: No CHF: No Home CPAP/BIPAP: No Home Nebs/MDI: No Total Points: 8 01/30/22 23:44 Respiratory Therapy Assessment DAILY Comment: Diagnosis: A FIB WITH RVR, PNEUMONIA, LUNG CA, COPD, NONCOMPLIANCE Discharge Exam General Appearance: no apparent distress, alert Neurologic Exam: oriented x 3, cooperative Eye Exam: eyes nml inspection Ears, Nose, Throat Exam: moist mucous membranes Neck Exam: normal inspection Respiratory Exam: normal breath sounds, lungs clear, No crackles/rales, No rhonchi, No wheezing Cardiovascular Exam: normal heart sounds, irregular (regular rate), No murmur, No edema Gastrointestinal/Abdomen Exam: soft, normal bowel sounds Back Exam: normal inspection, No rash Extremity Exam: normal inspection, No pedal edema, No swelling Skin Exam: normal color, warm, dry, No rash Final Diagnosis/Problem List - Final Discharge Diagnosis/Problem (1) Atrial fibrillation with RVR Current Visit: Yes Status: Resolved Assessment & Plan: Rate controlled fairly well on Toprol XL 75 mg/d. He will keep track of BP and HR and give me updates (pt is very reliable about documenting vitals at home). Has refused blood thinners in the past. I am equivocal on 81mg ASA daily as it may exacerbate any PUD (and has hx severe GI bleeding x 2 requiring transfusions) and has limited efficacy on preventing stroke due to afib. May be an excellent candidate for the Watchman procedure but has refused it in the past - may benefit in future from discussing with another de icer installer (seems to have had a bad impression from previous de icer installer). Code(s): I48.91 - UNSPECIFIED ATRIAL FIBRILLATION (2) Pneumonia Current Visit: Yes Status: Resolved Code(s): J18.9 - PNEUMONIA, UNSPECIFIED ORGANISM (3) History of lung cancer Current Visit: Yes Status: Chronic Code(s): Z85.118 - PERSONAL HISTORY OF MALIGNANT NEOPLASM OF BRONCHUS AND LUNG (4) COPD (chronic obstructive pulmonary disease) Current Visit: Yes Status: Chronic - Discharge Disposition: Home, Self-Care Condition: Stable Prescriptions: New Metoprolol Succinate 50 mg [Toprol Xl 50 MG] 50 mg PO DAILY 30 Days #30 tablet Metoprolol Succinate 25 mg Xl* [Toprol-Xl 25MG Tablets] 25 mg PO DAILY 30 Days #30 tablet Continue Amlodipine Besylate 5 mg [Norvasc 5 mg] 10 mg PO 2300 Hydrocodone/Acetaminophen [Hydrocodone-Acetamin 10-325 mg] 1 tablet PO 0000,0600,1200,1800 Follow up with: ANDRADE ZAVALA [Primary Care Provider] -
[2022-02-04 11:27] VITALS: BP 121/73; PULSE 84; O2SAT 96
== END 2022-02-04 12:33 | disposition home or self-care (01) | DRG 308 ==
LOC: ED 15:41 → MED SURG 21:28 → OBSVTOIN 01-31 13:59
PROVIDERS: ADMIT Family Medicine; ATTEND Family Medicine
DX: I48.20 Chronic atrial fibrillation, unspecified (principal); J18.9 Pneumonia, unspecified organism; Z85.118 Personal history of other malignant neoplasm of bronchus and lung; J44.9 Chronic obstructive pulmonary disease, unspecified; R60.9 Edema, unspecified; I10 Essential (primary) hypertension; Z79.899 Other long term (current) drug therapy; Z20.828 Contact with and (suspected) exposure to other viral communicable diseases; Z99.81 Dependence on supplemental oxygen
CPT/HCPCS: 0241U; 36415; 71045; 71260; 80048; 80053; 81015; 82947; 83036; 83605; 83735; 83880; 84484; 85025; 85379; 85610; 85730; 87040; 93005; 93041; 93268; 94640; 94760; 94762; 96374; 96376; 99285; 99291; G0378; J0456; J0696; J2930; J7609; A9270-GY

== ENCOUNTER 2023-01-02 19:10 | Observation (INO) | payer MEDICARE, BC ==
--- NOTE | 2023-01-02 19:15 | ERPHSYRPT ---
- History of Present Illness Time Seen by Provider: 01/02/23 19:15 Source: patient, family Exam Limitations: no limitations Physician History: This is an 82-year-old white male patient of Dr. Wai Silver who presents to the emergency department with 3-week history of being ill with cough and shortness of breath. Additional, independent medical history was provided by the patient's spouse. 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 Patient presents to the emergency department in A-fib with RVR. Patient states that he no longer has a heart doctor. He was told by his heart doctor that he should be on blood thinning medications. However patient refused. He was also told by his butcherette that he should have a pacemaker placed and he refused. Patient is only on 2 medications. They are amlodipine and hydrocodone. Patient's spouse said that she brought him into the emergency department because of his significant coughing spell that occurred prior to arrival. Severity of Dyspnea-Max: moderate Severity of Dyspnea-Current: moderate Possible Cause: occasional episodes Modifying Factors: Improves With: activity, coughing Associated Symptoms: cough, wheezing, weakness, No chest pain/discomfort Allergies/Adverse Reactions: Antihistamines - Alkylamine Allergy (Verified 01/02/23 19:12) bacitracin Allergy (Verified 01/02/23 19:12) miconazole nitrate [From Neosporin AF] Allergy (Verified 01/02/23 19:12) NSAIDS (Non-Steroidal Anti-Inflamma Allergy (Verified 01/02/23 19:12) Lnekyus-BZQ-ElC Reductase Inhibitor [Ccbgkyc-Xaa-Pfj Reductase Inhibitor] Allergy (Verified 01/02/23 19:12) cyclobenzaprine Adverse Reaction (Verified 01/02/23 19:12) Irregular Heart Beat Home Medications: Amlodipine Besylate 5 mg [Norvasc 5 mg] 10 mg PO 2300 11/07/21 [History] Hydrocodone/Acetaminophen [Hydrocodone-Acetamin 10-325 mg] 1 tablet PO 0000, 0600,1200,1800 11/07/21 [History] Hx Tetanus, Diphtheria Vaccination/Date Given: No Hx Influenza Vaccination/Date Given: No Hx Pneumococcal Vaccination/Date Given: No Travel Risk - International Travel Have you traveled outside of the country in past 3 weeks: No - Coronavirus Screening Are you exhibiting any of the following symptoms?: Yes Symptoms: Cough: New Onset, Shortness of Breath Close contact with a COVID-19 positive Pt in past 14-21 Days: No - Vaccine Status Have you recieved a Covid-19 vaccination: No - Review of Systems Constitutional: Weakness Eyes: No Symptoms, Foreign Body Sensation Respiratory: Cough, Dyspnea Cardiac: No Symptoms Abdominal/Gastrointestinal: No Symptoms Genitourinary Symptoms: No Symptoms Musculoskeletal: No Symptoms Skin: No Symptoms Neurological: No Symptoms Psychological: No Symptoms Endocrine: No Symptoms Hematologic/Lymphatic: No Symptoms Immunological/Allergic: No Symptoms All Other Systems: Reviewed and Negative - Past Medical History Pertinent Past Medical History: Yes Neurological History: No Pertinent History ENT History: No Pertinent History Cardiac History: Arrhythmia, Coronary Artery Disease, Hypertension, Myocardial Infarction (ME) Respiratory History: Lung Cancer Endocrine Medical History: No Pertinent History Musculoskeletal History: Arthritis GI Medical History: Ulcer History: No Pertinent History Psycho-Social History: No Pertinent History Male Reproductive Disorders: No Pertinent History Other Medical History: Chronic back pain - Past Surgical History Past Surgical History: Yes Neuro Surgical History: No Pertinent History Cardiac: CABG, Cardiac Catheterization, Cardiac Stent Respiratory: Lobectomy Gastrointestinal: No Pertinent History Genitourinary: No Pertinent History Musculoskeletal: Orthopedic Surgery Male Surgical History: No Pertinent History Other Surgical History: bypass and 4 stents, left knee surgery "cleaned out arou nd the knee", left shoulder surg "removed something that was restricting blood flow because my shoulder just hung."; rt lower 2/3 lung removed - Social History Smoking Status: Never smoker Exposure to second hand smoke: No Drug Use: none Patient Lives Alone: No Significant Family History: no pertinent family hx - Nursing Vital Signs Nursing Vital Signs: Initial Vital Signs Temperature 98.6 F 01/02/23 19:11 Pulse Rate 125 H 01/02/23 19:11 Respiratory Rate 25 H 01/02/23 19:11 Blood Pressure 146/99 01/02/23 19:11 O2 Sat by Pulse Oximetry 96 01/02/23 19:11 Pain Scale Pain Intensity 0 - Physical Exam General Appearance: mild distress, alert, anxiety Eye Exam: PERRL/EOMI, eyes nml inspection Ears, Nose, Throat Exam: hearing grossly normal, normal ENT inspection, normal pharynx Neck Exam: normal inspection, non-tender, supple, full range of motion Respiratory Exam: normal breath sounds, lungs clear, airway intact, crackles/rales, rhonchi, No chest tenderness, No respiratory distress Cardiovascular/Chest Exam: tachycardia, irregular Abdominal/Gastrointestinal Exam: soft, normal bowel sounds, No tenderness Rectal Exam: not done Extremity Exam: non-tender, normal range of motion, pedal edema (Bilateral ankle) Neurologic Exam: alert, oriented x 3, cooperative, scientific artist II-XII nml as tested, normal mood/affect, nml cerebellar function, nml station & gait, sensation nml Skin Exam: normal color, warm, dry Lymphatic Exam: No adenopathy SpO2 Interpretation: normal SpO2: 96 O2 Delivery: Nasal Cannula (2 L oxygen via nasal cannula) - Course Nursing assessment & vital signs reviewed: Yes EKG Interpreted by Me: RATE (123), A-fib, NORMAL INTERVALS, NORMAL QRS, NORMAL ST-T, Other (No acute ischemic changes on today's twelve-lead EKG.) Ordered Tests: Active Orders 24 hr Category Date Time Status Ammonium Nitrate Crystallizer STAT Care 01/02/23 19:21 Active EKG-ER Only STAT Care 01/02/23 19:20 Active IV Insertion STAT Care 01/02/23 19:20 Active Pulse Oximetry (ED) STAT Care 01/02/23 19:20 Active CHEST WITHOUT CONTRAST [CT] Stat Exams 01/02/23 19:33 Taken CBC W DIFF Stat Lab 01/02/23 19:15 Completed CMP Stat Lab 01/02/23 19:15 Completed CULTURE,URINE Stat Lab 01/02/23 20:53 Received MAGNESIUM Stat Lab 01/02/23 19:15 Completed NT PRO BNPII Stat Lab 01/02/23 19:15 Completed PROTIME WITH INR Stat Lab 01/02/23 19:15 Completed TROPONIN Q4H Lab 01/02/23 19:15 Completed TROPONIN Q4H Lab 01/02/23 23:45 Ordered UA W/RFX UR CULTURE Stat Lab 01/02/23 20:53 Completed Respiratory Therapy Assessment DAILY RT 01/02/23 20:44 Completed Transfer Order Routine Transfer 01/02/23 Ordered Medication Summary Generic Name Dose Route Start Last Admin Trade Name Freq PRN Reason Stop Dose Admin Sodium Chloride 1,000 mls @ 50 mls/hr 01/02/23 19:30 01/02/23 19:52 Sodium Chloride 0.9% 1000 Ml IV 02/01/23 19:29 50 mls/hr .Q20H GEORGINA Administration Discontinued Medications Generic Name Dose Route Start Last Admin Trade Name Venkat PRN Reason Stop Dose Admin Albuterol/Ipratropium Confirm 01/02/23 20:41 Ipratropium/Albuterol Sulfate 3 Ml Ampul.Neb Administered 01/02/23 20:42 Dose 3 ml IH .STK-MED ONE Albuterol/Ipratropium 3 ml 01/02/23 20:44 01/02/23 20:44 Ipratropium/Albuterol Sulfate 3 Ml Ampul.Neb IH 01/02/23 20:45 3 ml STAT ONE Administration Methylprednisolone Sodium 0 mg 01/02/23 19:33 01/02/23 19:52 Succinate 125 mg/ Sterile IV 01/02/23 19:34 125 mg Water 2 ml STAT ONE Administration Diltiazem HCl 15 mg 01/02/23 19:20 01/02/23 19:52 Diltiazem Hcl Iv 5 Mg/Ml Vial IV 01/02/23 19:21 15 mg STAT ONE Administration Diltiazem HCl Confirm 01/02/23 19:49 Diltiazem Hcl Iv 5 Mg/Ml Vial Administered 01/02/23 19:50 Dose 50 mg IV .STK-MED ONE Diltiazem HCl 15 mg 01/02/23 22:08 Diltiazem Hcl Iv 5 Mg/Ml Vial IV 01/02/23 22:09 STAT ONE Ceftriaxone Sodium/Dextrose 1 g in 50 mls @ 100 mls/hr 01/02/23 21:27 01/02/23 21:33 Rocephin 1 Gm-D5w 50 Ml Bag IV 01/02/23 21:56 100 mls/hr STAT STA 100 mls/hr Administration Ceftriaxone Sodium/Dextrose Confirm 01/02/23 21:32 Rocephin 1 Gm-D5w 50 Ml Bag Administered 01/02/23 21:33 Dose 1 g in 50 mls @ ud IV .STK-MED ONE Methylprednisolone Sodium Succinate Confirm 01/02/23 19:49 Methylprednis Sod Succ 125 Mg/2 Ml Vial Administered 01/02/23 19:50 Dose 125 mg .ROUTE .STK-MED ONE Potassium Chloride 20 meq 01/02/23 20:53 01/02/23 20:56 Potassium Chloride Tab 10 Meq Tab PO 01/02/23 20:54 20 meq STAT ONE Administration Potassium Chloride Confirm 01/02/23 20:56 Potassium Chloride Tab 10 Meq Tab Administered 01/02/23 20:57 Dose 20 meq PO .STK-MED ONE Sterile Water Confirm 01/02/23 19:49 Water For Injection,Sterile 10 Ml Vial Administered 01/02/23 19:50 Dose 10 ml IJ .STK-MED ONE Lab/Rad Data: Laboratory Result Diagrams 01/02/23 19:15 01/02/23 19:15 Laboratory Results 01/02/23 01/02/23 01/02/23 Range/Units 20:53 19:39 19:15 WBC (4.0-10.5) x10^3/uL RBC (4.1-5.6) x10^6/uL Hgb (12.5-18.0) g/dL Hct (42-50) % MCV (78-100) fL MCH (26-32) pg MCHC (32-36) g/dL RDW (11.5-14.0) % Plt Count (150-450) x10^3/uL MPV (7.5-11.0) fL Gran % (36.0-66.0) % Immature Gran % (Auto) (0.00-0.4) % Nucleat RBC Rel Count (0.00-0.1) % Eos # (Auto) (0-0.5) x10^3/uL Immature Gran # (Auto) (0.00-0.03) x10^3u/L Absolute Lymphs (auto) (1.0-4.6) x10^3/uL Absolute Monos (auto) (0.0-1.3) x10^3/uL Absolute Nucleated RBC (0.00-0.01) x10^3u/L Lymphocytes % (24.0-44.0) % Monocytes % (0.0-12.0) % Eosinophils % (0.00-5.0) % Basophils % (0.0-0.4) % Absolute Granulocytes (1.4-6.9) x10^3/uL Basophils # (0-0.4) x10^3/uL PT (9.4-12.5) SECONDS INR (0.8-3.0) Sodium (137-145) mmol/L Potassium (3.5-5.1) mmol/L Chloride (98-107) mmol/L Carbon Dioxide (22-30) mmol/L Anion Gap (5-15) MEQ/L BUN (9-20) mg/dL Creatinine (0.66-1.25) mg/dL Estimated GFR ML/MIN Glucose (74-106) mg/dL Calcium (8.4-10.2) mg/dL Magnesium (1.6-2.3) mg/dL Total Bilirubin (0.2-1.3) mg/dL AST (17-59) U/L ALT (0-50) U/L Alkaline Phosphatase (38-126) U/L Troponin I < 0.012 (0.000-0.034) ng/mL NT-Pro-B Natriuret Pep (<300) pg/mL Serum Total Protein (6.3-8.2) g/dL Albumin (3.5-5.0) g/dL Urine Color Yellow (Yellow) Urine Appearance Clear (Clear) Urine pH 5.5 (4.6-8.0) Ur Specific [place] 1.020 (1.005-1.030) Urine Protein Trace A (Negative) Urine Glucose (UA) Negative (Negative) mg/dL Urine Ketones Negative (Negative) Urine Blood Negative (Negative) Urine Nitrite Negative (Negative) Urine Bilirubin Negative (Negative) Urine Urobilinogen 1.0 A (0.2) mg/dL Ur Leukocyte Esterase Small A (Negative) U Hyaline Cast (Auto) NONE SEEN (0-2) /LPF Urine Microscopic RBC 0-2 (0-5) /HPF Urine Microscopic WBC 3-5 (0-5) /HPF Ur Epithelial Cells None Seen (None Seen) /HPF Urine Bacteria None Seen (None Seen) /HPF Urine Culture Reflexed YES (NO) Influenza Type A Ag NEGATIVE (NEGATIVE) Influenza Type B Ag NEGATIVE (NEGATIVE) RSV (PCR) NEGATIVE (NEGATIVE) SARS-CoV-2 (PCR) NEGATIVE (NEGATIVE) 01/02/23 01/02/23 01/02/23 Range/Units 19:15 19:15 19:15 WBC (4.0-10.5) x10^3/uL RBC (4.1-5.6) x10^6/uL Hgb (12.5-18.0) g/dL Hct (42-50) % MCV (78-100) fL MCH (26-32) pg MCHC (32-36) g/dL RDW (11.5-14.0) % Plt Count (150-450) x10^3/uL MPV (7.5-11.0) fL Gran % (36.0-66.0) % Immature Gran % (Auto) (0.00-0.4) % Nucleat RBC Rel Count (0.00-0.1) % Eos # (Auto) (0-0.5) x10^3/uL Immature Gran # (Auto) (0.00-0.03) x10^3u/L Absolute Lymphs (auto) (1.0-4.6) x10^3/uL Absolute Monos (auto) (0.0-1.3) x10^3/uL Absolute Nucleated RBC (0.00-0.01) x10^3u/L Lymphocytes % (24.0-44.0) % Monocytes % (0.0-12.0) % Eosinophils % (0.00-5.0) % Basophils % (0.0-0.4) % Absolute Granulocytes (1.4-6.9) x10^3/uL Basophils # (0-0.4) x10^3/uL PT 10.9 (9.4-12.5) SECONDS INR 1.00 (0.8-3.0) Sodium 142 (137-145) mmol/L Potassium 3.2 L (3.5-5.1) mmol/L Chloride 102 (98-107) mmol/L Carbon Dioxide 27 (22-30) mmol/L Anion Gap 16.8 H (5-15) MEQ/L BUN 15 (9-20) mg/dL Creatinine 0.80 (0.66-1.25) mg/dL Estimated GFR > 60.0 ML/MIN Glucose 115 H (74-106) mg/dL Calcium 9.2 (8.4-10.2) mg/dL Magnesium 1.9 (1.6-2.3) mg/dL Total Bilirubin 0.50 (0.2-1.3) mg/dL AST 30 (17-59) U/L ALT 25 (0-50) U/L Alkaline Phosphatase 171 H (38-126) U/L Troponin I (0.000-0.034) ng/mL NT-Pro-B Natriuret Pep 319 (<300) pg/mL Serum Total Protein 7.6 (6.3-8.2) g/dL Albumin 4.3 (3.5-5.0) g/dL Urine Color (Yellow) Urine Appearance (Clear) Urine pH (4.6-8.0) Ur Specific [place] (1.005-1.030) Urine Protein (Negative) Urine Glucose (UA) (Negative) mg/dL Urine Ketones (Negative) Urine Blood (Negative) Urine Nitrite (Negative) Urine Bilirubin (Negative) Urine Urobilinogen (0.2) mg/dL Ur Leukocyte Esterase (Negative) U Hyaline Cast (Auto) (0-2) /LPF Urine Microscopic RBC (0-5) /HPF Urine Microscopic WBC (0-5) /HPF Ur Epithelial Cells (None Seen) /HPF Urine Bacteria (None Seen) /HPF Urine Culture Reflexed (NO) Influenza Type A Ag (NEGATIVE) Influenza Type B Ag (NEGATIVE) RSV (PCR) (NEGATIVE) SARS-CoV-2 (PCR) (NEGATIVE) 01/02/23 Range/Units 19:15 WBC 13.1 H (4.0-10.5) x10^3/uL RBC 4.97 (4.1-5.6) x10^6/uL Hgb 15.1 (12.5-18.0) g/dL Hct 45.8 (42-50) % MCV 92.2 (78-100) fL MCH 30.4 (26-32) pg MCHC 33.0 (32-36) g/dL RDW 11.5 (11.5-14.0) % Plt Count 454 H (150-450) x10^3/uL MPV 9.0 (7.5-11.0) fL Gran % 80.0 H (36.0-66.0) % Immature Gran % (Auto) 0.6 H (0.00-0.4) % Nucleat RBC Rel Count 0.0 (0.00-0.1) % Eos # (Auto) 0.32 (0-0.5) x10^3/uL Immature Gran # (Auto) 0.08 H (0.00-0.03) x10^3u/L Absolute Lymphs (auto) 1.22 (1.0-4.6) x10^3/uL Absolute Monos (auto) 0.94 (0.0-1.3) x10^3/uL Absolute Nucleated RBC 0.00 (0.00-0.01) x10^3u/L Lymphocytes % 9.3 L (24.0-44.0) % Monocytes % 7.2 (0.0-12.0) % Eosinophils % 2.4 (0.00-5.0) % Basophils % 0.5 (0.0-0.4) % Absolute Granulocytes 10.47 H (1.4-6.9) x10^3/uL Basophils # 0.06 (0-0.4) x10^3/uL PT (9.4-12.5) SECONDS INR (0.8-3.0) Sodium (137-145) mmol/L Potassium (3.5-5.1) mmol/L Chloride (98-107) mmol/L Carbon Dioxide (22-30) mmol/L Anion Gap (5-15) MEQ/L BUN (9-20) mg/dL Creatinine (0.66-1.25) mg/dL Estimated GFR ML/MIN Glucose (74-106) mg/dL Calcium (8.4-10.2) mg/dL Magnesium (1.6-2.3) mg/dL Total Bilirubin (0.2-1.3) mg/dL AST (17-59) U/L ALT (0-50) U/L Alkaline Phosphatase (38-126) U/L Troponin I (0.000-0.034) ng/mL NT-Pro-B Natriuret Pep (<300) pg/mL Serum Total Protein (6.3-8.2) g/dL Albumin (3.5-5.0) g/dL Urine Color (Yellow) Urine Appearance (Clear) Urine pH (4.6-8.0) Ur Specific [place] (1.005-1.030) Urine Protein (Negative) Urine Glucose (UA) (Negative) mg/dL Urine Ketones (Negative) Urine Blood (Negative) Urine Nitrite (Negative) Urine Bilirubin (Negative) Urine Urobilinogen (0.2) mg/dL Ur Leukocyte Esterase (Negative) U Hyaline Cast (Auto) (0-2) /LPF Urine Microscopic RBC (0-5) /HPF Urine Microscopic WBC (0-5) /HPF Ur Epithelial Cells (None Seen) /HPF Urine Bacteria (None Seen) /HPF Urine Culture Reflexed (NO) Influenza Type A Ag (NEGATIVE) Influenza Type B Ag (NEGATIVE) RSV (PCR) (NEGATIVE) SARS-CoV-2 (PCR) (NEGATIVE) - Progress Progress: improved, re-examined Air Movement: fair Progress Note: 01/02/23 19:31 This patient's medical issue is 1 of moderate to high complexity. Level complexity in the work-up performed is based on review of the patient's past medical history, review of the patient's medication list, review of the patient's drug allergy list, history of present illness and physical findings on examination. The work-up in this patient includes a CT scan of the chest without contrast, troponin level, BNP, twelve-lead EKG, CBC, CMP, intravenous line placement. In addition, we provided the patient with 15 mg of intravenous Cardizem. He may require more to slow his heart rate down. We will also order COVID, influenza A and B, and RSV test. 01/02/23 22:09 This patient's work-up results were reviewed and interpreted by me. The CT scan of the chest without contrast was interpreted by the radiologist and I reviewed the interpretation. The impression states new minimal bibasilar interstitial alveolar opacities. Also recurring patchy left lower lobe groundglass airspace disease. I reviewed the patient history, the patient presenting complaint, the results of the work-up that I performed including the results of the CAT scan of the chest with Dr. Roman our telehospitalist on [facility]. He was advised that the patient is refusing any type of anticoagulation therapy and any type of steroids. We we will have the patient's sign a refusal of treatment form for the refusal of anticoagulation therapy and steroid use. We will admit the patient into telemetry medical floor. We will repeat labs in the morning. We will place him on diltiazem 60 mg orally every 6 hours. We will provide him w ith hydrocodone elixir as well as Tessalon Perles to help control his cough. We will also provide him with nebulizer treatments with albuterol. 01/02/23 22:12 Repeat twelve-lead EKG performed on 01/02/2023 at 2121 shows a heart rate of 94. Patient now has rate controlled atrial fibrillation. There is no evidence of any acute ischemic changes. 01/02/23 22:18 Blood Culture(s) Obtained: Yes Discussed with : Thiago Counseled pt/family regarding: lab results, diagnosis, rad results Medical Desision Making - Independent Historian Additional History obtained from: Spouse - Diagnostic Testing Diagnostic test were ordered, analyzed, and reviewed by me: Yes Radiological Interpretation: Reviewed by me, Teleradiologist Report - Risk of complications The pt has a high risk of morbidity or mortality based on: Decision regarding hospitilization or escalation of hosp level of care - Departure Departure Disposition: In-patient Admission Clinical Impression: Atrial fibrillation with RVR, Pneumonia Condition: Fair Critical Care Time: Yes Critical Care Time(excluding separately billable procedures): Critical 30-74 mins (45 minutes) Referrals: ANDRADE ZAVALA [Primary Care Provider] - Follow up/PCP as directed
[2023-01-02] MEDS ORDERED: Cardizem IV 50 MG/10 ML IV ONE ×4 (19:20→22:33)
[2023-01-02] MEDS ORDERED: Sodium Chloride 0.9% 1000 ML 1,000 ML IV SCH ×2 (19:30→22:47)
[2023-01-02] MEDS ORDERED: solu-MEDROL 125 MG, Sterile H2O 10 ml 2 ML IV ONE ×2 (19:33)
[2023-01-02 19:35] LABS: Absolute Neutrophil Ct (ANC) 10.47 x10^3/uL (1.4-6.9); BASOPHIL % 0.5 % (0.0-0.4); Basophil (Absolute #) 0.06 x10^3/uL (0-0.4); Eosinophil % 2.4 % (0.00-5.0); Eosinophil (Absolute #) 0.32 x10^3/uL (0-0.5); Hematocrit 45.8 % (42-50); Hemoglobin 15.1 g/dL (12.5-18.0); IMMATURE GRAN # 0.08 x10^3u/L (0.00-0.03); IMMATURE GRAN % 0.6 % (0.00-0.4); Lymphocyte (Absolute #) 1.22 x10^3/uL (1.0-4.6); Lymphocytes % 9.3 % (24.0-44.0); Mean Cell Volume 92.2 fL (78-100); Mean Corpuscular Hemoglobin 30.4 pg (26-32); Monocyte (Absolute #) 0.94 x10^3/uL (0.0-1.3); Monocytes % 7.2 % (0.0-12.0); Platelet Count 454 x10^3/uL (150-450); Red Blood Count 4.97 x10^6/uL (4.1-5.6); Red Cell Distribution Width 11.5 % (11.5-14.0); White Blood Count 13.1 x10^3/uL (4.0-10.5)
[2023-01-02 19:49] LABS: PROTIME 10.9 SECONDS (9.4-12.5)
[2023-01-02] MEDS ORDERED: Sodium Chloride 0.9% 1000 ML 1,000 ML ONE (19:49)
[2023-01-02] MEDS ORDERED: solu-MEDROL ONE (19:49)
[2023-01-02] MEDS ORDERED: Sterile H2O 10 ml IJ ONE (19:49)
[2023-01-02 19:50] LABS: ALBUMIN 4.3 g/dL (3.5-5.0); ALKALINE PHOSPHATASE 171 U/L (38-126); ANION GAP 16.8 MEQ/L (5-15); BLOOD UREA NITROGEN 15 mg/dL (9-20); CHLORIDE 102 mmol/L (98-107); Calcium 9.2 mg/dL (8.4-10.2); Carbon Dioxide 27 mmol/L (22-30); EST GLOMERULAR FILTRATION RATE > 60.0 ML/MIN; Glucose 115 mg/dL (74-106); MAGNESIUM 1.9 mg/dL (1.6-2.3); Potassium 3.2 mmol/L (3.5-5.1); SGOT/AST 30 U/L (17-59); SGPT/ALT 25 U/L (0-50); SODIUM 142 mmol/L (137-145); Total Protein 7.6 g/dL (6.3-8.2)
[2023-01-02 20:16] LABS: INFLUENZA A NEGATIVE (NEGATIVE); INFLUENZA B NEGATIVE (NEGATIVE); RESPIRATORY SYNCTIAL VIRUS NEGATIVE (NEGATIVE); SARS-CoV-2 Xpert Express NEGATIVE (NEGATIVE)
[2023-01-02] MEDS ORDERED: DUONEB 0.5-3 MG/3 ml Neb IH ONE ×2 (20:41→20:44)
[2023-01-02] MEDS ORDERED: Klor Con PO ONE ×2 (20:53→20:56)
[2023-01-02 21:13] LABS: Appearance Clear (Clear); Bacteria None Seen /HPF (None Seen); Bilirubin Negative (Negative); Blood Negative (Negative); Epithelial Cells None Seen /HPF (None Seen); Glucose, Urine Negative (Negative); Hyaline Casts NONE SEEN /LPF (0-2); Ketones Negative (Negative); Leukocyte Esterase Small (Negative); Nitrite Negative (Negative); Ph 5.5 (4.6-8.0); Protein,Urine Dip Trace (Negative); RBC 0-2 /HPF (0-5)
[2023-01-02 21:15] LABS: ADD URINE CULTURE? YES (NO)
[2023-01-02] MEDS ORDERED: ROCEPHIN 1 Gm-D5w 50 ml Bag** 1 G/50 ML IVPB IV STA (21:27)
[2023-01-02] MEDS ORDERED: ROCEPHIN 1 Gm-D5w 50 ml Bag** 1 G/50 ML IVPB IV ONE (21:32)
[2023-01-02] MEDS ORDERED: Tessalon Perles 100 MG PO ONE ×2 (22:22→22:33)
[2023-01-02] MEDS ORDERED: TYLENOL 325 MG PO PRN (22:47)
[2023-01-02] MEDS ORDERED: Zofran 4 MG/2 ML VIAL IV PRN (22:47)
[2023-01-02] MEDS ORDERED: Tessalon Perles 100 MG PO PRN (22:47)
[2023-01-02] MEDS ORDERED: Zithromax 250 MG TABLET PO ONE (23:00)
[2023-01-02] MEDS ORDERED: HYDROCODONE-ACETAMIN 10-325 MG PO PRN (23:01)
[2023-01-02] MEDS ORDERED: DUONEB 0.5-3 MG/3 ml Neb IH PRN (23:01)
--- NOTE | 2023-01-02 23:16 | PCM.HP ---
History of Present Illness - Chief Complaint Chief Complaint: cough, shortness of breath Date: 01/02/23 History of Present Illness: 82 y/o M with h/o COPD on 2L home oxygen, A-fib, CAD s/p CABG and PCI, HTN, and lung cancer, who presents with four weeks of progressive cough and dyspnea. He remains on his home 2L oxygen. He does not take any inhalers. He went to an urgent care three weeks ago and was told he did not have bronchitis or pneumonia. However, he has had worsening of his cough, with a particularly bad spell this evening, so came to the ED. He denies fevers, chest pain, nausea, vomiting, myalgias, or diarrhea. No palpitations. In the ED, he was given nebs, Rocephin, and KCl 20 mEq. He was found to be in A-fib with RVR, but rate controlled after diltiazem 15 mg IV. Attempted to give SoluMedrol, but patient declines any steroids, saying "they have to put me in the helicopter whenever they use that." Currently still feels "crummy", although thinks his breathing is a little easier. His SpO2 is 95% currently on room air. - Review of Systems Constitutional: No Fever Ears, Nose, & Throat: No Throat Pain, No Stridor Respiratory: Cough, Short Of Breath, Wheezing, No Orthopnea Cardiac: No Chest Pain, No Edema, No Palpitations Abdominal/Gastrointestinal: No Abdominal Pain, No Nausea, No Vomiting, No Diarrhea Genitourinary Symptoms: No Dysuria, No Frequency All Other Systems: Reviewed and Negative Medications & Allergies Home Medications: Home Medication List Amlodipine Besylate 5 mg [Norvasc 5 mg] 10 mg PO 2300 11/07/21 [History Confirmed 01/02/23] Hydrocodone/Acetaminophen [Hydrocodone-Acetamin 10-325 mg] 1 tablet PO 0000,0600,1200,1800 11/07/21 [History Confirmed 01/02/23] Allergies/Adverse Reactions: Allergies Allergy/AdvReac Type Severity Reaction Status Date / Time Antihistamines - Alkylamine Allergy Verified 01/02/23 19:12 bacitracin Allergy Verified 01/02/23 19:12 miconazole nitrate Allergy Verified 01/02/23 19:12 [From Neosporin AF] NSAIDS (Non-Steroidal Allergy Verified 01/02/23 19:12 Anti-Inflamma Arwfedf-VGQ-CmD Reductase Allergy Verified 01/02/23 19:12 Inhibitor [Wbzledv-Nkc-Ajq Reductase Inhibitor] cyclobenzaprine AdvReac Irregular Verified 01/02/23 19:12 Heart Beat - Past Medical History Past Medical History: Yes Neurological History: No Pertinent History ENT History: No Pertinent History Cardiac History: Arrhythmia, Coronary Artery Disease, Hypertension, Myocardial Infarction ([place]) Respiratory History: Lung Cancer Endocrine Medical History: No Pertinent History Musculoskelatal History: Arthritis GI Medical History: Ulcer History: No Pertinent History Pyscho-Social History: No Pertinent History Male Reproductive Disorders: No Pertinent History Comment: Chronic back pain - Past Surgical History Past Surgical History: Yes Neuro Surgical History: No Pertinent History Cardiac History: CABG, Cardiac Catheterization, Cardiac Stent Respiratory Surgery: Lobectomy GI Surgical History: No Pertinent History Genitourinary Surgical Hx: No Pertinent History Musculskeletal Surgical Hx: Orthopedic Surgery Male Surgical History: No Pertinent History Other Surgical History: bypass and 4 stents, left knee surgery "cleaned out latanya und the knee", left shoulder surg "removed something that was restricting blood flow because my shoulder just hung."; rt lower 2/3 lung removed - Social History Smoking Status: Never smoker Exposure to second hand smoke: No Alcohol: None Drug Use: none Significant Family History: no pertinent family hx - Physical Exam Vital Signs: Vital Signs - 24 hr Temp Pulse Resp BP BP Pulse Ox 01/02/23 22:18 96 01/02/23 21:20 109 H 28 H 127/85 98 01/02/23 21:10 108 H 17 127/84 98 01/02/23 21:00 93 H 13 113/83 97 01/02/23 20:50 99 H 18 125/83 97 01/02/23 20:46 100 H 19 97 01/02/23 20:40 103 H 18 120/77 98 01/02/23 20:30 96 H 16 133/87 98 01/02/23 20:21 93 H 14 167/98 97 01/02/23 20:10 105 H 21 125/77 96 01/02/23 20:00 97 H 22 120/80 97 01/02/23 19:55 110 H 14 123/83 97 01/02/23 19:39 104 H 19 129/86 98 01/02/23 19:20 97 01/02/23 19:15 25 H 96 01/02/23 19:11 98.6 F 125 H 25 H 146/99 96 General Appearance: no apparent distress Neurologic Exam: alert, oriented x 3, other (hard of hearing) Eye Exam: eyes nml inspection Respiratory Exam: crackles/rales, wheezing, other (on room air, SpO2 93%), No accessory muscle use, No prolonged expirations Cardiovascular Exam: regular rate/rhythm, normal heart sounds Gastrointestinal/Abdomen Exam: soft, normal bowel sounds, No tenderness, No distention Results - Labs Lab/Micro Results: Lab Results-Last 24 Hours 01/02/23 01/02/23 01/02/23 Range/Units 19:15 19:15 19:15 WBC 13.1 H (4.0-10.5) x10^3/uL RBC 4.97 (4.1-5.6) x10^6/uL Hgb 15.1 (12.5-18.0) g/dL Hct 45.8 (42-50) % MCV 92.2 (78-100) fL MCH 30.4 (26-32) pg MCHC 33.0 (32-36) g/dL RDW 11.5 (11.5-14.0) % Plt Count 454 H (150-450) x10^3/uL MPV 9.0 (7.5-11.0) fL Gran % 80.0 H (36.0-66.0) % Immature Gran % (Auto) 0.6 H (0.00-0.4) % Nucleat RBC Rel Count 0.0 (0.00-0.1) % Eos # (Auto) 0.32 (0-0.5) x10^3/uL Immature Gran # (Auto) 0.08 H (0.00-0.03) x10^3u/L Absolute Lymphs (auto) 1.22 (1.0-4.6) x10^3/uL Absolute Monos (auto) 0.94 (0.0-1.3) x10^3/uL Absolute Nucleated RBC 0.00 (0.00-0.01) x10^3u/L Lymphocytes % 9.3 L (24.0-44.0) % Monocytes % 7.2 (0.0-12.0) % Eosinophils % 2.4 (0.00-5.0) % Basophils % 0.5 (0.0-0.4) % Absolute Granulocytes 10.47 H (1.4-6.9) x10^3/uL Basophils # 0.06 (0-0.4) x10^3/uL PT 10.9 (9.4-12.5) SECONDS INR 1.00 (0.8-3.0) Sodium 142 (137-145) mmol/L Potassium 3.2 L (3.5-5.1) mmol/L Chloride 102 (98-107) mmol/L Carbon Dioxide 27 (22-30) mmol/L Anion Gap 16.8 H (5-15) MEQ/L BUN 15 (9-20) mg/dL Creatinine 0.80 (0.66-1.25) mg/dL Estimated GFR > 60.0 ML/MIN Glucose 115 H (74-106) mg/dL Calcium 9.2 (8.4-10.2) mg/dL Magnesium 1.9 (1.6-2.3) mg/dL Total Bilirubin 0.50 (0.2-1.3) mg/dL AST 30 (17-59) U/L ALT 25 (0-50) U/L Alkaline Phosphatase 171 H (38-126) U/L Troponin I (0.000-0.034) ng/mL NT-Pro-B Natriuret Pep (<300) pg/mL Serum Total Protein 7.6 (6.3-8.2) g/dL Albumin 4.3 (3.5-5.0) g/dL Urine Color (Yellow) Urine Appearance (Clear) Urine pH (4.6-8.0) Ur Specific [place] (1.005-1.030) Urine Protein (Negative) Urine Glucose (UA) (Negative) mg/dL Urine Ketones (Negative) Urine Blood (Negative) Urine Nitrite (Negative) Urine Bilirubin (Negative) Urine Urobilinogen (0.2) mg/dL Ur Leukocyte Esterase (Negative) U Hyaline Cast (Auto) (0-2) /LPF Urine Microscopic RBC (0-5) /HPF Urine Microscopic WBC (0-5) /HPF Ur Epithelial Cells (None Seen) /HPF Urine Bacteria (None Seen) /HPF Urine Culture Reflexed (NO) Influenza Type A Ag (NEGATIVE) Influenza Type B Ag (NEGATIVE) RSV (PCR) (NEGATIVE) SARS-CoV-2 (PCR) (NEGATIVE) 01/02/23 01/02/23 01/02/23 Range/Units 19:15 19:15 19:39 WBC (4.0-10.5) x10^3/uL RBC (4.1-5.6) x10^6/uL Hgb (12.5-18.0) g/dL Hct (42-50) % MCV (78-100) fL MCH (26-32) pg MCHC (32-36) g/dL RDW (11.5-14.0) % Plt Count (150-450) x10^3/uL MPV (7.5-11.0) fL Gran % (36.0-66.0) % Immature Gran % (Auto) (0.00-0.4) % Nucleat RBC Rel Count (0.00-0.1) % Eos # (Auto) (0-0.5) x10^3/uL Immature Gran # (Auto) (0.00-0.03) x10^3u/L Absolute Lymphs (auto) (1.0-4.6) x10^3/uL Absolute Monos (auto) (0.0-1.3) x10^3/uL Absolute Nucleated RBC (0.00-0.01) x10^3u/L Lymphocytes % (24.0-44.0) % Monocytes % (0.0-12.0) % Eosinophils % (0.00-5.0) % Basophils % (0.0-0.4) % Absolute Granulocytes (1.4-6.9) x10^3/uL Basophils # (0-0.4) x10^3/uL PT (9.4-12.5) SECONDS INR (0.8-3.0) Sodium (137-145) mmol/L Potassium (3.5-5.1) mmol/L Chloride (98-107) mmol/L Carbon Dioxide (22-30) mmol/L Anion Gap (5-15) MEQ/L BUN (9-20) mg/dL Creatinine (0.66-1.25) mg/dL Estimated GFR ML/MIN Glucose (74-106) mg/dL Calcium (8.4-10.2) mg/dL Magnesium (1.6-2.3) mg/dL Total Bilirubin (0.2-1.3) mg/dL AST (17-59) U/L ALT (0-50) U/L Alkaline Phosphatase (38-126) U/L Troponin I < 0.012 (0.000-0.034) ng/mL NT-Pro-B Natriuret Pep 319 (<300) pg/mL Serum Total Protein (6.3-8.2) g/dL Albumin (3.5-5.0) g/dL Urine Color (Yellow) Urine Appearance (Clear) Urine pH (4.6-8.0) Ur Specific [place] (1.005-1.030) Urine Protein (Negative) Urine Glucose (UA) (Negative) mg/dL Urine Ketones (Negative) Urine Blood (Negative) Urine Nitrite (Negative) Urine Bilirubin (Negative) Urine Urobilinogen (0.2) mg/dL Ur Leukocyte Esterase (Negative) U Hyaline Cast (Auto) (0-2) /LPF Urine Microscopic RBC (0-5) /HPF Urine Microscopic WBC (0-5) /HPF Ur Epithelial Cells (None Seen) /HPF Urine Bacteria (None Seen) /HPF Urine Culture Reflexed (NO) Influenza Type A Ag NEGATIVE (NEGATIVE) Influenza Type B Ag NEGATIVE (NEGATIVE) RSV (PCR) NEGATIVE (NEGATIVE) SARS-CoV-2 (PCR) NEGATIVE (NEGATIVE) 01/02/23 Range/Units 20:53 WBC (4.0-10.5) x10^3/uL RBC (4.1-5.6) x10^6/uL Hgb (12.5-18.0) g/dL Hct (42-50) % MCV (78-100) fL MCH (26-32) pg MCHC (32-36) g/dL RDW (11.5-14.0) % Plt Count (150-450) x10^3/uL MPV (7.5-11.0) fL Gran % (36.0-66.0) % Immature Gran % (Auto) (0.00-0.4) % Nucleat RBC Rel Count (0.00-0.1) % Eos # (Auto) (0-0.5) x10^3/uL Immature Gran # (Auto) (0.00-0.03) x10^3u/L Absolute Lymphs (auto) (1.0-4.6) x10^3/uL Absolute Monos (auto) (0.0-1.3) x10^3/uL Absolute Nucleated RBC (0.00-0.01) x10^3u/L Lymphocytes % (24.0-44.0) % Monocytes % (0.0-12.0) % Eosinophils % (0.00-5.0) % Basophils % (0.0-0.4) % Absolute Granulocytes (1.4-6.9) x10^3/uL Basophils # (0-0.4) x10^3/uL PT (9.4-12.5) SECONDS INR (0.8-3.0) Sodium (137-145) mmol/L Potassium (3.5-5.1) mmol/L Chloride (98-107) mmol/L Carbon Dioxide (22-30) mmol/L Anion Gap (5-15) MEQ/L BUN (9-20) mg/dL Creatinine (0.66-1.25) mg/dL Estimated GFR ML/MIN Glucose (74-106) mg/dL Calcium (8.4-10.2) mg/dL Magnesium (1.6-2.3) mg/dL Total Bilirubin (0.2-1.3) mg/dL AST (17-59) U/L ALT (0-50) U/L Alkaline Phosphatase (38-126) U/L Troponin I (0.000-0.034) ng/mL NT-Pro-B Natriuret Pep (<300) pg/mL Serum Total Protein (6.3-8.2) g/dL Albumin (3.5-5.0) g/dL Urine Color Yellow (Yellow) Urine Appearance Clear (Clear) Urine pH 5.5 (4.6-8.0) Ur Specific [place] 1.020 (1.005-1.030) Urine Protein Trace A (Negative) Urine Glucose (UA) Negative (Negative) mg/dL Urine Ketones Negative (Negative) Urine Blood Negative (Negative) Urine Nitrite Negative (Negative) Urine Bilirubin Negative (Negative) Urine Urobilinogen 1.0 A (0.2) mg/dL Ur Leukocyte Esterase Small A (Negative) U Hyaline Cast (Auto) NONE SEEN (0-2) /LPF Urine Microscopic RBC 0-2 (0-5) /HPF Urine Microscopic WBC 3-5 (0-5) /HPF Ur Epithelial Cells None Seen (None Seen) /HPF Urine Bacteria None Seen (None Seen) /HPF Urine Culture Reflexed YES (NO) Influenza Type A Ag (NEGATIVE) Influenza Type B Ag (NEGATIVE) RSV (PCR) (NEGATIVE) SARS-CoV-2 (PCR) (NEGATIVE) - Radiology Impressions Radiology Exams & Impressions: Radiology Procedures Category Date Time Status CHEST WITHOUT CONTRAST [CT] Stat Exams 01/02/23 19:33 Taken - Other Procedures and Tests Respiratory Therapy 01/02/23 22:47 EKG REPEAT IN AM Oxygen Nasal Cannula 2 lpm Respiratory Therapy Consult ONCE Assessment/Plan (1) Pneumonia Current Visit: No Status: Resolved Qualifiers: Pneumonia type: due to unspecified organism Laterality: left Lung location: unspecified part of lung Qualified Code(s): J18.9 - Pneumonia, unspecified organism Code(s): J18.9 - PNEUMONIA, UNSPECIFIED ORGANISM (2) Pneumonia Current Visit: Yes Status: Acute Assessment & Plan: 82 y/o M with h/o COPD on 2L oxygen, CAD, A-fib, HTN, chronic back pain, here with cough and dyspnea, found to have pneumonia with COPD exacerbation and A-fib with RVR. ## Pneumonia - with cough x1 month and new infiltrates in bilateral bases on CT chest (per report from ED physician; radiology report not available to be read by me.) - continue rocephin - start azithromycin ## COPD - with acute exacerbation. Not requiring increased oxygen. Patient refuses steroids, despite counseling by ED physician. - continue nebs scheduled q6h, with PRN q4h - PRN guaifenesin DM ## A-fib - permanent, per report. In RVR initially, but rate controlled after single dose of diltiazem in ED. Not on rate control medication at home. Non- compliant with most medications, and specifically declines any anticoagulation. HR controlled currently. - start diltiazem 60 mg q6h - if rate remains controlled, can consolidate to long-acting form. ## Hypertension - on amlodipine 10 mg at home. But using diltiazem as above for rate control. - hold amlodipine for now - if after getting rate control with diltiazem, will see if needs further antihypertensive therapy ## CAD - non-compliant with medications for secondary prevention. Code status: Full code Diet: cardiac Prophylaxis: patient declines pharmacologic prophylaxis Code(s): J18.9 - PNEUMONIA, UNSPECIFIED ORGANISM Telemedicine Encounter - Telemedicine Encounter Telemedicine Encounter: The entirety of this encounter was performed via Telemedicine"
[2023-01-02] MEDS ORDERED: Robitussin-Dm Syrup PO PRN (23:25)
[2023-01-02] MEDS: Cardizem 30 MG PO SCH (23:56)
[2023-01-03] MEDS ORDERED: Cardizem IV 50 MG/10 ML IV ONE (00:16)
[2023-01-03] MEDS ORDERED: HYDROCODONE-ACETAMIN 10-325 MG ONE (00:29)
[2023-01-03] MEDS: HYDROCODONE-ACETAMIN 2.5-108/5 ML SOLUTION PO PRN ×2 (00:35→07:04)
[2023-01-03] MEDS: DUONEB 0.5-3 MG/3 ml Neb IH SCH ×2 (01:00→07:07)
[2023-01-03] MEDS: Cardizem 30 MG PO SCH (04:31)
[2023-01-03 04:36] LABS: Absolute Neutrophil Ct (ANC) 7.84 x10^3/uL (1.4-6.9); BASOPHIL % 0.1 % (0.0-0.4); Basophil (Absolute #) 0.01 x10^3/uL (0-0.4); Eosinophil (Absolute #) 0 x10^3/uL (0-0.5); Hematocrit 44.5 % (42-50); Hemoglobin 14.8 g/dL (12.5-18.0); IMMATURE GRAN # 0.05 x10^3u/L (0.00-0.03); IMMATURE GRAN % 0.6 % (0.00-0.4); Lymphocyte (Absolute #) 0.38 x10^3/uL (1.0-4.6); Lymphocytes % 4.6 % (24.0-44.0); Mean Cell Volume 92.3 fL (78-100); Mean Corpuscular Hemoglobin 30.7 pg (26-32); Mean Corpuscular Hgb Concent. 33.3 g/dL (32-36); Mean Platelet Volume 9.1 fL (7.5-11.0); Monocyte (Absolute #) 0.07 x10^3/uL (0.0-1.3); Monocytes % 0.8 % (0.0-12.0); Neutrophil % 93.9 % (36.0-66.0); Platelet Count 368 x10^3/uL (150-450); Red Blood Count 4.82 x10^6/uL (4.1-5.6); Red Cell Distribution Width 11.9 % (11.5-14.0); White Blood Count 8.4 x10^3/uL (4.0-10.5)
[2023-01-03 04:52] LABS: ALKALINE PHOSPHATASE 154 U/L (38-126); ANION GAP 13.9 MEQ/L (5-15); BLOOD UREA NITROGEN 17 mg/dL (9-20); CHLORIDE 104 mmol/L (98-107); Calcium 9.1 mg/dL (8.4-10.2); Carbon Dioxide 29 mmol/L (22-30); Creatinine 1 0.79 mg/dL (0.66-1.25); EST GLOMERULAR FILTRATION RATE > 60.0 ML/MIN; Glucose 177 mg/dL (74-106); Potassium 3.7 mmol/L (3.5-5.1); SGOT/AST 29 U/L (17-59); SGPT/ALT 24 U/L (0-50); SODIUM 143 mmol/L (137-145); Total Protein 7.2 g/dL (6.3-8.2)
[2023-01-03 06:56] VITALS: TEMP 97.8
--- NOTE | 2023-01-03 08:06 | PCM.NOTE ---
Date and Time: 01/03/23801 Subjective Assessment: 82 y/o M with h/o COPD on 2L oxygen, CAD, A-fib, HTN, chronic back pain, here with cough and dyspnea, admitted 01/02/23 with pneumonia with COPD exacerbation and A-fib with RVR, currently being treated with Cardizem, ceftriaxone, and azithromycin. OBJECTIVE DATA Vital Signs: Vital Signs - 24 hr Temp Pulse Resp BP BP Pulse Ox 01/03/23 07:23 108 H 22 137/86 93 L 01/03/23 07:10 100 H 20 96 01/03/23 06:55 97.8 F 107 H 22 131/86 97 01/03/23 06:00 98.4 F 106 H 20 121/95 96 01/03/23 03:47 104 H 01/03/23 01:00 104 H 17 95 01/03/23 00:01 113 H 01/02/23 23:43 113 H 19 96 01/02/23 23:36 98.4 F 110 H 14 170/92 93 L 01/02/23 22:18 96 01/02/23 21:20 109 H 28 H 127/85 98 01/02/23 21:10 108 H 17 127/84 98 01/02/23 21:00 93 H 13 113/83 97 01/02/23 20:50 99 H 18 125/83 97 01/02/23 20:46 100 H 19 97 01/02/23 20:40 103 H 18 120/77 98 01/02/23 20:30 96 H 16 133/87 98 01/02/23 20:21 93 H 14 167/98 97 01/02/23 20:10 105 H 21 125/77 96 01/02/23 20:00 97 H 22 120/80 97 01/02/23 19:55 110 H 14 123/83 97 01/02/23 19:39 104 H 19 129/86 98 01/02/23 19:20 97 01/02/23 19:15 25 H 96 01/02/23 19:11 98.6 F 125 H 25 H 146/99 96 Pain Assessment - Last Documented Pain Intensity 0 Pain Scale Used 0-10 Pain Scale Intake and Output: Intake & Output 12/31/22 01/01/23 01/02/23 01/03/23 11:59 11:59 11:59 11:59 Output Total 800 Balance -800 Weight 81.3 kg Lab Results: Lab Results-Last 24 Hours 01/02/23 01/02/23 01/02/23 Range/Units 19:15 19:15 19:15 WBC 13.1 H (4.0-10.5) x10^3/uL RBC 4.97 (4.1-5.6) x10^6/uL Hgb 15.1 (12.5-18.0) g/dL Hct 45.8 (42-50) % MCV 92.2 (78-100) fL MCH 30.4 (26-32) pg MCHC 33.0 (32-36) g/dL RDW 11.5 (11.5-14.0) % Plt Count 454 H (150-450) x10^3/uL MPV 9.0 (7.5-11.0) fL Gran % 80.0 H (36.0-66.0) % Immature Gran % (Auto) 0.6 H (0.00-0.4) % Nucleat RBC Rel Count 0.0 (0.00-0.1) % Eos # (Auto) 0.32 (0-0.5) x10^3/uL Immature Gran # (Auto) 0.08 H (0.00-0.03) x10^3u/L Absolute Lymphs (auto) 1.22 (1.0-4.6) x10^3/uL Absolute Monos (auto) 0.94 (0.0-1.3) x10^3/uL Absolute Nucleated RBC 0.00 (0.00-0.01) x10^3u/L Lymphocytes % 9.3 L (24.0-44.0) % Monocytes % 7.2 (0.0-12.0) % Eosinophils % 2.4 (0.00-5.0) % Basophils % 0.5 (0.0-0.4) % Absolute Granulocytes 10.47 H (1.4-6.9) x10^3/uL Basophils # 0.06 (0-0.4) x10^3/uL PT 10.9 (9.4-12.5) SECONDS INR 1.00 (0.8-3.0) Sodium 142 (137-145) mmol/L Potassium 3.2 L (3.5-5.1) mmol/L Chloride 102 (98-107) mmol/L Carbon Dioxide 27 (22-30) mmol/L Anion Gap 16.8 H (5-15) MEQ/L BUN 15 (9-20) mg/dL Creatinine 0.80 (0.66-1.25) mg/dL Estimated GFR > 60.0 ML/MIN Glucose 115 H (74-106) mg/dL Calcium 9.2 (8.4-10.2) mg/dL Magnesium 1.9 (1.6-2.3) mg/dL Total Bilirubin 0.50 (0.2-1.3) mg/dL AST 30 (17-59) U/L ALT 25 (0-50) U/L Alkaline Phosphatase 171 H (38-126) U/L Troponin I (0.000-0.034) ng/mL NT-Pro-B Natriuret Pep (<300) pg/mL Serum Total Protein 7.6 (6.3-8.2) g/dL Albumin 4.3 (3.5-5.0) g/dL Urine Color (Yellow) Urine Appearance (Clear) Urine pH (4.6-8.0) Ur Specific [place] (1.005-1.030) Urine Protein (Negative) Urine Glucose (UA) (Negative) mg/dL Urine Ketones (Negative) Urine Blood (Negative) Urine Nitrite (Negative) Urine Bilirubin (Negative) Urine Urobilinogen (0.2) mg/dL Ur Leukocyte Esterase (Negative) U Hyaline Cast (Auto) (0-2) /LPF Urine Microscopic RBC (0-5) /HPF Urine Microscopic WBC (0-5) /HPF Ur Epithelial Cells (None Seen) /HPF Urine Bacteria (None Seen) /HPF Urine Culture Reflexed (NO) Influenza Type A Ag (NEGATIVE) Influenza Type B Ag (NEGATIVE) RSV (PCR) (NEGATIVE) SARS-CoV-2 (PCR) (NEGATIVE) 01/02/23 01/02/23 01/02/23 Range/Units 19:15 19:15 19:39 WBC (4.0-10.5) x10^3/uL RBC (4.1-5.6) x10^6/uL Hgb (12.5-18.0) g/dL Hct (42-50) % MCV (78-100) fL MCH (26-32) pg MCHC (32-36) g/dL RDW (11.5-14.0) % Plt Count (150-450) x10^3/uL MPV (7.5-11.0) fL Gran % (36.0-66.0) % Immature Gran % (Auto) (0.00-0.4) % Nucleat RBC Rel Count (0.00-0.1) % Eos # (Auto) (0-0.5) x10^3/uL Immature Gran # (Auto) (0.00-0.03) x10^3u/L Absolute Lymphs (auto) (1.0-4.6) x10^3/uL Absolute Monos (auto) (0.0-1.3) x10^3/uL Absolute Nucleated RBC (0.00-0.01) x10^3u/L Lymphocytes % (24.0-44.0) % Monocytes % (0.0-12.0) % Eosinophils % (0.00-5.0) % Basophils % (0.0-0.4) % Absolute Granulocytes (1.4-6.9) x10^3/uL Basophils # (0-0.4) x10^3/uL PT (9.4-12.5) SECONDS INR (0.8-3.0) Sodium (137-145) mmol/L Potassium (3.5-5.1) mmol/L Chloride (98-107) mmol/L Carbon Dioxide (22-30) mmol/L Anion Gap (5-15) MEQ/L BUN (9-20) mg/dL Creatinine (0.66-1.25) mg/dL Estimated GFR ML/MIN Glucose (74-106) mg/dL Calcium (8.4-10.2) mg/dL Magnesium (1.6-2.3) mg/dL Total Bilirubin (0.2-1.3) mg/dL AST (17-59) U/L ALT (0-50) U/L Alkaline Phosphatase (38-126) U/L Troponin I < 0.012 (0.000-0.034) ng/mL NT-Pro-B Natriuret Pep 319 (<300) pg/mL Serum Total Protein (6.3-8.2) g/dL Albumin (3.5-5.0) g/dL Urine Color (Yellow) Urine Appearance (Clear) Urine pH (4.6-8.0) Ur Specific [place] (1.005-1.030) Urine Protein (Negative) Urine Glucose (UA) (Negative) mg/dL Urine Ketones (Negative) Urine Blood (Negative) Urine Nitrite (Negative) Urine Bilirubin (Negative) Urine Urobilinogen (0.2) mg/dL Ur Leukocyte Esterase (Negative) U Hyaline Cast (Auto) (0-2) /LPF Urine Microscopic RBC (0-5) /HPF Urine Microscopic WBC (0-5) /HPF Ur Epithelial Cells (None Seen) /HPF Urine Bacteria (None Seen) /HPF Urine Culture Reflexed (NO) Influenza Type A Ag NEGATIVE (NEGATIVE) Influenza Type B Ag NEGATIVE (NEGATIVE) RSV (PCR) NEGATIVE (NEGATIVE) SARS-CoV-2 (PCR) NEGATIVE (NEGATIVE) 01/02/23 01/03/23 01/03/23 Range/Units 20:53 04:31 04:31 WBC 8.4 (4.0-10.5) x10^3/uL RBC 4.82 (4.1-5.6) x10^6/uL Hgb 14.8 (12.5-18.0) g/dL Hct 44.5 (42-50) % MCV 92.3 (78-100) fL MCH 30.7 (26-32) pg MCHC 33.3 (32-36) g/dL RDW 11.9 (11.5-14.0) % Plt Count 368 (150-450) x10^3/uL MPV 9.1 (7.5-11.0) fL Gran % 93.9 H (36.0-66.0) % Immature Gran % (Auto) 0.6 H (0.00-0.4) % Nucleat RBC Rel Count 0.0 (0.00-0.1) % Eos # (Auto) 0 (0-0.5) x10^3/uL Immature Gran # (Auto) 0.05 H (0.00-0.03) x10^3u/L Absolute Lymphs (auto) 0.38 L (1.0-4.6) x10^3/uL Absolute Monos (auto) 0.07 (0.0-1.3) x10^3/uL Absolute Nucleated RBC 0.00 (0.00-0.01) x10^3u/L Lymphocytes % 4.6 L (24.0-44.0) % Monocytes % 0.8 (0.0-12.0) % Eosinophils % 0.0 (0.00-5.0) % Basophils % 0.1 (0.0-0.4) % Absolute Granulocytes 7.84 H (1.4-6.9) x10^3/uL Basophils # 0.01 (0-0.4) x10^3/uL PT (9.4-12.5) SECONDS INR (0.8-3.0) Sodium 143 (137-145) mmol/L Potassium 3.7 (3.5-5.1) mmol/L Chloride 104 (98-107) mmol/L Carbon Dioxide 29 (22-30) mmol/L Anion Gap 13.9 (5-15) MEQ/L BUN 17 (9-20) mg/dL Creatinine 0.79 (0.66-1.25) mg/dL Estimated GFR > 60.0 ML/MIN Glucose 177 H (74-106) mg/dL Calcium 9.1 (8.4-10.2) mg/dL Magnesium (1.6-2.3) mg/dL Total Bilirubin 0.40 (0.2-1.3) mg/dL AST 29 (17-59) U/L ALT 24 (0-50) U/L Alkaline Phosphatase 154 H (38-126) U/L Troponin I (0.000-0.034) ng/mL NT-Pro-B Natriuret Pep (<300) pg/mL Serum Total Protein 7.2 (6.3-8.2) g/dL Albumin 4.0 (3.5-5.0) g/dL Urine Color Yellow (Yellow) Urine Appearance Clear (Clear) Urine pH 5.5 (4.6-8.0) Ur Specific [place] 1.020 (1.005-1.030) Urine Protein Trace A (Negative) Urine Glucose (UA) Negative (Negative) mg/dL Urine Ketones Negative (Negative) Urine Blood Negative (Negative) Urine Nitrite Negative (Negative) Urine Bilirubin Negative (Negative) Urine Urobilinogen 1.0 A (0.2) mg/dL Ur Leukocyte Esterase Small A (Negative) U Hyaline Cast (Auto) NONE SEEN (0-2) /LPF Urine Microscopic RBC 0-2 (0-5) /HPF Urine Microscopic WBC 3-5 (0-5) /HPF Ur Epithelial Cells None Seen (None Seen) /HPF Urine Bacteria None Seen (None Seen) /HPF Urine Culture Reflexed YES (NO) Influenza Type A Ag (NEGATIVE) Influenza Type B Ag (NEGATIVE) RSV (PCR) (NEGATIVE) SARS-CoV-2 (PCR) (NEGATIVE) Radiology Exams: Radiology Procedures Category Date Time Status CHEST WITHOUT CONTRAST [CT] Stat Exams 01/02/23 19:33 Taken Assessment/Plan (1) Atrial fibrillation with RVR Current Visit: Yes Status: Acute Assessment & Plan: 01/02: A-fib - permanent, per report. In RVR initially, but rate controlled after single dose of diltiazem in ED. Not on rate control medication at home. Non- compliant with most medications, and specifically declines any anticoagulation. HR controlled currently. - start diltiazem 60 mg q6h - if rate remains controlled, can consolidate to long-acting form. Code(s): I48.91 - UNSPECIFIED ATRIAL FIBRILLATION (2) Pneumonia Current Visit: Yes Status: Acute Assessment & Plan: 01/02: Pneumonia - with cough x1 month and new infiltrates in bilateral bases on CT chest (per report from ED physician; radiology report not available to be read by me.) - continue rocephin - start azithromycin Code(s): J18.9 - PNEUMONIA, UNSPECIFIED ORGANISM (3) COPD with exacerbation Current Visit: No Status: Acute Assessment & Plan: 01/02: COPD - with acute exacerbation. Not requiring increased oxygen. Patient refuses steroids, despite counseling by ED physician. - continue nebs scheduled q6h, with PRN q4h - PRN guaifenesin DM Code(s): J44.1 - CHRONIC OBSTRUCTIVE PULMONARY DISEASE W (ACUTE) EXACERBATION (4) History of lung cancer Current Visit: No Status: Chronic Assessment & Plan: -Noted, adds complexity Code(s): Z85.118 - PERSONAL HISTORY OF MALIGNANT NEOPLASM OF BRONCHUS AND LUNG (5) Hypertension Current Visit: No Status: Chronic Qualifiers: Hypertension type: primary hypertension Qualified Code(s): I10 - Essential (primary) hypertension Assessment & Plan: 01/02: Hypertension - on amlodipine 10 mg at home. But using diltiazem as above for rate control. - hold amlodipine for now - if after getting rate control with diltiazem, will see if needs further antihypertensive therapy Code(s): I10 - ESSENTIAL (PRIMARY) HYPERTENSION (6) Hx of myocardial infarction Current Visit: No Status: Chronic Assessment & Plan: non-compliant with medications for secondary prevention. Code status: Full code Diet: cardiac Prophylaxis: patient declines pharmacologic prophylaxis Code(s): I25.2 - OLD MYOCARDIAL INFARCTION
--- NOTE | 2023-01-03 08:55 | XRAY ---
Indication: Cough and short of breath. Multiple contiguous axial images obtained through the chest without contrast. Comparison: January 30, 2022 Again diffuse pulmonary emphysema with scattered fibrosis/scarring, tiny left upper lobe calcified granuloma, and right upper lobectomy. New mild diffuse bilateral interstitial alveolar opacities greatest in both lower lobes. Lateral left lower lobe demonstrates patchy groundglass opacity with air bronchograms favoring airspace disease. No effusion. Heart not enlarged again with CABG and scattered coronary calcifications. Aorta again mildly arteriosclerotic without aneurysm. Stable tiny mediastinal and left hilar calcified nodes. No pathologic mediastinal lymphadenopathy. Bony thorax intact again with osteopenia, old right rib fractures, and superior T11 Schmorl node. Limited upper abdomen again demonstrates tiny gallstones, 15.5 cm splenomegaly, and small right renal cyst. Impression: 1. Diffuse bilateral interstitial alveolar opacities favor pneumonitis with peripheral left lower lobe patchy groundglass airspace disease. No consolidation/effusion. 2. Chronic findings including pulmonary emphysema, fibrosis/scarring, right upper lobectomy, tiny gallstones, splenomegaly, right renal cyst, chronic bony findings, and old granulomatous disease.
[2023-01-03] MEDS ORDERED: Cardizem 30 MG PO SCH ×2 (10:00→12:00)
--- NOTE | 2023-01-03 10:33 | PCM.DS ---
Discharge Summary Date of Admission: 01/02/23 22:27 Date of Discharge: 01/03/23 Admitting Physician: JOSEPH MASON MD Consults: Consults on Case 01/03/23 09:10 Consult Cardiology ROUTINE Primary Care Provider: ANDRADE ZAVALA Allergies Allergies Antihistamines - Alkylamine Allergy (Verified 01/02/23 19:12) bacitracin Allergy (Verified 01/02/23 19:12) miconazole nitrate [From Neosporin AF] Allergy (Verified 01/02/23 19:12) NSAIDS (Non-Steroidal Anti-Inflamma Allergy (Verified 01/02/23 19:12) [place]-KLN-NsZ Reductase Inhibitor [Wmfrwaj-Bwv-Pfz Reductase Inhibitor] Allergy (Verified 01/02/23 19:12) cyclobenzaprine Adverse Reaction (Verified 01/02/23 19:12) [facility] Summary - Hospital Course Hospital Course: 82 y/o M with h/o COPD on 2L oxygen, CAD, A-fib, HTN, chronic back pain, here with cough and dyspnea, admitted 01/02/23 with pneumonia with COPD exacerbation and A-fib with RVR, during hospitalization treated with Cardizem, ceftriaxone, and azithromycin. HR controlled, started on toprol xl 50mg daily. Patient declines cardiology consult as well as initiation of anti-coagulation. He has agreed to an ECHO, but wishes to follow up with PCP to discuss cardiology referral, does not wish to be set up as OP or tele-consult at this time. In regards to pneumonia, patient is at his baseline oxygenation of 2L, CT findings include . Diffuse bilateral interstitial alveolar opacities favor pneumonitis withperipheral left lower lobe patchy groundglass airspace disease. No consolidation/effusion. 2. Chronic findings including pulmonary emphysema, fibrosis/scarring, rightupper lobectomy, tiny gallstones, splenomegaly, right renal cyst, chronic bony findings, and old granulomatous disease. Lab finding unremarkable, no leukocytosis. Vitals stable. Patient will discharge today after ECHO read with metoprolol for rate control as well as doxycycline/azithromycin. He declines steroids, reports he has adverse reactions and unable to tolerate. New Diagnosis:AFIB RVR/ Pneumonia/ COPD exacerbation New Medications: Metoprolol/Doxycycline/ AZith Follow Up: PCP - recommend Cardiology consult, patient declines Latest Assessment & Plan (1) Atrial fibrillation with RVR Current Visit: Yes Status: Acute Assessment & Plan: 01/02: A-fib - permanent, per report. In RVR initially, but rate controlled after single dose of diltiazem in ED. Not on rate control medication at home. Non- compliant with most medications, and specifically declines any anticoagulation. HR controlled currently. - start diltiazem 60 mg q6h - if rate remains controlled, can consolidate to long-acting form. Code(s): I48.91 - UNSPECIFIED ATRIAL FIBRILLATION (2) Pneumonia Current Visit: Yes Status: Acute Assessment & Plan: 01/02: Pneumonia - with cough x1 month and new infiltrates in bilateral bases on CT chest (per report from ED physician; radiology report not available to be read by me.) - continue rocephin - start azithromycin Code(s): J18.9 - PNEUMONIA, UNSPECIFIED ORGANISM (3) COPD with exacerbation Current Visit: No Status: Acute Assessment & Plan: 01/02: COPD - with acute exacerbation. Not requiring increased oxygen. Patient refuses steroids, despite counseling by ED physician. - continue nebs scheduled q6h, with PRN q4h - PRN guaifenesin DM Code(s): J44.1 - CHRONIC OBSTRUCTIVE PULMONARY DISEASE W (ACUTE) EXACERBATION (4) History of lung cancer Current Visit: No Status: Chronic Assessment & Plan: -Noted, adds complexity Code(s): Z85.118 - PERSONAL HISTORY OF MALIGNANT NEOPLASM OF BRONCHUS AND LUNG (5) Hypertension Current Visit: No Status: Chronic Qualifiers: Hypertension type: primary hypertension Qualified Code(s): I10 - Essential (primary) hypertension Assessment & Plan: 01/02: Hypertension - on amlodipine 10 mg at home. But using diltiazem as above for rate control. - hold amlodipine for now - if after getting rate control with diltiazem, will see if needs further an tihypertensive therapy Code(s): I10 - ESSENTIAL (PRIMARY) HYPERTENSION (6) Hx of myocardial infarction Current Visit: No Status: Chronic Assessment & Plan: non-compliant with medications for secondary prevention. I spent 45 minutes [id number] with the patient on the day of discharge performing discharge exam, discussing hospital stay and discharge instructions with patient and caregivers, preparation of discharge records, prescriptions & referral forms and addressing any questions/concerns the patient had as documented above. - Vitals & Intake/Output Vital Signs: Vital Signs Temperature 97.8 F 01/03/23 06:55 Pulse Rate 108 H 01/03/23 07:23 Respiratory Rate 22 01/03/23 07:23 Blood Pressure 137/86 01/03/23 07:23 O2 Sat by Pulse Oximetry 93 L 01/03/23 07:23 Intake & Output: Intake & Output 12/31/22 01/01/23 01/02/23 01/03/23 11:59 11:59 11:59 11:59 Output Total 800 Balance -800 Weight 81.3 kg - Lab Result Diagrams: 01/03/23 04:31 01/03/23 04:31 Lab Results-Last 24 Hrs: Lab Results-Last 24 Hours 01/02/23 01/02/23 01/02/23 Range/Units 19:15 19:15 19:15 WBC 13.1 H (4.0-10.5) x10^3/uL RBC 4.97 (4.1-5.6) x10^6/uL Hgb 15.1 (12.5-18.0) g/dL Hct 45.8 (42-50) % MCV 92.2 (78-100) fL MCH 30.4 (26-32) pg MCHC 33.0 (32-36) g/dL RDW 11.5 (11.5-14.0) % Plt Count 454 H (150-450) x10^3/uL MPV 9.0 (7.5-11.0) fL Gran % 80.0 H (36.0-66.0) % Immature Gran % (Auto) 0.6 H (0.00-0.4) % Nucleat RBC Rel Count 0.0 (0.00-0.1) % Eos # (Auto) 0.32 (0-0.5) x10^3/uL Immature Gran # (Auto) 0.08 H (0.00-0.03) x10^3u/L Absolute Lymphs (auto) 1.22 (1.0-4.6) x10^3/uL Absolute Monos (auto) 0.94 (0.0-1.3) x10^3/uL Absolute Nucleated RBC 0.00 (0.00-0.01) x10^3u/L Lymphocytes % 9.3 L (24.0-44.0) % Monocytes % 7.2 (0.0-12.0) % Eosinophils % 2.4 (0.00-5.0) % Basophils % 0.5 (0.0-0.4) % Absolute Granulocytes 10.47 H (1.4-6.9) x10^3/uL Basophils # 0.06 (0-0.4) x10^3/uL PT 10.9 (9.4-12.5) SECONDS INR 1.00 (0.8-3.0) Sodium 142 (137-145) mmol/L Potassium 3.2 L (3.5-5.1) mmol/L Chloride 102 (98-107) mmol/L Carbon Dioxide 27 (22-30) mmol/L Anion Gap 16.8 H (5-15) MEQ/L BUN 15 (9-20) mg/dL Creatinine 0.80 (0.66-1.25) mg/dL Estimated GFR > 60.0 ML/MIN Glucose 115 H (74-106) mg/dL Calcium 9.2 (8.4-10.2) mg/dL Magnesium 1.9 (1.6-2.3) mg/dL Total Bilirubin 0.50 (0.2-1.3) mg/dL AST 30 (17-59) U/L ALT 25 (0-50) U/L Alkaline Phosphatase 171 H (38-126) U/L Troponin I (0.000-0.034) ng/mL NT-Pro-B Natriuret Pep (<300) pg/mL Serum Total Protein 7.6 (6.3-8.2) g/dL Albumin 4.3 (3.5-5.0) g/dL Urine Color (Yellow) Urine Appearance (Clear) Urine pH (4.6-8.0) Ur Specific [place] (1.005-1.030) Urine Protein (Negative) Urine Glucose (UA) (Negative) mg/dL Urine Ketones (Negative) Urine Blood (Negative) Urine Nitrite (Negative) Urine Bilirubin (Negative) Urine Urobilinogen (0.2) mg/dL Ur Leukocyte Esterase (Negative) U Hyaline Cast (Auto) (0-2) /LPF Urine Microscopic RBC (0-5) /HPF Urine Microscopic WBC (0-5) /HPF Ur Epithelial Cells (None Seen) /HPF Urine Bacteria (None Seen) /HPF Urine Culture Reflexed (NO) Influenza Type A Ag (NEGATIVE) Influenza Type B Ag (NEGATIVE) RSV (PCR) (NEGATIVE) SARS-CoV-2 (PCR) (NEGATIVE) 01/02/23 01/02/23 01/02/23 Range/Units 19:15 19:15 19:39 WBC (4.0-10.5) x10^3/uL RBC (4.1-5.6) x10^6/uL Hgb (12.5-18.0) g/dL Hct (42-50) % MCV (78-100) fL MCH (26-32) pg MCHC (32-36) g/dL RDW (11.5-14.0) % Plt Count (150-450) x10^3/uL MPV (7.5-11.0) fL Gran % (36.0-66.0) % Immature Gran % (Auto) (0.00-0.4) % Nucleat RBC Rel Count (0.00-0.1) % Eos # (Auto) (0-0.5) x10^3/uL Immature Gran # (Auto) (0.00-0.03) x10^3u/L Absolute Lymphs (auto) (1.0-4.6) x10^3/uL Absolute Monos (auto) (0.0-1.3) x10^3/uL Absolute Nucleated RBC (0.00-0.01) x10^3u/L Lymphocytes % (24.0-44.0) % Monocytes % (0.0-12.0) % Eosinophils % (0.00-5.0) % Basophils % (0.0-0.4) % Absolute Granulocytes (1.4-6.9) x10^3/uL Basophils # (0-0.4) x10^3/uL PT (9.4-12.5) SECONDS INR (0.8-3.0) Sodium (137-145) mmol/L Potassium (3.5-5.1) mmol/L Chloride (98-107) mmol/L Carbon Dioxide (22-30) mmol/L Anion Gap (5-15) MEQ/L BUN (9-20) mg/dL Creatinine (0.66-1.25) mg/dL Estimated GFR ML/MIN Glucose (74-106) mg/dL Calcium (8.4-10.2) mg/dL Magnesium (1.6-2.3) mg/dL Total Bilirubin (0.2-1.3) mg/dL AST (17-59) U/L ALT (0-50) U/L Alkaline Phosphatase (38-126) U/L Troponin I < 0.012 (0.000-0.034) ng/mL NT-Pro-B Natriuret Pep 319 (<300) pg/mL Serum Total Protein (6.3-8.2) g/dL Albumin (3.5-5.0) g/dL Urine Color (Yellow) Urine Appearance (Clear) Urine pH (4.6-8.0) Ur Specific [place] (1.005-1.030) Urine Protein (Negative) Urine Glucose (UA) (Negative) mg/dL Urine Ketones (Negative) Urine Blood (Negative) Urine Nitrite (Negative) Urine Bilirubin (Negative) Urine Urobilinogen (0.2) mg/dL Ur Leukocyte Esterase (Negative) U Hyaline Cast (Auto) (0-2) /LPF Urine Microscopic RBC (0-5) /HPF Urine Microscopic WBC (0-5) /HPF Ur Epithelial Cells (None Seen) /HPF Urine Bacteria (None Seen) /HPF Urine Culture Reflexed (NO) Influenza Type A Ag NEGATIVE (NEGATIVE) Influenza Type B Ag NEGATIVE (NEGATIVE) RSV (PCR) NEGATIVE (NEGATIVE) SARS-CoV-2 (PCR) NEGATIVE (NEGATIVE) 01/02/23 01/03/23 01/03/23 Range/Units 20:53 04:31 04:31 WBC 8.4 (4.0-10.5) x10^3/uL RBC 4.82 (4.1-5.6) x10^6/uL Hgb 14.8 (12.5-18.0) g/dL Hct 44.5 (42-50) % MCV 92.3 (78-100) fL MCH 30.7 (26-32) pg MCHC 33.3 (32-36) g/dL RDW 11.9 (11.5-14.0) % Plt Count 368 (150-450) x10^3/uL MPV 9.1 (7.5-11.0) fL Gran % 93.9 H (36.0-66.0) % Immature Gran % (Auto) 0.6 H (0.00-0.4) % Nucleat RBC Rel Count 0.0 (0.00-0.1) % Eos # (Auto) 0 (0-0.5) x10^3/uL Immature Gran # (Auto) 0.05 H (0.00-0.03) x10^3u/L Absolute Lymphs (auto) 0.38 L (1.0-4.6) x10^3/uL Absolute Monos (auto) 0.07 (0.0-1.3) x10^3/uL Absolute Nucleated RBC 0.00 (0.00-0.01) x10^3u/L Lymphocytes % 4.6 L (24.0-44.0) % Monocytes % 0.8 (0.0-12.0) % Eosinophils % 0.0 (0.00-5.0) % Basophils % 0.1 (0.0-0.4) % Absolute Granulocytes 7.84 H (1.4-6.9) x10^3/uL Basophils # 0.01 (0-0.4) x10^3/uL PT (9.4-12.5) SECONDS INR (0.8-3.0) Sodium 143 (137-145) mmol/L Potassium 3.7 (3.5-5.1) mmol/L Chloride 104 (98-107) mmol/L Carbon Dioxide 29 (22-30) mmol/L Anion Gap 13.9 (5-15) MEQ/L BUN 17 (9-20) mg/dL Creatinine 0.79 (0.66-1.25) mg/dL Estimated GFR > 60.0 ML/MIN Glucose 177 H (74-106) mg/dL Calcium 9.1 (8.4-10.2) mg/dL Magnesium (1.6-2.3) mg/dL Total Bilirubin 0.40 (0.2-1.3) mg/dL AST 29 (17-59) U/L ALT 24 (0-50) U/L Alkaline Phosphatase 154 H (38-126) U/L Troponin I (0.000-0.034) ng/mL NT-Pro-B Natriuret Pep (<300) pg/mL Serum Total Protein 7.2 (6.3-8.2) g/dL Albumin 4.0 (3.5-5.0) g/dL Urine Color Yellow (Yellow) Urine Appearance Clear (Clear) Urine pH 5.5 (4.6-8.0) Ur Specific [place] 1.020 (1.005-1.030) Urine Protein Trace A (Negative) Urine Glucose (UA) Negative (Negative) mg/dL Urine Ketones Negative (Negative) Urine Blood Negative (Negative) Urine Nitrite Negative (Negative) Urine Bilirubin Negative (Negative) Urine Urobilinogen 1.0 A (0.2) mg/dL Ur Leukocyte Esterase Small A (Negative) U Hyaline Cast (Auto) NONE SEEN (0-2) /LPF Urine Microscopic RBC 0-2 (0-5) /HPF Urine Microscopic WBC 3-5 (0-5) /HPF Ur Epithelial Cells None Seen (None Seen) /HPF Urine Bacteria None Seen (None Seen) /HPF Urine Culture Reflexed YES (NO) Influenza Type A Ag (NEGATIVE) Influenza Type B Ag (NEGATIVE) RSV (PCR) (NEGATIVE) SARS-CoV-2 (PCR) (NEGATIVE) - Radiology Exams Ordered Rad Exams-Entire Visit: Radiology Procedures Category Date Time Status CHEST WITHOUT CONTRAST [CT] Stat Exams 01/02/23 19:33 Completed ECHO W/2D AND DOPPLER [US] Stat Exams 01/03/23 09:09 Ordered - Procedures and Test Procedures and Tests throughout Hospitalization: Therapy Orders & Screens 01/02/23 20:44 Respiratory Therapy Assessment DAILY Comment: 01/02/23 22:47 EKG REPEAT IN AM Comment: Oxygen Nasal Cannula 2 lpm Comment: Respiratory Therapy Consult ONCE Comment: Reason For Exam: Discharge Exam General Appearance: no apparent distress Neurologic Exam: alert, oriented x 3 Eye Exam: PERRL Ears, Nose, Throat Exam: normal ENT inspection Neck Exam: normal inspection Respiratory Exam: crackles/rales Cardiovascular Exam: tachycardia Gastrointestinal/Abdomen Exam: soft, normal bowel sounds Male Genitalia Exam: deferred Rectal Exam: deferred Back Exam: normal inspection Extremity Exam: normal inspection Skin Exam: normal color Final Diagnosis/Problem List - Final Discharge Diagnosis/Problem (1) Atrial fibrillation with RVR Current Visit: Yes Status: Acute Code(s): I48.91 - UNSPECIFIED ATRIAL FIBRILLATION (2) Pneumonia Current Visit: Yes Status: Acute Code(s): J18.9 - PNEUMONIA, UNSPECIFIED ORGANISM (3) COPD with exacerbation Current Visit: No Status: Acute Code(s): J44.1 - CHRONIC OBSTRUCTIVE PULMONARY DISEASE W (ACUTE) EXACERBATION (4) History of lung cancer Current Visit: No Status: Chronic Code(s): Z85.118 - PERSONAL HISTORY OF MALIGNANT NEOPLASM OF BRONCHUS AND LUNG (5) Hypertension Current Visit: No Status: Chronic Code(s): I10 - ESSENTIAL (PRIMARY) HYPERTENSION (6) Hx of myocardial infarction Current Visit: No Status: Chronic Code(s): I25.2 - OLD MYOCARDIAL INFARCTION - Discharge Prescriptions: New Metoprolol Succinate 25 mg Xl* [Toprol-Xl 25MG Tablets] 50 mg PO DAILY 30 Days #60 tablet Azithromycin 250 mg [Zithromax 250 MG TABLET] 250 mg PO DAILY 4 Days #4 tablet Doxycycline Hyclate 100 mg [Vibramycin 100 MG] 100 mg PO BID 10 Days #20 tab Losartan Potassium [Cozaar] 25 mg PO DAILY 30 Days #30 tablet Continue Amlodipine Besylate 5 mg [Norvasc 5 mg] 10 mg PO 2300 Hydrocodone/Acetaminophen [Hydrocodone-Acetamin 10-325 mg] 1 tablet PO 0000,0600,1200,1800 Instructions: Atrial Fibrillation (DC), Pneumonia, Adult (DC) Follow up with: ANDRADE ZAVALA [Primary Care Provider] - 01/09/23 10:15 am
[2023-01-03] MEDS ORDERED: Toprol Xl 50 MG PO SCH (11:00)
[2023-01-03 12:05] VITALS: BP 145/95; PULSE 116; RESP 18; O2SAT 97
[2023-01-03] MEDS ORDERED: Zithromax 250 MG TABLET PO SCH (22:00)
[2023-01-03] MEDS ORDERED: ROCEPHIN 1 Gm-D5w 50 ml Bag** 1 G/50 ML IVPB IV SCH (22:00)
[2023-01-03] MEDS ORDERED: NORVASC 5 MG PO SCH (23:00)
--- NOTE | 2023-01-04 08:13 | ECHO ---
Transthoracic echocardiographic examination and color Doppler was done on 01/03/2023. INDICATION: Atrial fibrillation and hypertension. IMPRESSION: 1) NO REGIONAL WALL MOTION ABNORMALITY. ESTIMATED GLOBAL LEFT VENTRICULAR EJECTION FRACTION OF AROUND 60 TO 65%. 2) TRACE MITRAL REGURGITATION. 3) TRACE TRICUSPID REGURGITATION. RIGHT VENTRICULAR SYSTOLIC PRESSURE OF 27 MM OF MERCURY. 4) LEFT ATRIAL ENLARGEMENT. 5) LEFT VENTRICULAR HYPERTROPHY. The left ventricle is visualized and demonstrated adequate motion of all the segments. Estimated global left ventricular ejection fraction 60 to 65%. There is concentric left ventricular hypertrophy. The mitral valve is seen and this opens adequately. There is trace mitral regurgitation. Left atrium is mildly enlarged. The aortic valve is sclerotic. There is no significant gradient across the left ventricular outflow tract. The right side chambers are mildly dilated. There is trace tricuspid regurgitation. The right ventricular systolic pressure of 27 mm of Mercury.
== END 2023-01-03 12:55 | disposition home or self-care (01) ==
LOC: ED 19:10 → ICU 22:27
PROVIDERS: ADMIT Internal Medicine; ATTEND Internal Medicine
DX: I48.20 Chronic atrial fibrillation, unspecified (principal); J18.9 Pneumonia, unspecified organism; J44.9 Chronic obstructive pulmonary disease, unspecified; I25.10 Atherosclerotic heart disease of native coronary artery without angina pectoris; I10 Essential (primary) hypertension; I25.2 Old myocardial infarction; Z79.899 Other long term (current) drug therapy; Z99.81 Dependence on supplemental oxygen; Z20.828 Contact with and (suspected) exposure to other viral communicable diseases; Z85.118 Personal history of other malignant neoplasm of bronchus and lung; Z95.1 Presence of aortocoronary bypass graft
CPT/HCPCS: 0241U; 36000; 36415; 71250; 80053; 81001; 83735; 83880; 84484; 85025; 85610; 87086; 93005; 93041; 93306; 94640; 94760; 96374; 96375; 99285; 99291; Q3014; 93268; J0696; J2930; A9270-GY; G0378

== ENCOUNTER 2023-08-01 17:57 | Emergency (ER) | payer MEDICARE, BC ==
--- NOTE | 2023-08-01 18:10 | ERPHSYRPT ---
- History of Present Illness Historian: patient, family Exam Limitations: no limitations Timing/Duration: day(s) (4-5), worse Quality: dullness, pressure Abdominal Pain Onset Location: periumbilical (Central abdomen) Pain Radiation: no radiation Severity of Pain-Max: moderate Severity of Pain-Current: moderate Modifying Factors: Improves With: nothing Associated Symptoms: denies symptoms Previous symptoms: no prior history Hx Tetanus, Diphtheria Vaccination/Date Given: No Hx Influenza Vaccination/Date Given: No Hx Pneumococcal Vaccination/Date Given: No <FELIX CORDOVA - Last Filed: 08/01/23 18:33> <CARMITA FIELD - Last Filed: 08/01/23 21:18> - History of Present Illness Time Seen by Provider: 08/01/23 18:09 Physician History: This is an 82-year-old white male patient of Dr. Wai Silver who presents with 4 to 5-day history of central abdominal pain. Dr. Silver called me several hours ago to let me know that this patient would be coming in. She provided me with a bit of history and I obtained the remainder of history from the patient and the patient's spouse. The patient states that he has had the c entral abdominal pain without radiation for 4 to 5 days. It is a significant. However it is not causing nausea vomiting or diarrhea symptoms. Patient does not have chest pain and he does not have shortness of breath. He has not noticed any dark, tarry or bloody stools. He has not noticed any gross hematuria. Patient has known history of lung cancer. He has a history of COPD and is noncompliant with his oxygen. Patient has chronic atrial fibrillation. He has a history of hypertension and peptic ulcer disease. Patient also has history of coronary artery disease and has had a CABG in the past and 7 cardiac stents. Patient has known abdominal aortic aneurysm. He was being checked juju ry 4 to 6 months. However, he states that he has not had it evaluated in over 2 years. Patient denies back pain. (FELIX CORDOVA) Allergies/Adverse Reactions: Antihistamines - Alkylamine Allergy (Verified 08/01/23 18:14) bacitracin Allergy (Verified 08/01/23 18:14) miconazole nitrate [From Neosporin AF] Allergy (Verified 08/01/23 18:14) NSAIDS (Non-Steroidal Anti-Inflamma Allergy (Verified 08/01/23 18:14) Umueynf-DUC-GrS Reductase Inhibitor [Aqqsodu-Ngb-Gtn Reductase Inhibitor] Allergy (Verified 08/01/23 18:14) cyclobenzaprine Adverse Reaction (Verified 08/01/23 18:14) Irregular Heart Beat Home Medications: Amlodipine Besylate 5 mg [Norvasc 5 mg] 10 mg PO 2300 11/07/21 [History] Hydrocodone/Acetaminophen [Dardanelle 10-325 mg] 1 tablet PO 0000,0600,1200,1800 11/07/21 [History] Travel Risk - International Travel Have you traveled outside of the country in past 3 weeks: No - Emerging Infectious Disease Are you exhibiting symptoms associated with any current EIDs: Yes Symptoms: Abdominal Pain <FELIX CORDOVA - Last Filed: 08/01/23 18:33> - Review of Systems Constitutional: No Symptoms Eyes: No Symptoms Ears, Nose, & Throat: No Symptoms Respiratory: No Symptoms Cardiac: No Symptoms Abdominal/Gastrointestinal: Abdominal Pain (Central/periumbilical without radiation), No Nausea, No Vomiting, No Diarrhea, No Constipation, No Hematemesis, No Hematochezia, No Melena, No Appetite Changes Genitourinary Symptoms: No Symptoms Musculoskeletal: No Symptoms Skin: No Symptoms Neurological: No Symptoms Psychological: No Symptoms Endocrine: No Symptoms Hematologic/Lymphatic: No Symptoms Immunological/Allergic: No Symptoms All Other Systems: Reviewed and Negative <FELIX CORDOVA - Last Filed: 08/01/23 18:33> - Past Medical History Pertinent Past Medical History: Yes Neurological History: No Pertinent History ENT History: No Pertinent History Cardiac History: Arrhythmia, Coronary Artery Disease, Hypertension, Myocardial Infarction (SD) Respiratory History: Lung Cancer Endocrine Medical History: No Pertinent History Musculoskeletal History: Arthritis GI Medical History: Ulcer History: No Pertinent History Psycho-Social History: No Pertinent History Male Reproductive Disorders: No Pertinent History Other Medical History: Chronic back pain - Past Surgical History Past Surgical History: Yes Neuro Surgical History: No Pertinent History Cardiac: CABG, Cardiac Catheterization, Cardiac Stent Respiratory: Lobectomy Gastrointestinal: No Pertinent History Genitourinary: No Pertinent History Musculoskeletal: Orthopedic Surgery Male Surgical History: No Pertinent History Other Surgical History: bypass and 4 stents, left knee surgery "cleaned out around the knee", left shoulder surg "removed something that was restricting blood flow because my shoulder just hung."; rt lower 2/3 lung removed Significant Family History: no pertinent family hx - Social History Smoking Status: Never smoker Exposure to second hand smoke: No Drug Use: none Patient Lives Alone: No <FELIX CORDOVA - Last Filed: 08/01/23 18:33> - Physical Exam General Appearance: no apparent distress, alert Eye Exam: PERRL/EOMI, eyes nml inspection Ears, Nose, Throat Exam: normal ENT inspection, moist mucous membranes Neck Exam: normal inspection, non-tender, supple, full range of motion Respiratory Exam: normal breath sounds, lungs clear, airway intact, No chest tenderness, No respiratory distress Cardiovascular Exam: tachycardia, irregular Gastrointestinal/Abdomen Exam: soft, normal bowel sounds, tenderness (Mild tenderness to palpation in the periumbilical abdomen), guarding (Mild tenderness to palpation in the mid abdomen/periumbilical region), No pulsatile mass Rectal Exam: not done Back Exam: normal inspection, normal range of motion, No CVA tenderness, No vertebral tenderness Extremity Exam: normal inspection, normal range of motion, pelvis stable Neurologic Exam: alert, oriented x 3, cooperative, tiltrotor crew chief II-XII nml as tested, normal mood/affect, nml cerebellar function, nml station & gait, sensation nml Skin Exam: normal color, warm, dry Lymphatic Exam: No adenopathy SpO2 Interpretation: normal O2 Delivery: Room Air <FELIX CORDOVA - Last Filed: 08/01/23 18:33> - Nursing Vital Signs Nursing Vital Signs: Initial Vital Signs Temperature 97.6 F 08/01/23 18:06 Pulse Rate 116 H 08/01/23 18:06 Respiratory Rate 17 08/01/23 18:06 Blood Pressure 140/94 08/01/23 18:06 O2 Sat by Pulse Oximetry 99 08/01/23 18:06 Pain Scale Pain Intensity 7 - Course Nursing assessment & vital signs reviewed: Yes <FELIX CORDOVA - Last Filed: 08/01/23 18:33> - CT Exams Abdomen/Pelvis CT Interpretation: Tele-radiologist Report (No comps. Emphysema, tiny gallstones, chronic pancreatitis calcifications, diverticulosis, bilateral renal cysts, 5.1 x 5.1 cm distal AAA, small fatty left inguinal hernia) <CARMITA FIELD - Last Filed: 08/01/23 21:18> Ordered Tests: Active Orders 24 hr Category Date Time Status EKG-ER Only STAT Care 08/01/23 18:31 Active IV Insertion STAT Care 08/01/23 18:31 Active ABDOMEN AND PELVIS W/0 CONTRAS [CT] Stat Exams 08/01/23 18:32 Taken AMYLASE Stat Lab 08/01/23 19:07 Completed CBC W DIFF Stat Lab 08/01/23 19:07 Completed CMP Stat Lab 08/01/23 19:07 Completed LIPASE Stat Lab 08/01/23 19:07 Completed Lactic Acid Stat Lab 08/01/23 18:31 Completed TROPONIN Q4H Lab 08/01/23 19:07 Completed TROPONIN Q4H Lab 08/01/23 20:18 Completed TROPONIN Q4H Lab 08/02/23 02:45 Ordered UA W/RFX UR CULTURE Stat Lab 08/01/23 20:15 Completed Medication Summary Generic Name Dose Route Start Last Admin Trade Name Freq PRN Reason Stop Dose Admin Sodium Chloride 1,000 mls @ 50 mls/hr 08/01/23 18:45 08/01/23 18:36 Sodium Chloride 0.9% 1000 Ml IV 08/31/23 18:44 50 mls/hr .Q20H GEORGINA Administration Lab/Rad Data: Laboratory Result Diagrams 08/01/23 19:07 08/01/23 19:07 Laboratory Results 08/01/23 08/01/23 08/01/23 Range/Units 20:18 20:15 19:07 WBC (4.0-10.5) x10^3/uL RBC (4.1-5.6) x10^6/uL Hgb (12.5-18.0) g/dL Hct (42-50) % MCV (78-100) fL MCH (26-32) pg MCHC (32-36) g/dL RDW (11.5-14.0) % Plt Count (150-450) x10^3/uL MPV (7.5-11.0) fL Gran % (36.0-66.0) % Immature Gran % (Auto) (0.00-0.4) % Nucleat RBC Rel Count (0.00-0.1) % Eos # (Auto) (0-0.5) x10^3/uL Immature Gran # (Auto) (0.00-0.03) x10^3u/L Absolute Lymphs (auto) (1.0-4.6) x10^3/uL Absolute Monos (auto) (0.0-1.3) x10^3/uL Absolute Nucleated RBC (0.00-0.01) x10^3u/L Lymphocytes % (24.0-44.0) % Monocytes % (0.0-12.0) % Eosinophils % (0.00-5.0) % Basophils % (0.0-0.4) % Absolute Granulocytes (1.4-6.9) x10^3/uL Basophils # (0-0.4) x10^3/uL Sodium (135-145) mmol/L Potassium (3.5-5.1) mmol/L Chloride (98-107) mmol/L Carbon Dioxide (22-30) mmol/L Anion Gap (5-15) MEQ/L BUN (9-20) mg/dL Creatinine (0.66-1.25) mg/dL Estimated GFR ML/MIN Glucose (74-106) mg/dL Lactic Acid (0.4-2.0) Calcium (8.4-10.2) mg/dL Total Bilirubin (0.2-1.3) mg/dL AST (17-59) U/L ALT (0-50) U/L Alkaline Phosphatase (38-126) U/L Troponin I < 0.012 < 0.012 (0.000-0.033) ng/mL Serum Total Protein (6.3-8.2) g/dL Albumin (3.5-5.0) g/dL Amylase (30-110) U/L Lipase (23-300) U/L Urine Color Yellow (Yellow) Urine Appearance Clear (Clear) Urine pH 6.5 (4.6-8.0) Ur Specific Christine 1.010 (1.005-1.030) Urine Protein Negative (Negative) Urine Glucose (UA) Negative (Negative) mg/dL Urine Ketones Negative (Negative) Urine Blood Negative (Negative) Urine Nitrite Negative (Negative) Urine Bilirubin Negative (Negative) Urine Urobilinogen 0.2 (0.2) mg/dL Ur Leukocyte Esterase Small A (Negative) U Hyaline Cast (Auto) NONE SEEN (0-2) /LPF Urine Microscopic RBC 0-2 (0-5) /HPF Urine Microscopic WBC 0-2 (0-5) /HPF Ur Epithelial Cells None Seen (None Seen) /HPF Urine Bacteria None Seen (None Seen) /HPF Urine Culture Reflexed NO (NO) Slides for Path Review 08/01/23 08/01/23 08/01/23 Range/Units 19:07 19:07 18:31 WBC 8.7 (4.0-10.5) x10^3/uL RBC 5.19 (4.1-5.6) x10^6/uL Hgb 15.8 (12.5-18.0) g/dL Hct 48.0 (42-50) % MCV 92.5 (78-100) fL MCH 30.4 (26-32) pg MCHC 32.9 (32-36) g/dL RDW 12.1 (11.5-14.0) % Plt Count 124 L (150-450) x10^3/uL MPV 10.6 (7.5-11.0) fL Gran % 79.9 H (36.0-66.0) % Immature Gran % (Auto) 0.3 (0.00-0.4) % Nucleat RBC Rel Count 0.0 (0.00-0.1) % Eos # (Auto) 0.10 (0-0.5) x10^3/uL Immature Gran # (Auto) 0.03 (0.00-0.03) x10^3u/L Absolute Lymphs (auto) 0.95 L (1.0-4.6) x10^3/uL Absolute Monos (auto) 0.64 (0.0-1.3) x10^3/uL Absolute Nucleated RBC 0.00 (0.00-0.01) x10^3u/L Lymphocytes % 10.9 L (24.0-44.0) % Monocytes % 7.3 (0.0-12.0) % Eosinophils % 1.1 (0.00-5.0) % Basophils % 0.5 (0.0-0.4) % Absolute Granulocytes 6.96 H (1.4-6.9) x10^3/uL Basophils # 0.04 (0-0.4) x10^3/uL Sodium 138 (135-145) mmol/L Potassium 3.9 (3.5-5.1) mmol/L Chloride 102 (98-107) mmol/L Carbon Dioxide 25 (22-30) mmol/L Anion Gap 15.5 H (5-15) MEQ/L BUN 16 (9-20) mg/dL Creatinine 0.86 (0.66-1.25) mg/dL Estimated GFR 87.0 ML/MIN Glucose 119 H (74-106) mg/dL Lactic Acid 1.7 (0.4-2.0) Calcium 10.4 H (8.4-10.2) mg/dL Total Bilirubin 0.60 (0.2-1.3) mg/dL AST 20 (17-59) U/L ALT 19 (0-50) U/L Alkaline Phosphatase 81 (38-126) U/L Troponin I (0.000-0.033) ng/mL Serum Total Protein 6.9 (6.3-8.2) g/dL Albumin 4.2 (3.5-5.0) g/dL Amylase 61 (30-110) U/L Lipase 44 (23-300) U/L Urine Color (Yellow) Urine Appearance (Clear) Urine pH (4.6-8.0) Ur Specific Christine (1.005-1.030) Urine Protein (Negative) Urine Glucose (UA) (Negative) mg/dL Urine Ketones (Negative) Urine Blood (Negative) Urine Nitrite (Negative) Urine Bilirubin (Negative) Urine Urobilinogen (0.2) mg/dL Ur Leukocyte Esterase (Negative) U Hyaline Cast (Auto) (0-2) /LPF Urine Microscopic RBC (0-5) /HPF Urine Microscopic WBC (0-5) /HPF Ur Epithelial Cells (None Seen) /HPF Urine Bacteria (None Seen) /HPF Urine Culture Reflexed (NO) Slides for Path Review YES <FELIX CORDOVA - Last Filed: 08/01/23 18:33> - Progress Progress: improved <CARMITA FIELD - Last Filed: 08/01/23 21:18> - Progress Progress Note: 08/01/23 18:41 My medical decision making and the assignment of moderate complexity to this patient's medical issue today is based on review the patient's past medical history, review the patient's medication list, review of the patient's history present illness and physical findings on examination. Workup in this patient includes twelve-lead EKG, placement of intravenous line, troponin level, CBC, CMP, amylase, lipase, urinalysis and CT scan of the abdomen pelvis without contrast. Differential diagnosis includes bowel obstruction, bowel perforation, pancreatitis, abdominal aortic aneurysm complication, colitis I am transferring care of this patient to Dr. Carmita Field at shift change. He will follow-up on the pending laboratory, radiographic and EKG studies and make final disposition (FELIX CORDOVA) Patient endorsed to Dr. Field. Dr. Field advised follow-up on pending CAT scan abdomen pelvis. CAT scan report as follows: No comps, emphysema, tiny gallstones, chronic pancreatic calcifications, diverticulosis, bilateral renal cyst, 5.1 x 5.1 cm distal AAA and small fatty left inguinal hernia. I spoke to Dr. Ferguson vascular surgeon who accepts transfer at 8:54 PM vascular surgery 08/01/23 20:56 Patient accepted by hospitalist at 9:04 PM 08/01/23 21:18 (CARMITA FIELD) Medical Desision Making - Independent Historian Additional History obtained from: Spouse <FELIX CORDOVA - Last Filed: 08/01/23 18:33> - Departure Departure Disposition: Home Critical Care Time: No <FELIX CORDOVA - Last Filed: 08/01/23 18:33> <CARMITA FIELD - Last Filed: 08/01/23 21:18> - Departure Clinical Impression: Abdominal pain Condition: Stable Referrals: ANDRADE ZAVALA [Primary Care Provider] - Follow up/PCP as directed
[2023-08-01 18:14] VITALS: TEMP 97.6
[2023-08-01] MEDS ORDERED: Sodium Chloride 0.9% 1000 ML 1,000 ML ONE (18:35)
[2023-08-01] MEDS: Sodium Chloride 0.9% 1000 ML 1,000 ML IV SCH (18:36)
[2023-08-01 19:16] LABS: ALBUMIN 4.2 g/dL (3.5-5.0); ANION GAP 15.5 MEQ/L (5-15); BILIRUBIN,TOTAL 0.6 mg/dL (0.2-1.3); Calcium 10.4 mg/dL (8.4-10.2); Creatinine 1 0.86 mg/dL (0.66-1.25); Potassium 3.9 mmol/L (3.5-5.1); Total Protein 6.9 g/dL (6.3-8.2)
[2023-08-01 19:27] LABS: Absolute Neutrophil Ct (ANC) 6.96 x10^3/uL (1.4-6.9); BASOPHIL % 0.5 % (0.0-0.4); Basophil (Absolute #) 0.04 x10^3/uL (0-0.4); Eosinophil % 1.1 % (0.00-5.0); Hemoglobin 15.8 g/dL (12.5-18.0); IMMATURE GRAN # 0.03 x10^3u/L (0.00-0.03); IMMATURE GRAN % 0.3 % (0.00-0.4); Lymphocyte (Absolute #) 0.95 x10^3/uL (1.0-4.6); Lymphocytes % 10.9 % (24.0-44.0); Mean Cell Volume 92.5 fL (78-100); Mean Corpuscular Hemoglobin 30.4 pg (26-32); Mean Corpuscular Hgb Concent. 32.9 g/dL (32-36); Mean Platelet Volume 10.6 fL (7.5-11.0); Monocyte (Absolute #) 0.64 x10^3/uL (0.0-1.3); Monocytes % 7.3 % (0.0-12.0); Neutrophil % 79.9 % (36.0-66.0); Platelet Count 124 x10^3/uL (150-450); Red Blood Count 5.19 x10^6/uL (4.1-5.6); Red Cell Distribution Width 12.1 % (11.5-14.0); White Blood Count 8.7 x10^3/uL (4.0-10.5)
[2023-08-01 20:07] LABS: Slide Review 1 YES
[2023-08-01 20:25] LABS: Appearance Clear (Clear); Bilirubin Negative (Negative); Blood Negative (Negative); Glucose, Urine Negative (Negative); Ketones Negative (Negative); Leukocyte Esterase Small (Negative); Nitrite Negative (Negative); Ph 6.5 (4.6-8.0); Protein,Urine Dip Negative (Negative); Urobilinogen 0.2 mg/dL (0.2)
[2023-08-01 20:41] LABS: Bacteria None Seen /HPF (None Seen); Epithelial Cells None Seen /HPF (None Seen); Hyaline Casts NONE SEEN /LPF (0-2); RBC 0-2 /HPF (0-5); WBC 0-2 /HPF (0-5)
[2023-08-01 20:42] LABS: ADD URINE CULTURE? NO (NO)
[2023-08-01 21:02] VITALS: O2SAT 98
[2023-08-01 21:46] VITALS: BP 142/98; PULSE 105; RESP 25
--- NOTE | 2023-08-02 08:47 | XRAY ---
Indication: Periumbilical pain 4-5 days. Multiple contiguous axial images obtained through the abdomen and pelvis without contrast. Impression: None Lung bases demonstrate pulmonary emphysema with scattered subsegmental atelectasis/scarring. Left lower lobe demonstrates 4.6 x 2.4 cm subpleural masslike opacity with irregular margins. Heart not enlarged with extensive coronary calcifications. Noncontrasted stomach and bowel loops appear nonobstructed. Appendix not visualized. Scattered sigmoid and lesser degree descending colonic diverticulosis without diverticulitis. Normally distended gallbladder with tiny gallstones/gravel in the dependent portion. A few chronic pancreatitis calcifications. No free fluid/air. Right kidney demonstrates 2.6 cm cyst. Left mid kidney demonstrates 1 cm round exophytic cyst, increased in attenuation probably complex/viscus. Prostate gland demonstrates benign-appearing macrocalcifications. Remaining liver, gallbladder, pancreas, spleen, adrenal glands, kidneys, ureters, and bladder are unremarkable for noncontrast exam. Moderate diffuse scattered arteriosclerotic calcifications. Distal AAA measuring 5.1 x 5.1 cm in greatest axial dimension. Osseous structures intact with osteopenia, mild multilevel degenerative spondylosis, 2-3 mm anterolisthesis L4 on L5, minimal levoscoliosis centered at L3, mild degenerative changes both hips, and small superior T11 Schmorl node. Small fatty left inguinal hernia. Impression: 1. Left lower lobe irregular subpleural masslike opacity. Rule out malignancy. PET/CT may yield further information. 2. Chronic findings including pulmonary emphysema, atelectasis/scarring, colonic diverticulosis, tiny gallstones/gravel, chronic pancreatitis calcifications, bilateral renal cysts, benign appearing prostate macrocalcifications, arteriosclerotic disease with distal AAA, chronic bony findings, and fatty left inguinal hernia. 3. Remaining CT abdomen/pelvis without contrast exam is negative.
== END 2023-08-01 21:59 | disposition short-term general hospital (02) ==
LOC: ED 17:57
DX: R10.33 Periumbilical pain (principal); I71.40 Abdominal aortic aneurysm, without rupture, unspecified; I10 Essential (primary) hypertension; Z79.891 Long term (current) use of opiate analgesic; Z79.899 Other long term (current) drug therapy
CPT/HCPCS: 36000; 36415; 74176; 80053; 81001; 82150; 83605; 83690; 84484; 85025; 93005; 99285

== ENCOUNTER 2023-11-27 09:26 | Observation (INO) | payer MEDICARE, BC ==
[2023-11-27] MEDS: Sodium Chloride 0.9% 1000 ML 1,000 ML IV SCH ×2 (09:42→19:40)
--- NOTE | 2023-11-27 09:44 | ERPHSYRPT ---
- History of Present Illness Time Seen by Provider: 11/27/23 09:39 Historian: patient Exam Limitations: no limitations Physician History: Patient is an 83-year-old male presents to our ED via EMS for evaluation of abdominal pain. Patient states the abdominal pain is coupled with diarrhea. EMS administered fentanyl for pain control. Upon arrival to our ED patient had the urge to defecate. Patient was given a commode. Patient has been sitting on the commode for the past 15 minutes pain described as an ache that is generalized. No specific worsening or improving factors. No trauma no fever. Patient voices no other complaints or concerns at this time. Portions of this note were created with voice recognition technology. There may be grammatical, spelling, punctuation or sound alike errors Timing/Duration: today Activities at Onset: none Quality: aching Abdominal Pain Onset Location: generalized abdomen Pain Radiation: no radiation Severity of Pain-Max: moderate Severity of Pain-Current: mild Modifying Factors: Improves With: nothing Associated Symptoms: diarrhea Previous symptoms: no prior history Allergies/Adverse Reactions: Antihistamines - Alkylamine Allergy (Verified 08/01/23 18:14) bacitracin Allergy (Verified 08/01/23 18:14) miconazole nitrate [From Neosporin AF] Allergy (Verified 08/01/23 18:14) NSAIDS (Non-Steroidal Anti-Inflamma Allergy (Verified 08/01/23 18:14) Yustkir-DHC-KqV Reductase Inhibitor [Rajjame-Kgg-Kin Reductase Inhibitor] Allergy (Verified 08/01/23 18:14) cyclobenzaprine Adverse Reaction (Verified 08/01/23 18:14) Irregular Heart Beat Home Medications: Amlodipine Besylate 5 mg [Norvasc 5 mg] 10 mg PO 2300 11/07/21 [History] Hydrocodone/Acetaminophen [[place] 10-325 mg] 1 tablet PO 0000,0600,1200,1800 11/07/21 [History] Hx Tetanus, Diphtheria Vaccination/Date Given: No Hx Influenza Vaccination/Date Given: No Hx Pneumococcal Vaccination/Date Given: No Travel Risk - Emerging Infectious Disease Are you exhibiting symptoms associated with any current EIDs: Yes Symptoms: Abdominal Pain - Review of Systems Constitutional: No Symptoms, No Fever, No Chills Eyes: No Symptoms Ears, Nose, & Throat: No Symptoms Respiratory: No Symptoms, No Cough, No Dyspnea Cardiac: No Symptoms, No Chest Pain, No Edema, No Syncope Abdominal/Gastrointestinal: No Symptoms, No Abdominal Pain, No Nausea, No Vomiting, No Diarrhea Genitourinary Symptoms: No Symptoms, No Dysuria Musculoskeletal: No Symptoms, No Back Pain, No Neck Pain Skin: No Symptoms, No Rash Neurological: No Symptoms, No Dizziness, No Focal Weakness, No Sensory Changes Psychological: No Symptoms Endocrine: No Symptoms Hematologic/Lymphatic: No Symptoms Immunological/Allergic: No Symptoms All Other Systems: Reviewed and Negative - Past Medical History Pertinent Past Medical History: Yes Neurological History: No Pertinent History ENT History: No Pertinent History Cardiac History: Arrhythmia, Coronary Artery Disease, Hypertension, Myocardial Infarction (MA) Respiratory History: Lung Cancer Endocrine Medical History: No Pertinent History Musculoskeletal History: Arthritis GI Medical History: Ulcer History: No Pertinent History Psycho-Social History: No Pertinent History Male Reproductive Disorders: No Pertinent History Other Medical History: Chronic back pain - Past Surgical History Past Surgical History: Yes Neuro Surgical History: No Pertinent History Cardiac: CABG, Cardiac Catheterization, Cardiac Stent Respiratory: Lobectomy Gastrointestinal: No Pertinent History Genitourinary: No Pertinent History Musculoskeletal: Orthopedic Surgery Male Surgical History: No Pertinent History Other Surgical History: bypass and 4 stents, left knee surgery "cleaned out around the knee", left shoulder surg "removed something that was restricting blood flow because my shoulder just hung."; rt lower 2/3 lung removed Significant Family History: no pertinent family hx - Social History Smoking Status: Never smoker Exposure to second hand smoke: No Drug Use: none Patient Lives Alone: No - Social Determinants of Health Will the patient participate in the screening: Yes Do you worry about a steady place to live?: No In the past 12 months,have you had to go without utilities?: No Transportation Issues: No Has anyone in your support network made you feel unsafe?: No Have you or anyone in your house had to go without enough: No - Nursing Vital Signs Nursing Vital Signs: Initial Vital Signs Temperature 97.5 F 11/27/23 09:27 Pulse Rate 105 H 11/27/23 09:27 Respiratory Rate 20 11/27/23 09:27 Blood Pressure 116/70 11/27/23 09:27 O2 Sat by Pulse Oximetry 99 11/27/23 09:27 Pain Scale Pain Intensity 0 - Physical Exam General Appearance: no apparent distress, alert Eye Exam: PERRL/EOMI, eyes nml inspection Ears, Nose, Throat Exam: normal ENT inspection, pharynx normal, moist mucous membranes Neck Exam: normal inspection, non-tender, supple, full range of motion Respiratory Exam: normal breath sounds, lungs clear, No respiratory distress Cardiovascular Exam: regular rate/rhythm, normal heart sounds Gastrointestinal/Abdomen Exam: soft, No tenderness, No mass Back Exam: normal inspection, normal range of motion, No CVA tenderness, No vertebral tenderness Extremity Exam: normal inspection, normal range of motion, pelvis stable Neurologic Exam: alert, oriented x 3, cooperative, normal mood/affect, nml cerebellar function, sensation nml, No motor deficits Skin Exam: normal color, warm, dry SpO2 Interpretation: normal SpO2: 99 O2 Delivery: Room Air - Course Nursing assessment & vital signs reviewed: Yes - CT Exams Abdomen/Pelvis CT Interpretation: Tele-radiologist Report (Left lower lobe subpleural effusion masslike opacity, diverticulosis, colonic diarrhea, gallbladder with tiny gallstones and gravel, prostate calcifications AAA left renal cyst right renal cyst) Ordered Tests: Active Orders 24 hr Category Date Time Status IV Insertion STAT Care 11/27/23 09:31 Active ABDOMEN AND PELVIS W/0 CONTRAS [CT] Stat Exams 11/27/23 09:32 Completed CBC W DIFF Stat Lab 11/27/23 09:35 Completed CMP Stat Lab 11/27/23 09:35 Completed LIPASE Stat Lab 11/27/23 09:35 Completed TROPONIN Q4H Lab 11/27/23 09:35 Completed TROPONIN Q4H Lab 11/27/23 13:35 Received TROPONIN Q4H Lab 11/27/23 17:45 Ordered UA W/RFX UR CULTURE Stat Lab 11/27/23 09:31 Ordered Transfer Order Routine Transfer 11/27/23 Ordered Medication Summary Generic Name Dose Route Start Last Admin Trade Name Freq PRN Reason Stop Dose Admin Sodium Chloride 1,000 mls @ 100 mls/hr 11/27/23 09:45 11/27/23 09:42 Sodium Chloride 0.9% 1000 Ml IV 12/27/23 09:44 100 mls/hr .Q10H GEORGINA Administration Discontinued Medications Generic Name Dose Route Start Last Admin Trade Name Freq PRN Reason Stop Dose Admin Potassium Chloride 40 meq 11/27/23 13:27 11/27/23 13:33 Potassium Chloride Tab 10 Meq Tab PO 11/27/23 13:28 40 meq STAT ONE Administration Potassium Chloride Confirm 11/27/23 13:32 Potassium Chloride Tab 10 Meq Tab Administered 11/27/23 13:33 Dose 40 meq .ROUTE .STK-MED ONE Lab/Rad Data: Laboratory Result Diagrams 11/27/23 09:35 11/27/23 09:35 Laboratory Results 11/27/23 11/27/23 11/27/23 Range/Units Unknown 09:40 09:35 WBC (4.23-9.07) x10^3/uL RBC (4.63-6.08) x10^6/uL Hgb (13.7-17.5) g/dL Hct (40.1-51.0) % MCV (79.0-92.2) fL MCH (25.7-32.2) pg MCHC (32.3-36.5) g/dL RDW (11.6-14.4) % Plt Count (163-337) x10^3/uL MPV (9.4-12.4) fL Gran % (34.0-67.9) % Immature Gran % (Auto) (0.001-0.429) % Nucleat RBC Rel Count (0.00-0.2) % Eos # (Auto) (0.04-0.54) x10^3/uL Immature Gran # (Auto) (0.001-0.031) x10^3u/L Absolute Lymphs (auto) (1.32-3.57) x10^3/uL Absolute Monos (auto) (0.30-0.82) x10^3/uL Absolute Nucleated RBC (0.00-0.012) x10^3u/L Lymphocytes % (21.8-53.1) % Monocytes % (5.3-12.2) % Eosinophils % (0.8-7.0) % Basophils % (0.2-1.2) % Absolute Granulocytes (1.78-5.38) x10^3/uL Basophils # (0.01-0.08) x10^3/uL Sodium (135-145) mmol/L Potassium (3.5-5.1) mmol/L Chloride (98-107) mmol/L Carbon Dioxide (22-30) mmol/L Anion Gap (5-15) MEQ/L BUN (9-20) mg/dL Creatinine (0.66-1.25) mg/dL Estimated GFR ML/MIN Glucose (74-106) mg/dL Calcium (8.4-10.2) mg/dL Total Bilirubin (0.2-1.3) mg/dL AST (17-59) U/L ALT (0-50) U/L Alkaline Phosphatase (38-126) U/L Troponin I < 0.012 (0.000-0.033) ng/mL Serum Total Protein (6.3-8.2) g/dL Albumin (3.5-5.0) g/dL Lipase (23-300) U/L C. difficile Screen NEGATIVE (NEGATIVE) C.difficile 027-[id number] PRESUMPTIVE NEGATIVE (NEGATIVE) Influenza Type A Ag NEGATIVE (NEGATIVE) Influenza Type B Ag NEGATIVE (NEGATIVE) RSV (PCR) NEGATIVE (NEGATIVE) SARS-CoV-2 (PCR) NEGATIVE (NEGATIVE) 11/27/23 11/27/23 Range/Units 09:35 09:35 WBC 15.7 H (4.23-9.07) x10^3/uL RBC 5.66 (4.63-6.08) x10^6/uL Hgb 17.3 (13.7-17.5) g/dL Hct 53.3 H (40.1-51.0) % MCV 94.2 H (79.0-92.2) fL MCH 30.6 (25.7-32.2) pg MCHC 32.5 (32.3-36.5) g/dL RDW 11.9 (11.6-14.4) % Plt Count 205 (163-337) x10^3/uL MPV 9.8 (9.4-12.4) fL Gran % 88.1 H (34.0-67.9) % Immature Gran % (Auto) 0.3 (0.001-0.429) % Nucleat RBC Rel Count 0.0 (0.00-0.2) % Eos # (Auto) 0.10 (0.04-0.54) x10^3/uL Immature Gran # (Auto) 0.05 H (0.001-0.031) x10^3u/L Absolute Lymphs (auto) 0.62 L (1.32-3.57) x10^3/uL Absolute Monos (auto) 1.06 H (0.30-0.82) x10^3/uL Absolute Nucleated RBC 0.00 (0.00-0.012) x10^3u/L Lymphocytes % 4.0 L (21.8-53.1) % Monocytes % 6.8 (5.3-12.2) % Eosinophils % 0.6 L (0.8-7.0) % Basophils % 0.2 (0.2-1.2) % Absolute Granulocytes 13.82 H (1.78-5.38) x10^3/uL Basophils # 0.03 (0.01-0.08) x10^3/uL Sodium 140 (135-145) mmol/L Potassium 3.3 L (3.5-5.1) mmol/L Chloride 104 (98-107) mmol/L Carbon Dioxide 24 (22-30) mmol/L Anion Gap 15.5 H (5-15) MEQ/L BUN 21 H (9-20) mg/dL Creatinine 1.14 (0.66-1.25) mg/dL Estimated GFR 64.2 ML/MIN Glucose 134 H (74-106) mg/dL Calcium 9.4 (8.4-10.2) mg/dL Total Bilirubin 0.60 (0.2-1.3) mg/dL AST 28 (17-59) U/L ALT 24 (0-50) U/L Alkaline Phosphatase 110 (38-126) U/L Troponin I (0.000-0.033) ng/mL Serum Total Protein 7.7 (6.3-8.2) g/dL Albumin 4.6 (3.5-5.0) g/dL Lipase 28 (23-300) U/L C. difficile Screen (NEGATIVE) C.difficile 027-NAP1-B1 (NEGATIVE) Influenza Type A Ag (NEGATIVE) Influenza Type B Ag (NEGATIVE) RSV (PCR) (NEGATIVE) SARS-CoV-2 (PCR) (NEGATIVE) - Progress Progress: improved Progress Note: 83-year-old male presents presents to our ED via EMS for evaluation of abdominal pain. Patient reports ongoing diarrhea. Patient has a resting tachycardia no chest pain or shortness of breath. Tachycardia is likely secondary to dehydration from profuse diarrhea. Workup reveals a potassium of 3.3. Oral potassium replacement ordered. CT scan shows left lower lobe subpleural masslike opacity rule out malignancy. This information was passed on to the receiving physician. Stool sample obtained. Culture sent. AAA observed on CAT scan. However AAA is known. Patient has a resting tachycardia. IV fluid replacement initiated. Patient will require hospitalization for further hydration and monitoring and review of pending stool sample studies. Plan of care discussed with patient. He agrees to admission to [facility] for further evaluation and treatment. Management discussed with hospitalist Dr. Mccollum accepts admission to observation at 1:55pm. Portions of this note were created with voice recognition technology. There may be grammatical, spelling, punctuation or sound alike errors Complexity problem addressed is moderate acute complicated. No critical care time. Complex data reviewed and analyzed is extensive. Test ordered test reviewed results analyzed and correlated clinically with history physical exam. Risk of complication and risk of morbidity/mortality patient management is high. Patient requires hospitalization for further evaluation and treatment. Vital stable. Time spent in the patient approximately 15 minutes. Plan of care established for shared decision making. No social determinants of health present to pain follow-up. Portions of this note were created with voice recognition technology. There may be grammatical, spelling, punctuation or sound alike errors 11/27/23 14:03 Counseled pt/family regarding: lab results, diagnosis - Departure Departure Disposition: Observation Clinical Impression: Diarrhea, Abdominal pain, Hypokalemia, Left lower lobe pleural mass, Diverticulosis, Gallstone, AAA (abdominal aortic aneurysm), Renal cyst, right, Cyst of left kidney Condition: Stable Critical Care Time: No Referrals: ANDRADE ZAVALA [Primary Care Provider] - Follow up/PCP as directed
[2023-11-27 09:49] LABS: Absolute Neutrophil Ct (ANC) 13.82 x10^3/uL (1.78-5.38); BASOPHIL % 0.2 % (0.2-1.2); Basophil (Absolute #) 0.03 x10^3/uL (0.01-0.08); Eosinophil % 0.6 % (0.8-7.0); Hematocrit 53.3 % (40.1-51.0); Hemoglobin 17.3 g/dL (13.7-17.5); IMMATURE GRAN # 0.05 x10^3u/L (0.001-0.031); IMMATURE GRAN % 0.3 % (0.001-0.429); Lymphocyte (Absolute #) 0.62 x10^3/uL (1.32-3.57); Mean Cell Volume 94.2 fL (79.0-92.2); Mean Corpuscular Hemoglobin 30.6 pg (25.7-32.2); Mean Corpuscular Hgb Concent. 32.5 g/dL (32.3-36.5); Mean Platelet Volume 9.8 fL (9.4-12.4); Monocyte (Absolute #) 1.06 x10^3/uL (0.30-0.82); Monocytes % 6.8 % (5.3-12.2); Neutrophil % 88.1 % (34.0-67.9); Platelet Count 205 x10^3/uL (163-337); Red Blood Count 5.66 x10^6/uL (4.63-6.08); Red Cell Distribution Width 11.9 % (11.6-14.4); White Blood Count 15.7 x10^3/uL (4.23-9.07)
[2023-11-27 10:02] LABS: ALBUMIN 4.6 g/dL (3.5-5.0); ANION GAP 15.5 MEQ/L (5-15); BILIRUBIN,TOTAL 0.6 mg/dL (0.2-1.3); Calcium 9.4 mg/dL (8.4-10.2); Creatinine 1 1.14 mg/dL (0.66-1.25); EST GLOMERULAR FILTRATION RATE 64.2 ML/MIN; Potassium 3.3 mmol/L (3.5-5.1); Total Protein 7.7 g/dL (6.3-8.2)
[2023-11-27 10:25] LABS: INFLUENZA A NEGATIVE (NEGATIVE); INFLUENZA B NEGATIVE (NEGATIVE); RESPIRATORY SYNCTIAL VIRUS NEGATIVE (NEGATIVE); SARS-CoV-2 Xpert Express NEGATIVE (NEGATIVE)
[2023-11-27 11:21] LABS: 027 TOX PROD PRESUMPTIVE NEGATIVE (NEGATIVE); TOXIGENIC C. DIFF ORG NEGATIVE (NEGATIVE)
--- NOTE | 2023-11-27 12:52 | XRAY ---
Indication: Pain and diarrhea. Multiple contiguous axial images obtained through abdomen and pelvis without contrast. Comparison: August 01, 2023 Lung bases again demonstrates pulmonary emphysema and scattered subsegmental atelectasis/scarring. Left lower lobe demonstrates grossly stable 4.6 x 2.4 cm subpleural masslike opacity. Heart not enlarged again with scattered coronary calcifications. Noncontrasted stomach and bowel loops appear nonobstructed. Appendix not visualized.. Again mild scattered colonic diverticulosis without diverticulitis. New mild diffuse colonic diarrhea. Again distended gallbladder with tiny gallstones/gravel. Spleen remains enlarged measuring 15.7 cm. Again a few chronic pancreatitis calcifications, benign chunky prostate calcifications, 2.6 cm right renal cyst, and 1 cm round left renal complex viscus cyst. Again moderate scattered arteriosclerotic disease with smaller distal AAA measuring at least 4.5 x 4.9 cm. New aortobiiliac stents appear lack of IV contrast precludes further vascular evaluation. Remaining liver, gallbladder, pancreas, spleen, adrenal glands, kidneys, ureters, and bladder are unremarkable for noncontrast exam. Osseous structures intact again with osteopenia, mild multilevel thoracolumbar degenerative spondylosis, mild levoscoliosis, minimal grade 1 listhesis L4 on L5, and mild degenerative changes both hips. Impression: 1. New colonic diarrhea. 2. Again arteriosclerotic disease with smaller distal AAA. New aortobiiliac stents. 3. Grossly stable appearing left lower lobe masslike opacity. Again rule out malignancy. 4. Continued distended gallbladder with tiny gallstones/gravel. 5. Chronic findings including pulmonary emphysema, atelectasis/scarring, colonic diverticulosis, chronic pancreatitis calcifications, bilateral renal cysts, benign prostate macrocalcifications, and chronic bony findings.
[2023-11-27] MEDS ORDERED: Klor Con ONE (13:32)
[2023-11-27] MEDS: Klor Con PO ONE (13:33)
--- NOTE | 2023-11-27 15:00 | PCM.HP ---
History of Present Illness - Chief Complaint Chief Complaint: Diarrhea, dehydration, sinus tachycardia Date: 11/27/23 History of Present Illness: is a 83 year old male with PMHX of arrythmia, CAD, HTN, [place], Lung cancer, GI ulcer, chronic back pain, CABG, chronic back pain, arthritis, and lobectomy. Pt presented to our ED via EMS for evaluation of abdominal pain, diarrhea, and tachycardia. Patient states the abdominal pain is coupled with diarrhea. EMS administered Fentanyl for pain control. Upon arrival to our ED patient had the urge to defecate. No specific worsening or improving factors. No trauma no fever. Patient voices no other complaints or concerns at this time. C- diff test negative. K+ 3.3 and replaced in ER. Will recheck. IVF and clear liquid diet started. Since admission HR improved. Will consult surgery for gallbladder findings. Continue IVF. Pt denies CP, SOB, abd. pain now, N/V. - Review of Systems Constitutional: No Fever, No Chills Eyes: No Symptoms Ears, Nose, & Throat: No Symptoms Respiratory: No Cough, No Short Of Breath Cardiac: No Chest Pain, No Edema, No Syncope Abdominal/Gastrointestinal: Abdominal Pain, Diarrhea, No Nausea, No Vomiting Genitourinary Symptoms: No Dysuria Musculoskeletal: No Back Pain, No Neck Pain Skin: No Rash Neurological: No Dizziness, No Focal Weakness, No Sensory Changes Psychological: No Symptoms Endocrine: No Symptoms Hematologic/Lymphatic: No Symptoms Immunological/Allergic: No Symptoms Medications & Allergies Home Medications: Home Medication List Amlodipine Besylate 5 mg [Norvasc 5 mg] 10 mg PO 2300 11/07/21 [History Confirmed 11/27/23] Hydrocodone/Acetaminophen [[place] 10-325 mg] 1 tablet PO 0000,0600,1200,1800 11/07/21 [History Confirmed 11/27/23] Allergies/Adverse Reactions: Allergies Allergy/AdvReac Type Severity Reaction Status Date / Time Antihistamines - Alkylamine Allergy Verified 08/01/23 18:14 bacitracin Allergy Verified 08/01/23 18:14 miconazole nitrate Allergy Verified 08/01/23 18:14 [From Neosporin AF] NSAIDS (Non-Steroidal Allergy Verified 08/01/23 18:14 Anti-Inflamma Mlioybt-OZG-EnR Reductase Allergy Verified 08/01/23 18:14 Inhibitor [Oiyugym-Qwm-Fxx Reductase Inhibitor] cyclobenzaprine AdvReac Irregular Verified 08/01/23 18:14 [facility] - Past Medical History Past Medical History: Yes Neurological History: No Pertinent History ENT History: No Pertinent History Cardiac History: Arrhythmia, Coronary Artery Disease, Hypertension, Myocardial Infarction ([place]) Respiratory History: Lung Cancer Endocrine Medical History: No Pertinent History Musculoskelatal History: Arthritis GI Medical History: Ulcer History: No Pertinent History Pyscho-Social History: No Pertinent History Male Reproductive Disorders: No Pertinent History Comment: Chronic back pain - Past Surgical History Past Surgical History: Yes Neuro Surgical History: No Pertinent History Cardiac History: CABG, Cardiac Catheterization, Cardiac Stent Respiratory Surgery: Lobectomy GI Surgical History: No Pertinent History Genitourinary Surgical Hx: No Pertinent History Musculskeletal Surgical Hx: Orthopedic Surgery Male Surgical History: No Pertinent History Other Surgical History: bypass and 4 stents, left knee surgery "cleaned out around the knee", left shoulder surg "removed something that was restricting blood flow because my shoulder just hung."; rt lower 2/3 lung removed Significant Family History: no pertinent family hx - Social History Smoking Status: Never smoker Exposure to second hand smoke: No Alcohol: None Drug Use: none - Social Determinants of Health Will the patient participate in the screening: Yes Do you worry about a steady place to live?: No Do you have any problems with any of the following?: No known problems In the past 12 months,have you had to go without utilities?: No Have you or anyone in your house had to go without enough: No Transportation Issues: No Has anyone in your support network made you feel unsafe?: No Does the patient want assistance with any of the above?: No - Physical Exam Vital Signs: Vital Signs - 24 hr Temp Pulse Resp BP BP Pulse Ox 11/27/23 14:40 98 11/27/23 14:16 99 11/27/23 14:15 95 H 14 121/84 99 11/27/23 14:00 107 H 16 125/95 99 11/27/23 13:46 123 H 16 131/97 99 11/27/23 13:30 122 H 15 107/73 93 L 11/27/23 13:15 102 H 14 131/82 98 11/27/23 13:01 98 H 15 128/85 98 11/27/23 12:45 103 H 134/74 97 11/27/23 12:30 117 H 14 122/78 97 11/27/23 12:15 102 H 22 122/80 98 11/27/23 12:01 105 H 19 132/81 99 11/27/23 12:00 102 H 23 11/27/23 11:50 98 11/27/23 11:49 97 11/27/23 10:45 111/83 11/27/23 10:40 94 H 101/76 98 11/27/23 10:00 124 H 18 110/70 97 11/27/23 09:45 102 H 12 107/80 97 11/27/23 09:27 97.5 F 105 H 20 116/70 99 General Appearance: no apparent distress, alert Neurologic Exam: alert, oriented x 3, cooperative, normal mood/affect, nml cerebellar function, nml station & gait, sensation nml, No motor deficits Eye Exam: PERRL/EOMI, eyes nml inspection Ears, Nose, Throat Exam: normal ENT inspection, TMs normal, pharynx normal, moist mucous membranes Neck Exam: normal inspection, non-tender, supple, full range of motion Respiratory Exam: normal breath sounds, lungs clear, No respiratory distress Cardiovascular Exam: regular rate/rhythm, normal heart sounds, normal peripheral pulses Gastrointestinal/Abdomen Exam: soft, normal bowel sounds, No tenderness, No mass Back Exam: normal inspection, normal range of motion, No CVA tenderness, No vertebral tenderness Extremity Exam: normal inspection, normal range of motion, pelvis stable Skin Exam: normal color, warm, dry, No rash Lymphatic Exam: No adenopathy Results - Labs Lab/Micro Results: Lab Results-Last 24 Hours 11/27/23 11/27/23 11/27/23 Range/Units 09:35 09:35 09:35 WBC 15.7 H (4.23-9.07) x10^3/uL RBC 5.66 (4.63-6.08) x10^6/uL Hgb 17.3 (13.7-17.5) g/dL Hct 53.3 H (40.1-51.0) % MCV 94.2 H (79.0-92.2) fL MCH 30.6 (25.7-32.2) pg MCHC 32.5 (32.3-36.5) g/dL RDW 11.9 (11.6-14.4) % Plt Count 205 (163-337) x10^3/uL MPV 9.8 (9.4-12.4) fL Gran % 88.1 H (34.0-67.9) % Immature Gran % (Auto) 0.3 (0.001-0.429) % Nucleat RBC Rel Count 0.0 (0.00-0.2) % Eos # (Auto) 0.10 (0.04-0.54) x10^3/uL Immature Gran # (Auto) 0.05 H (0.001-0.031) x10^3u/L Absolute Lymphs (auto) 0.62 L (1.32-3.57) x10^3/uL Absolute Monos (auto) 1.06 H (0.30-0.82) x10^3/uL Absolute Nucleated RBC 0.00 (0.00-0.012) x10^3u/L Lymphocytes % 4.0 L (21.8-53.1) % Monocytes % 6.8 (5.3-12.2) % Eosinophils % 0.6 L (0.8-7.0) % Basophils % 0.2 (0.2-1.2) % Absolute Granulocytes 13.82 H (1.78-5.38) x10^3/uL Basophils # 0.03 (0.01-0.08) x10^3/uL Sodium 140 (135-145) mmol/L Potassium 3.3 L (3.5-5.1) mmol/L Chloride 104 (98-107) mmol/L Carbon Dioxide 24 (22-30) mmol/L Anion Gap 15.5 H (5-15) MEQ/L BUN 21 H (9-20) mg/dL Creatinine 1.14 (0.66-1.25) mg/dL Estimated GFR 64.2 ML/MIN Glucose 134 H (74-106) mg/dL Calcium 9.4 (8.4-10.2) mg/dL Total Bilirubin 0.60 (0.2-1.3) mg/dL AST 28 (17-59) U/L ALT 24 (0-50) U/L Alkaline Phosphatase 110 (38-126) U/L Troponin I < 0.012 (0.000-0.033) ng/mL Serum Total Protein 7.7 (6.3-8.2) g/dL Albumin 4.6 (3.5-5.0) g/dL Lipase 28 (23-300) U/L C. difficile Screen (NEGATIVE) C.difficile 027-NAP1-B1 (NEGATIVE) Influenza Type A Ag (NEGATIVE) Influenza Type B Ag (NEGATIVE) RSV (PCR) (NEGATIVE) SARS-CoV-2 (PCR) (NEGATIVE) 11/27/23 11/27/23 11/27/23 Range/Units 09:40 13:35 Unknown WBC (4.23-9.07) x10^3/uL RBC (4.63-6.08) x10^6/uL Hgb (13.7-17.5) g/dL Hct (40.1-51.0) % MCV (79.0-92.2) fL MCH (25.7-32.2) pg MCHC (32.3-36.5) g/dL RDW (11.6-14.4) % Plt Count (163-337) x10^3/uL MPV (9.4-12.4) fL Gran % (34.0-67.9) % Immature Gran % (Auto) (0.001-0.429) % Nucleat RBC Rel Count (0.00-0.2) % Eos # (Auto) (0.04-0.54) x10^3/uL Immature Gran # (Auto) (0.001-0.031) x10^3u/L Absolute Lymphs (auto) (1.32-3.57) x10^3/uL Absolute Monos (auto) (0.30-0.82) x10^3/uL Absolute Nucleated RBC (0.00-0.012) x10^3u/L Lymphocytes % (21.8-53.1) % Monocytes % (5.3-12.2) % Eosinophils % (0.8-7.0) % Basophils % (0.2-1.2) % Absolute Granulocytes (1.78-5.38) x10^3/uL Basophils # (0.01-0.08) x10^3/uL Sodium (135-145) mmol/L Potassium (3.5-5.1) mmol/L Chloride (98-107) mmol/L Carbon Dioxide (22-30) mmol/L Anion Gap (5-15) MEQ/L BUN (9-20) mg/dL Creatinine (0.66-1.25) mg/dL Estimated GFR ML/MIN Glucose (74-106) mg/dL Calcium (8.4-10.2) mg/dL Total Bilirubin (0.2-1.3) mg/dL AST (17-59) U/L ALT (0-50) U/L Alkaline Phosphatase (38-126) U/L Troponin I < 0.012 (0.000-0.033) ng/mL Serum Total Protein (6.3-8.2) g/dL Albumin (3.5-5.0) g/dL Lipase (23-300) U/L C. difficile Screen NEGATIVE (NEGATIVE) C.difficile 027-NAP1-B1 PRESUMPTIVE NEGATIVE (NEGATIVE) Influenza Type A Ag NEGATIVE (NEGATIVE) Influenza Type B Ag NEGATIVE (NEGATIVE) RSV (PCR) NEGATIVE (NEGATIVE) SARS-CoV-2 (PCR) NEGATIVE (NEGATIVE) - Radiology Impressions Radiology Exams & Impressions: Radiology Procedures Category Date Time Status ABDOMEN AND PELVIS W/0 CONTRAS [CT] Stat Exams 11/27/23 09:32 Completed Assessment/Plan (1) Abdominal pain Current Visit: Yes Status: Acute Assessment & Plan: - CT abd: 11/27/23 Impression: 1. New colonic diarrhea. 2. Again arteriosclerotic disease with smaller distal AAA. New aortobiiliac stents. 3. Grossly stable appearing left lower lobe masslike opacity. Again rule out malignancy. 4. Continued distended gallbladder with tiny gallstones/gravel. 5. Chronic findings including pulmonary emphysema, atelectasis/scarring, colonic diverticulosis, chronic pancreatitis calcifications, bilateral renal cysts, benign prostate macrocalcifications, and chronic bony findings. - Liquid diet - Surgery consulted for distended gallbladder- pt states he has a known hx of gallbladder functioning at 15% in the past- unable to find results to confirm this. - Pain meds Code(s): R10.9 - UNSPECIFIED ABDOMINAL PAIN (2) Diarrhea Current Visit: Yes Status: Acute Assessment & Plan: - C-diff negative - Clear liquid diet - IVF - imodium Code(s): R19.7 - DIARRHEA, UNSPECIFIED (3) Hypokalemia Current Visit: Yes Status: Acute Assessment & Plan: - K+ 3.3- replaced in ER - Will recheck Code(s): E87.6 - HYPOKALEMIA (4) AAA (abdominal aortic aneurysm) Current Visit: Yes Status: Chronic Assessment & Plan: -as seen on CT results - Pt reports he is aware of this and recently had surgery Code(s): I71.40 - ABDOMINAL AORTIC ANEURYSM, WITHOUT RUPTURE, UNSPECIFIED (5) Chronic back pain Current Visit: Yes Status: Acute Assessment & Plan: - Pt has chronic back pain and follows Dr. Jorge with pain management - Will restart Narcotic pain mediation. Code(s): M54.9 - DORSALGIA, UNSPECIFIED; G89.29 - OTHER CHRONIC PAIN (6) Mass of lower lobe of left lung Current Visit: Yes Status: Acute Assessment & Plan: - as seen on CT scan. - Pt states he is aware of this an has a PET scan scheduled at the end of he month for further evaluation VTE: SCD's PPI: Protonix Next of KIN: D/C plan: 1-2 days Code(s): R91.8 - OTHER NONSPECIFIC ABNORMAL FINDING OF LUNG FIELD
[2023-11-27] MEDS ORDERED: IMODIUM 2 MG PO PRN (15:24)
[2023-11-27] MEDS: PROTONIX 40 MG IV IV SCH (16:35)
[2023-11-27] MEDS: NORCO 10-325 MG PO SCH (16:35)
[2023-11-27 17:22] LABS: MAGNESIUM 1.8 mg/dL (1.6-2.3); Potassium 3.7 mmol/L (3.5-5.1)
[2023-11-27] MEDS: NORVASC 5 MG PO SCH (21:16)
[2023-11-27] MEDS ORDERED: NON-FORMULARY ITEM (Amlodipine Besylate [Amlodipine Besylate] 10 MG Tablet) PO SCH (22:00)
[2023-11-28 00:43] LABS: Appearance Turbid (Clear); Bacteria None Seen /HPF (None Seen); Bilirubin Negative (Negative); Blood Negative (Negative); Epithelial Cells None Seen /HPF (None Seen); Glucose, Urine Negative (Negative); Hyaline Casts NONE SEEN /LPF (0-2); Ketones Trace (Negative); Leukocyte Esterase Negative (Negative); Nitrite Negative (Negative); Ph 5.5 (4.6-8.0); Protein,Urine Dip Negative (Negative); RBC 0-2 /HPF (0-5); Specific Gravity 1.025 (1.005-1.030); Urobilinogen 0.2 mg/dL (0.2); WBC 0-2 /HPF (0-5)
[2023-11-28 00:52] LABS: ADD URINE CULTURE? NO (NO)
[2023-11-28 04:51] LABS: Hematocrit 42.9 % (40.1-51.0); Hemoglobin 14.1 g/dL (13.7-17.5); Mean Cell Volume 91.9 fL (79.0-92.2); Mean Corpuscular Hemoglobin 30.2 pg (25.7-32.2); Mean Corpuscular Hgb Concent. 32.9 g/dL (32.3-36.5); Mean Platelet Volume 11.1 fL (9.4-12.4); Platelet Count 147 x10^3/uL (163-337); Red Blood Count 4.67 x10^6/uL (4.63-6.08); Red Cell Distribution Width 12.3 % (11.6-14.4); White Blood Count 5.9 x10^3/uL (4.23-9.07)
[2023-11-28 05:20] LABS: ALBUMIN 3.6 g/dL (3.5-5.0); ANION GAP 10.5 MEQ/L (5-15); BILIRUBIN,TOTAL 0.5 mg/dL (0.2-1.3); Calcium 8.4 mg/dL (8.4-10.2); Creatinine 1 0.8 mg/dL (0.66-1.25); EST GLOMERULAR FILTRATION RATE 88.4 ML/MIN; Potassium 3.8 mmol/L (3.5-5.1); Total Protein 6.2 g/dL (6.3-8.2)
[2023-11-28 07:26] VITALS: RESP 18
--- NOTE | 2023-11-28 09:26 | XRAY ---
Indication: Abdominal pain. Distended gallbladder on recent CT. Two-dimensional gallbladder sonogram performed. Comparison: None Pancreas obscured due to overlying bowel gas. Visualized gallbladder is moderately distended with tiny gallstones/gravel in dependent portion. No abnormal gallbladder wall thickening or pericholecystic fluid. Common bile duct measures 5.7 mm. No intrahepatic biliary distention. Visualized liver demonstrates mild fatty echogenicity without focal solid/cystic mass. Right kidney measures 9.7 x 5.4 x 6.3 cm and demonstrates 2.1 cm midpole cortical cyst. No hydronephrosis. Impression: 1. Nonvisualization pancreas. 2. Distended gallbladder with tiny gallstones/gravel. Negative for acute cholecystitis or biliary distention. 3. Incidental right renal cyst.
--- NOTE | 2023-11-28 11:58 | PCM.DS ---
Discharge Summary Date of Admission: 11/27/23 14:30 Date of Discharge: 11/28/23 Admitting Physician: SANDRA JOHNSON MD Consults: Consults on Case 11/27/23 15:23 Consult Surgery ROUTINE Primary Care Provider: ANDRADE ZAVALA Allergies Allergies Antihistamines - Alkylamine Allergy (Verified 08/01/23 18:14) bacitracin Allergy (Verified 08/01/23 18:14) miconazole nitrate [From Neosporin AF] Allergy (Verified 08/01/23 18:14) NSAIDS (Non-Steroidal Anti-Inflamma Allergy (Verified 08/01/23 18:14) Ajfpdsm-UFD-MsG Reductase Inhibitor [Uovrlto-Jfi-Qet Reductase Inhibitor] Allergy (Verified 08/01/23 18:14) cyclobenzaprine Adverse Reaction (Verified 08/01/23 18:14) Irregular [facility] Summary - Hospital Course Hospital Course: 11/27/23 is a 83 year old male with PMHX of arrythmia, CAD, HTN, [place], Lung cancer (on chronic 2lNC O2), GI ulcer, chronic back pain, CABG, chronic back pain, arthritis, and lobectomy. Pt presented to our ED via EMS for evaluation of abdominal pain, diarrhea, and tachycardia. Patient states the abdominal pain is coupled with diarrhea. EMS administered Fentanyl for pain control. Upon arrival to our ED patient had the urge to defecate. No specific worsening or improving factors. No trauma no fever. Patient voices no other complaints or concerns at this time. C- diff test negative. K+ 3.3 and replaced in ER. Will recheck. IVF and clear liquid diet started. Since admission HR improved. Will consult surgery for gallbladder findings. Continue IVF. Pt denies CP, SOB, abd. pain now, N/V. 11/28/23 Pt resting in bed. He states he feels much better today. ordered an US of his gallbladder today. If he does not have surgery today he would like to go home. Diarrhea has resolved. Hypokalemia resolved. He is no longer having any pain. He is on his baseline home O2 of 2lNC. He denies any further concerns at this time. - Vitals & Intake/Output Vital Signs: Vital Signs Temperature 97.1 F 11/28/23 07:25 Pulse Rate 84 11/28/23 07:25 Respiratory Rate 18 11/28/23 07:25 Blood Pressure 138/86 11/28/23 07:25 O2 Sat by Pulse Oximetry 95 11/28/23 07:25 Intake & Output: Intake & Output 11/25/23 11/26/23 11/27/23 11/28/23 11:59 11:59 11:59 11:59 Intake Total 2004 Output Total 500 Balance 1505 Weight 80.9 kg 80.3 kg - Lab Result Diagrams: 11/28/23 04:35 11/28/23 04:35 Lab Results-Last 24 Hrs: Lab Results-Last 24 Hours 11/27/23 11/27/23 11/27/23 Range/Units 00:09 13:35 17:02 WBC (4.23-9.07) x10^3/uL RBC (4.63-6.08) x10^6/uL Hgb (13.7-17.5) g/dL Hct (40.1-51.0) % MCV (79.0-92.2) fL MCH (25.7-32.2) pg MCHC (32.3-36.5) g/dL RDW (11.6-14.4) % Plt Count (163-337) x10^3/uL MPV (9.4-12.4) fL Sodium (135-145) mmol/L Potassium (3.5-5.1) mmol/L Chloride (98-107) mmol/L Carbon Dioxide (22-30) mmol/L Anion Gap (5-15) MEQ/L BUN (9-20) mg/dL Creatinine (0.66-1.25) mg/dL Estimated GFR ML/MIN Glucose (74-106) mg/dL Calcium (8.4-10.2) mg/dL Magnesium (1.6-2.3) mg/dL Total Bilirubin (0.2-1.3) mg/dL AST (17-59) U/L ALT (0-50) U/L Alkaline Phosphatase (38-126) U/L Troponin I < 0.012 < 0.012 (0.000-0.033) ng/mL Serum Total Protein (6.3-8.2) g/dL Albumin (3.5-5.0) g/dL Urine Color Yellow (Yellow) Urine Appearance Turbid A (Clear) Urine pH 5.5 (4.6-8.0) Ur Specific [place] 1.025 (1.005-1.030) Urine Protein Negative (Negative) Urine Glucose (UA) Negative (Negative) mg/dL Urine Ketones Trace A (Negative) Urine Blood Negative (Negative) Urine Nitrite Negative (Negative) Urine Bilirubin Negative (Negative) Urine Urobilinogen 0.2 (0.2) mg/dL Ur Leukocyte Esterase Negative (Negative) U Hyaline Cast (Auto) NONE SEEN (0-2) /LPF Urine Microscopic RBC 0-2 (0-5) /HPF Urine Microscopic WBC 0-2 (0-5) /HPF Ur Epithelial Cells None Seen (None Seen) /HPF Urine Bacteria None Seen (None Seen) /HPF Urine Culture Reflexed NO (NO) 11/27/23 11/28/23 11/28/23 Range/Units 17:02 04:35 04:35 WBC 5.9 (4.23-9.07) x10^3/uL RBC 4.67 (4.63-6.08) x10^6/uL Hgb 14.1 (13.7-17.5) g/dL Hct 42.9 (40.1-51.0) % MCV 91.9 (79.0-92.2) fL MCH 30.2 (25.7-32.2) pg MCHC 32.9 (32.3-36.5) g/dL RDW 12.3 (11.6-14.4) % Plt Count 147 L (163-337) x10^3/uL MPV 11.1 (9.4-12.4) fL Sodium 137 (135-145) mmol/L Potassium 3.7 3.8 (3.5-5.1) mmol/L Chloride 106 (98-107) mmol/L Carbon Dioxide 24 (22-30) mmol/L Anion Gap 10.5 (5-15) MEQ/L BUN 15 (9-20) mg/dL Creatinine 0.80 (0.66-1.25) mg/dL Estimated GFR 88.4 ML/MIN Glucose 96 (74-106) mg/dL Calcium 8.4 (8.4-10.2) mg/dL Magnesium 1.8 2.0 (1.6-2.3) mg/dL Total Bilirubin 0.50 (0.2-1.3) mg/dL AST 23 (17-59) U/L ALT 18 (0-50) U/L Alkaline Phosphatase 86 (38-126) U/L Troponin I (0.000-0.033) ng/mL Serum Total Protein 6.2 L (6.3-8.2) g/dL Albumin 3.6 (3.5-5.0) g/dL Urine Color (Yellow) Urine Appearance (Clear) Urine pH (4.6-8.0) Ur Specific [place] (1.005-1.030) Urine Protein (Negative) Urine Glucose (UA) (Negative) mg/dL Urine Ketones (Negative) Urine Blood (Negative) Urine Nitrite (Negative) Urine Bilirubin (Negative) Urine Urobilinogen (0.2) mg/dL Ur Leukocyte Esterase (Negative) U Hyaline Cast (Auto) (0-2) /LPF Urine Microscopic RBC (0-5) /HPF Urine Microscopic WBC (0-5) /HPF Ur Epithelial Cells (None Seen) /HPF Urine Bacteria (None Seen) /HPF Urine Culture Reflexed (NO) - Radiology Exams Ordered Rad Exams-Entire Visit: Radiology Procedures Category Date Time Status ABDOMEN AND PELVIS W/0 CONTRAS [CT] Stat Exams 11/27/23 09:32 Completed GALLBLADDER [US] Routine Exams 11/28/23 08:00 Completed - Procedures and Test Procedures and Tests throughout Hospitalization: Therapy Orders & Screens 11/27/23 15:51 OT Screen per Nursing Assess ONCE Comment: Protocol Order Physician Instructions: Greater than 3 points order OT Admission Screening Reason For Exam: Triggered on Admission Diagnosis: Diarrhea, dehydration, sinus tachycardia Open Wound/Cellutlitis/Pressure Ulcers: No Acute Fx/ORIF/Change in wt bearing status: No Severe MUSCULOSKELETAL pain: Yes ADL Dysfunction: Yes Acute CVA w/Hemiparesis/Hemiplegia: No Decreased Functional Mobility/Strength: No Sprain/Strain: No Acute Post-op Mobility Dysfunction: No Total Points: 8 PT Screen per Nursing Assess ONCE Comment: Protocol Order Physician Instructions: Greater than 3 points order PT Admission Screenin Reason For Exam: Triggered on Admission Diagnosis: Diarrhea, dehydration, sinus tachycardia Open Wound/Cellutlitis/Pressure Ulcers: No Acute Fx/ORIF/Change in wt bearing status: No Severe MUSCULOSKELETAL pain: Yes ADL Dysfunction: Yes Acute CVA w/Hemiparesis/Hemiplegia: No Decreased Functional Mobility/Strength: No Sprain/Strain: No Acute Post-op Mobility Dysfunction: No Total Points: 8 ST Screen per Nursing Assess ONCE Comment: Protocol Order Physician Instructions: Greater than [address] Admission Screening Reason For Exam: Triggered on Admission Diagnosis: Diarrhea, dehydration, sinus tachycardia CVA/Dyshpagia/Aphasia: No Cognitive Deficits: No Dehydration/Nutrition Deficit: Yes Reflux: No Oral-Motor Difficulties: No Pneumonia: No Skilled Nursing Resident: No Total Points: 5 11/27/23 15:57 EKG STAT Comment: Diagnosis: Diarrhea, dehydration, sinus tachycardia 11/27/23 16:35 Oxygen NASAL CANNULA 2 lpm Comment: Diagnosis: Diarrhea, dehydration, sinus tachycardia Discharge Exam General Appearance: no apparent distress, alert Neurologic Exam: alert, oriented x 3, cooperative, normal mood/affect, nml cereb ellar function, sensation nml, No motor deficits Eye Exam: PERRL, EOMI, eyes nml inspection Ears, Nose, Throat Exam: normal ENT inspection, pharynx normal, moist mucous membranes Neck Exam: normal inspection, non-tender, supple, full range of motion Respiratory Exam: normal breath sounds, lungs clear, No respiratory distress Cardiovascular Exam: regular rate/rhythm, normal heart sounds Gastrointestinal/Abdomen Exam: soft, No tenderness, No mass Male Genitalia Exam: deferred Rectal Exam: deferred Back Exam: normal inspection, normal range of motion, No CVA tenderness, No vertebral tenderness Extremity Exam: normal inspection, normal range of motion Skin Exam: normal color, warm, dry Final Diagnosis/Problem List - Final Discharge Diagnosis/Problem (1) Abdominal pain Current Visit: Yes Status: Acute Code(s): R10.9 - UNSPECIFIED ABDOMINAL PAIN (2) Diarrhea Current Visit: Yes Status: Acute Code(s): R19.7 - DIARRHEA, UNSPECIFIED (3) Hypokalemia Current Visit: Yes Status: Acute Code(s): E87.6 - HYPOKALEMIA (4) AAA (abdominal aortic aneurysm) Current Visit: Yes Status: Chronic Code(s): I71.40 - ABDOMINAL AORTIC ANEURYSM, WITHOUT RUPTURE, UNSPECIFIED (5) Chronic back pain Current Visit: Yes Status: Acute Code(s): M54.9 - DORSALGIA, UNSPECIFIED; G89.29 - OTHER CHRONIC PAIN (6) Mass of lower lobe of left lung Current Visit: Yes Status: Acute Assessment & Plan: (1) Abdominal pain Current Visit: Yes Status: Acute Assessment & Plan: - CT abd: 11/27/23 Impression: 1. New colonic diarrhea. 2. Again arteriosclerotic disease with smaller distal AAA. New aortobiiliac stents. 3. Grossly stable appearing left lower lobe masslike opacity. Again rule out malignancy. 4. Continued distended gallbladder with tiny gallstones/gravel. 5. Chronic findings including pulmonary emphysema, atelectasis/scarring, colonic diverticulosis, chronic pancreatitis calcifications, bilateral renal cysts, benign prostate macrocalcifications, and chronic bony findings. - Liquid diet - Surgery consulted for distended gallbladder- pt states he has a known hx of gallbladder functioning at 15% in the past- unable to find results to confirm this. - Pain meds 11/27 - US gallbladder 11/28/23 Impression: 1. Nonvisualization pancreas. 2. Distended gallbladder with tiny gallstones/gravel. Negative for acute cholecystitis or biliary distention. 3. Incidental right renal cyst. - GS contacted about report - GS called back and said pt can f/u OP - appointment to be made by US - Diet changed to regular-if tolerated may d/c. Code(s): R10.9 - UNSPECIFIED ABDOMINAL PAIN (2) Diarrhea Current Visit: Yes Status: Acute Assessment & Plan: - C-diff negative - Clear liquid diet - IVF - imodium 11/27 - diarrhea has resolved Code(s): R19.7 - DIARRHEA, UNSPECIFIED (3) Hypokalemia Current Visit: Yes Status: Acute Assessment & Plan: - K+ 3.3- replaced in ER - Will recheck 11/27 - K+ 3.8 resolved Code(s): E87.6 - HYPOKALEMIA (4) AAA (abdominal aortic aneurysm) Current Visit: Yes Status: Chronic Assessment & Plan: -as seen on CT results - Pt reports he is aware of this and recently had surgery Code(s): I71.40 - ABDOMINAL AORTIC ANEURYSM, WITHOUT RUPTURE, UNSPECIFIED (5) Chronic back pain Current Visit: Yes Status: Acute Assessment & Plan: - Pt has chronic back pain and follows Dr. Jorge with pain management - Will restart Narcotic pain mediation. Code(s): M54.9 - DORSALGIA, UNSPECIFIED; G89.29 - OTHER CHRONIC PAIN (6) Mass of lower lobe of left lung Current Visit: Yes Status: Acute Assessment & Plan: - as seen on CT scan. - Pt states he is aware of this an has a PET scan scheduled at the end of he month for further evaluation Code(s): R91.8 - OTHER NONSPECIFIC ABNORMAL FINDING OF LUNG FIELD - Discharge Discharge Date: 11/28/23 Disposition: Home, Self-Care Condition: Stable Prescriptions: Continue Hydrocodone/Acetaminophen [[place] 10-325 mg] 1 tablet PO 0000,0600,1200,1800 Amlodipine Besylate 5 mg PO HS Additional Instructions: You can use OTC imodium for diarrhea if needed. Follow the label directions and do not exceed the daily recommended dose. Follow up with: ANDRADE ZAVALA [Primary Care Provider] -
[2023-11-28] MEDS: ECOTRIN 81 MG PO SCH (16:29)
[2023-11-28 17:00] VITALS: BP 135/74; PULSE 103; TEMP 97.4; O2SAT 95
--- NOTE | 2023-11-29 00:21 | CONS ---
DATE OF CONSULTATION: 11/28/2023 HISTORY OF PRESENT ILLNESS: This is an 83-year-old male who presented to the hospital with 1 to 2 days of diarrhea, non-bloody, not associated with nausea, vomiting. Not associated with abdominal pain. He does not have this routinely. This was new for him. Labs in the ER were unremarkable. CAT scan was done, which showed a distended gallbladder with small stone. Stone ultrasound was ordered and surgery was consulted to rule out a gallbladder issue. He was seen at our group over 10 years ago for gallbladder concerns before, but ultimately they decided not to do surgery and he has been living relatively fine since then. PAST MEDICAL HISTORY: He is on home oxygen with emphysema from smoking history. 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 SOCIAL HISTORY: As stated, he used to smoke but he does not drink and never done any drugs. LABS: Unremarkable. Bilirubin is normal. LFTs are normal. RADIOLOGY FINDINGS: As stated, CAT scan shows a distended gallbladder with some stones and ultrasound confirms the findings. No pericholecystic fluid. No gallbladder wall thickening. No large stones impacted at the neck. CBD is normal. PHYSICAL EXAMINATION: GENERAL: Alert and oriented. Comfortable in the bed. VITAL SIGNS: Stable. RESPIRATORY: He does have some wheezing on nasal cannula but he is conversational. CARDIOVASCULAR: Not on pressors, regular rate and rhythm. ABDOMEN: Soft, nontender, nondistended. EXTREMITIES: Perfused extremities moving appropriately. ASSESSMENT: This is an 83-year-old male with diarrhea of unclear etiology and asymptomatic cholelithiasis. PLAN: No need for surgery. I do not believe that he would benefit from gallbladder surgery at this time, plus he would be high risk regardless for surgery. The cause of his diarrhea is unclear. Most likely it is due to an infectious etiology. 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 Of note, I would recommend daily aspirin for now but he does not show signs of chronic mesenteric ischemia or acute mesenteric ischemia at that. He is okay for diet. No antibiotics required and he is stable for discharge from our perspective. Please page us as needed. We will follow peripherally. Thank you for the consultation.
== END 2023-11-28 17:15 | disposition home or self-care (01) ==
LOC: ED 09:26 → MED SURG 14:30
PROVIDERS: ADMIT Internal Medicine; ATTEND Internal Medicine
DX: R10.9 Unspecified abdominal pain (principal); R19.7 Diarrhea, unspecified; E87.6 Hypokalemia; I71.40 Abdominal aortic aneurysm, without rupture, unspecified; M54.9 Dorsalgia, unspecified; G89.29 Other chronic pain; R91.8 Other nonspecific abnormal finding of lung field; I25.10 Atherosclerotic heart disease of native coronary artery without angina pectoris; I10 Essential (primary) hypertension; I25.2 Old myocardial infarction; Z85.118 Personal history of other malignant neoplasm of bronchus and lung; Z95.0 Presence of cardiac pacemaker; Z79.899 Other long term (current) drug therapy
CPT/HCPCS: 0241U; 36000; 36415; 74176; 76705; 80053; 81001; 83690; 83735; 84132; 84484; 85025; 85027; 87045; 87046; 87427; 87493; 93005; 94762; 96360; 96361; 99285; Q3014; 93268; A9270-GY; G0378